=== PATIENT | male | born 1970 | race Caucasian/White ===

== ENCOUNTER 2023-07-19 14:50 | Outpatient (OUT) | payer BC, SELFPAY ==
--- NOTE | 2023-07-19 15:02 | XR_ITS ---
The [address] [address] Patient Name: CARLOS MOSELEY MRN: [id number] date: 1970 Sex: M Assigned Patient Location: RAD Current Patient Location: RAD Accession/Order Number: [id number] Exam Date: 07/19/2023 15:10 Report Date: 07/19/2023 15:41 At the request of: GREGOR DAVID Procedure: XR chest 2V PROCEDURE: XR chest 2V DATE: 07/19/2023 2:10 PM CDT COMPARISONS: Chest x-ray from 12/16/2022. CT of the chest 12/18/2022. CLINICAL INDICATION: 52 years Male ACUTE BRONCHITIS J20.8 FINDINGS: The heart is markedly enlarged. Poststernotomy changes are identified. There is diffuse increased interstitial markings throughout all lung crowder probably representing interstitial fluid possibly with some developing pulmonary edema. There is no definite pleural effusion. There is no evidence of pneumothorax. XR/XR chest 2V IMPRESSION: 1. Cardiomegaly 2. Probable pulmonary vascular congestion 3. History reports acute bronchitis. Some overlying interstitial inflammatory infiltrate is not excluded. Electronically authenticated by: KRAIG PATEL Date: 07/19/2023 15:41
== END 2023-07-19 14:51 | disposition home or self-care (01) ==
LOC: RAD 14:55
PROVIDERS: PCP Internal Medicine; Visit Provider Internal Medicine
DX: J20.8 Acute bronchitis due to other specified organisms (principal)
CPT/HCPCS: 71046

== ENCOUNTER 2023-11-15 08:06 | Outpatient (OUT) | payer BC, SELFPAY ==
--- NOTE | 2023-11-15 08:52 | CA_ITS ---
Patient Name: CARLOS MOSELEY MR#: [id number] : 1970 Exam Date: 11/15/2023 Ordering Doctor: KWABENA DE LA CRUZ ECHOCARDIOGRAM REPORT PROCEDURE: CA ECHO DOPPLER COMPLETE INDICATIONS: Paroxysmal atrial fibrillation, CABGx4, stents COMPARISON: None. DESCRIPTION: COMPLETE ECHOCARDIOGRAM Real-time transthoracic echocardiography with 2D, M-mode, spectral and color flow Doppler performed. QUALITY: Technically difficult due to patients condition. 55 , 300#, BSA 2.05 m2 LEFT VENTRICLE: Normal chamber size. Borderline left ventricular hypertrophy. LV EF: Global left ventricular systolic function is difficult to assess but appears preserved. Unable to assess regional wall motion abnormalities. Suggest contrast study for better delineation of endocardial borders. DIASTOLIC: Unable to be assessed due to underlying rhythm. ATRIAL SEPTUM: Inadequately seen. LEFT ATRIUM: Moderate dilatation. RIGHT ATRIUM: Inadequately visualized. RIGHT VENTRICLE: Inadequately visualized. TRICUSPID VALVE: Not well visualized. MITRAL VALVE: Normal mobility and thickness. There is no mitral annular calcification. AORTIC VALVE: Normal trileaflet appearance. No visible sclerosis. Normal leaflet mobility. AORTIC ROOT: Inadequately seen. PULMONIC VALVE: Normal thickness and mobility. No stenosis. No regurgitation. PERICARDIUM: No evidence of pericardial effusion. IVC: Not well visualized. CONCLUSION: Suboptimal study due to patient's body habitus. Global left ventricular systolic function is difficult to assess but appears preserved. Consider contrast study for better delineation of endocardial borders. Valvular structures are poorly seen. Adult Echocardiography Procedure Report Left Ventricle LVEDD (3.7 - 5.6 cm): 5.35 cm LVESD (2.2 - 4.0 cm): 3.39 cm LVIVS thickness (0.6 - 1.2 cm): 1.02 cm LVPW thickness (0.5 - 1.0 cm): 1.45 cm e': 0.06 m/s E - e': 9.89 LVOT Diameter 1.98 cm Left Atrium LA Volume Index (2D A2C): 45.77 ml/m2 Left Atrium Systolic Dimension: 5.22 cm Mitral Valve MV E to A Ratio: 2.26 Mitral Valve A-Wave Peak Velocity: 0.27 m/s Mitral Valve E-Wave Peak Velocity: 0.61 m/s Right Ventricle Aorta AO Root Diam: 2.85 cm Aortic Valve Peak Velocity(Antegrade Flow): 1.34 m/s Peak Gradient(Antegrade Flow): 7.14 mm[Hg] Mean Velocity(Antegrade Flow): 0.93 m/s Mean Gradient(Antegrade Flow): 3.88 mm[Hg] Velocity Time Integral: 27.48 cm Tricuspid Valve Pulmonic Valve Peak Velocity: 1.13 m/s Peak Gradient: 5.25 mm[Hg], 5.05 mm[Hg] Right Atrium Dictated by: Macario Crowder M.D. on 11/15/2023 at 09:48 Approved by: Macario Crowder M.D. on 11/15/2023 at 09:51
== END 2023-11-15 08:07 | disposition home or self-care (01) ==
LOC: CARD 08:07
PROVIDERS: PCP Internal Medicine; Visit Provider Nurse Practitioner
DX: I48.0 Paroxysmal atrial fibrillation (principal)
CPT/HCPCS: 93306

== ENCOUNTER 2023-12-08 15:06 | Outpatient (OUT) | payer BC, SELFPAY ==
--- OUTSIDE RECORDS SUMMARY | 2023-12-08 15:20 | XMS_ITS | CCD ---
Author Name Unknown Address [address] [place] [address] Organization [facility] Care Team Providers Care Registered Nurse [facility] Name Role Phone SIVAKUMAR PATEL Referring Unavailable JORGE, SIVAKUMAR Primary Care Unavailable UNKNOWN, PROVIDER Attending Unavailable UNKNOWN, PROVIDER Admitting Unavailable Jorge, Sivakumar Unavailable Asaad, Imad Unavailable JORGE, DR BUNDY Primary Care Unavailable JORGE, DR BUNDY Consulting Unavailable BALL, DR BUNDY Attending Unavailable JORGE, DR BUNDY Admitting Unavailable MATTEO, LILIAM Admitting Unavailable LILIAM FELPIE Attending Unavailable JORGE, DR BUNDY Primary Care Unavailable JORGE, DR BUNDY Primary Care Unavailable BALL, DR BUNDY Consulting Unavailable JORGE, DR BUNDY Attending Unavailable BALL, DR BUNDY Admitting Unavailable ROYCE, DR DEANN Rosario Consulting Unavailable JORGE, DR BUNDY Attending Unavailable JORGE, DR BUNDY Primary Care Unavailable JORGE, DR BUNDY Admitting Unavailable BALL, DR BUNDY Primary Care Unavailable BALL, DR BUNDY Attending Unavailable BALL, DR BUNDY Admitting Unavailable DELEON ., DR FAIZA Boyer Admitting Unavailable DELEON ., DR FAIZA Boyer Consulting Unavailable JORGE, DR BUNDY Primary Care Unavailable DELEON ., DR FAIZA Boyer Attending Unavailable PARISA ., DR BANGURA Procedure Practitioner Unavailab christina STORY, DR KARLOS Lawrence Consulting Unavailable HAY ., DR BANGURA Consulting Unavailable SAMSA ., ALEX Consulting Unavailable AHDOOT, KASHIF Consulting Unavailable FAWWAD, SHAIKH Marya Consulting Unavailable JENNIFER, CINDY Consulting Unavailable NEFCYKANDI Consulting Unavailable LOPES COLE Consulting Unavailable JORGE, DR BUNDY Primary Care Unavailable JORGE, DR BUNDY Attending Unavailable BALL, DR BUNDY Admitting Unavailable WEST, DR DEANN Rosario Consulting Unavailable LILIAM FELIPE Attending Unavailable LILIAM FELIPE Admitting Unavailable BALL, DR BUNDY Primary Care Unavailable MATTEO, LILIAM Consulting Unavailable LILIAM FELIPE Attending Unavailable MATTEO, LILIAM Admitting Unavailable LILIAM FELIPE Consulting Unavailable DR SIVAKUMAR PATEL Primary Care Unavailable DO Sivakumar Patel Primary Care Provider [phone] DO Sivakumar Patel Attending Provider Sivakumar Patel Attending Unavailable Sivakumar Patel Primary Care Unavailable Sivakumar Patel Admitting Unavailable Karen Giles Unavailable KWABENA DE LA CRUZ Attending Unavailable KWABENA DE LA CRUZ Attending Unavailable Allergies Allergy Classification Reported Allergen(s) Allergy Type Date of Onset Reaction(s) Facility Sulfonamides (antibiotic) (1 source) Sulfonamides (Antibiotic) Drug Allergy 04-04-20 13 [facility] (20 sources) Sulf-10 Drug allergy anaphylaxis, HIVES [facility] Other (2 sources) Sulfonamides (Antibiotic) Drug allergy (disorder) 03-26-20 13 [facility]ository (1 source) patient allergy list reviewed by nurse or physicia Propensity to adverse reactions 02-05-20 Comment:Done [facility] Other (1 source) Allergies Reconciled Propensity to adverse reactions Unknown [facility] Other (1 source) Substance with sulfonamide structure and antibacterial mechanism of action (substance) Drug allergy Unknown [facility] Other (1 source) Sulfonamides (Antibiotic); 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: [SULFA (SULFONAMIDE ANTIBIOTICS)] Propensity to adverse reactions to drug (disorder) 10-24-20 14 [facility] Medications Current Medications Medication Drug Class(es) Dates Sig (Normalized) Sig (Original) acetaminophen 325 mg / oxyCODONE hydrochloride 5 mg oral tablet (20 sources) Opioid Agonist Start: 11-03-2023 take 1 tablet by mouth every six hours as needed for pain Percocet 5-325 MG 1 tablet orally every 6 hours as needed for pain p/u 11/03, start 11/05Oct, Active Start: 10-05-2023 take 1 tablet by jorge th every six hours as needed for pain Percocet 5-325 MG 1 tablet orally every 6 hours as needed for pain for 30 days p/u 10/05, start 10/06Sep, Active Start: 09-06-2023 take 1 tablet by jorge th every six hours as needed for pain Percocet 5-325 MG 1 tablet orally every 6 hours as needed for pain for 30 days start 09/06Sep, Active Start: 08-07-2023 take 1 tablet by jorge th every six hours as needed for pain Percocet 5-325 MG 1 tablet orally every 6 hours as needed for pain for 30 days start 08/07Aug, Active Start: 07-04-2023 take 1 tablet by jorge th every six hours as needed for pain Percocet 5-325 MG 1 tablet orally every 6 hours as needed for pain for 30 days p/u 07/04, start 07/05Jun, Active Start: 06-03-2023 take 1 tablet by jorge th every six hours as needed for pain Percocet 5-325 MG 1 tablet orally every 6 hours as needed for pain for 30 days p/u 06/03, start 06/05May, Active Start: 05-05-2023 take 1 tablet by jorge th every six hours as needed for pain Percocet 5-325 MG 1 tablet orally every 6 hours as needed for pain for 30 days p/u 05/05, start 05/06Apr, Active Start: 04-05-2023 take 1 tablet by jorge th every six hours as needed for pain Percocet 5-325 MG 1 tablet orally every 6 hours as needed for pain for 30 days Start 04/06March, Active Start: 03-07-2023 take 1 tablet by jorge th every six hours as needed for pain Percocet 5-325 MG 1 tablet orally every 6 hours as needed for pain for 30 days p/u 5/, start 03/08March, Active Start: 02-06-2023 take 1 tablet by jorge th every six hours as needed for pain Percocet 5-325 MG 1 tablet orally every 6 hours as needed for pain for 30 days start 02/06Feb, Active Start: 01-06-2023 take 1 tablet by jorge th every six hours as needed for pain Percocet 5-325 MG 1 tablet orally every 6 hours as needed for pain for 30 days p/u 3/, start 01/07Jan, Active Start: 12-08-2022 take 1 tablet by jorge th every six hours as needed for pain Percocet 5-325 MG 1 tablet orally every 6 hours as needed for pain for 30 days Dec, Active [id number] actuat albuterol 0.09 mg/actuat metered dose inhaler (20 sources) beta2-Adrenergic Agonist Start: 02-16-2023 take 2 puff(s) by inhalation every four hours as needed for cough Albuterol Sulfate HFA 108 (90 Base) MCG/ACT 2 puffs Inhalation every 4 hrs as needed for cough, SOB Feb, Active Start: 02-16-2023 take 2 puff(s) by in halation every four hours as needed for cough Albuterol Sulfate HFA 108 (90 Base) MCG/ACT 2 puffs Inhalation every 4 hrs as needed for cough, SOB Feb, Active Start: 02-16-2023 take 2 puff(s) by in halation every four hours as needed for cough Albuterol Sulfate HFA 108 (90 Base) MCG/ACT 2 puffs Inhalation every 4 hrs as needed for cough, SOB Feb, Active take 1 puff(s) by in halation every four hours as needed Albuterol Sulfate HFA 108 (90 Base) MCG/ACT 1 puff as needed Inhalation every 4 hrs Active take 1 puff(s) by in halation every four hours as needed Albuterol Sulfate HFA 108 (90 Base) MCG/ACT 1 puff as needed Inhalation every 4 hrs Active ProAir HFA Activ e albuterol 0.833 mg/ml / ipratropium bromide 0.167 mg/ml inhalation solution (20 sources) Anticholinergic, beta2-Adrenergic Agonist Start: 02-16-2023 Ipratropium-Albuterol 0.5-2.5 (3) MG/3ML 3 mL as needed Inhalation twice daily and q 6 hours PRN cough, SOB Feb, Active amiodarone hydrochloride 200 mg oral tablet (20 sources) Antiarrhythmic take 1 tablet by mouth every twenty-fou r hours Amiodarone HCl 200 MG 1 tablet Orally Once a day Active amLODIPine 10 mg oral tablet (20 sources) Dihydropyridine Calcium Channel Karma take 1 tablet by mouth once daily amLODIPine Besylate 10 MG TAKE 1 TABLET BY MOUTH EVERY DAY Active amoxicillin 875 mg / clavulanate 125 mg oral tablet (7 sources) Penicillin-class Antibacterial Start: 07-12-2023 take 1 tablet by mouth every twelve hours Amoxicillin-Pot Clavulanate 875-125 MG 1 tablet Orally every 12 hrs for 5 days Jul, Active aspirin 81 mg oral tablet (20 sources) Platelet Aggregation Inhibitor, Nonsteroidal Anti-inflammatory Drug take 2 tablets by mouth once daily Aspir-Low 81 MG 2 tablets Orally Once a day Active Aspirin 162 MG O rally Not-Taking atorvastatin 80 mg oral tablet (20 sources) HMG-CoA Reductase Inhibitor take 1 tablet by mouth once daily in the evening Atorvastatin Calcium 80 MG TAKE 1 TABLET BY MOUTH EVERY DAY IN THE EVENING Active 60 actuat budesonide 0.08 mg/actuat / formoterol fumarate 0.0045 mg/actuat metered dose inhaler (16 sources) Corticosteroid, beta2-Adrenergic Agonist Start: 06-20-20 take 2 puff(s) by inhalation twice daily Symbicort 80-4.5 MCG/ACT 2 puffs Inhalation Twice a day Jun, Active Start: 06-20-2023 take 2 puff(s) by in halation twice daily Symbicort 80-4.5 MCG/ACT 2 puffs Inhalation Twice a day Jun, Active cefuroxime 500 mg oral tablet (18 sources) Cephalosporin Antibacterial Start: 08-22-2023 take 1 tablet by mouth every twelve hours Cefuroxime Axetil 500 MG 1 tablet Orally every 12 hrs for 5 days Aug, Active Start: 01-11-2023 take 1 tablet by jorge th every twelve hours Cefuroxime Axetil 500 MG 1 tablet Orally every 12 hrs for 5 days Jan, Active cetirizine hydrochloride 10 mg oral tablet (20 sources) Histamine-1 Receptor Antagonist Cetirizine HCl 10 MG Orally Active cyclobenzaprine hydrochloride 10 mg oral tablet (20 sources) Muscle Relaxant Start: take 1 tablet by mouth every eight hours Cyclobenzaprine HCl 10 MG 1 tablet as needed Orally Three times a day Jun, Active doxycycline hyclate 100 mg oral capsule (3 sources) Tetracycline-class Drug Start: take 1 capsule by mouth twice daily Doxycycline Hyclate 100 MG 1 capsule Orally twice daily for 5 days Aug, Active fluticasone propionate 0.05 mg/actuat metered dose nasal spray (20 sources) Corticosteroid take 1 spray(s) nasal route once daily Fluticasone Propionate 50 MCG/ACT 1 spray in each nostril Nasally Once a day Active take 1 spray(s) nasal route once daily Fluticasone Propionate 50 MCG/ACT 1 spray in each nostril Nasally Once a day Active take 1-2 spray(s) na naif route once daily at bedtime FLONASE 50 mcg 1-2 sprays each NOSTRIL Q HS Active furosemide 40 mg oral tablet (20 sources) Loop Diuretic take 1 tablet by mouth twice daily Furosemide 40 MG 1 tablet Orally twice daily Active take 4 tablets by mo uth every twenty-four hours Furosemide 40 MG 4 tablets Orally Once a day for 30 days Active Lasix Not-Taking Isosorbide (20 sources) Nitrate Vasodilator Imdur 60 MG Active levoFLOXacin 750 mg oral tablet (5 sources) Quinolone Antimicrobial Start: 07-12-20 take 1 tablet by mouth every twenty-four hours levoFLOXacin 750 MG 1 tablet Orally Once a day for 5 days Jul, Active lisinopril 20 mg oral tablet (20 sources) Angiotensin Converting Enzyme Inhibitor take 1 tablet by mouth twice daily Lisinopril 20 MG TAKE 1 TABLET BY MOUTH TWICE A DAY Active metoprolol tartrate 50 mg oral tablet (20 sources) beta-Adrenergic Karma take 1 tablet by mouth every twelve hours Metoprolol Tartrate 50 MG 1 tablet with food Orally Twice a day Active take 1 tablet by mouth twice karlos ly Metoprolol Tartrate 100 MG TAKE 1 TABLET BY MOUTH TWICE A DAY Active potassium chloride 10 meq extended release oral tablet (20 sources) take 1 tablet by jorge th once daily Potassium Chloride ER 10 MEQ TAKE 1 TABLET BY MOUTH EVERY DAY Active take 1 tablet by jorge th every twelve hours Potassium Chloride ER 10 MEQ 1 tablet wi th food Orally Twice a day Active predniSONE 20 mg oral tablet (9 sources) Start: 07-12-2023 take 1 tablet by mouth every twenty-four hours predniSONE 20 MG 1 tablet Orally Once a day for 5 days Aug, Active rivaroxaban (20 sources) Factor Xa Inhibitor Start: 11-28-2022 Xarelto 20 20 Once PO Daily Nov, Active take 1 tablet by jorge th every twenty-four hours Xarelto 20 MG 1 tablet with food Orally Once a day Active tiZANidine 4 mg oral tablet (20 sources) Central alpha-2 Adrenergic Agonist take 0.5 tablet by mouth every eight hours as needed for pain tiZANidine HCl 4 MG TAKE 1/2 TABLET BY MOUTH EVERY 8 HOURS NEEDED FOR PAIN *MAY CAUSE SEDATION* for 90 Active tiZANidine HCl N ot-Taking Vitamin B Complex (20 sources) Vitamin B Comple x Active Completed/Discontinued Medications Medication Drug Class(es) Dates Sig (Normalized) Sig (Original) cefTRIAXone (20 sources) Cephalosporin Antibacterial Start: 12-28-2018 Rocephin 500 mg Dec, 1000 mg clopidogrel (20 sources) P2Y12 Platelet Inhibitor Plavix Not-Taking Ketorolac (20 sources) Nonsteroidal Anti-inflammatory Drug, Cyclooxygenase Inhibitor Start: 06-13-2020 Toradol per 15 mg Jun, 30 mg Start: 09-20-2019 Toradol per 15 mg Sep, 30 mg Start: 08-02-2019 Toradol per 15 mg Jul, 30 mg methylPREDNISolone 4 mg oral tablet (20 sources) Corticosteroid Start: 06-13-2020 Medrol 4 MG as directed Orally for 6 days Jun, Not-Taking Triamcinolone (20 sources) Corticosteroid Start: 06-13-2020 KENALOG - 10 m g Jun, 40 mg Start: 09-20-2019 KENALOG - 10 m g Sep, 40 mg Start: 08-02-2019 Kenalog -40 mg Jul, 40 mg Problems Active Problems Problem Classification Problem Date Documented Date Episodic/Chronic Acute bronchitis (20 sources) Acute bronchitis; 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: [Acute bronchitis due to other specified organisms] Onset: 01-15-2015 Episodic Asthma (20 sources) Unspecified asthma with status asthmaticus; 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: [Uncomplicated asthma] Onset: 12-22-2014 Chronic Cardiac dysrhythmias (20 sources) Paroxysmal atrial fibrillation; 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: [Paroxysmal atrial fibrillation] Onset: 04-27-2015 Chronic Chronic obstructive pulmonary disease and bronchiectasis (18 sources) Chronic obstructive pulmonary disease with acute lower respiratory infection; 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: [Chronic obstructive pulmonary disease with (acute) lower respiratory infection] Resolved: 10-10-2022 Chronic Congestive heart failure; nonhypertensive (20 sources) Chronic systolic (congestive) heart failure; 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: [Chronic systolic heart failure] Onset: 01-17-2023 Chronic Coronary atherosclerosis and other heart disease (20 sources) Coronary arteriosclerosis; 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: [Atherosclerotic heart disease of [place] coronary artery without angina pectoris] Onset: 07-25-2022 Chronic Coronary atherosclerosis and other heart disease (1 source) Presence of aortocoronary bypass graft; 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: [PRESENCE AORTOCORONARY BYPASS GRAFT] Onset: 01-17-2023 Episodic Disorders of lipid metabolism (20 sources) Pure hypercholesterolemia; 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: [Familial hypercholesterolemia] Onset: 10-16-2015 Chronic Esophageal disorders (5 sources) Esophageal disorders; 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: [Gastro-esophageal reflux disease with esophagitis, without bleeding] Onset: 10-01-2018 Essential hypertension (20 sources) Essential hypertension; 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: [Essential (primary) hypertension] Chronic Fluid and electrolyte disorders (20 sources) Hypokalemia; 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: [Hypokalemia] Episodic Headache; including migraine (5 sources) Migraine with aura; 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: [Migraine with aura, not intractable, without status migrainosus] Onset: 03-30-2018 Chronic Heart valve disorders (1 source) Nonrheumatic mitral (valve) insufficiency; 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: [NONRHEUMATIC MITRAL INSUFFICIENCY] Onset: 07-08-2022 Chronic Hypertension with complications and secondary hypertension (1 source) Hypertensive heart disease with heart failure; 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: [HTN HEART DISEASE W/HEART FAIL] Onset: 01-17-2023 Chronic Immunizations and screening for infectious disease (5 sources) Vaccination given; 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: [Encounter for immunization] Episodic Nutritional deficiencies (1 source) Mild protein-calorie malnutrition; 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: [MILD PROTEIN-CALORIE MALNUTRITION] Onset: 01-17-2023 Chronic Osteoarthritis (20 sources) Bilateral arthritis of knees; 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: [Bilateral primary osteoarthritis of knee] Chronic Other aftercare (20 sources) Long-term current use of anticoagulant; 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: [correction (current) use of anticoagulants] Episodic Other aftercare (20 sources) Long-term current use of antibiotic; 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: [termite control servicer (current) use of antibiotics] Episodic Other aftercare (3 sources) termite control servicer (current) use of anticoagulants; 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: [SNF CURRNT USE ANTICOAGULANTS] Onset: 01-17-2023 Episodic Other aftercare (1 source) correction (current) use of aspirin; 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: [HOME APPLIANCES MECHANIC 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 ASPIRIN] Onset: 01-17-2023 Episodic Other aftercare (12 sources) Drug therapy finding; 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: [termite control servicer (current) use of anticoagulants] Episodic Other and unspecified benign neoplasm (5 sources) Benign neoplasm of colon; 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: [Benign neoplasm of colon, unspecified] Episodic Other congenital anomalies (5 sources) Achondroplasia; 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 Other connective tissue disease (20 sources) Artificial knee joint present; 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: [Presence of right artificial knee joint] Chronic Other diseases of veins and lymphatics (20 sources) Peripheral venous insufficiency; 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: [Venous insufficiency (chronic) (peripheral)] Onset: 06-12-2019 Episodic Other diseases of veins and lymphatics (5 sources) Venous insufficiency (chronic) (peripheral) Episodic Other ear and sense organ disorders (5 sources) Otitis externa of right ear; 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: [Unspecified otitis externa, right ear] Onset: 04-21-2016 Chronic Other eye disorders (1 source) Anisocoria; 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: [ANISOCORIA] Onset: 01-17-2023 Chronic Other fractures (5 sources) Closed fracture of multiple ribs; 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: [Closed fracture of multiple ribs, unspecified] Episodic Other hematologic conditions (20 sources) Secondary polycythemia; 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: [Secondary polycythemia] Onset: 02-16-2022 Episodic Other hematologic conditions (7 sources) Secondary polycythemia; 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: [SECONDARY POLYCYTHEMIA] Onset: 02-10-2022 Episodic Other lower respiratory disease (20 sources) Dyspnea on exertion; 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: [Other forms of dyspnea] Episodic Other lower respiratory disease (20 sources) Hypoxemia; 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: [Hypoxemia] Episodic Other lower respiratory disease (20 sources) Dyspnea; 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: [Shortness of breath] Episodic Other lower respiratory disease (20 sources) Restrictive lung disease; 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: [Other disorders of lung] Episodic Other lower respiratory disease (8 sources) Hypoxemia; 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: [HYPOXEMIA] Onset: 02-10-2022 Episodic Other lower respiratory disease (8 sources) Other disorders of lung; 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: [OTHER DISORDERS OF LUNG] Onset: 01-17-2023 Episodic Other lower respiratory disease (1 source) Shortness of breath Episodic Other lower respiratory disease (1 source) Shortness of breath; 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: [Shortness of breath] Onset: 03-01-2023 Episodic Other lower respiratory disease (1 source) Hemoptysis Episodic Other nervous system disorders (20 sources) Hypersensitivity finding; 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: [Desensitization to allergy shot] Episodic Other non-traumatic joint disorders (1 source) Lower limb joint arthritis; 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: [Osteoarthrosis, unspecified whether generalized or localized, lower leg] Onset: 03-07-2016 Chronic Other nutritional; endocrine; and metabolic disorders (20 sources) Morbid obesity; 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: [Morbid (severe) obesity due to excess calories] Chronic Other nutritional; endocrine; and metabolic disorders (20 sources) Extreme obesity with alveolar hypoventilation; 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: [Morbid (severe) obesity with alveolar hypoventilation] Chronic Other nutritional; endocrine; and metabolic disorders (20 sources) Obesity; 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: [Obesity, unspecified] Chronic Other nutritional; endocrine; and metabolic disorders (5 sources) Morbid (severe) obesity due to excess calories; 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: [MORBID SEVERE OBES D/T EXCESS AFUA] Onset: 01-17-2023 Chronic Other nutritional; endocrine; and metabolic disorders (1 source) Body mass index (BMI) 70 or greater, adult; 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: [BODY MASS INDEX 70/GT ADULT] Onset: 01-17-2023 Chronic Other nutritional; endocrine; and metabolic disorders (3 sources) Morbid (severe) obesity with alveolar hypoventilation Chronic Other nutritional; endocrine; and metabolic disorders (5 sources) Body mass index 40+ - severely obese; 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: [Body mass index (BMI) 60.0-69.9, adult] Onset: 05-17-2016 Chronic Other screening for suspected conditions (not mental disorders or infectious disease) (20 sources) Prostate specific antigen measurement; 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: [Encounter for screening for malignant neoplasm of prostate] Onset: 06-30-2017 Episodic Other upper respiratory disease (20 sources) Allergic rhinitis; 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: [Allergic rhinitis due to allergen] Chronic Otitis media and related conditions (5 sources) Chronic purulent otitis media; 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: [Unspecified chronic suppurative otitis media] Onset: 01-01-2018 Chronic Pulmonary heart disease (1 source) Chronic pulmonary heart disease; 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: [Other chronic pulmonary heart diseases] Chronic Residual codes; unclassified (20 sources) Obstructive sleep apnea syndrome; 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: [Obstructive sleep apnea (adult) (pediatric)] Chronic Residual codes; unclassified (5 sources) Obstructive sleep apnea (adult) (pediatric); 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: [OBSTRUCTIVE SLEEP APNEA] Onset: 01-17-2023 Chronic Respiratory failure; insufficiency; arrest (adult) (20 sources) Chronic respiratory failure; 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: [Chronic respiratory failure with hypoxia] Onset: 01-17-2023 Chronic Respiratory failure; insufficiency; arrest (adult) (1 source) Acute respiratory failure with hypoxia; 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: [ACUTE RESPIRATORY FAIL W/HYPOXIA] Onset: 01-17-2023 Episodic Screening and history of mental health and substance abuse codes (20 sources) History of tobacco use; 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: [Personal history of nicotine dependence] Onset: 01-17-2023 Episodic Spondylosis; intervertebral disc disorders; other back problems (20 sources) Lumbar spondylosis; 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: [Spondylosis without myelopathy or radiculopathy, lumbar region] Onset: 10-27-2015 Chronic Spondylosis; intervertebral disc disorders; other back problems (20 sources) Sciatica; 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: [Sciatica, right side] Onset: 10-27-2015 Episodic Unclassified (1 source) OTHER GENETIC CAUSES SHORT STATURE; 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: [OTHER GENETIC CAUSES SHORT STATURE] Onset: 01-17-2023 Unclassified (1 source) PERSONAL HISTORY OF COVID-19; 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: [PERSONAL HISTORY OF COVID-19] Onset: 01-17-2023 Unclassified (4 sources) Other persistent atrial fibrillation; 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: [OTHR PERSISTENT ATRIAL FIBRILLATION] Onset: 07-07-2022 Unclassified (5 sources) Drug monitoring done; 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: [Encounter for therapeutic drug monitoring] Onset: 01-28-2016 Unclassified (5 sources) Long-term current use of drug therapy; 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: [Long-term (current) use of other medications] Onset: 01-23-2015 Unclassified (5 sources) History of disease caused by Severe acute respiratory syndrome coronavirus 2 (situation); 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: [Personal history of COVID-19] Viral infection (4 sources) COVID-19; 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: [COVID-19] Onset: 12-10-2022 Past or Other Problems Problem Classification Problem Date Documented Date Episodic/Chronic Bacterial infection; unspecified site (1 source) Bacterial infectious disease; 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: [Bacterial infection, unspecified, in conditions classified elsewhere and of unspecified site] Onset: 12-13-2016 Episodic Cardiac dysrhythmias (10 sources) Palpitations; 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: [Palpitations] Onset: 04-24-2015 Episodic Joint disorders and dislocations; trauma-related (5 sources) Current tear of medial cartilage AND/OR meniscus of knee; 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: [Other tear of medial meniscus, current injury, right knee, initial encounter] Onset: 07-13-2016 Episodic Malaise and fatigue (5 sources) Malaise and fatigue; 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: [Other malaise and fatigue] Onset: 10-01-2018 Episodic Other aftercare (3 sources) Other salvage determiner (current) drug therapy; 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: [OTH SNF CURRENT DRUG THERAPY] Onset: 01-17-2023 Episodic Other aftercare (5 sources) High risk drug monitoring status; 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: [termite control servicer (current) use of opiate analgesic] Onset: 06-28-2018 Episodic Other circulatory disease (5 sources) Cardiovascular symptoms; 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: [Other symptoms involving cardiovascular system] Onset: 12-18-2013 Episodic Other connective tissue disease (1 source) Swelling of limb; 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: [Swelling of limb] Onset: 05-27-2019 Episodic Other ear and sense organ disorders (5 sources) Infective otitis externa; 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: [Diffuse otitis externa, right ear] Resolved: 10-10-2022 Episodic Other ear and sense organ disorders (5 sources) Otalgia; 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: [Otalgia, right ear] Onset: 02-14-2017 Episodic Other lower respiratory disease (4 sources) Dyspnea, unspecified; 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: [DYSPNEA UNSPECIFIED] Onset: 02-07-2022 Episodic Other lower respiratory disease (5 sources) Cough; 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: [Cough, unspecified] Onset: 12-22-2014 Episodic Other non-traumatic joint disorders (5 sources) Arthralgia of the lower leg; 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: [Pain in right knee] Onset: 07-13-2016 Episodic Other nutritional; endocrine; and metabolic disorders (5 sources) Abnormal weight gain; 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: [Abnormal weight gain] Onset: 10-16-2015 Episodic Other upper respiratory infections (10 sources) Acute maxillary sinusitis; 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: [Acute maxillary sinusitis, unspecified] Onset: 01-24-2014 Episodic Otitis media and related conditions (20 sources) Otitis media; 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: [Unspecified otitis media] Onset: 01-24-2014 Resolved: 07-26-2021 Episodic Pneumonia (except that caused by tuberculosis or sexually transmitted disease) (5 sources) Infective pneumonia; 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: [Pneumonia due to other specified infectious organisms] Onset: 02-04-2019 Episodic Pneumonia (except that caused by tuberculosis or sexually transmitted disease) (20 sources) Pneumonia (except that caused by tuberculosis or sexually transmitted disease); 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: [Pneumonia due to Coronavirus disease 2018] Onset: 01-17-2023 Residual codes; unclassified (5 sources) C/O - a back symptom; 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: [Other symptoms referable to back] Onset: 04-24-2017 Episodic Residual codes; unclassified (5 sources) Family history of malignant neoplasm of gastrointestinal tract; 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: [Family history of malignant neoplasm of digestive organs] Onset: 07-21-2014 Episodic Unclassified (20 sources) Immune system finding; 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: [Allergy desensitization therapy] Results Test Name Value Interpretation Reference Range Facility Office Visiton 10-06-2023 Follow-up visit [id number] Carlos Cheek Flex 1970 M Date Provider Department Center 10/06/2023 KWABENA FERNÁNDEZ Family History Problem Relation Age of Onset Coronary artery disease Maternal Grandfather Family Status - Relation Status Age at Maternal Grandfather Level of Service:62724 DE OFFICE/OUTPATIENT ESTABLISHED MOD MDM 30 MIN Normal [facility] Office Visiton 05-03-2023 Follow-up visit [id number] Carlos Cheek Flex 1970 M Date Provider Department Center 05/03/2023 KWABENA FERNÁNDEZ Family History Problem Relation Age of Onset Coronary artery disease Maternal Grandfather Family Status - Relation Status Age at Maternal Grandfather Level of Service:70811 DE OFFICE/OUTPATIENT ESTABLISHED MOD MDM 30-39 MIN Reason for Visit and Comments: Follow-up [540174] - 6 month Normal [facility] CBC AUTO DIFFon 12-21-2022 BASO # 0.0 103/ul Normal 0.0-0.1 [facility] Comment on above: Performed By: #### C BC #### [facility] [address] [address] [address] Cecille Bradley Basophils/100 WBC (Bld) 0.4 % Normal 0.2-2.0 [facility] Comment on above: Performed By: #### C BC #### [facility] [address] [address] [address] Cecille Bradley EO # 0.1 103/ul Normal 0.0-0.7 [facility] Comment on above: Performed By: #### C BC #### [facility] [address] [place] [address] Dr. Cecille Bradley Eosinophils/100 WBC (Bld) 1.3 % Normal 0.9-7.0 [facility] Comment on above: Performed By: #### C BC #### [facility] [address] [place] [address] Dr. Cecille Bradley Erythrocyte distribution width (RBC) [Ratio] 13.5 % Normal 11.0-15.0 [facility] Comment on above: Performed By: #### C BC #### [facility] [address] [place] [address] Dr. Cecille Bradley Hematocrit (Bld) [Volume fraction] 46.1 % Normal 42.0-54.0 [facility] Comment on above: Performed By: #### C BC #### [facility] [address] [place] [address] Dr. Cecille Bradley Hemoglobin (Bld) [Mass/Vol] 15.3 g/dL Normal 14.0-18.0 [facility] Comment on above: Performed By: #### C BC #### [facility] [address] [place] [address] Dr. Cecille Bradley IG # 0.06 10e3/ul Critically high 0.00-0.03 [facility] Comment on above: Performed By: #### C BC #### [facility] [address] [place] [address] Dr. Cecille Bradley IG % 0.7 % Critically high 0.0-0.5 [facility] Comment on above: Performed By: #### C BC #### [facility] [address] [place] [address] Dr. Cecille Bradley LYMPH # 1.2 103/ul Normal 1.2-3.8 [facility] Comment on above: Performed By: #### C BC #### [facility] [address] [address] [address] Cecille Bradley Lymphocytes/100 WBC (Bld) 14.4 % Critically low 20.5-60.0 [facility] Comment on above: Performed By: #### C BC #### [facility] [address] [address] [address] Cecille Bradley MANUAL DIFF REQ NO Normal [facility] Comment on above: Performed By: #### C BC #### [facility] [address] [place] [address] Dr. Cecille Bradley MCH (RBC) [Entitic mass] 32.1 pg Normal 25.9-34.0 [facility] Comment on above: Performed By: #### C BC #### [facility] [address] [place] [address] Dr. Cecille Bradley MCHC (RBC) [Mass/Vol] 33.2 g/dL Normal 29.9-35.2 [facility] Comment on above: Performed By: #### C BC #### [facility] [address] [place] [address] Dr. Cecille Bradley MCV (RBC) [Entitic vol] 96.6 fL Critically high 80.0-94.0 [facility] Comment on above: Performed By: #### C BC #### [facility] [address] [place] [address] Dr. Cecille Bradley MONO # 0.7 103/ul Normal 0.3-0.8 [facility] Comment on above: Performed By: #### C BC #### [facility] [address] [place] [address] Dr. Cecille Bradley Monocytes/100 WBC (Bld) 8.3 % Normal 1.7-12.0 [facility] Comment on above: Performed By: #### C BC #### [facility] [address] [place] [address] Dr. Cecille Bradley NEUT # 6.2 103/ul Normal 1.4-6.5 [facility] Comment on above: Performed By: #### C BC #### [facility] [address] [place] [address] Dr. Cecille Bradley Neutrophils/100 WBC (Bld) 74.9 % Normal 43.0-75.0 [facility] Comment on above: Performed By: #### C BC #### [facility] [address] [place] [address] Dr. Cecille Bradley Platelet mean volume (Bld) [Entitic vol] 10.7 fL Normal 9.5-13.5 [facility] Comment on above: Performed By: #### C BC #### [facility] [address] [place] [address] Dr. Cecille Bradley PLT 174 103/ul Normal 150-450 [facility] Comment on above: Performed By: #### C BC #### [facility] [address] [place] [address] Dr. Cecille Bradley RBC 4.77 106/ul Normal 4.70-6.10 [facility] Comment on above: Performed By: #### C BC #### [facility] [address] [place] [address] Dr. Cecille Bradley WBC 8.3 103/ul Normal 4.0-11.0 [facility] Comment on above: Performed By: #### C BC #### [facility] [address] [place] [address] Dr. Cecille Bradley PROF 14(COMP METB)on 023 Albumin [Mass/Vol] 2.8 g/dL Critically low 3.4-5.0 [facility] Comment on above: Performed By: #### C MP #### [facility] [address] [place] [address] Dr. Cecille Bradley Albumin/Globulin [Mass ratio] 0.8 {ratio} Normal [facility] Comment on above: Performed By: #### C MP #### [facility] [address] [place] [address] Dr. Cecille Bradley ALP [Catalytic activity/Vol] 61 U/L Normal 46-116 [facility] Comment on above: Performed By: #### C MP #### [facility] [address] [place] [address] Dr. Cecille Bradley ALT [Catalytic activity/Vol] 68 U/L Critically high 16-63 [facility] Comment on above: Performed By: #### C MP #### [facility] [address] [address] [address] Cecille Bradley Anion gap [Moles/Vol] 10.0 mmol/L Normal [facility] Comment on above: Performed By: #### C MP #### [facility] [address] [address] [address] Cecille Bradley AST [Catalytic activity/Vol] 29 U/L Normal 15-37 [facility] Comment on above: Performed By: #### C MP #### [facility] [address] [address] [address] Cecille Bradley Bilirubin [Mass/Vol] 1.3 mg/dL Critically high 0.2-1.0 [facility] Comment on above: Performed By: #### C MP #### [facility] [address] [address] [address] Cecille Bradley Calcium [Mass/Vol] 8.9 mg/dL Normal 8.5-10.1 [facility] Comment on above: Performed By: #### C MP #### [facility] [address] [address] [address] Cecille Bradley Chloride [Moles/Vol] 103 mmol/L Normal 98-107 [facility] Comment on above: Performed By: #### C MP #### [facility] [address] [address] [address] Cecille Bradley CO2 [Moles/Vol] 29.8 mmol/L Normal 21.0-32.0 [facility] Comment on above: Performed By: #### C MP #### [facility] [address] [address] [address] Cecille Bradley Creatinine [Mass/Vol] 0.58 mg/dL Critically low 0.70-1.30 [facility] Comment on above: Performed By: #### C MP #### [facility] [address] [address] [address] Cecille Bradley EGFR-AF WALLISIAN >60 Normal >=60 [facility] Comment on above: Performed By: #### C MP #### [facility] [address] [address] [address] Cecille Bradley EGFR-NON AF WALLISIAN >60 Normal >=60 [facility] Comment on above: Performed By: #### C MP #### [facility] [address] [address] [address] Cecille Bradley Globulin (S) [Mass/Vol] 3.3 g/dL Normal [facility] Comment on above: Performed By: #### C MP #### [facility] [address] [address] [address] Cecille Bradley Glucose [Mass/Vol] 95 mg/dL Normal 74-106 [facility] Comment on above: Performed By: #### C MP #### [facility] [address] [address] [address] Cecille Bradley Potassium [Moles/Vol] 3.8 mmol/L Normal 3.5-5.1 [facility] Comment on above: Performed By: #### C MP #### [facility] [address] [address] [address] Cecille Bradley Protein [Mass/Vol] 6.1 g/dL Critically low 6.4-8.2 [facility] Comment on above: Performed By: #### C MP #### [facility] [address] [address] [address] Cecille Bradley Sodium [Moles/Vol] 139 mmol/L Normal 136-145 [facility] Comment on above: Performed By: #### C MP #### [facility] [address] [address] [address] Cecille Bradley Urea nitrogen [Mass/Vol] 18.0 mg/dL Normal 7.0-18.0 [facility] Comment on above: Performed By: #### C MP #### [facility] [address] [address] [address] Cecille Bradley Urea nitrogen/Creatinine [Mass ratio] 31.0 mg/mg Normal [facility] Comment on above: Performed By: #### C MP #### [facility] [address] [address] [address] Cecille Bradley CBC AUTO DIFFon 12-20-2022 BASO # 0.0 103/ul Normal 0.0-0.1 [facility] Comment on above: Performed By: #### C BC #### [facility] [address] [place] [address] Dr. Cecille Bradley Basophils/100 WBC (Bld) 0.2 % Normal 0.2-2.0 [facility] Comment on above: Performed By: #### C BC #### [facility] [address] [place] [address] Dr. Cecille Bradley EO # 0.1 103/ul Normal 0.0-0.7 [facility] Comment on above: Performed By: #### C BC #### [facility] [address] [place] [address] Dr. Cecille Bradley Eosinophils/100 WBC (Bld) 1.2 % Normal 0.9-7.0 [facility] Comment on above: Performed By: #### C BC #### [facility] [address] [place] [address] Dr. Cecille Bradley Erythrocyte distribution width (RBC) [Ratio] 13.8 % Normal 11.0-15.0 [facility] Comment on above: Performed By: #### C BC #### [facility] [address] [place] [address] Dr. Cecille Bradley Hematocrit (Bld) [Volume fraction] 45.6 % Normal 42.0-54.0 [facility] Comment on above: Performed By: #### C BC #### [facility] [address] [place] [address] Dr. Cecille Bradley Hemoglobin (Bld) [Mass/Vol] 15.3 g/dL Normal 14.0-18.0 [facility] Comment on above: Performed By: #### C BC #### [facility] [address] [place] [address] Dr. Cecille Bradley IG # 0.04 10e3/ul Critically high 0.00-0.03 [facility] Comment on above: Performed By: #### C BC #### [facility] [address] [address] [address] Cecille Bradley IG % 0.4 % Normal 0.0-0.5 [facility] Comment on above: Performed By: #### C BC #### [facility] [address] [place] [address] Dr. Cecille Bradley LYMPH # 1.6 103/ul Normal 1.2-3.8 [facility] Comment on above: Performed By: #### C BC #### [facility] [address] [place] [address] Dr. Cecille Bradley Lymphocytes/100 WBC (Bld) 17.5 % Critically low 20.5-60.0 [facility] Comment on above: Performed By: #### C BC #### [facility] [address] [place] [address] Dr. Cecille Bradley MANUAL DIFF REQ NO Normal [facility] Comment on above: Performed By: #### C BC #### [facility] [address] [place] [address] Dr. Cecille Bradley MCH (RBC) [Entitic mass] 32.4 pg Normal 25.9-34.0 [facility] Comment on above: Performed By: #### C BC #### [facility] [address] [place] [address] Dr. Cecille Bradley MCHC (RBC) [Mass/Vol] 33.6 g/dL Normal 29.9-35.2 [facility] Comment on above: Performed By: #### C BC #### [facility] [address] [place] [address] Dr. Cecille Bradley MCV (RBC) [Entitic vol] 96.6 fL Critically high 80.0-94.0 [facility] Comment on above: Performed By: #### C BC #### [facility] [address] [place] [address] Dr. Cecille Bradley MONO # 0.8 103/ul Normal 0.3-0.8 [facility] Comment on above: Performed By: #### C BC #### [facility] [address] [place] [address] Dr. Cecille Bradley Monocytes/100 WBC (Bld) 9.3 % Normal 1.7-12.0 [facility] Comment on above: Performed By: #### C BC #### [facility] [address] [place] [address] Dr. Cecille Bradley NEUT # 6.4 103/ul Normal 1.4-6.5 [facility] Comment on above: Performed By: #### C BC #### [facility] [address] [place] [address] Dr. Cecille Bradley Neutrophils/100 WBC (Bld) 71.4 % Normal 43.0-75.0 [facility] Comment on above: Performed By: #### C BC #### [facility] [address] [place] [address] Dr. Cecille Bradley Platelet mean volume (Bld) [Entitic vol] 10.8 fL Normal 9.5-13.5 [facility] Comment on above: Performed By: #### C BC #### [facility] [address] [place] [address] Dr. Cecille Bradley PLT 181 103/ul Normal 150-450 [facility] Comment on above: Performed By: #### C BC #### [facility] [address] [place] [address] Dr. Cecille Bradley RBC 4.72 106/ul Normal 4.70-6.10 [facility] Comment on above: Performed By: #### C BC #### [facility] [address] [place] [address] Dr. Cecille Bradley WBC 9.0 103/ul Normal 4.0-11.0 [facility] Comment on above: Performed By: #### C BC #### [facility] [address] [place] [address] Dr. Cecille Bradley PROF 14(COMP METB)on 023 Albumin [Mass/Vol] 2.7 g/dL Critically low 3.4-5.0 [facility] Comment on above: Performed By: #### C BC #### [facility] [address] [place] [address] Dr. Cecille Bradley Albumin/Globulin [Mass ratio] 0.8 {ratio} Normal [facility] Comment on above: Performed By: #### C BC #### [facility] [address] [place] [address] Dr. Cecille Bradley ALP [Catalytic activity/Vol] 66 U/L Normal 46-116 [facility] Comment on above: Performed By: #### C BC #### [facility] [address] [place] [address] Dr. Cecille Bradley ALT [Catalytic activity/Vol] 46 U/L Normal 16-63 [facility] Comment on above: Performed By: #### C BC #### [facility] [address] [place] [address] Dr. Cecille Bradley Anion gap [Moles/Vol] 8.3 mmol/L Normal [facility] Comment on above: Performed By: #### C BC #### [facility] [address] [place] [address] Dr. Cecille Bradley AST [Catalytic activity/Vol] 27 U/L Normal 15-37 [facility] Comment on above: Performed By: #### C BC #### [facility] [address] [place] [address] Dr. Cecille Bradley Bilirubin [Mass/Vol] 1.2 mg/dL Critically high 0.2-1.0 [facility] Comment on above: Performed By: #### C BC #### [facility] [address] [place] [address] Dr. Cecille Bradley Calcium [Mass/Vol] 8.8 mg/dL Normal 8.5-10.1 [facility] Comment on above: Performed By: #### C BC #### [facility] [address] [place] [address] Dr. Cecille Bradley Chloride [Moles/Vol] 102 mmol/L Normal 98-107 [facility] Comment on above: Performed By: #### C BC #### [facility] [address] [place] [address] Dr. Cecille Bradley CO2 [Moles/Vol] 32.7 mmol/L Critically high 21.0-32.0 [facility] Comment on above: Performed By: #### C BC #### [facility] [address] [address] [address] Cecille Bradley Creatinine [Mass/Vol] 0.63 mg/dL Critically low 0.70-1.30 [facility] Comment on above: Performed By: #### C BC #### [facility] [address] [address] [address] Cecille Bradley EGFR-AF WALLISIAN >60 Normal >=60 [facility] Comment on above: Performed By: #### C BC #### [facility] [address] [address] [address] Cecille Bradley EGFR-NON AF WALLISIAN >60 Normal >=60 [facility] Comment on above: Performed By: #### C BC #### [facility] [address] [address] [address] Cecille Bradley Globulin (S) [Mass/Vol] 3.4 g/dL Normal [facility] Comment on above: Performed By: #### C BC #### [facility] [address] [address] [address] Cecille Bradley Glucose [Mass/Vol] 98 mg/dL Normal 74-106 [facility] Comment on above: Performed By: #### C BC #### [facility] [address] [address] [address] Cecille Bradley Potassium [Moles/Vol] 4.0 mmol/L Normal 3.5-5.1 [facility] Comment on above: Performed By: #### C BC #### [facility] [address] [address] [address] Cecille Bradley Protein [Mass/Vol] 6.1 g/dL Critically low 6.4-8.2 Th [facility] Comment on above: Performed By: #### C BC #### [facility] [address] [address] [address] Cecille Bradley Sodium [Moles/Vol] 139 mmol/L Normal 136-145 [facility] Comment on above: Performed By: #### C BC #### [facility] [address] [place] [address] Dr. Cecille Bradley Urea nitrogen [Mass/Vol] 19.0 mg/dL Critically high 7.0-18.0 [facility] Comment on above: Performed By: #### C BC #### [facility] [address] [place] [address] Dr. Cecille Bradley Urea nitrogen/Creatinine [Mass ratio] 30.2 mg/mg Normal [facility] Comment on above: Performed By: #### C BC #### [facility] [address] [place] [address] Dr. Cecille Bradley CBC AUTO DIFFon 12-19-2022 BASO # 0.0 103/ul Normal 0.0-0.1 [facility] Comment on above: Performed By: #### C BC #### [facility] [address] [place] [address] Dr. Cecille Bradley Basophils/100 WBC (Bld) 0.2 % Normal 0.2-2.0 [facility] Comment on above: Performed By: #### C BC #### [facility] [address] [place] [address] Dr. Cecille Bradley EO # 0.1 103/ul Normal 0.0-0.7 [facility] Comment on above: Performed By: #### C BC #### [facility] [address] [place] [address] Dr. Cecille Bradley Eosinophils/100 WBC (Bld) 1.1 % Normal 0.9-7.0 [facility] Comment on above: Performed By: #### C BC #### [facility] [address] [place] [address] Dr. Cecille Bradley Erythrocyte distribution width (RBC) [Ratio] 13.9 % Normal 11.0-15.0 [facility] Comment on above: Performed By: #### C BC #### [facility] Laboratory [address] [place] [address] Dr. Cecille Bradley Hematocrit (Bld) [Volume fraction] 48.5 % Normal 42.0-54.0 [facility] Comment on above: Performed By: #### C BC #### [facility] Laboratory [address] [address] [address] Cecille Bradley Hemoglobin (Bld) [Mass/Vol] 15.9 g/dL Normal 14.0-18.0 [facility] Comment on above: Performed By: #### C BC #### [facility] Laboratory [address] [address] [address] Cecille Bradley IG # 0.06 10e3/ul Critically high 0.00-0.03 [facility] Comment on above: Performed By: #### C BC #### [facility] Laboratory [address] [place] [address] Dr. Cecille Bradley IG % 0.6 % Critically high 0.0-0.5 [facility] Comment on above: Performed By: #### C BC #### [facility] Laboratory [address] [place] [address] Dr. Cecille Bradley LYMPH # 1.6 103/ul Normal 1.2-3.8 [facility] Comment on above: Performed By: #### C BC #### [facility] Laboratory [address] [place] [address] Dr. Cecille Bradley Lymphocytes/100 WBC (Bld) 16.9 % Critically low 20.5-60.0 [facility] Comment on above: Performed By: #### C BC #### [facility] Laboratory [address] [place] [address] Dr. Cecille Bradley MANUAL DIFF REQ NO Normal [facility] Comment on above: Performed By: #### C BC #### [facility] Laboratory [address] [place] [address] Dr. Cecille Bradley MCH (RBC) [Entitic mass] 31.6 pg Normal 25.9-34.0 [facility] Comment on above: Performed By: #### C BC #### [facility] Laboratory [address] [place] [address] Dr. Cecille Bradley MCHC (RBC) [Mass/Vol] 32.8 g/dL Normal 29.9-35.2 [facility] Comment on above: Performed By: #### C BC #### [facility] Laboratory [address] [address] [address] Cecille Bradley MCV (RBC) [Entitic vol] 96.4 fL Critically high 80.0-94.0 [facility] Comment on above: Performed By: #### C BC #### [facility] Laboratory [address] [address] [address] Cecille Bradley MONO # 0.9 103/ul Critically high 0.3-0.8 [facility] Comment on above: Performed By: #### C BC #### [facility] Laboratory [address] [address] [address] Cecille Bradley Monocytes/100 WBC (Bld) 9.5 % Normal 1.7-12.0 [facility] Comment on above: Performed By: #### C BC #### [facility] Laboratory [address] [address] [address] Cecille Bradley NEUT # 7.0 103/ul Critically high 1.4-6.5 [facility] Comment on above: Performed By: #### C BC #### [facility] Laboratory [address] [address] [address] Cecille Bradley Neutrophils/100 WBC (Bld) 71.7 % Normal 43.0-75.0 [facility] Comment on above: Performed By: #### C BC #### [facility] Laboratory [address] [address] [address] Cecille Bradley Platelet mean volume (Bld) [Entitic vol] 10.6 fL Normal 9.5-13.5 [facility] Comment on above: Performed By: #### C BC #### [facility] Laboratory [address] [address] [address] Cecille Bradley PLT 197 103/ul Normal 150-450 [facility] Comment on above: Performed By: #### C BC #### [facility] Laboratory [address] [address] [address] Cecille Bradley RBC 5.03 106/ul Normal 4.70-6.10 [facility] Comment on above: Performed By: #### C BC #### [facility] [address] [place], [place] [address] Dr. Cecille Bradley WBC 9.7 103/ul Normal 4.0-11.0 [facility] Comment on above: Performed By: #### C BC #### [facility] [address] [place], [place] [address] Dr. Cecille Bradley CTA CHEST WO W CONon 023 CTA CHEST WO W CON CTA CHEST WO W CON: 12/18/2022 10:17 AM EST CLINICAL HISTORY: 52 years old Male with SHORTNESS OF BREATH. Respiratory failure. Covid. TECHNIQUE: CTA CHEST WO W CON was performed with axial CT images through the thorax as well as sagittal and coronal reformations also obtained after intravenous administration of contrast. Dose reduction techniques were achieved by using automated exposure control and/or adjustment of mA and/or kV according to patient size and/or use of iterative reconstruction technique. COMPARISON: CT thorax 10/01/2018. FINDINGS: The pulmonary arteries are well opacified with no evidence of filling defect to suggest pulmonary embolism. The thoracic aorta is normal in course and caliber without aneurysm. The heart is enlarged without pericardial effusion. Coronary artery calcifications and/or stents are present with sternotomy wires and CABG postsurgical change. There are no enlarged mediastinal lymph nodes. The tracheobronchial tree is patent. Patchy perihilar groundglass attenuations are present as well as dependent atelectasis and infiltrate with air bronchogram at the lower lobes. No pleural effusion. There is no pneumothorax. The visualized portion of the upper abdomen is grossly unremarkable. Severe degenerative change of the shoulders greater on the right. No acute compression fracture deformity or suspicious osseous abnormality. IMPRESSION: 1. No pulmonary embolus identified. 2. Perihilar groundglass infiltrates and lower lobe consolidations possible pulmonary edema and atelectasis versus multifocal pneumonia. 3. Cardiomegaly and CABG postsurgical change. Electronically authenticated by: CINDY RODRIGUEZ Date: 2022-12-19 03:21 Normal [facility] PROF 14(COMP METB)on 023 Albumin [Mass/Vol] 3.0 g/dL Critically low 3.4-5.0 [facility] Comment on above: Performed By: #### C BC #### [facility] Laboratory [address] [place] [address] Dr. Cecille Bradley Albumin/Globulin [Mass ratio] 0.9 {ratio} Normal [facility] Comment on above: Performed By: #### C BC #### [facility] Laboratory [address] [place] [address] Dr. Cecille Bradley ALP [Catalytic activity/Vol] 61 U/L Normal 46-116 [facility] Comment on above: Performed By: #### C BC #### [facility] Laboratory [address] [place] [address] Dr. Cecille Bradley ALT [Catalytic activity/Vol] 38 U/L Normal 16-63 [facility] Comment on above: Performed By: #### C BC #### [facility] Laboratory [address] [place] [address] Dr. Cecille Bradley Anion gap [Moles/Vol] 7.8 mmol/L Normal [facility] Comment on above: Performed By: #### C BC #### [facility] Laboratory [address] [place] [address] Dr. Cecille Bradley AST [Catalytic activity/Vol] 21 U/L Normal 15-37 [facility] Comment on above: Performed By: #### C BC #### [facility] Laboratory [address] [place] [address] Dr. Cecille Bradley Bilirubin [Mass/Vol] 1.4 mg/dL Critically high 0.2-1.0 [facility] Comment on above: Performed By: #### C BC #### [facility] Laboratory [address] [place] [address] Dr. Cecille Bradley Calcium [Mass/Vol] 9.0 mg/dL Normal 8.5-10.1 [facility] Comment on above: Performed By: #### C BC #### [facility] Laboratory [address] [place] [address] Dr. Cecille Bradley Chloride [Moles/Vol] 105 mmol/L Normal 98-107 [facility] Comment on above: Performed By: #### C BC #### [facility] Laboratory [address] [place] [address] Dr. Cecille Bradley CO2 [Moles/Vol] 32.2 mmol/L Critically high 21.0-32.0 [facility] Comment on above: Performed By: #### C BC #### [facility] Laboratory [address] [address] [address] Cecille Bradley Creatinine [Mass/Vol] 0.59 mg/dL Critically low 0.70-1.30 [facility] Comment on above: Performed By: #### C BC #### [facility] Laboratory [address] [address] [address] Cecille Bradley EGFR-AF WALLISIAN >60 Normal >=60 [facility] Comment on above: Performed By: #### C BC #### [facility] Laboratory [address] [place] [address] Dr. Cecille Bradley EGFR-NON AF WALLISIAN >60 Normal >=60 [facility] Comment on above: Performed By: #### C BC #### [facility] [address] [place] [address] Dr. Cecille Bradley Globulin (S) [Mass/Vol] 3.3 g/dL Normal [facility] Comment on above: Performed By: #### C BC #### [facility] Laboratory [address] [address] [address] Cecille Bradley Glucose [Mass/Vol] 88 mg/dL Normal 74-106 [facility] Comment on above: Performed By: #### C BC #### [facility] [address] [place] [address] Dr. Cecille Bradley Potassium [Moles/Vol] 4.0 mmol/L Normal 3.5-5.1 [facility] Comment on above: Performed By: #### C BC #### [facility] Laboratory [address] [address] [address] Cecille Bradley Protein [Mass/Vol] 6.3 g/dL Critically low 6.4-8.2 [facility] Comment on above: Performed By: #### C BC #### [facility] Laboratory [address] [place] [address] Dr. Cecille Bradley Sodium [Moles/Vol] 141 mmol/L Normal 136-145 [facility] Comment on above: Performed By: #### C BC #### [facility] [address] [address] [address] Cecille Bradley Urea nitrogen [Mass/Vol] 17.0 mg/dL Normal 7.0-18.0 [facility] Comment on above: Performed By: #### C BC #### [facility] [address] [address] [address] Cecille Bradley Urea nitrogen/Creatinine [Mass ratio] 28.8 mg/mg Normal [facility] Comment on above: Performed By: #### C BC #### [facility] Laboratory [address] [place] [address] Dr. Cecille Bradley CBC AUTO DIFFon 12-18-2022 BASO # 0.0 103/ul Normal 0.0-0.1 [facility] Comment on above: Performed By: #### C MP #### [facility] Laboratory [address] [place] [address] Dr. Cecille Bradley Basophils/100 WBC (Bld) 0.3 % Normal 0.2-2.0 [facility] Comment on above: Performed By: #### C MP #### [facility] Laboratory [address] [place] [address] Dr. Cecille Bradley EO # 0.1 103/ul Normal 0.0-0.7 [facility] Comment on above: Performed By: #### C MP #### [facility] Laboratory [address] [place] [address] Dr. Cecille Bradley Eosinophils/100 WBC (Bld) 1.1 % Normal 0.9-7.0 [facility] Comment on above: Performed By: #### C MP #### [facility] Laboratory [address] [place] [address] Dr. Cecille Bradley Erythrocyte distribution width (RBC) [Ratio] 14.0 % Normal 11.0-15.0 [facility] Comment on above: Performed By: #### C MP #### [facility] Laboratory [address] [place] [address] Dr. Cecille Bradley Hematocrit (Bld) [Volume fraction] 46.1 % Normal 42.0-54.0 [facility] Comment on above: Performed By: #### C MP #### [facility] Laboratory [address] [address] [address] Cecille Bradley Hemoglobin (Bld) [Mass/Vol] 15.2 g/dL Normal 14.0-18.0 [facility] Comment on above: Performed By: #### C MP #### [facility] [address] [address] [address] Cecille Bradley IG # 0.04 10e3/ul Critically high 0.00-0.03 [facility] Comment on above: Performed By: #### C MP #### [facility] [address] [address] [address] Cecille Bradley IG % 0.4 % Normal 0.0-0.5 [facility] Comment on above: Performed By: #### C MP #### [facility] [address] [address] [address] Cecille Bradley LYMPH # 1.5 103/ul Normal 1.2-3.8 [facility] Comment on above: Performed By: #### C MP #### [facility] [address] [address] [address] Cecille Bradley Lymphocytes/100 WBC (Bld) 16.5 % Critically low 20.5-60.0 [facility] Comment on above: Performed By: #### C MP #### [facility] Laboratory [address] [address] [address] Cecille Bradley MANUAL DIFF REQ NO Normal [facility] Comment on above: Performed By: #### C MP #### [facility] [address] [address] [address] Cecille Bradley MCH (RBC) [Entitic mass] 32.1 pg Normal 25.9-34.0 [facility] Comment on above: Performed By: #### C MP #### [facility] [address] [address] [address] Cecille Bradley MCHC (RBC) [Mass/Vol] 33.0 g/dL Normal 29.9-35.2 [facility] Comment on above: Performed By: #### C MP #### [facility] [address] [address] [address] Cecille Bradley MCV (RBC) [Entitic vol] 97.5 fL Critically high 80.0-94.0 [facility] Comment on above: Performed By: #### C MP #### [facility] [address] [address] [address] Cecille Bradley MONO # 0.8 103/ul Normal 0.3-0.8 [facility] Comment on above: Performed By: #### C MP #### [facility] [address] [address] [address] Cecille Bradley Monocytes/100 WBC (Bld) 8.9 % Normal 1.7-12.0 [facility] Comment on above: Performed By: #### C MP #### [facility] [address] [address] [address] Cecille Bradley NEUT # 6.7 103/ul Critically high 1.4-6.5 [facility] Comment on above: Performed By: #### C MP #### [facility] [address] [address] [address] Cecille Bradley Neutrophils/100 WBC (Bld) 72.8 % Normal 43.0-75.0 [facility] Comment on above: Performed By: #### C MP #### [facility] Laboratory [address] [address] [address] Cecille Bradley Platelet mean volume (Bld) [Entitic vol] 10.6 fL Normal 9.5-13.5 [facility] Comment on above: Performed By: #### C MP #### [facility] [address] [address] [address] Cecille Bradley PLT 169 103/ul Normal 150-450 [facility] Comment on above: Performed By: #### C MP #### [facility] Laboratory [address] [address] [address] Cecille Bradley RBC 4.73 106/ul Normal 4.70-6.10 [facility] Comment on above: Performed By: #### C MP #### [facility] Laboratory [address] [place] [address] Dr. Cecille Bradley WBC 9.2 103/ul Normal 4.0-11.0 [facility] Comment on above: Performed By: #### C MP #### [facility] Laboratory [address] [place] [address] Dr. Cecille Bradley PROF 14(COMP METB)on 023 Albumin [Mass/Vol] 2.7 g/dL Critically low 3.4-5.0 Th e [facility] Comment on above: Performed By: #### C BC #### [facility] Laboratory [address] [place] [address] Dr. Cecille Bradley Albumin/Globulin [Mass ratio] 0.9 {ratio} Normal [facility] Comment on above: Performed By: #### C BC #### [facility] Laboratory [address] [place] [address] Dr. Cecille Bradley ALP [Catalytic activity/Vol] 57 U/L Normal 46-116 [facility] Comment on above: Performed By: #### C BC #### [facility] Laboratory [address] [place] [address] Dr. Cecille Bradley ALT [Catalytic activity/Vol] 35 U/L Normal 16-63 [facility] Comment on above: Performed By: #### C BC #### [facility] Laboratory [address] [place] [address] Dr. Cecille Bradley Anion gap [Moles/Vol] 10.5 mmol/L Normal [facility] Comment on above: Performed By: #### C BC #### [facility] Laboratory [address] [place] [address] Dr. Cecille Bradley AST [Catalytic activity/Vol] 21 U/L Normal 15-37 [facility] Comment on above: Performed By: #### C BC #### [facility] Laboratory [address] [place] [address] Dr. Cecille Bradley Bilirubin [Mass/Vol] 1.5 mg/dL Critically high 0.2-1.0 [facility] Comment on above: Performed By: #### C BC #### [facility] Laboratory [address] [place] [address] Dr. Cecille Bradley Calcium [Mass/Vol] 8.8 mg/dL Normal 8.5-10.1 [facility] Comment on above: Performed By: #### C BC #### [facility] Laboratory [address] [place] [address] Dr. Cecille Bradley Chloride [Moles/Vol] 105 mmol/L Normal 98-107 [facility] Comment on above: Performed By: #### C BC #### [facility] Laboratory [address] [address] [address] Cecille Bradley CO2 [Moles/Vol] 30.4 mmol/L Normal 21.0-32.0 [facility] Comment on above: Performed By: #### C BC #### [facility] Laboratory [address] [place] [address] Dr. Cecille Bradley Creatinine [Mass/Vol] 0.61 mg/dL Critically low 0.70-1.30 [facility] Comment on above: Performed By: #### C BC #### [facility] Laboratory [address] [place] [address] Dr. Cecille Bradley EGFR-AF WALLISIAN >60 Normal >=60 [facility] Comment on above: Performed By: #### C BC #### [facility] [address] [place] [address] Dr. Cecille Bradley EGFR-NON AF WALLISIAN >60 Normal >=60 [facility] Comment on above: Performed By: #### C BC #### [facility] Laboratory [address] [place] [address] Dr. Cecille Bradley Globulin (S) [Mass/Vol] 3.1 g/dL Normal [facility] Comment on above: Performed By: #### C BC #### [facility] [address] [address] [address] Cecille Bradley Glucose [Mass/Vol] 92 mg/dL Normal 74-106 [facility] Comment on above: Performed By: #### C BC #### [facility] [address] [address] [address] Cecille Bradley Potassium [Moles/Vol] 3.9 mmol/L Normal 3.5-5.1 [facility] Comment on above: Performed By: #### C BC #### [facility] Laboratory [address] [place] [address] Dr. Cecille Bradley Protein [Mass/Vol] 5.8 g/dL Critically low 6.4-8.2 Th e [facility] Comment on above: Performed By: #### C BC #### [facility] Laboratory [address] [place] [address] Dr. Cecille Bradley Sodium [Moles/Vol] 142 mmol/L Normal 136-145 [facility] Comment on above: Performed By: #### C BC #### [facility] Laboratory [address] [place] [address] Dr. Cecille Bradley Urea nitrogen [Mass/Vol] 19.0 mg/dL Critically high 7.0-18.0 [facility] Comment on above: Performed By: #### C BC #### [facility] [address] [place] [address] Dr. Cecille Bradley Urea nitrogen/Creatinine [Mass ratio] 31.1 mg/mg Normal [facility] Comment on above: Performed By: #### C BC #### [facility] [address] [place] [address] Dr. Cecille Bradley BNPon 12-17-2022 Natriuretic peptide B (Bld) [Mass/Vol] 640.0 pg/mL Normal <=900.0 [facility] Comment on above: Performed By: #### C BC #### [facility] Laboratory [address] [place] [address] Dr. Cecille Brdaley CBC AUTO DIFFon 12-17-2022 BASO # 0.0 103/ul Normal 0.0-0.1 [facility] Comment on above: Performed By: #### C BC #### [facility] [address] [place] [address] Dr. Cecille Bradley Basophils/100 WBC (Bld) 0.2 % Normal 0.2-2.0 [facility] Comment on above: Performed By: #### C BC #### [facility] [address] [place] [address] Dr. Cecille Bradley EO # 0.2 103/ul Normal 0.0-0.7 [facility] Comment on above: Performed By: #### C BC #### [facility] [address] [place] [address] Dr. Cecille Bradley Eosinophils/100 WBC (Bld) 1.8 % Normal 0.9-7.0 [facility] Comment on above: Performed By: #### C BC #### [facility] [address] [place] [address] Dr. Cecille Bradley Erythrocyte distribution width (RBC) [Ratio] 14.1 % Normal 11.0-15.0 [facility] Comment on above: Performed By: #### C BC #### [facility] Laboratory [address] [place] [address] Dr. Cecille Bradley Hematocrit (Bld) [Volume fraction] 48.8 % Normal 42.0-54.0 [facility] Comment on above: Performed By: #### C BC #### [facility] Laboratory [address] [place] [address] Dr. Cecille Bradley Hemoglobin (Bld) [Mass/Vol] 16.0 g/dL Normal 14.0-18.0 [facility] Comment on above: Performed By: #### C BC #### [facility] Laboratory [address] [place] [address] Dr. Cecille Brdaley IG # 0.05 10e3/ul Critically high 0.00-0.03 [facility] Comment on above: Performed By: #### C BC #### [facility] Laboratory [address] [place] [address] Dr. Cecille Bradley IG % 0.6 % Critically high 0.0-0.5 [facility] Comment on above: Performed By: #### C BC #### [facility] Laboratory [address] [place] [address] Dr. Cecille Bradley LYMPH # 1.3 103/ul Normal 1.2-3.8 [facility] Comment on above: Performed By: #### C BC #### [facility] Laboratory [address] [place] [address] Dr. Cecille Bradley Lymphocytes/100 WBC (Bld) 16.0 % Critically low 20.5-60.0 [facility] Comment on above: Performed By: #### C BC #### [facility] Laboratory [address] [place] [address] Dr. Cecille Bradley MANUAL DIFF REQ NO Normal [facility] Comment on above: Performed By: #### C BC #### [facility] Laboratory [address] [place] [address] Dr. Cecille Bradley MCH (RBC) [Entitic mass] 31.9 pg Normal 25.9-34.0 [facility] Comment on above: Performed By: #### C BC #### [facility] [address] [place] [address] Dr. Cecille Bradley MCHC (RBC) [Mass/Vol] 32.8 g/dL Normal 29.9-35.2 [facility] Comment on above: Performed By: #### C BC #### [facility] [address] [place] [address] Dr. Cecille Bradley MCV (RBC) [Entitic vol] 97.2 fL Critically high 80.0-94.0 [facility] Comment on above: Performed By: #### C BC #### [facility] [address] [place] [address] Dr. Cecille Bradley MONO # 0.8 103/ul Normal 0.3-0.8 [facility] Comment on above: Performed By: #### C BC #### [facility] [address] [place] [address] Dr. Cecille Bradley Monocytes/100 WBC (Bld) 9.4 % Normal 1.7-12.0 [facility] Comment on above: Performed By: #### C BC #### [facility] [address] [place] [address] Dr. Cecille Bradley NEUT # 6.0 103/ul Normal 1.4-6.5 [facility] Comment on above: Performed By: #### C BC #### [facility] [address] [place] [address] Dr. Cecille Bradley Neutrophils/100 WBC (Bld) 72.0 % Normal 43.0-75.0 [facility] Comment on above: Performed By: #### C BC #### [facility] [address] [place] [address] Dr. Cecille Bradley Platelet mean volume (Bld) [Entitic vol] 10.5 fL Normal 9.5-13.5 [facility] Comment on above: Performed By: #### C BC #### [facility] [address] [place] [address] Dr. Cecille Bradley PLT 170 103/ul Normal 150-450 [facility] Comment on above: Performed By: #### C BC #### [facility] [address] [place] [address] Dr. Cecille Bradley RBC 5.02 106/ul Normal 4.70-6.10 [facility] Comment on above: Performed By: #### C BC #### [facility] [address] [place] [address] Dr. Cecille Bradley WBC 8.3 103/ul Normal 4.0-11.0 [facility] Comment on above: Performed By: #### C BC #### [facility] [address] [place] [address] Dr. Cecille Bradley CULTURE SPUTUMon 12-17-2022 CULTURE SPUTUM Isolate 1 Shirley albicans Light growth of Normal [facility] Comment on above: Performed By: #### C BC #### [facility] [address] [place] [address] Dr. Cecille Bradley [facility] SARS-CoV-2 (COVID-19) RNA YUDELKA+probe Ql (Unsp spec) Not detected Normal NOT DETECTED [facility] Comment on above: Result Comment: When diagnostic testing is negative, the possibility of a false negative should be considered in the context of a patient's recent exposures and the presence of clinical signs and symptoms consistent with SARS-CoV-2. This test is not yet approved or cleared by the [place] FDA. When there are no FDA-approved or cleared tests available, and other criteria are met, FDA can make tests available under an emergency access mechanism called an Emergency Use Authorization (EUA). The EUA for this test is supported by the [place] of Health and Human Service's declaration that circumstances exist to justify the emergency use of in vitro diagnostics for the detection and/or diagnosis of the virus that causes COVID-19. This EUA will remain in effect for the duration of the COVID-19 declaration justifying emergency of IVDs, unless it is terminated or revoked by the FDA (after which the test may no longer be used). Performed By: #### C MP #### [facility] [address] [place] [address] Dr. Cecille Bradley D-DIMERon 12-17-2022 D-DIMER 0.27 mg/L FEU Normal <=0.59 [facility] Comment on above: Performed By: #### C BC #### [facility] [address] [place] [address] Dr. Cecille Bradley D-DIMER COMMENTS SEE BELOW Normal [facility] Comment on above: Result Comment: Incr eases in D-Dimer concentration observed with thromboembolic events can be variable due to localization, size, and age of the thrombus. Therefore, a thromboembolic event cannot be diagnosed with certainty on the basis of the reference range. D-Dimers may also be elevated for a variety of disorders including: advanced age, , coronary disease, cancer, liver disease, infection, inflammation, hematoma, DIC, trauma, post-surgery, diabetes, thrombolytic or anticoagulant therapy, stress, and generalized hospitalization. Performed By: #### C BC #### [facility] [address] [place] [address] Dr. Cecille Bradley DIGOXINon 12-17-2022 DIG 0.4 ng/mL Critically low 0.9-2.0 [facility] Comment on above: Performed By: #### C VDTBH #### [facility] [address] [place] [address] Dr. Cecille Bradley GLYCOHEMOGLOBIN A1Con 2022 ADA RECOMMENDATION SEE BELOW Normal [facility] Comment on above: Result Comment: ADA RECOMMENDED LIMIT 4.0 - 6.0 ADA THERAPEUTIC TARGET < 7.0 ACTION SUGGESTED > 7.0 Performed By: #### A 1C #### [facility] [address] [address] [address] Cecille Bradley Glucose [Mass/Vol] 114 mg/dL Normal [facility] Comment on above: Performed By: #### A 1C #### [facility] [address] [place] [address] Dr. Cecille Bradley HbA1c (Bld) [Mass fraction] 5.6 % Normal 4.5-6.2 [facility] Comment on above: Performed By: #### A 1C #### [facility] [address] [place] [address] Dr. Cecille Bradley MAGNESIUMon 12-17-2022 Magnesium [Mass/Vol] 2.2 mg/dL Normal 1.8-2.4 [facility] Comment on above: Performed By: #### C BC #### [facility] [address] [place] [address] Dr. Cecille Bradley PROF 14(COMP METB)on 023 Albumin [Mass/Vol] 2.8 g/dL Critically low 3.4-5.0 [facility] Comment on above: Performed By: #### C BC #### [facility] [address] [place] [address] Dr. Cecille Bradley Albumin/Globulin [Mass ratio] 0.9 {ratio} Normal [facility] Comment on above: Performed By: #### C BC #### [facility] [address] [place] [address] Dr. Cecille Bradley ALP [Catalytic activity/Vol] 60 U/L Normal 46-116 [facility] Comment on above: Performed By: #### C BC #### [facility] [address] [place] [address] Dr. Cecille Bradley ALT [Catalytic activity/Vol] 34 U/L Normal 16-63 [facility] Comment on above: Performed By: #### C BC #### [facility] [address] [place] [address] Dr. Cecille Bradley Anion gap [Moles/Vol] 11.5 mmol/L Normal [facility] Comment on above: Performed By: #### C BC #### [facility] [address] [address] [address] Cecille Bradley AST [Catalytic activity/Vol] 18 U/L Normal 15-37 [facility] Comment on above: Performed By: #### C BC #### [facility] [address] [place] [address] Dr. Cecille Bradley Bilirubin [Mass/Vol] 1.9 mg/dL Critically high 0.2-1.0 [facility] Comment on above: Performed By: #### C BC #### [facility] [address] [place] [address] Dr. Cecille Bradley Calcium [Mass/Vol] 8.6 mg/dL Normal 8.5-10.1 [facility] Comment on above: Performed By: #### C BC #### [facility] [address] [place] [address] Dr. Cecille Bradley Chloride [Moles/Vol] 104 mmol/L Normal 98-107 [facility] Comment on above: Performed By: #### C BC #### [facility] [address] [place] [address] Dr. Cecille Bradley CO2 [Moles/Vol] 31.5 mmol/L Normal 21.0-32.0 [facility] Comment on above: Performed By: #### C BC #### [facility] [address] [place] [address] Dr. Cecille Bradley Creatinine [Mass/Vol] 0.61 mg/dL Critically low 0.70-1.30 [facility] Comment on above: Performed By: #### C BC #### [facility] [address] [place] [address] Dr. Cecille Bradley EGFR-AF WALLISIAN >60 Normal >=60 [facility] Comment on above: Performed By: #### C BC #### [facility] [address] [place] [address] Dr. Cecille Bradley EGFR-NON AF WALLISIAN >60 Normal >=60 [facility] Comment on above: Performed By: #### C BC #### [facility] [address] [place] [address] Dr. Cecille Bradley Globulin (S) [Mass/Vol] 3.2 g/dL Normal [facility] Comment on above: Performed By: #### C BC #### [facility] [address] [address] [address] Cecille Bardley Glucose [Mass/Vol] 85 mg/dL Normal 74-106 [facility] Comment on above: Performed By: #### C BC #### [facility] [address] [address] [address] Cecille Bradley Potassium [Moles/Vol] 4.0 mmol/L Normal 3.5-5.1 [facility] Comment on above: Performed By: #### C BC #### [facility] [address] [place] [address] Dr. Cecille Bradley Protein [Mass/Vol] 6.0 g/dL Critically low 6.4-8.2 [facility] Comment on above: Performed By: #### C BC #### [facility] [address] [place] [address] Dr. Cecille Bradley Sodium [Moles/Vol] 143 mmol/L Normal 136-145 [facility] Comment on above: Performed By: #### C BC #### [facility] [address] [place] [address] Dr. Cecille Bradley Urea nitrogen [Mass/Vol] 17.0 mg/dL Normal 7.0-18.0 [facility] Comment on above: Performed By: #### C BC #### [facility] [address] [place] [address] Dr. Cecille Bradley Urea nitrogen/Creatinine [Mass ratio] 27.9 mg/mg Normal [facility] Comment on above: Performed By: #### C BC #### [facility] [address] [place] [address] Dr. Cecille Bradley TSHon 12-17-2022 TSH 0.734 uIU/mL Normal 0.358-3.740 [facility] Comment on above: Performed By: #### C BC #### [facility] [address] [place] [address] Dr. Cecille Bradley CBC AUTO DIFFon 12-16-2022 BASO # 0.0 103/ul Normal 0.0-0.1 [facility] Comment on above: Performed By: #### C BC #### [facility] [address] [place] [address] Dr. Cecilel Bradley Basophils/100 WBC (Bld) 0.2 % Normal 0.2-2.0 [facility] Comment on above: Performed By: #### C BC #### [facility] [address] [place] [address] Dr. Cecille Bradley EO # 0.2 103/ul Normal 0.0-0.7 [facility] Comment on above: Performed By: #### C BC #### [facility] [address] [place] [address] Dr. Cecille Bradley Eosinophils/100 WBC (Bld) 1.0 % Normal 0.9-7.0 [facility] Comment on above: Performed By: #### C BC #### [facility] [address] [place] [address] Dr. Cecille Bradley Erythrocyte distribution width (RBC) [Ratio] 14.2 % Normal 11.0-15.0 [facility] Comment on above: Performed By: #### C BC #### [facility] [address] [place] [address] Dr. Cecille Bradley Hematocrit (Bld) [Volume fraction] 52.2 % Normal 42.0-54.0 [facility] Comment on above: Performed By: #### C BC #### [facility] [address] [place] [address] Dr. Cecille Bradley Hemoglobin (Bld) [Mass/Vol] 16.8 g/dL Normal 14.0-18.0 [facility] Comment on above: Performed By: #### C BC #### [facility] [address] [place] [address] Dr. Cecille Bradley IG # 0.07 10e3/ul Critically high 0.00-0.03 [facility] Comment on above: Performed By: #### C BC #### [facility] [address] [place] [address] Dr. Cecille Bradley IG % 0.5 % Normal 0.0-0.5 [facility] Comment on above: Performed By: #### C BC #### [facility] [address] [place] [address] Dr. Cecille Bradley LYMPH # 1.3 103/ul Normal 1.2-3.8 [facility] Comment on above: Performed By: #### C BC #### [facility] [address] [place] [address] Dr. Cecille Bradley Lymphocytes/100 WBC (Bld) 8.5 % Critically low 20.5-60.0 [facility] Comment on above: Performed By: #### C BC #### [facility] [address] [place] [address] Dr. Cecille Bradley MANUAL DIFF REQ NO Normal [facility] Comment on above: Performed By: #### C BC #### [facility] [address] [place] [address] Dr. Cecille Bradley MCH (RBC) [Entitic mass] 31.0 pg Normal 25.9-34.0 [facility] Comment on above: Performed By: #### C BC #### [facility] [address] [place] [address] Dr. Cecille Bradley MCHC (RBC) [Mass/Vol] 32.2 g/dL Normal 29.9-35.2 [facility] Comment on above: Performed By: #### C BC #### [facility] [address] [place] [address] Dr. Cecille Bradley MCV (RBC) [Entitic vol] 96.3 fL Critically high 80.0-94.0 [facility] Comment on above: Performed By: #### C BC #### [facility] [address] [place] [address] Dr. Cecille Bradley MONO # 1.4 103/ul Critically high 0.3-0.8 [facility] Comment on above: Performed By: #### C BC #### [facility] [address] [place] [address] Dr. Cecille Bradley Monocytes/100 WBC (Bld) 9.0 % Normal 1.7-12.0 [facility] Comment on above: Performed By: #### C BC #### [facility] [address] [place] [address] Dr. Cecille Bradley NEUT # 12.4 103/ul Critically high 1.4-6.5 [facility] Comment on above: Performed By: #### C BC #### [facility] [address] [place] [address] Dr. Cecille Bradley Neutrophils/100 WBC (Bld) 80.8 % Critically high 43.0-75.0 [facility] Comment on above: Performed By: #### C BC #### [facility] [address] [place] [address] Dr. Cecille Bradley Platelet mean volume (Bld) [Entitic vol] 10.2 fL Normal 9.5-13.5 [facility] Comment on above: Performed By: #### C BC #### [facility] [address] [place] [address] Dr. Cecille Bradley PLT 218 103/ul Normal 150-450 [facility] Comment on above: Performed By: #### C BC #### [facility] [address] [place] [address] Dr. Cecille Bradley RBC 5.42 106/ul Normal 4.70-6.10 [facility] Comment on above: Performed By: #### C BC #### [facility] [address] [place] [address] Dr. Cecille Bradley WBC 15.3 103/ul Critically high 4.0-11.0 [facility] Comment on above: Performed By: #### C BC #### [facility] [address] [place] [address] Dr. Cecille Bradley MAGNESIUMon 12-16-2022 Magnesium [Mass/Vol] 2.1 mg/dL Normal 1.8-2.4 [facility] Comment on above: Performed By: #### C BC #### [facility] [address] [place] [address] Dr. Cecille Bradley PROF 14(COMP METB)on 023 Albumin [Mass/Vol] 3.2 g/dL Critically low 3.4-5.0 [facility] e [facility] Comment on above: Performed By: #### C BC #### [facility] [address] [place] [address] Dr. Cecille Bradley Albumin/Globulin [Mass ratio] 0.9 {ratio} Normal [facility] Comment on above: Performed By: #### C BC #### [facility] [address] [place] [address] Dr. Cecille Bradley ALP [Catalytic activity/Vol] 71 U/L Normal 46-116 [facility] Comment on above: Performed By: #### C BC #### [facility] [address] [place] [address] Dr. Cecille Bradley ALT [Catalytic activity/Vol] 40 U/L Normal 16-63 [facility] Comment on above: Performed By: #### C BC #### [facility] [address] [place] [address] Dr. Cecille Bradley Anion gap [Moles/Vol] 10.4 mmol/L Normal [facility] Comment on above: Performed By: #### C BC #### [facility] [address] [place] [address] Dr. Cecille Bradley AST [Catalytic activity/Vol] 25 U/L Normal 15-37 [facility] Comment on above: Performed By: #### C BC #### [facility] [address] [place] [address] Dr. Cecille Bradley Bilirubin [Mass/Vol] 1.9 mg/dL Critically high 0.2-1.0 [facility] Comment on above: Performed By: #### C BC #### [facility] [address] [place] [address] Dr. Cecille Bradley Calcium [Mass/Vol] 8.9 mg/dL Normal 8.5-10.1 [facility] Comment on above: Performed By: #### C BC #### [facility] [address] [place] [address] Dr. Cecille Bradley Chloride [Moles/Vol] 101 mmol/L Normal 98-107 [facility] Comment on above: Performed By: #### C BC #### [facility] [address] [address] [address] Cecille Bradley CO2 [Moles/Vol] 30.6 mmol/L Normal 21.0-32.0 [facility] Comment on above: Performed By: #### C BC #### [facility] [address] [address] [address] Cecille Bradley Creatinine [Mass/Vol] 0.63 mg/dL Critically low 0.70-1.30 [facility] Comment on above: Performed By: #### C BC #### [facility] [address] [address] [address] Cecille Bradley EGFR-AF WALLISIAN >60 Normal >=60 [facility] Comment on above: Performed By: #### C BC #### [facility] [address] [place] [address] Dr. Cecille Bradley EGFR-NON AF WALLISIAN >60 Normal >=60 [facility] Comment on above: Performed By: #### C BC #### [facility] [address] [place] [address] Dr. Cecille Brdaley Globulin (S) [Mass/Vol] 3.4 g/dL Normal [facility] Comment on above: Performed By: #### C BC #### [facility] [address] [address] [address] Cecille Bradley Glucose [Mass/Vol] 99 mg/dL Normal 74-106 [facility] Comment on above: Performed By: #### C BC #### [facility] [address] [place] [address] Dr. Cecille Bradley Potassium [Moles/Vol] 4.0 mmol/L Normal 3.5-5.1 [facility] Comment on above: Performed By: #### C BC #### [facility] [address] [place] [address] Dr. Cecille Bradley Protein [Mass/Vol] 6.6 g/dL Normal 6.4-8.2 [facility] Comment on above: Performed By: #### C BC #### [facility] [address] [address] [address] Cecille Bradley Sodium [Moles/Vol] 138 mmol/L Normal 136-145 [facility] Comment on above: Performed By: #### C BC #### [facility] [address] [address] [address] Cecille Bradley Urea nitrogen [Mass/Vol] 18.0 mg/dL Normal 7.0-18.0 [facility] Comment on above: Performed By: #### C BC #### [facility] [address] [address] [address] Cecille Bradley Urea nitrogen/Creatinine [Mass ratio] 28.6 mg/mg Normal [facility] Comment on above: Performed By: #### C BC #### [facility] [address] [place] [address] Dr. Cecille Bradley XR CHEST 1 Von 12-16-2022 XR CHEST 1 V EXAM: XR CHEST 1 V a t 1213 hours HISTORY: shortness of breath or wheezing COMPARISON: 12/11/2022 TECHNIQUE: AP upright portable chest x-ray FINDINGS: The study is significantly limited secondary to technique and the patient's body habitus. The heart is enlarged. The lung bases are obscured. A right pleural effusion is suggested and may be present. Sternal wire sutures are again noted. IMPRESSION: Limited study. Cardiac enlargement without vascular congestion is noted. Opacity at the lung bases may be technical in nature although a small effusion on the right is suspected. Given the differences in technique and projection, the overall appearance of the chest has probably not changed significantly. If further evaluation is clinically indicated, perhaps a CT study would be helpful. Electronically authenticated by: KANDI LUU Date: 2022-12-16 12:59 Normal [facility] CBC AUTO DIFFon 12-15-2022 BASO # 0.0 103/ul Normal 0.0-0.1 [facility] Comment on above: Performed By: #### C BC #### [facility] [address] [place] [address] Dr. Cecille Bradley Basophils/100 WBC (Bld) 0.2 % Normal 0.2-2.0 [facility] Comment on above: Performed By: #### C BC #### [facility] [address] [place] [address] Dr. Cecille Bradley EO # 0.1 103/ul Normal 0.0-0.7 [facility] Comment on above: Performed By: #### C BC #### [facility] [address] [place] [address] Dr. Cecille Bradley Eosinophils/100 WBC (Bld) 1.4 % Normal 0.9-7.0 [facility] Comment on above: Performed By: #### C BC #### [facility] [address] [place] [address] Dr. Cecille Bradley Erythrocyte distribution width (RBC) [Ratio] 14.2 % Normal 11.0-15.0 [facility] Comment on above: Performed By: #### C BC #### [facility] [address] [place] [address] Dr. Cecille Bradley Hematocrit (Bld) [Volume fraction] 50.4 % Normal 42.0-54.0 [facility] Comment on above: Performed By: #### C BC #### [facility] [address] [place] [address] Dr. Cecille Bradley Hemoglobin (Bld) [Mass/Vol] 16.6 g/dL Normal 14.0-18.0 [facility] Comment on above: Performed By: #### C BC #### [facility] [address] [place] [address] Dr. Cecille Bradley IG # 0.04 10e3/ul Critically high 0.00-0.03 [facility] Comment on above: Performed By: #### C BC #### [facility] [facility] [address] [place] [address] Dr. Cecille Bradley IG % 0.5 % Normal 0.0-0.5 [facility] Comment on above: Performed By: #### C BC #### [facility] [address] [place] [address] Dr. Cecille Bradley LYMPH # 1.1 103/ul Critically low 1.2-3.8 [facility] Comment on above: Performed By: #### C BC #### [facility] [address] [address] [address] Cecille Bradley Lymphocytes/100 WBC (Bld) 13.5 % Critically low 20.5-60.0 [facility] Comment on above: Performed By: #### C BC #### [facility] [address] [address] [address] Cecille Bradley MANUAL DIFF REQ NO Normal [facility] Comment on above: Performed By: #### C BC #### [facility] [address] [address] [address] Cecille Bradley MCH (RBC) [Entitic mass] 31.9 pg Normal 25.9-34.0 [facility] Comment on above: Performed By: #### C BC #### [facility] [address] [place] [address] Dr. Cecille Bradley MCHC (RBC) [Mass/Vol] 32.9 g/dL Normal 29.9-35.2 [facility] Comment on above: Performed By: #### C BC #### [facility] [address] [place] [address] Dr. Cecille Bradley MCV (RBC) [Entitic vol] 96.7 fL Critically high 80.0-94.0 [facility] Comment on above: Performed By: #### C BC #### [facility] [address] [place] [address] Dr. Cecille Bradley MONO # 0.7 103/ul Normal 0.3-0.8 [facility] Comment on above: Performed By: #### C BC #### [facility] [address] [place] [address] Dr. Cecille Bradley Monocytes/100 WBC (Bld) 8.7 % Normal 1.7-12.0 [facility] Comment on above: Performed By: #### C BC #### [facility] [address] [place] [address] Dr. Cecille Bradley NEUT # 6.2 103/ul Normal 1.4-6.5 [facility] Comment on above: Performed By: #### C BC #### [facility] [address] [place] [address] Dr. Cecille Bradley Neutrophils/100 WBC (Bld) 75.7 % Critically high 43.0-75.0 [facility] Comment on above: Performed By: #### C BC #### [facility] [address] [place] [address] Dr. Cecille Bradley Platelet mean volume (Bld) [Entitic vol] 10.4 fL Normal 9.5-13.5 [facility] Comment on above: Performed By: #### C BC #### [facility] [address] [address] [address] Cecille Bradley PLT 187 103/ul Normal 150-450 [facility] Comment on above: Performed By: #### C BC #### [facility] [address] [place] [address] Dr. Cecille Bradley RBC 5.21 106/ul Normal 4.70-6.10 [facility] Comment on above: Performed By: #### C BC #### [facility] [address] [place] [address] Dr. Cecille Bradley WBC 8.1 103/ul Normal 4.0-11.0 [facility] Comment on above: Performed By: #### C BC #### [facility] [address] [place] [address] Dr. Cecille Bradley MAGNESIUMon 12-15-2022 Magnesium [Mass/Vol] 2.2 mg/dL Normal 1.8-2.4 [facility] Comment on above: Performed By: #### C MP #### [facility] [address] [place] [address] Dr. Cecille Bradley PROF 14(COMP METB)on 023 Albumin [Mass/Vol] 2.9 g/dL Critically low 3.4-5.0 Th e [facility] Comment on above: Performed By: #### C MP #### [facility] [address] [place] [address] Dr. Cecille Bradley Albumin/Globulin [Mass ratio] 0.9 {ratio} Normal [facility] Comment on above: Performed By: #### C MP #### [facility] [address] [place] [address] Dr. Cecille Bradley ALP [Catalytic activity/Vol] 68 U/L Normal 46-116 [facility] Comment on above: Performed By: #### C MP #### [facility] [address] [place] [address] Dr. Cecille Bradley ALT [Catalytic activity/Vol] 35 U/L Normal 16-63 [facility] Comment on above: Performed By: #### C MP #### [facility] [address] [place] [address] Dr. Cecille Bradley Anion gap [Moles/Vol] 9.1 mmol/L Normal [facility] Comment on above: Performed By: #### C MP #### [facility] [address] [place] [address] Dr. Cecille Bradley AST [Catalytic activity/Vol] 26 U/L Normal 15-37 [facility] Comment on above: Performed By: #### C MP #### [facility] [address] [place] [address] Dr. Cecille Bradley Bilirubin [Mass/Vol] 1.7 mg/dL Critically high 0.2-1.0 [facility] Comment on above: Performed By: #### C MP #### [facility] [address] [place] [address] Dr. Cecille Bradley Calcium [Mass/Vol] 8.7 mg/dL Normal 8.5-10.1 [facility] Comment on above: Performed By: #### C MP #### [facility] [address] [place] [address] Dr. Cecille Bradley Chloride [Moles/Vol] 103 mmol/L Normal 98-107 [facility] Comment on above: Performed By: #### C MP #### [facility] [address] [place] [address] Dr. Cecille Bradley CO2 [Moles/Vol] 30.0 mmol/L Normal 21.0-32.0 [facility] Comment on above: Performed By: #### C MP #### [facility] [address] [place] [address] Dr. Cecille Bradley Creatinine [Mass/Vol] 0.61 mg/dL Critically low 0.70-1.30 [facility] Comment on above: Performed By: #### C MP #### [facility] [address] [address] [address] Cecille Bradley EGFR-AF WALLISIAN >60 Normal >=60 [facility] Comment on above: Performed By: #### C MP #### [facility] [address] [address] [address] Cecille Bradley EGFR-NON AF WALLISIAN >60 Normal >=60 [facility] Comment on above: Performed By: #### C MP #### [facility] [address] [address] [address] Cecille Bradley Globulin (S) [Mass/Vol] 3.2 g/dL Normal [facility] Comment on above: Performed By: #### C MP #### [facility] [address] [address] [address] Cecille Bradley Glucose [Mass/Vol] 94 mg/dL Normal 74-106 [facility] Comment on above: Performed By: #### C MP #### [facility] [address] [address] [address] Cecille Bradley Potassium [Moles/Vol] 4.1 mmol/L Normal 3.5-5.1 [facility] Comment on above: Performed By: #### C MP #### [facility] [address] [address] [address] Cecille Bradley Protein [Mass/Vol] 6.1 g/dL Critically low 6.4-8.2 [facility] Comment on above: Performed By: #### C MP #### [facility] [address] [address] [address] Cecille Bradley Sodium [Moles/Vol] 138 mmol/L Normal 136-145 [facility] Comment on above: Performed By: #### C MP #### [facility] [address] [address] [address] Cecille Bradley Urea nitrogen [Mass/Vol] 18.0 mg/dL Normal 7.0-18.0 [facility] Comment on above: Performed By: #### C MP #### [facility] [address] [address] [address] Cecille Bradley Urea nitrogen/Creatinine [Mass ratio] 29.5 mg/mg Normal [facility] Comment on above: Performed By: #### C MP #### [facility] [address] [place] [address] Dr. Cecille Bradley CBC AUTO DIFFon 12-14-2022 BASO # 0.0 103/ul Normal 0.0-0.1 [facility] Comment on above: Performed By: #### C BC #### [facility] [address] [place] [address] Dr. Cecille Bradley Basophils/100 WBC (Bld) 0.1 % Critically low 0.2-2.0 [facility] Comment on above: Performed By: #### C BC #### [facility] [address] [place] [address] Dr. Cecille Bradley EO # 0.1 103/ul Normal 0.0-0.7 [facility] Comment on above: Performed By: #### C BC #### [facility] [address] [place] [address] Dr. Cecille Bradley Eosinophils/100 WBC (Bld) 0.9 % Normal 0.9-7.0 [facility] Comment on above: Performed By: #### C BC #### [facility] [address] [place] [address] Dr. Cecille Bradley Erythrocyte distribution width (RBC) [Ratio] 14.3 % Normal 11.0-15.0 [facility] Comment on above: Performed By: #### C BC #### [facility] [address] [place] [address] Dr. Cecille Bradley Hematocrit (Bld) [Volume fraction] 52.6 % Normal 42.0-54.0 [facility] Comment on above: Performed By: #### C BC #### [facility] [address] [place] [address] Dr. Cecille Bradley Hemoglobin (Bld) [Mass/Vol] 16.8 g/dL Normal 14.0-18.0 [facility] Comment on above: Performed By: #### C BC #### [facility] [address] [address] [address] Cecille Bradley IG # 0.04 10e3/ul Critically high 0.00-0.03 [facility] Comment on above: Performed By: #### C BC #### [facility] [address] [address] [address] Cecille Bradley IG % 0.5 % Normal 0.0-0.5 [facility] Comment on above: Performed By: #### C BC #### [facility] [address] [address] [address] Cecille Bradley LYMPH # 1.1 103/ul Critically low 1.2-3.8 [facility] Comment on above: Performed By: #### C BC #### [facility] [address] [address] [address] Cecille Bradley Lymphocytes/100 WBC (Bld) 13.8 % Critically low 20.5-60.0 [facility] Comment on above: Performed By: #### C BC #### [facility] [address] [address] [address] Cecille Bradley MANUAL DIFF REQ NO Normal [facility] Comment on above: Performed By: #### C BC #### [facility] [address] [address] [address] Cecille Bradley MCH (RBC) [Entitic mass] 31.9 pg Normal 25.9-34.0 [facility] Comment on above: Performed By: #### C BC #### [facility] [address] [address] [address] Cecille Bradley MCHC (RBC) [Mass/Vol] 31.9 g/dL Normal 29.9-35.2 [facility] Comment on above: Performed By: #### C BC #### [facility] [address] [address] [address] Cecille Bradley MCV (RBC) [Entitic vol] 100.0 fL Critically high 80.0-94.0 [facility] Comment on above: Performed By: #### C BC #### [facility] [address] [place] [address] Dr. Cecille Bradley MONO # 0.7 103/ul Normal 0.3-0.8 [facility] Comment on above: Performed By: #### C BC #### [facility] [address] [place] [address] Dr. Cecille Bradley Monocytes/100 WBC (Bld) 8.5 % Normal 1.7-12.0 [facility] Comment on above: Performed By: #### C BC #### [facility] [address] [place] [address] Dr. Cecille Bradley NEUT # 5.9 103/ul Normal 1.4-6.5 [facility] Comment on above: Performed By: #### C BC #### [facility] [address] [place] [address] Dr. Cecille Bradley Neutrophils/100 WBC (Bld) 76.2 % Critically high 43.0-75.0 [facility] Comment on above: Performed By: #### C BC #### [facility] [address] [place] [address] Dr. Cecille Bradley Platelet mean volume (Bld) [Entitic vol] 10.3 fL Normal 9.5-13.5 [facility] Comment on above: Performed By: #### C BC #### [facility] [address] [place] [address] Dr. Cecille Bradley PLT 174 103/ul Normal 150-450 [facility] Comment on above: Performed By: #### C BC #### [facility] [address] [place] [address] Dr. Cecille Bradley RBC 5.26 106/ul Normal 4.70-6.10 [facility] Comment on above: Performed By: #### C BC #### [facility] [address] [place] [address] Dr. Cecille Bradley WBC 7.7 103/ul Normal 4.0-11.0 [facility] Comment on above: Performed By: #### C BC #### [facility] [address] [place] [address] Dr. Cecille Bradley MAGNESIUMon 12-14-2022 Magnesium [Mass/Vol] 2.4 mg/dL Normal 1.8-2.4 [facility] Comment on above: Performed By: #### C BC #### [facility] [address] [place] [address] Dr. Cecille Bradley PROF 14(COMP METB)on 023 Albumin [Mass/Vol] 2.9 g/dL Critically low 3.4-5.0 [facility] Comment on above: Performed By: #### C BC #### [facility] [address] [place] [address] Dr. Cecille Bradley Albumin/Globulin [Mass ratio] 0.9 {ratio} Normal [facility] Comment on above: Performed By: #### C BC #### [facility] [address] [place] [address] Dr. Cecille Bradley ALP [Catalytic activity/Vol] 71 U/L Normal 46-116 [facility] Comment on above: Performed By: #### C BC #### [facility] [address] [place] [address] Dr. Cecille Bradley ALT [Catalytic activity/Vol] 32 U/L Normal 16-63 [facility] Comment on above: Performed By: #### C BC #### [facility] [address] [place] [address] Dr. Cecille Bradley Anion gap [Moles/Vol] 9.0 mmol/L Normal [facility] Comment on above: Performed By: #### C BC #### [facility] [address] [place] [address] Dr. Cecille Bradley AST [Catalytic activity/Vol] 22 U/L Normal 15-37 [facility] Comment on above: Performed By: #### C BC #### [facility] [address] [place] [address] Dr. Cecille Bradley Bilirubin [Mass/Vol] 1.9 mg/dL Critically high 0.2-1.0 [facility] Comment on above: Performed By: #### C BC #### [facility] [address] [address] [address] Cecille Bradley Calcium [Mass/Vol] 8.7 mg/dL Normal 8.5-10.1 [facility] Comment on above: Performed By: #### C BC #### [facility] [address] [address] [address] Cecille Bradley Chloride [Moles/Vol] 101 mmol/L Normal 98-107 [facility] Comment on above: Performed By: #### C BC #### [facility] [address] [place] [address] Dr. Cecille Bradley CO2 [Moles/Vol] 30.9 mmol/L Normal 21.0-32.0 [facility] Comment on above: Performed By: #### C BC #### [facility] [address] [place] [address] Dr. Cecille Bradley Creatinine [Mass/Vol] 0.56 mg/dL Critically low 0.70-1.30 [facility] Comment on above: Performed By: #### C BC #### [facility] [address] [place] [address] Dr. Cecille Bradley EGFR-AF WALLISIAN >60 Normal >=60 [facility] Comment on above: Performed By: #### C BC #### [facility] [address] [place] [address] Dr. Cecille Bradley EGFR-NON AF WALLISIAN >60 Normal >=60 [facility] Comment on above: Performed By: #### C BC #### [facility] [address] [address] [address] Cecille Bradley Globulin (S) [Mass/Vol] 3.3 g/dL Normal [facility] Comment on above: Performed By: #### C BC #### [facility] [address] [place] [address] Dr. Cecille Bradley Glucose [Mass/Vol] 93 mg/dL Normal 74-106 [facility] Comment on above: Performed By: #### C BC #### [facility] [address] [place] [address] Dr. Cecille Bradley Potassium [Moles/Vol] 3.9 mmol/L Normal 3.5-5.1 [facility] Comment on above: Performed By: #### C BC #### [facility] [address] [place] [address] Dr. Cecille Bradley Protein [Mass/Vol] 6.2 g/dL Critically low 6.4-8.2 Th [facility] Comment on above: Performed By: #### C BC #### [facility] [address] [place] [address] Dr. Cecille Bradley Sodium [Moles/Vol] 137 mmol/L Normal 136-145 [facility] Comment on above: Performed By: #### C BC #### [facility] [address] [place] [address] Dr. Cecille Bradley Urea nitrogen [Mass/Vol] 18.0 mg/dL Normal 7.0-18.0 [facility] Comment on above: Performed By: #### C BC #### [facility] [address] [place] [address] Dr. Cecille Bradley Urea nitrogen/Creatinine [Mass ratio] 32.1 mg/mg Normal [facility] Comment on above: Performed By: #### C BC #### [facility] [address] [place] [address] Dr. Cecille Bradley CBC AUTO DIFFon 12-13-2022 BASO # 0.0 103/ul Normal 0.0-0.1 [facility] Comment on above: Performed By: #### C BC #### [facility] [address] [place] [address] Dr. Cecille Bradley Basophils/100 WBC (Bld) 0.1 % Critically low 0.2-2.0 [facility] Comment on above: Performed By: #### C BC #### [facility] [address] [place] [address] Dr. Cecille Bradley EO # 0.0 103/ul Normal 0.0-0.7 [facility] Comment on above: Performed By: #### C BC #### [facility] [address] [place] [address] Dr. Cecille Bradley Eosinophils/100 WBC (Bld) 0.2 % Critically low 0.9-7.0 [facility] Comment on above: Performed By: #### C BC #### [facility] [address] [place] [address] Dr. Cecille Bradley Erythrocyte distribution width (RBC) [Ratio] 14.4 % Normal 11.0-15.0 [facility] Comment on above: Performed By: #### C BC #### [facility] [address] [place] [address] Dr. Cecille Bradley Hematocrit (Bld) [Volume fraction] 50.2 % Normal 42.0-54.0 [facility] Comment on above: Performed By: #### C BC #### [facility] [address] [place] [address] Dr. Cecille Bradley Hemoglobin (Bld) [Mass/Vol] 15.7 g/dL Normal 14.0-18.0 [facility] Comment on above: Performed By: #### C BC #### [facility] [address] [place] [address] Dr. Cecille Bradley IG # 0.01 10e3/ul Normal 0.00-0.03 [facility] Comment on above: Performed By: #### C BC #### [facility] [address] [place] [address] Dr. Cecille Bradley IG % 0.1 % Normal 0.0-0.5 [facility] Comment on above: Performed By: #### C BC #### [facility] [address] [place] [address] Dr. Cecille Bradley LYMPH # 1.1 103/ul Critically low 1.2-3.8 [facility] Comment on above: Performed By: #### C BC #### [facility] [address] [place] [address] Dr. Cecille Bradley Lymphocytes/100 WBC (Bld) 13.1 % Critically low 20.5-60.0 [facility] Comment on above: Performed By: #### C BC #### [facility] [address] [place] [address] Dr. Cecille Bradley MANUAL DIFF REQ NO Normal [facility] Comment on above: Performed By: #### C BC #### [facility] [address] [place] [address] Dr. Cecille Bradley MCH (RBC) [Entitic mass] 31.7 pg Normal 25.9-34.0 [facility] Comment on above: Performed By: #### C BC #### [facility] [address] [place] [address] Dr. Cecille Bradley MCHC (RBC) [Mass/Vol] 31.3 g/dL Normal 29.9-35.2 [facility] Comment on above: Performed By: #### C BC #### [facility] [address] [place] [address] Dr. Cecille Bradley MCV (RBC) [Entitic vol] 101.4 fL Critically high 80.0-94.0 [facility] Comment on above: Performed By: #### C BC #### [facility] [address] [place] [address] Dr. Cecille Bradley MONO # 0.7 103/ul Normal 0.3-0.8 [facility] Comment on above: Performed By: #### C BC #### [facility] [address] [place] [address] Dr. Cecille Bradley Monocytes/100 WBC (Bld) 8.5 % Normal 1.7-12.0 [facility] Comment on above: Performed By: #### C BC #### [facility] [address] [place] [address] Dr. Cecille Bradley NEUT # 6.3 103/ul Normal 1.4-6.5 [facility] Comment on above: Performed By: #### C BC #### [facility] [address] [place] [address] Dr. Cecille Bradley Neutrophils/100 WBC (Bld) 78.0 % Critically high 43.0-75.0 [facility] Comment on above: Performed By: #### C BC #### [facility] [address] [place] [address] Dr. Cecille Bradley Platelet mean volume (Bld) [Entitic vol] 10.5 fL Normal 9.5-13.5 [facility] Comment on above: Performed By: #### C BC #### [facility] [address] [place] [address] Dr. Cecille Bradley PLT 178 103/ul Normal 150-450 [facility] Comment on above: Performed By: #### C BC #### [facility] [address] [place] [address] Dr. Cecille Bradley RBC 4.95 106/ul Normal 4.70-6.10 [facility] Comment on above: Performed By: #### C BC #### [facility] [address] [place], [place] [address] Dr. Cecille Bradley WBC 8.1 103/ul Normal 4.0-11.0 [facility] Comment on above: Performed By: #### C BC #### [facility] [address] [place] [address] Dr. Cecille Bradley CULTURE SPUTUMon 12-13-2022 CULTURE SPUTUM Culture Observations : NORMAL RESPIRATORY BARBARA. Normal [facility] Comment on above: Performed By: #### S PUTCX #### [facility] [address] [place] [address] Dr. Cecille Bradley MAGNESIUMon 12-13-2022 Magnesium [Mass/Vol] 2.2 mg/dL Normal 1.8-2.4 [facility] Comment on above: Performed By: #### C BC #### [facility] [address] [place] [address] Dr. Cecille Bradley PROF 14(COMP METB)on 023 Albumin [Mass/Vol] 2.9 g/dL Critically low 3.4-5.0 Th e [facility] Comment on above: Performed By: #### C BC #### [facility] [address] [place] [address] Dr. Cecille Bradley Albumin/Globulin [Mass ratio] 0.9 {ratio} Normal [facility] Comment on above: Performed By: #### C BC #### [facility] [address] [place] [address] Dr. Cecille Bradley ALP [Catalytic activity/Vol] 70 U/L Normal 46-116 [facility] Comment on above: Performed By: #### C BC #### [facility] [address] [place] [address] Dr. Cecille Bradley ALT [Catalytic activity/Vol] 31 U/L Normal 16-63 [facility] Comment on above: Performed By: #### C BC #### [facility] [address] [address] [address] Cecille Bradley Anion gap [Moles/Vol] 8.2 mmol/L Normal [facility] Comment on above: Performed By: #### C BC #### [facility] [address] [address] [address] Cecille Bradley AST [Catalytic activity/Vol] 20 U/L Normal 15-37 [facility] Comment on above: Performed By: #### C BC #### [facility] [address] [place] [address] Dr. Cecille Bradley Bilirubin [Mass/Vol] 2.0 mg/dL Critically high 0.2-1.0 [facility] Comment on above: Performed By: #### C BC #### [facility] [address] [place] [address] Dr. Cecille Bradley Calcium [Mass/Vol] 8.6 mg/dL Normal 8.5-10.1 [facility] Comment on above: Performed By: #### C BC #### [facility] [address] [place] [address] Dr. Cecille Bradley Chloride [Moles/Vol] 100 mmol/L Normal 98-107 [facility] Comment on above: Performed By: #### C BC #### [facility] [address] [address] [address] Cecille Bradley CO2 [Moles/Vol] 33.2 mmol/L Critically high 21.0-32.0 [facility] Comment on above: Performed By: #### C BC #### [facility] [address] [place] [address] Dr. Cecille Bradley Creatinine [Mass/Vol] 0.60 mg/dL Critically low 0.70-1.30 [facility] Comment on above: Performed By: #### C BC #### [facility] [address] [address] [address] Cecille Bradley EGFR-AF WALLISIAN >60 Normal >=60 [facility] Comment on above: Performed By: #### C BC #### [facility] [address] [address] [address] Cecille Bradley EGFR-NON AF WALLISIAN >60 Normal >=60 [facility] Comment on above: Performed By: #### C BC #### [facility] [address] [address] [address] Cecille Bradley Globulin (S) [Mass/Vol] 3.3 g/dL Normal [facility] Comment on above: Performed By: #### C BC #### [facility] [address] [address] [address] Cecille Bradley Glucose [Mass/Vol] 91 mg/dL Normal 74-106 [facility] Comment on above: Performed By: #### C BC #### [facility] [address] [place] [address] Dr. Cecille Bradley Potassium [Moles/Vol] 3.4 mmol/L Critically low 3.5-5.1 [facility] Comment on above: Performed By: #### C BC #### [facility] [address] [address] [address] Cecille Bradley Protein [Mass/Vol] 6.2 g/dL Critically low 6.4-8.2 [facility] Comment on above: Performed By: #### C BC #### [facility] [address] [place] [address] Dr. Cecille Bradley Sodium [Moles/Vol] 138 mmol/L Normal 136-145 [facility] Comment on above: Performed By: #### C BC #### [facility] [address] [place] [address] Dr. Cecille Bradley Urea nitrogen [Mass/Vol] 16.0 mg/dL Normal 7.0-18.0 [facility] Comment on above: Performed By: #### C BC #### [facility] [address] [address] [address] Cecille Bradley Urea nitrogen/Creatinine [Mass ratio] 26.7 mg/mg Normal [facility] Comment on above: Performed By: #### C BC #### [facility] [address] [address] [address] Cecille Bradley SPUTUM GRAM STAINon 12-13-19 23 COMMENTS Normal [facility] Comment on above: Performed By: #### L ACT #### [facility] [address] [address] [address] Cecille Bradley DIPHTHEROIDS Normal [facility] Comment on above: Performed By: #### L ACT #### [facility] [address] [address] [address] Cecille Bradley EPITHELIALS <25 [facility] Comment on above: Performed By: #### L ACT #### [facility] [address] [address] [address] Cecille Bradley FUNGAL ELEMENTS Normal [facility] Comment on above: Performed By: #### L ACT #### [facility] [address] [address] [address] Cecille Bradley GRAM NEG BACILLI Normal [facility] Comment on above: Performed By: #### L ACT #### [facility] [address] [address] [address] Cecille Bradley GRAM NEG DIPPLOCOCCI [facility] Comment on above: Performed By: #### L ACT #### [facility] [address] [address] [address] Cecille Bradley GRAM POS BACILLI Normal [facility] Comment on above: Performed By: #### L ACT #### [facility] [address] [address] [address] Cecille Bradley GRAM POSITIVE COCCI FEW Normal [facility] Comment on above: Performed By: #### L ACT #### [facility] [address] [address] [address] Cecille Bradley WBC (Bld) [#/Vol] 10*3/uL Normal [facility] Comment on above: Performed By: #### L ACT #### [facility] [address] [address] [address] Cecille Bradley CBC AUTO DIFFon 12-12-2022 BASO # 0.0 103/ul Normal 0.0-0.1 [facility] Comment on above: Performed By: #### C MP #### [facility] [address] [place] [address] Dr. Cecille Bradley Basophils/100 WBC (Bld) 0.1 % Critically low 0.2-2.0 [facility] Comment on above: Performed By: #### C MP #### [facility] [address] [place] [address] Dr. Cecille Bradley EO # 0.0 103/ul Normal 0.0-0.7 [facility] Comment on above: Performed By: #### C MP #### [facility] [address] [place] [address] Dr. Cecille Bradley Eosinophils/100 WBC (Bld) 0.1 % Critically low 0.9-7.0 [facility] Comment on above: Performed By: #### C MP #### [facility] [address] [place] [address] Dr. Cecille Bradley Erythrocyte distribution width (RBC) [Ratio] 14.8 % Normal 11.0-15.0 [facility] Comment on above: Performed By: #### C MP #### [facility] [address] [place] [address] Dr. Cecille Bradley Hematocrit (Bld) [Volume fraction] 50.9 % Normal 42.0-54.0 [facility] Comment on above: Performed By: #### C MP #### [facility] [address] [place] [address] Dr. Cecille Bradley Hemoglobin (Bld) [Mass/Vol] 16.0 g/dL Normal 14.0-18.0 [facility] Comment on above: Performed By: #### C MP #### [facility] [address] [place] [address] Dr. Cecille Bradley IG # 0.04 10e3/ul Critically high 0.00-0.03 [facility] Comment on above: Performed By: #### C MP #### [facility] [address] [address] [address] Cecille Bradley IG % 0.3 % Normal 0.0-0.5 [facility] Comment on above: Performed By: #### C MP #### [facility] [address] [place] [address] Dr. Cecille Bradley LYMPH # 1.1 103/ul Critically low 1.2-3.8 [facility] Comment on above: Performed By: #### C MP #### [facility] [address] [place] [address] Dr. Cecille Bradley Lymphocytes/100 WBC (Bld) 8.6 % Critically low 20.5-60.0 [facility] Comment on above: Performed By: #### C MP #### [facility] [address] [place] [address] Dr. Cecille Bradley MANUAL DIFF REQ NO Normal [facility] Comment on above: Performed By: #### C MP #### [facility] [address] [place] [address] Dr. Cecille Bradley MCH (RBC) [Entitic mass] 32.2 pg Normal 25.9-34.0 [facility] Comment on above: Performed By: #### C MP #### [facility] [address] [place] [address] Dr. Cecille Bradley MCHC (RBC) [Mass/Vol] 31.4 g/dL Normal 29.9-35.2 [facility] Comment on above: Performed By: #### C MP #### [facility] [address] [place] [address] Dr. Cecille Bradley MCV (RBC) [Entitic vol] 102.4 fL Critically high 80.0-94.0 [facility] Comment on above: Performed By: #### C MP #### [facility] [address] [place] [address] Dr. Cecille Bradley MONO # 0.9 103/ul Critically high 0.3-0.8 [facility] Comment on above: Performed By: #### C MP #### [facility] [address] [address] [address] Cecille Bradley Monocytes/100 WBC (Bld) 7.2 % Normal 1.7-12.0 [facility] Comment on above: Performed By: #### C MP #### [facility] [address] [address] [address] Cecille Bradley NEUT # 10.2 103/ul Critically high 1.4-6.5 [facility] Comment on above: Performed By: #### C MP #### [facility] [address] [place] [address] Dr. Cecille Bradley Neutrophils/100 WBC (Bld) 83.7 % Critically high 43.0-75.0 [facility] Comment on above: Performed By: #### C MP #### [facility] [address] [place] [address] Dr. Cecille Bradley Platelet mean volume (Bld) [Entitic vol] 10.4 fL Normal 9.5-13.5 [facility] Comment on above: Performed By: #### C MP #### [facility] [address] [place] [address] Dr. Cecille Bradley PLT 185 103/ul Normal 150-450 [facility] Comment on above: Performed By: #### C MP #### [facility] [address] [place] [address] Dr. Cecille Bradley RBC 4.97 106/ul Normal 4.70-6.10 [facility] Comment on above: Performed By: #### C MP #### [facility] [address] [place] [address] Dr. Cecille Bradley WBC 12.1 103/ul Critically high 4.0-11.0 [facility] Comment on above: Performed By: #### C MP #### [facility] [address] [place] [address] Dr. Cecille Bradley MAGNESIUMon 12-12-2022 Magnesium [Mass/Vol] 2.1 mg/dL Normal 1.8-2.4 [facility] Comment on above: Performed By: #### C BC #### [facility] [address] [place] [address] Dr. Cecille Bradley PROF 14(COMP METB)on 023 Albumin [Mass/Vol] 3.1 g/dL Critically low 3.4-5.0 [facility] Comment on above: Performed By: #### C BC #### [facility] [address] [place] [address] Dr. Cecille Bradley Albumin/Globulin [Mass ratio] 0.9 {ratio} Normal [facility] Comment on above: Performed By: #### C BC #### [facility] [address] [place] [address] Dr. Cecille Bradley ALP [Catalytic activity/Vol] 78 U/L Normal 46-116 [facility] Comment on above: Performed By: #### C BC #### [facility] [address] [place] [address] Dr. Cecille Bradley ALT [Catalytic activity/Vol] 34 U/L Normal 16-63 [facility] Comment on above: Performed By: #### C BC #### [facility] [address] [place] [address] Dr. Cecille Bradley Anion gap [Moles/Vol] 9.8 mmol/L Normal [facility] Comment on above: Performed By: #### C BC #### [facility] [address] [place] [address] Dr. Cecille Bradley AST [Catalytic activity/Vol] 26 U/L Normal 15-37 [facility] Comment on above: Performed By: #### C BC #### [facility] [address] [place] [address] Dr. Cecille Bradley Bilirubin [Mass/Vol] 1.3 mg/dL Critically high 0.2-1.0 [facility] Comment on above: Performed By: #### C BC #### [facility] [address] [place] [address] Dr. Cecille Bradley Calcium [Mass/Vol] 8.7 mg/dL Normal 8.5-10.1 [facility] Comment on above: Performed By: #### C BC #### [facility] [address] [address] [address] Cecille Bradley Chloride [Moles/Vol] 102 mmol/L Normal 98-107 [facility] Comment on above: Performed By: #### C BC #### [facility] [address] [place] [address] Dr. Cecille Bradley CO2 [Moles/Vol] 32.0 mmol/L Normal 21.0-32.0 [facility] Comment on above: Performed By: #### C BC #### [facility] [address] [place] [address] Dr. Cecille Bradley Creatinine [Mass/Vol] 0.61 mg/dL Critically low 0.70-1.30 [facility] Comment on above: Performed By: #### C BC #### [facility] [address] [place] [address] Dr. Cecille Bradley EGFR-AF WALLISIAN >60 Normal >=60 [facility] Comment on above: Performed By: #### C BC #### [facility] [address] [place] [address] Dr. Cecille Bradley EGFR-NON AF WALLISIAN >60 Normal >=60 [facility] Comment on above: Performed By: #### C BC #### [facility] [address] [place] [address] Dr. Cecille Bradley Globulin (S) [Mass/Vol] 3.4 g/dL Normal [facility] Comment on above: Performed By: #### C BC #### [facility] [address] [address] [address] Cecille Bradley Glucose [Mass/Vol] 103 mg/dL Normal 74-106 [facility] Comment on above: Performed By: #### C BC #### [facility] [address] [address] [address] Cecille Bradley Potassium [Moles/Vol] 3.8 mmol/L Normal 3.5-5.1 [facility] Comment on above: Performed By: #### C BC #### [facility] [address] [address] [address] Cecille Bradley Protein [Mass/Vol] 6.5 g/dL Normal 6.4-8.2 [facility] Comment on above: Performed By: #### C BC #### [facility] [address] [place] [address] Dr. Cecille Bradley Sodium [Moles/Vol] 140 mmol/L Normal 136-145 [facility] Comment on above: Performed By: #### C BC #### [facility] [address] [place] [address] Dr. Cecille Bradley Urea nitrogen [Mass/Vol] 11.0 mg/dL Normal 7.0-18.0 [facility] Comment on above: Performed By: #### C BC #### [facility] [address] [place] [address] Dr. Cecille Bradley Urea nitrogen/Creatinine [Mass ratio] 18.0 mg/mg Normal [facility] Comment on above: Performed By: #### C BC #### [facility] [address] [place] [address] Dr. Cecille Bradley CBC AUTO DIFFon 12-11-2022 BASO # 0.0 103/ul Normal 0.0-0.1 [facility] Comment on above: Performed By: #### C BC #### [facility] [address] [place] [address] Dr. Cecille Bradley Basophils/100 WBC (Bld) 0.1 % Critically low 0.2-2.0 [facility] Comment on above: Performed By: #### C BC #### [facility] [address] [place] [address] Dr. Cecille Bradley EO # 0.0 103/ul Normal 0.0-0.7 [facility] Comment on above: Performed By: #### C BC #### [facility] [address] [place] [address] Dr. Cecille Bradley Eosinophils/100 WBC (Bld) 0.0 % Critically low 0.9-7.0 [facility] Comment on above: Performed By: #### C BC #### [facility] [address] [place] [address] Dr. Cecille Bradley Erythrocyte distribution width (RBC) [Ratio] 14.9 % Normal 11.0-15.0 [facility] Comment on above: Performed By: #### C BC #### [facility] [address] [place] [address] Dr. Cecille Bradley Hematocrit (Bld) [Volume fraction] 48.8 % Normal 42.0-54.0 [facility] Comment on above: Performed By: #### C BC #### [facility] [address] [place] [address] Dr. Cecille Bradley Hemoglobin (Bld) [Mass/Vol] 15.2 g/dL Normal 14.0-18.0 [facility] Comment on above: Performed By: #### C BC #### [facility] [address] [place] [address] Dr. Cecille Bradley IG # 0.03 10e3/ul Normal 0.00-0.03 [facility] Comment on above: Performed By: #### C BC #### [facility] [address] [place] [address] Dr. Cecille Bradley IG % 0.4 % Normal 0.0-0.5 [facility] Comment on above: Performed By: #### C BC #### [facility] [address] [place] [address] Dr. Cecille Bradley LYMPH # 0.6 103/ul Critically low 1.2-3.8 [facility] Comment on above: Performed By: #### C BC #### [facility] [address] [place] [address] Dr. Cecille Bradley Lymphocytes/100 WBC (Bld) 7.1 % Critically low 20.5-60.0 [facility] Comment on above: Performed By: #### C BC #### [facility] [address] [place] [address] Dr. Cecille Bradley MANUAL DIFF REQ NO Normal [facility] Comment on above: Performed By: #### C BC #### [facility] [address] [place] [address] Dr. Cecille Bradley MCH (RBC) [Entitic mass] 32.1 pg Normal 25.9-34.0 [facility] Comment on above: Performed By: #### C BC #### [facility] [address] [address] [address] Cecille Bradley MCHC (RBC) [Mass/Vol] 31.1 g/dL Normal 29.9-35.2 [facility] Comment on above: Performed By: #### C BC #### [facility] [address] [address] [address] Cecille Bradley MCV (RBC) [Entitic vol] 103.2 fL Critically high 80.0-94.0 [facility] Comment on above: Performed By: #### C BC #### [facility] [address] [address] [address] Cecille Bradley MONO # 0.7 103/ul Normal 0.3-0.8 [facility] Comment on above: Performed By: #### C BC #### [facility] [address] [address] [address] Cecille Bradley Monocytes/100 WBC (Bld) 8.2 % Normal 1.7-12.0 [facility] Comment on above: Performed By: #### C BC #### [facility] [address] [address] [address] Cecille Bradley NEUT # 7.0 103/ul Critically high 1.4-6.5 [facility] Comment on above: Performed By: #### C BC #### [facility] [address] [address] [address] Cecille Bradley Neutrophils/100 WBC (Bld) 84.2 % Critically high 43.0-75.0 [facility] Comment on above: Performed By: #### C BC #### [facility] [address] [address] [address] Cecille Bradley Platelet mean volume (Bld) [Entitic vol] 10.1 fL Normal 9.5-13.5 [facility] Comment on above: Performed By: #### C BC #### [facility] [address] [address] [address] Cecille Bradley PLT 164 103/ul Normal 150-450 [facility] Comment on above: Performed By: #### C BC #### [facility] [address] [address] [address] Cecille Bradley RBC 4.73 106/ul Normal 4.70-6.10 [facility] Comment on above: Performed By: #### C BC #### [facility] [address] [place], [place] [address] Dr. Cecille Bradley WBC 8.3 103/ul Normal 4.0-11.0 [facility] Comment on above: Performed By: #### C BC #### [facility] [address] [place], [place] [address] HEAD WO CONon 12-11-2022 CT HEAD WO CON EXAMINATION: CT HEAD WO CON HISTORY: DISORIENTATION, UNSPECIFIED COMPARISON: No relevant comparison available. TECHNIQUE: Axial CT images were obtained without IV contrast. Dose reduction techniques were achieved by using automated exposure control and/or adjustment of mA and/or kV according to patient size and/or use of iterative reconstruction technique. FINDINGS: BRAIN: No edema, hemorrhage, mass, acute infarction, or inappropriate atrophy. CSF SPACES: No hydrocephalus, subarachnoid hemorrhage, or mass. Appropriate for age. SKULL: No fracture, mass, or other significant visible lesion. SINUSES: Small fluid levels within the right maxillary and bilateral sphenoid sinuses. Scattered areas of mild mucosal thickening and small mucoceles. Fluid within multiple right mastoid air cells and partially filling the right middle ear. ORBITS: No appreciable abnormality on the limited views. OTHER: Negative IMPRESSION: 1. No intercranial hemorrhage or appreciable abnormality the brain. 2. Acute on chronic paranasal sinusitis. 3. Right otitis media and possible mastoiditis. Electronically authenticated by: KARLOS STORY Date: 2022-12-11 12:32 Normal [facility] MAGNESIUMon 12-11-2022 Magnesium [Mass/Vol] 2.2 mg/dL Normal 1.8-2.4 [facility] Comment on above: Performed By: #### C BC #### [facility] [address] [address] [address] Cecille Bradley PROF 14(COMP METB)on 023 Albumin [Mass/Vol] 3.0 g/dL Critically low 3.4-5.0 Th e [facility] Comment on above: Performed By: #### C BC #### [facility] [address] [place] [address] Dr. Cecille Bradley Albumin/Globulin [Mass ratio] 0.8 {ratio} Normal [facility] Comment on above: Performed By: #### C BC #### [facility] [address] [place] [address] Dr. Cecille Bradley ALP [Catalytic activity/Vol] 74 U/L Normal 46-116 [facility] Comment on above: Performed By: #### C BC #### [facility] [address] [place] [address] Dr. Cecille Bradley ALT [Catalytic activity/Vol] 33 U/L Normal 16-63 [facility] Comment on above: Performed By: #### C BC #### [facility] [address] [place] [address] Dr. Cecille Bradley Anion gap [Moles/Vol] 9.4 mmol/L Normal [facility] Comment on above: Performed By: #### C BC #### [facility] [address] [place] [address] Dr. Cecille Bradley AST [Catalytic activity/Vol] 24 U/L Normal 15-37 [facility] Comment on above: Performed By: #### C BC #### [facility] [address] [place] [address] Dr. Cecille Bradley Bilirubin [Mass/Vol] 0.8 mg/dL Normal 0.2-1.0 [facility] Comment on above: Performed By: #### C BC #### [facility] [address] [place] [address] Dr. Cecille Bradley Calcium [Mass/Vol] 8.5 mg/dL Normal 8.5-10.1 [facility] Comment on above: Performed By: #### C BC #### [facility] [address] [place] [address] Dr. Cecille Bradley Chloride [Moles/Vol] 103 mmol/L Normal 98-107 [facility] Comment on above: Performed By: #### C BC #### [facility] [address] [address] [address] Cecille Bradley CO2 [Moles/Vol] 30.9 mmol/L Normal 21.0-32.0 [facility] Comment on above: Performed By: #### C BC #### [facility] [address] [address] [address] Cecille Bradley Creatinine [Mass/Vol] 0.66 mg/dL Critically low 0.70-1.30 [facility] Comment on above: Performed By: #### C BC #### [facility] [address] [place] [address] Dr. Cecille Bradley EGFR-AF WALLISIAN >60 Normal >=60 [facility] Comment on above: Performed By: #### C BC #### [facility] [address] [place] [address] Dr. Cecille Bradley EGFR-NON AF WALLISIAN >60 Normal >=60 [facility] Comment on above: Performed By: #### C BC #### [facility] [address] [place] [address] Dr. Cecille Bradley Globulin (S) [Mass/Vol] 3.8 g/dL Normal [facility] Comment on above: Performed By: #### C BC #### [facility] [address] [place] [address] Dr. Cecille Bradley Glucose [Mass/Vol] 150 mg/dL Critically high 74-106 [facility] Comment on above: Performed By: #### C BC #### [facility] [address] [place] [address] Dr. Cecille Bradley Potassium [Moles/Vol] 4.3 mmol/L Normal 3.5-5.1 [facility] Comment on above: Performed By: #### C BC #### [facility] [address] [place] [address] Dr. Cecille Bradley Protein [Mass/Vol] 6.8 g/dL Normal 6.4-8.2 [facility] Comment on above: Performed By: #### C BC #### [facility] [address] [place] [address] Dr. Cecille Bradley Sodium [Moles/Vol] 139 mmol/L Normal 136-145 [facility] Comment on above: Performed By: #### C BC #### [facility] [address] [address] [address] Cecille Bradley Urea nitrogen [Mass/Vol] 16.0 mg/dL Normal 7.0-18.0 [facility] Comment on above: Performed By: #### C BC #### [facility] [address] [address] [address] Cecille Bradley Urea nitrogen/Creatinine [Mass ratio] 24.2 mg/mg Normal [facility] Comment on above: Performed By: #### C BC #### [facility] [address] [address] [address] Cecille Bradley XR CHEST 1 Von 12-11-2022 XR CHEST 1 V EXAMINATION: XR CHES T 1 V HISTORY: SHORTNESS OF BREATH COMPARISON: XR chest 12/09/2022 FINDINGS: LUNGS: Moderate opacities throughout both lungs, right greater than left. VASCULATURE: No increased pulmonary vasculature. PLEURA: Thin band of pleural fluid along right lateral chest wall extending up over apex. CARDIAC: Likely enlarged. Prior sternotomy with larger sternal band projecting over mid sternum. MEDIASTINUM: No visible mass or adenopathy. BONES: No fracture or visible bone lesion. OTHER: Negative. IMPRESSION: 1. Limited examination due to patient body habitus and AP portable technique. 2. Moderate bilateral pulmonary infiltrates and small-moderate right pleural effusion, grossly stable. Electronically authenticated by: KARLOS STORY Date: 2022-12-11 10:05 Normal [facility] BLOOD GASES BTYon 12-10-2022 02 MODE BIPAP Normal [facility] Comment on above: Performed By: #### C BC #### [facility] [address] [address] [address] Cecille Bradley ALLENFlex TEST Positive Normal [facility] Comment on above: Performed By: #### C BC #### [facility] [address] [address] [address] Cecille Bradley Base excess Calc (Bld) [Moles/Vol] 1.6 mmol/L Normal -2.0-2.0 [facility] Comment on above: Performed By: #### C BC #### [facility] [address] [address] [address] Cecille Bradley BIPAP PRESSURE 18/8 Normal [facility] Comment on above: Performed By: #### C BC #### [facility] [address] [address] [address] Cecille Bradley CPAP Normal [facility] Comment on above: Performed By: #### C BC #### [facility] [address] [address] [address] Cecille Bradley FIO2 70.00 % Normal [facility] Comment on above: Performed By: #### C BC #### [facility] [address] [address] [address] Cecille Bradley HCO3 (Bld) [Moles/Vol] 28.2 mmol/L Critically high 22.0-26.0 [facility] Comment on above: Performed By: #### C BC #### [facility] [address] [address] [address] Cecille Bradley LPM [facility] Comment on above: Performed By: #### C BC #### [facility] [address] [address] [address] Cecille Bradley MINUTE VOLUME Normal [facility] Comment on above: Performed By: #### C BC #### [facility] [address] [address] [address] Cecille Bradley Oxygen (Bld) [Partial pressure] 60.7 mm[Hg] Critically low 80.0-100.0 [facility] Comment on above: Performed By: #### C BC #### [facility] [address] [address] [address] Cecille Bradley Oxygen saturation in Blood 88.9 % Critically low 95.0-100.0 [facility] Comment on above: Performed By: #### C BC #### [facility] [address] [address] [address] Cecille Bradley PCO2 59.0 mmHg Critically high 35.0-45.0 [facility] Comment on above: Performed By: #### C BC #### [facility] [address] [address] [address] Cecille Bradley PEEP [facility] Comment on above: Performed By: #### C BC #### [facility] [address] [address] [address] Cecille Bradley pH (Bld) 7.288 [pH] Critically low 7.350-7.450 [facility] Comment on above: Performed By: #### C BC #### [facility] [address] [address] [address] Cecille Bradley PIP [facility] Comment on above: Performed By: #### C BC #### [facility] [address] [place] [address] Dr. Cecille Bradley PS [facility] Comment on above: Performed By: #### C BC #### [facility] [address] [address] [address] Cecille Bradley PUNCTURE SITE RB [facility] Comment on above: Performed By: #### C BC #### [facility] [address] [address] [address] Cecille Bradley RATE [facility] Comment on above: Performed By: #### C BC #### [facility] [address] [address] [address] Cecille Bradley VENT MODE [facility] Comment on above: Performed By: #### C BC #### [facility] [address] [address] [address] Cecille Bradley [place] [facility] Comment on above: Performed By: #### C BC #### [facility] [address] [address] [address] Cecille Bradley 02 MODE NON REBREATHER MASK [facility] Comment on above: Performed By: #### C MP #### [facility] [address] [place] [address] Dr. Cecille Bradley ALLENS TEST Positive [facility] Comment on above: Performed By: #### C MP #### [facility] [address] [address] [address] Cecille Bradley Base excess Calc (Bld) [Moles/Vol] -1.1000 mmol/L Normal -2.0-2.0 [facility] Comment on above: Performed By: #### C MP #### [facility] [address] [place] [address] Dr. Cecille Bradley BIPAP PRESSURE Normal [facility] Comment on above: Performed By: #### C MP #### [facility] [address] [address] [address] Cecille Bradley CPAP [facility] Comment on above: Performed By: #### C MP #### [facility] [address] [place] [address] Dr. Cecille Bradley FIO2 [facility] Comment on above: Performed By: #### C MP #### [facility] [address] [place] [address] Dr. Cecille Bradley HCO3 (Bld) [Moles/Vol] 27.5 mmol/L Critically high 22.0-26.0 [facility] Comment on above: Performed By: #### C MP #### [facility] [address] [place] [address] Dr. Cecille Bradley LPM 15 [facility] Comment on above: Performed By: #### C MP #### [facility] [address] [place] [address] Dr. Cecille Bradley MINUTE VOLUME Normal [facility] Comment on above: Performed By: #### C MP #### [facility] [address] [place] [address] Dr. Cecille Bradley Oxygen (Bld) [Partial pressure] 56.4 mm[Hg] Critically low 80.0-100.0 [facility] Comment on above: Performed By: #### C MP #### [facility] [address] [place] [address] Dr. Cecille Bradley Oxygen saturation in Blood 80.1 % Critically low 95.0-100.0 [facility] Comment on above: Performed By: #### C MP #### [facility] [address] [address] [address] Cecille Bradley PCO2 75.9 mmHg Critically high 35.0-45.0 [facility] Comment on above: Performed By: #### C MP #### [facility] [address] [address] [address] Cecille Bradley PEEP [facility] Comment on above: Performed By: #### C MP #### [facility] [address] [address] [address] Cecille Bradley pH (Bld) 7.167 [pH] Critically low 7.350-7.450 [facility] Comment on above: Performed By: #### C MP #### [facility] [address] [address] [address] Cecille Bradley [facility] Comment on above: Performed By: #### C MP #### [facility] [address] [place] [address] Dr. Cecille Bradley [facility] Comment on above: Performed By: #### C MP #### [facility] [address] [address] [address] Cecille Bradley PUNCTURE SITE RB [facility] Comment on above: Performed By: #### C MP #### [facility] [address] [place] [address] Dr. Cecille Bradley RATE [facility] Comment on above: Performed By: #### C MP #### [facility] [address] [place] [address] Dr. Cecille Bradley VENT MODE [facility] Comment on above: Performed By: #### C MP #### [facility] [address] [address] [address] Cecille Bradley [facility] Comment on above: Performed By: #### C MP #### [facility] [address] [place] [address] Dr. Cecille Bradley BNPon 12-10-2022 Natriuretic peptide B (Bld) [Mass/Vol] 573.0 pg/mL Normal <=900.0 [facility] Comment on above: Performed By: #### C VDTBH #### [facility] [address] [place] [address] Dr. Cecille Bradley CBC AUTO DIFFon 12-10-2022 BASO # 0.1 103/ul Normal 0.0-0.1 [facility] Comment on above: Performed By: #### C BC #### [facility] [address] [place] [address] Dr. Cecille Bradley Basophils/100 WBC (Bld) 0.5 % Normal 0.2-2.0 [facility] Comment on above: Performed By: #### C BC #### [facility] [address] [place] [address] Dr. Cecille Bradley EO # 0.1 103/ul Normal 0.0-0.7 [facility] Comment on above: Performed By: #### C BC #### [facility] [address] [place] [address] Dr. Cecille Bradley Eosinophils/100 WBC (Bld) 0.8 % Critically low 0.9-7.0 [facility] Comment on above: Performed By: #### C BC #### [facility] [address] [place] [address] Dr. Cecille Bradley Erythrocyte distribution width (RBC) [Ratio] 15.0 % Normal 11.0-15.0 [facility] Comment on above: Performed By: #### C BC #### [facility] [address] [place] [address] Dr. Cecille Bradley Hematocrit (Bld) [Volume fraction] 59.1 % Critically high 42.0-54.0 [facility] Comment on above: Performed By: #### C BC #### [facility] [address] [place] [address] Dr. Cecille Bradley Hemoglobin (Bld) [Mass/Vol] 18.0 g/dL Normal 14.0-18.0 [facility] Comment on above: Performed By: #### C BC #### [facility] [address] [place] [address] Dr. Cecille Bradley IG # 0.04 10e3/ul Critically high 0.00-0.03 [facility] Comment on above: Performed By: #### C BC #### [facility] [address] [place] [address] Dr. Cecille Bradley IG % 0.4 % Normal 0.0-0.5 [facility] Comment on above: Performed By: #### C BC #### [facility] [address] [place] [address] Dr. Cecille Bradley LYMPH # 2.3 103/ul Normal 1.2-3.8 [facility] Comment on above: Performed By: #### C BC #### [facility] [address] [place] [address] Dr. Cecille Bradley Lymphocytes/100 WBC (Bld) 21.4 % Normal 20.5-60.0 [facility] Comment on above: Performed By: #### C BC #### [facility] [address] [place] [address] Dr. Cecille Bradley MANUAL DIFF REQ NO Normal [facility] Comment on above: Performed By: #### C BC #### [facility] [address] [place] [address] Dr. Cecille Bradley MCH (RBC) [Entitic mass] 32.0 pg Normal 25.9-34.0 [facility] Comment on above: Performed By: #### C BC #### [facility] [address] [place] [address] Dr. Cecille Bradley MCHC (RBC) [Mass/Vol] 30.5 g/dL Normal 29.9-35.2 [facility] Comment on above: Performed By: #### C BC #### [facility] [address] [place] [address] Dr. Cecille Bradley MCV (RBC) [Entitic vol] 105.2 fL Critically high 80.0-94.0 [facility] Comment on above: Performed By: #### C BC #### [facility] [address] [place] [address] Dr. Cecille Bradley MONO # 1.0 103/ul Critically high 0.3-0.8 [facility] Comment on above: Performed By: #### C BC #### [facility] [address] [address] [address] Cecille Bradley Monocytes/100 WBC (Bld) 8.9 % Normal 1.7-12.0 [facility] Comment on above: Performed By: #### C BC #### [facility] [address] [address] [address] Cecille Bradley NEUT # 7.3 103/ul Critically high 1.4-6.5 [facility] Comment on above: Performed By: #### C BC #### [facility] [address] [place] [address] Dr. Cecille Bradley Neutrophils/100 WBC (Bld) 68.0 % Normal 43.0-75.0 [facility] Comment on above: Performed By: #### C BC #### [facility] [address] [place] [address] Dr. Cecille Bradley Platelet mean volume (Bld) [Entitic vol] 10.9 fL Normal 9.5-13.5 [facility] Comment on above: Performed By: #### C BC #### [facility] [address] [place] [address] Dr. Cecille Bradley PLT 207 103/ul Normal 150-450 [facility] Comment on above: Performed By: #### C BC #### [facility] [address] [place] [address] Dr. Cecille Bradley RBC 5.62 106/ul Normal 4.70-6.10 [facility] Comment on above: Performed By: #### C BC #### [facility] [address] [place] [address] Dr. Cecille Bradley WBC 10.7 103/ul Normal 4.0-11.0 [facility] Comment on above: Performed By: #### C BC #### [facility] [address] [place] [address] Dr. Cecille Bradley CULTURE BLOODon 12-10-2022 Microscopic examination of blood, culture Culture Observations: NO GROWTH AT 5 DAYS. Normal [facility] Comment on above: Performed By: #### B LDCX2 #### [facility] [address] [address] [address] Cecille Bradley Microscopic examination of blood, culture Culture Observations: NO GROWTH AT 5 DAYS. Normal [facility] Comment on above: Performed By: #### B LDCX1 #### [facility] [address] [place] [address] Dr. Cecille Bradley Covid-19 PCR (CVDTB)on SARS-CoV-2 (COVID-19) RNA YUDELKA+probe Ql (Unsp spec) Detected Abnormal NOT DETECTED [facility] Comment on above: Result Comment: This test is not yet approved or cleared by the [place] FDA. When there are no FDA-approved or cleared tests available, and other criteria are met, FDA can make tests available under an emergency access mechanism called an Emergency Use Authorization (EUA). The EUA for this test is supported by the [place] of Health and Human Service's declaration that circumstances exist to justify the emergency use of in vitro diagnostics for the detection and/or diagnosis of the virus that causes COVID-19. This EUA will remain in effect for the duration of the COVID-19 declaration justifying emergency of IVDs, unless it is terminated or revoked by the FDA (after which the test may no longer be used). Performed By: #### C VDTBH #### [facility] [address] [place] [address] Dr. Cecille Bradley LACTATE/LACTIC ACIDon 2022 Lactate [Moles/Vol] 0.8 mmol/L Normal 0.4-1.9 [facility] Comment on above: Performed By: #### C MP #### [facility] [address] [place] [address] Dr. Cecille Bradley Lactate [Moles/Vol] 3.5 mmol/L Critically high 0.4-1.9 [facility] Comment on above: Performed By: #### L ACT #### [facility] [address] [place] [address] Dr. Cecille Bradley PROF 14(COMP METB)on 023 Albumin [Mass/Vol] 4.4 g/dL Normal 3.4-5.0 [facility] Comment on above: Performed By: #### C VDTBH #### [facility] [address] [place] [address] Dr. Cecille Bradley Albumin/Globulin [Mass ratio] 1.0 {ratio} Normal [facility] Comment on above: Performed By: #### C VDTBH #### [facility] [address] [place] [address] Dr. Cecille Bradley ALP [Catalytic activity/Vol] 119 U/L Critically high 46-116 [facility] Comment on above: Performed By: #### C VDTBH #### [facility] [address] [place] [address] Dr. Cecille Bradley ALT [Catalytic activity/Vol] 50 U/L Normal 16-63 [facility] Comment on above: Performed By: #### C VDTBH #### [facility] [address] [place] [address] Dr. Cecille Bradley Anion gap [Moles/Vol] 13.9 mmol/L Normal [facility] Comment on above: Performed By: #### C VDTBH #### [facility] [address] [place] [address] Dr. Cecille Bradley AST [Catalytic activity/Vol] 40 U/L Critically high 15-37 [facility] Comment on above: Performed By: #### C VDTBH #### [facility] [address] [place] [address] Dr. Cecille Bradley Bilirubin [Mass/Vol] 1.0 mg/dL Normal 0.2-1.0 [facility] Comment on above: Performed By: #### C VDTBH #### [facility] [address] [place] [address] Dr. Cecille Bradley Calcium [Mass/Vol] 9.1 mg/dL Normal 8.5-10.1 [facility] Comment on above: Performed By: #### C VDTBH #### [facility] [address] [place] [address] Dr. Cecille Bradley Chloride [Moles/Vol] 99 mmol/L Normal 98-107 [facility] Comment on above: Performed By: #### C VDTBH #### [facility] [address] [address] [address] Cecille Bradley CO2 [Moles/Vol] 28.2 mmol/L Normal 21.0-32.0 [facility] Comment on above: Performed By: #### C VDTBH #### [facility] [address] [address] [address] Cecille Bradley Creatinine [Mass/Vol] 1.00 mg/dL Normal 0.70-1.30 [facility] Comment on above: Performed By: #### C VDTBH #### [facility] [address] [place] [address] Dr. Cecille Bradley EGFR-AF WALLISIAN >60 Normal >=60 [facility] Comment on above: Performed By: #### C VDTBH #### [facility] [address] [place] [address] Dr. Cecille Bradley EGFR-NON AF WALLISIAN >60 Normal >=60 [facility] Comment on above: Performed By: #### C VDTBH #### [facility] [address] [place] [address] Dr. Cecille Bradley Globulin (S) [Mass/Vol] 4.4 g/dL Normal [facility] Comment on above: Performed By: #### C VDTBH #### [facility] [address] [place] [address] Dr. Cecille Bradley Glucose [Mass/Vol] 160 mg/dL Critically high 74-106 [facility] Comment on above: Performed By: #### C VDTBH #### [facility] [address] [address] [address] Cecille Bradley Potassium [Moles/Vol] 4.1 mmol/L Normal 3.5-5.1 [facility] Comment on above: Performed By: #### C VDTBH #### [facility] [address] [place] [address] Dr. Cecille Bradley Protein [Mass/Vol] 8.8 g/dL Critically high 6.4-8.2 [facility] Comment on above: Performed By: #### C VDTBH #### [facility] [address] [address] [address] Cecille Bradley Sodium [Moles/Vol] 137 mmol/L Normal 136-145 [facility] Comment on above: Performed By: #### C VDTBH #### [facility] [address] [place] [address] Dr. Cecille Bradley Urea nitrogen [Mass/Vol] 18.0 mg/dL Normal 7.0-18.0 [facility] Comment on above: Performed By: #### C VDTBH #### [facility] [address] [place] [address] Dr. Cecille Bradley Urea nitrogen/Creatinine [Mass ratio] 18.0 mg/mg Normal [facility] Comment on above: Performed By: #### C VDTBH #### [facility] [address] [place] [address] Dr. Cecille Bradley TROPONIN, HIGH SENSITIVITYon 12-10-2022 HSTROP 10.4 pg/mL Normal 4.0-76.1 [facility] Comment on above: Result Comment: CUT- OFF POINTS HAVE BEEN ESTABLISHED BASED ON THE FOURTH UNIVERSAL DEFINITIONS OF MYOCARDIAL INFARCTION. THE UPPER REFERENCE LIMIT (URL) OF TROPONIN, DEFINED THE 99TH PERCENTILE OF cTnI DISTRIBUTION IN A REFERENCE POPULATION, HAS BEEN CONFIRMED THE DECISION THRESHOLD FOR AK DIAGNOSIS. Performed By: #### C VDTBH #### [facility] [address] [place] [address] Dr. Cecille Bradley XR CHEST 1 Von 12-10-2022 XR CHEST 1 V EXAM: XR CHEST 1 V HISTORY: SHORTNESS OF BREATH COMPARISON: Chest x-ray dated 02/07/2022. TECHNIQUE: Single frontal view of the chest FINDINGS: Stable enlarged cardiac mediastinal silhouette is seen. Patient is postmedian sternotomy. This is a limited examination due to patient body habitus. Airspace opacities are seen in the lungs bilaterally, which may represent infectious process and/or pulmonary edema. Small bilateral pleural effusion may be seen. No obvious pneumothorax is seen. IMPRESSION: This is a limited examination due to patient body habitus. Airspace opacities are seen in the lungs bilaterally, which may represent infectious process and/or pulmonary edema. Small bilateral pleural effusion may be seen. Electronically authenticated by: KASHIF HOBSONJENN Date: 2022-12-09 22:55 Normal [facility] NM STRESS/REST MULTIon 07-25 NM STRESS/REST MULTI Patient: CARLOS CHEEK Exam Date: 07/25/2022 : 1970 Gender:M Ordering : LILIAM TrJovita [facility] Admission #: [id number] Family : Order #: [id number] CLICK HERE TO VIEW EXAM RADIOLOGY REPORT PROCEDURE: RADIONUCLIDE IMAGING STRESS/REST MULTI COMPARISON: None. INDICATIONS: Heart failure with reduced ejection fraction due to coronary artery disease TECHNIQUE: Exam Description: Stress/Rest two day protocol gated SPECT Rest Imagin.6 mCi Tc-99m Cardiolite IV on 07/26/2022 Stress Imaging 27.0 mCi Tc-99m Cardiolite IV on 07/25/2022 Exercise Protocol: 0.4 mg Lexiscan given IV Heart Rate (bpm): Rest: 48 Max: 69 PMHR: 40 Blood Pressure: Rest: 138/80 Max: 148/84 Symptoms: Rest and peak stress ECG findings were normal and the exercise portion of the study was normal per attending physician Dr. Crowder . For more details please see separate cardiac stress test report. FINDINGS: QUALITY OF STUDY: Good. PERFUSION DEFECT: LOCATION: Basal inferolateral. Basal anterolateral. Mid-inferior. Mid-inferolateral. [place]. SIZE: Large (5 or more segments). SEVERITY: Moderate. TYPE: Mixed. WALL MOTION: Normal. LV SIZE: Enlarged; EDV 168 mL. TID / TCD: None; 0.9 LVEF: Normal. Calculated EF 65%. SUMMARY: Myocardial perfusion imaging study has ABNORMAL findings. CONCLUSION: 1. Areas of suspected reversible ischemia in the inferior wall, lateral wall and apex. 2. Dilated left ventricle, end-diastolic volume 168 milliliters 3. Normal exercise test Dictated by: Deann Crane MD on 07/26/2022 at 14:43 Approved by: Deann Crane MD on 07/26/2022 at 14:58 Normal [facility] ECHOCARDIO M/2D COMPLETEon 0 07-07-2022 ECHOCARDIO M/2D COMPLETE Patient: CARLOS CHEEKJovita Exam Date: 07/07/2022 : 1970 Gender:M Ordering : LILIAM [facility] Admission #: [id number] Family : Order #: [id number] CLICK HERE TO VIEW EXAM ECHOCARDIOGRAM REPORT PROCEDURE: CARDIO PULMONARY ECHOCARDIO M/2D COMP INDICATIONS: Persistent Atrial Fib COMPARISON: None. DESCRIPTION: COMPLETE ECHOCARDIOGRAM Real-time transthoracic echocardiography with 2D, M-mode, spectral and color flow Doppler performed. QUALITY: Technical quality was limited. LEFT VENTRICLE: Normal chamber size. Mild concentric left ventricular hypertrophy. Global left ventricular systolic function is mildly decreased. Visual estimation of left ventricular ejection fraction is 45% LV EF: DIASTOLIC: Grade I diastolic dysfunction. ATRIAL SEPTUM: LEFT ATRIUM: RIGHT ATRIUM: RIGHT VENTRICLE: Mild dilatation. Systolic function appears normal. TRICUSPID VALVE: Grossly normal. No stenosis with trivial regurgitation. No evidence of pulmonary hypertension. MITRAL VALVE: Normal mobility and thickness. No mitral valve prolapse. No evidence of mitral valve stenosis. There is no mitral annular calcification. Mild mitral regurgitation. AORTIC VALVE: Grossly normal. No evidence of aortic valve stenosis. No aortic regurgitation. AORTIC ROOT: Normal diameter and appearance. PULMONIC VALVE: Grossly normal. No stenosis. No regurgitation. PERICARDIUM: No evidence of pericardial effusion. IVC: Not well visualized. PLEURA: CONCLUSION: 1. The left ventricle is normal in size with mild global hypokinesis. LVEF is estimated at 45%. 2. Right ventricular appears to be mildly dilated with preserved systolic function. 3. Mild mitral regurgitation. 4. Technically limited study with limited views and acoustic windows. Adult Echocardiography Procedure Report Left Ventricle Left Atrium Mitral Valve Right Ventricle RV Internal Diastolic Dimension: 4.09 cm Aorta Aortic Valve Peak Velocity (Antegrade Flow): 1.51 m/s AoV Area (Peak Stefan): 1.44 cm2, 1.44 cm2 Tricuspid Valve Peak Velocity (Regurgitant Flow): 1.59 m/s, 1.16 m/s Pulmonic Valve Peak Velocity: 1.22 m/s Peak Gradient: 5.92 mm[Hg] Right Atrium Dictated by: Khoa López M.D. on 07/07/2022 at 21:17 Approved by: Khoa López M.D. on 07/07/2022 at 21:20 Normal [facility] ERYTHROPOIETIN (EPO)on 02-19 Erythropoietin 23.8 mIU/mL Critically high 2.6-18.5 [facility] Comment on above: Result Comment: [employer] DxI 800 Immunoassay System . Values obtained with different assay methods or kits cannot be used interchangeably. Results cannot be interpreted as absolute evidence of the presence or absence of malignant disease. Performed By: #### C MP #### [facility] [address] [place] [address] Dr. Cecille Bradley ERYTHROPOIETIN (EPO)on 02-15 Erythropoietin QNSTST Normal [facility] Comment on above: Result Comment: Test not performed. Insufficient specimen to perform or complete analysis. [employer] UniCel DxI 800 Immunoassay System . Values obtained with different assay methods or kits cannot be used interchangeably. Results cannot be interpreted as absolute evidence of the presence or absence of malignant disease. contacted Lokesh at your facility on 02-15-2022 Performed By: #### C VDTB #### [facility] [address] [place] [address] Dr. Cecille Bradley BNPon 02-07-2022 Natriuretic peptide B (Bld) [Mass/Vol] 64.0 pg/mL Normal <=900.0 [facility] Comment on above: Performed By: #### C BC #### [facility] [address] [place] [address] Dr. Cecille Bradley XR CHEST 2 Von 02-07-2022 XR CHEST 2 V EXAMINATION: XR CHES T 2 V HISTORY: Dyspnea COMPARISON: 01/14/2022 TECHNIQUE: PA and lateral FINDINGS: LUNGS: No significant pulmonary parenchymal abnormalities. VASCULATURE: Moderately increased pulmonary vasculature. PLEURA: No pneumothorax, effusion, or pleural thickening. CARDIAC: Severe stable cardiomegaly. MEDIASTINUM: No visible mass or adenopathy. Median sternotomy wires BONES: No fracture or visible bone lesion. OTHER: Negative. IMPRESSION: Severe cardiomegaly with pulmonary vascular congestion Electronically authenticated by: DEANN CRANE Date: 2022-02-07 16:07 Normal [facility] BASIC METABOLIC PANELon 07-0 Calcium [Mass/Vol] 9.6 mg/dL Normal 8.6-10.3 [facility] Comment on above: Performed By: #### 0 0071 #### [facility] [address] [place] [address], [place] Chloride [Moles/Vol] 105 mmol/L Normal 98-107 [facility] Comment on above: Performed By: #### 0 0071 #### [facility] [place] [address] [place] [address], [place] CO2 [Moles/Vol] 26 mmol/L Normal 21-31 [facility] Comment on above: Performed By: #### 0 0071 #### [facility] [place] [address] [place] [address], [place] Creatinine [Mass/Vol] 0.55 mg/dL Low 0.70-1.30 [facility] Comment on above: Performed By: #### 0 0071 #### [facility] [place] [address] [place] [address], [place] GFR/1.73 sq M.predicted among blacks MDRD (S/P/Bld) [Vol rate/Area] mL/min/{1.73_m2} Normal >60 [facility] Comment on above: Performed By: #### 0 0071 #### [facility] [place] [address] [place] [address], [place] GFR/1.73 sq M.predicted among non-blacks MDRD (S/P/Bld) [Vol rate/Area] mL/min/{1.73_m2} Normal >60 [facility] Comment on above: Performed By: #### 0 0071 #### [facility] [place] [address] [place] [address], [place] Glucose [Mass/Vol] 105 mg/dL High 70-100 [facility] Comment on above: Performed By: #### 0 0071 #### [facility] [address] [place] [address], [place] Potassium [Moles/Vol] 4.2 mmol/L Normal 3.5-5.1 [facility] Comment on above: Performed By: #### 0 0071 #### [facility] [place] [address] [place] [address], [facility] Sodium [Moles/Vol] 137 mmol/L Normal 136-145 [facility] Comment on above: Performed By: #### 0 0071 #### [facility] [place] [address] Urea nitrogen [Mass/Vol] 19 mg/dL Normal 7-25 [facility] Comment on above: Performed By: #### 0 0071 #### [facility] [address] Cardiovascular Lab Reporton 05-14-2021 Cardiovascular Lab Report [facility] Patient Name: Carlos Cheek [facility] MR #: [id number] Physician: Khoa Monet Department of [facility]in L[facility]pez Medicine Service Date: 05/14/2021 Division of Birthdate: 1970 Cardiology Room #: Adult Cardiovascular Services [address] [address] Cardiovascular Laboratory Report INDICATION: The patient is a 50-year-old man with history of coronary artery disease status post bypass surgery in the past and stenting of the saphenous venous graft sequential to OM and PDA in 2018. He was evaluated recently in Cardiology Clinic because of worsening symptoms of shortness of breath on exertion as well as jaw pain. He was referred for cardiac catheterization. PROCEDURE: 1. Right heart catheterization. 2. Bilateral selective coronary angiography. 3. Graft angiography. 4. Limited right common femoral angiography. 5. Access into the right common femoral artery and vein under ultrasound guidance. METHODS: Procedure was explained patient with risks and benefits. He signed informed consent. He was brought to laboratory technologist in a fasting state. The right groin area was prepped and draped in usual fashion. Using ultrasound guidance and micropuncture technique, the right common femoral artery was accessed. The inner cannula was advanced and the right common femoral angiography was performed. This was then upsized using a V18 wire to a stiff micropuncture catheter which was used to place a Magic Torque wire over which the access was serially dilated and a 6-Nepalese x 11 cm sheath was placed. Access was also obtained using same technique in the right common femoral vein under ultrasound guidance and a 6-Nepalese x 11 cm sheath was placed. A 6-Nepalese Zarate catheter was used for right catheterization with measurement of pressures and calculation of cardiac output using the estimated Timoteo method. Zarate catheter was removed. Bilateral selective coronary angiography was then performed using 6-Nepalese JL4 and JR4 diagnostic catheters. The 6-Nepalese JR4 diagnostic catheter was used to selectively engage the saphenous venous graft to the OM and PDA and the radial graft to the ramus. Angiography was performed. A 6-Nepalese TIFFANY catheter was used to selectively engage the left subclavian artery and then selectively engage the left internal mammary artery. Angiography was performed. Catheters were removed. Procedure was concluded. Manual compression was used for hemostasis. He tolerated the procedure well. He was transferred to the cardiovascular recovery area. He will be observed for 6 hours and then discharged to home. TOTAL FLUORO TIME: 12.33 minutes. TOTAL AIR KERMA: 1464 mGy. TOTAL CONTRAST VOLUME: 85 mL. TOTAL SEDATION TIME: 57 minutes. HEMODYNAMICS: RA 11, RV 60/7, 17. PA 54/19, mean 34. Pulmonary capillary wedge pressure 17. AO 142/70, mean 103. Cardiac output 6.44, cardiac index 3.18. PA sat 64%, AO sat 82%. CORONARY ANGIOGRAPHY: This is a right dominant circulation. Left main: This arises from left coronary cusp. It bifurcates into left anterior descending and circumflex vessels. Left main is free of disease. Left anterior descending: This has diffuse proximal 80% stenosis. The first diagonal branch has a 70% stenosis. The distal LAD is seen filling via patent AVILA graft. Circumflex vessel: This is large and nondominant. It gives rise to a large first obtuse marginal branch which has a diffuse 60% stenosis. The circumflex vessel that is 100% occluded. There is faint filling of the distal second obtuse marginal branch via left to left collateral circulation. Right coronary artery: This arises from the right coronary cusp. It is a large and dominant vessel. It has mild diffuse disease in the proximal segment. Distally, it bifurcates into PDA and PLV branches. The PDA has an 80% ostial stenosis. The PLV branch has an 80% proximal stenosis. GRAFT ANGIOGRAPHY: AVILA to LAD: This graft is widely patent. Saphenous venous graft to OM2/PDA. This graft is stump occluded. Radial graft to OM1: This graft is stump occluded. Limited right common femoral angiography: This showed access to be in the right common femoral artery. There is no obstructive lesions noted and the femoral artery was proximal branches. SUMMARY OF THE FINDINGS: 1. Severe 3-vessel coronary artery disease (80% LAD, 70% diagonal, 60% OM, 100% circumflex, 80% PDA, and 80% PLV). 2. Patent 1/4 bypass grafts (patent AVILA to LAD, occluded radial to OM1 and occluded saphenous venous graft sequential to OM2 and PDA). 3. Mild to moderate elevation of filling pressures. 4. Moderate pulmonary hypertension. 5. Preserved cardiac output and cardiac index. RECOMMENDATIONS: 1. Given that the appearance of the apache angiography is similar to prior angiography 2 years ago and the only new finding is the o (more content not included)... Normal [facility] Vital Signs Date Time Vital Sign Value Performing Clinician Facility 11-29-2023 10:30-0500 Body height 137.16 cm Jarvam Other [facility] Other 11-29-2023 10:30-0500 Body mass index (BMI) [Ratio] 74.3 kg/m2 Jarvam Other [facility] Other 11-29-2023 10:30-0500 Body weight 139.8 kg Jarvam Other [facility] Other 11-29-2023 10:30-0500 Diastolic blood pressure 55 mm[Hg] Jarvam Other [facility] Other 11-29-2023 10:30-0500 Respiratory rate 20 /min Jarvam Other [facility] Other 11-29-2023 10:30-0500 SaO2% (BldA) [Mass fraction] Sivakumar Ball Other [facility] Other 11-29-2023 10:30-0500 Systolic blood pressure 90 mm[Hg] Sivakumar Ball Other [facility] Other 10-17-2023 15:00-0500 Body height 137.16 cm Sivakumar Ball Other [facility] Other 10-17-2023 15:00-0500 Body mass index (BMI) [Ratio] 73.53 kg/m2 Sivakumar Ball Other [facility] Other 10-17-2023 15:00-0500 Body weight 138.35 kg Sivakumar Ball Other [facility] Other 10-17-2023 15:00-0500 Diastolic blood pressure 72 mm[Hg] Sivakumar Ball Other [facility] Other 10-17-2023 15:00-0500 Respiratory rate 20 /min Sivakumar Ball Other [facility] Other 10-17-2023 15:00-0500 SaO2% (BldA) [Mass fraction] Sivakumar Ball Other [facility] Other 10-17-2023 15:00-0500 Systolic blood pressure 118 mm[Hg] Sivakumar Ball Other [facility] Other 09-26-2023 08:30-0500 Body height 137.16 cm Karen Nidialucian Other [facility] Other 09-26-2023 08:30-0500 Body mass index (BMI) [Ratio] 73.53 kg/m2 Karen Giles Other [facility] Other 09-26-2023 08:30-0500 Body temperature 97.6 [degF] Karen Giles Other [facility] Other 09-26-2023 08:30-0500 Body weight 138.35 kg Karen Giles Other [facility] Other 09-26-2023 08:30-0500 Diastolic blood pressure 54 mm[Hg] Karen Giles Other [facility] Other 09-26-2023 08:30-0500 Respiratory rate 20 /min Karen Giles Other [facility] Other 09-26-2023 08:30-0500 SaO2% (BldA) [Mass fraction] Karen Giles Other [facility] Other 09-26-2023 08:30-0500 Systolic blood pressure 106 mm[Hg] Karen Giles Other [facility] Other 07-12-2023 14:45-0400 Body height 137.16 cm Sivakumar Ball Other [facility] Other 07-12-2023 14:45-0400 Body mass index (BMI) [Ratio] 72.76 kg/m2 Sivakumar Ball Other [facility] Other 07-12-2023 14:45-0400 Body weight 136.9 kg Sivakumar Ball Other [facility] Other 07-12-2023 14:45-0400 Diastolic blood pressure 72 mm[Hg] Sivakumar Ball Other [facility] Other 07-12-2023 14:45-0400 Respiratory rate 20 /min Sivakumar Ball Other [facility] Other 07-12-2023 14:45-0400 SaO2% (BldA) [Mass fraction] 86 % Sivakumar Ball Other [facility] Other 07-12-2023 14:45-0400 Systolic blood pressure 122 mm[Hg] Sivakumar Ball Other [facility] Other 06-20-2023 08:45-0400 Body height 137.16 cm Karen Jacobban Other [facility] Other 06-20-2023 08:45-0400 Body mass index (BMI) [Ratio] 72.76 kg/m2 Keshawnal Nidiaban Other [facility] Other 06-20-2023 08:45-0400 Body temperature 97 [degF] Kamal Chaban Other [facility] Other 06-20-2023 08:45-0400 Body weight 136.9 kg Keshawnal Chaban Other [facility] Other 06-20-2023 08:45-0400 Diastolic blood pressure 62 mm[Hg] Kamal Chaban Other [facility] Other 06-20-2023 08:45-0400 Respiratory rate 20 /min Kamal Chaban Other [facility] Other 06-20-2023 08:45-0400 SaO2% (BldA) [Mass fraction] Kamal Chaban Other [facility] Other 06-20-2023 08:45-0400 Systolic blood pressure 126 mm[Hg] Kamal Chaban Other [facility] Other 04-27-2023 10:30-0400 Body height 137.16 cm Sivakumra Ball Other [facility] Other 04-27-2023 10:30-0400 Body mass index (BMI) [Ratio] 72.47 kg/m2 Sivakumar Ball Other [facility] Other 04-27-2023 10:30-0400 Body weight 136.35 kg Sivakumar Ball Other [facility] Other 04-27-2023 10:30-0400 Diastolic blood pressure 58 mm[Hg] Sivakumar Ball Other [facility] Other 04-27-2023 10:30-0400 Respiratory rate 20 /min Sivakumar Ball Other [facility] Other 04-27-2023 10:30-0400 SaO2% (BldA) [Mass fraction] 85 % Sivakumar Ball Other [facility] Other 04-27-2023 10:30-0400 Systolic blood pressure 96 mm[Hg] Sivakumar Ball Other [facility] Other 01-23-2023 11:15-0400 Body height 137.16 cm Sivakumar Ball Other [facility] Other 01-23-2023 11:15-0400 Body mass index (BMI) [Ratio] 72.13 kg/m2 Sivakumar Ball Other [facility] Other 01-23-2023 11:15-0400 Body weight 135.72 kg Sivakumar Ball Other [facility] Other 01-23-2023 11:15-0400 Diastolic blood pressure 84 mm[Hg] Sivakumar Ball Other [facility] Other 01-23-2023 11:15-0400 Respiratory rate 20 /min Sivakumar Ball Other [facility] Other 01-23-2023 11:15-0400 SaO2% (BldA) [Mass fraction] 88 % Sivakumar Ball Other [facility] Other 01-23-2023 11:15-0400 Systolic blood pressure 124 mm[Hg] Sivakumar Ball Other [facility] Other 12-26-2022 15:00-0500 Body height 137.16 cm Sivakumar Ball Other [facility] Other 12-26-2022 15:00-0500 Body mass index (BMI) [Ratio] 69.53 kg/m2 Sivakumar Ball Other [facility] Other 12-26-2022 15:00-0500 Body weight 130.82 kg Sivakumar Ball Other [facility] Other 12-26-2022 15:00-0500 Diastolic blood pressure 78 mm[Hg] Sivakumar Ball Other [facility] Other 12-26-2022 15:00-0500 Respiratory rate 20 /min Sivakumar Ball Other [facility] Other 12-26-2022 15:00-0500 SaO2% (BldA) [Mass fraction] 90 % Sivakumar Ball Other [facility] Other 12-26-2022 15:00-0500 Systolic blood pressure 122 mm[Hg] Sivakumar Ball Other [facility] Other Encounters Encounter Date Encounter Type Care Provider Facility Start: 11-29-2023 End: 11-29-2023 ambulatory Sivakumar Patel Other [facility] Other Start: 11-29-2023 Encounter for genera l adult medical examination without abnormal findings Sivakumar Patel [facility] Start: 11-29-2023 Periodic preventive med est patient 40-64yrs Sivakumar Patel [facility] Start: 11-02-2023 End: 11-02-2023 ambulatory Sivakumar Patel Other [facility] Other Start: 11-02-2023 Telephone encounter Sivakumar Patel [facility] Start: 10-17-2023 End: 10-17-2023 ambulatory Sivakumar Patel Other [facility] Other Start: 10-17-2023 Office outpatient vi sit 15 minutes Sivakumar Patel [facility] Start: 10-06-2023 End: 10-06-2023 ambulatory [facility] Start: 10-05-2023 End: 10-05-2023 ambulatory Sivakumar Patel Other [facility] Other Start: 10-05-2023 Telephone encounter [facility] Patel [facility] [facility] Start: 09-26-2023 End: 09-26-2023 ambulatory Kamal Chaban Other [facility] Other Start: 09-26-2023 Office outpatient vi sit 25 minutes Kamal Chaban [facility] Start: 09-06-2023 End: 09-06-2023 ambulatory Sivakumar Patel Other [facility] Other Start: 09-06-2023 Telephone encounter Sivakumar Patel [facility] Start: 08-22-2023 End: 08-22-2023 ambulatory Sivakumar Patel Other [facility] Other Start: 08-22-2023 Office outpatient vi sit 15 minutes Sivakumar Ball [facility] Start: 08-16-2023 End: 08-16-2023 ambulatory Sivakumar Ball Other [facility] Other Start: 08-16-2023 Office outpatient vi sit 15 minutes Sivakumar Ball [facility] Start: 08-07-2023 End: 08-07-2023 ambulatory Sivakumar Ball Other [facility] Other Start: 08-07-2023 Telephone encounter Sivakumar Ball [facility] Start: 07-20-2023 End: 07-20-2023 ambulatory Sivakumar Ball Other [facility] Other Start: 07-20-2023 Telephone encounter Sivakumar Ball [facility] Start: 07-12-2023 End: 07-12-2023 ambulatory Sivakumar Ball Other [facility] Other Start: 07-12-2023 Office outpatient vi sit 15 minutes Sivakumar Ball [facility] Start: 07-12-2023 Telephone encounter Sivakumar Ball [facility] Start: 07-06-2023 End: 07-06-2023 ambulatory Sivakumar Ball Other [facility] Other Start: 07-06-2023 Telephone encounter Sivakumar Ball [facility] Start: 07-04-2023 End: 07-04-2023 ambulatory Sivakumar Ball Other [facility] Other Start: 07-04-2023 Telephone encounter Sivakumar Ball [facility] Start: 06-21-2023 End: 06-21-2023 ambulatory Kamal Chaban Other [facility] Other Start: 06-21-2023 Telephone encounter Kamal Chaban [facility] Start: 06-20-2023 End: 06-20-2023 ambulatory Kamal Chaban Other [facility] Other Start: 06-20-2023 Office outpatient ne w 45 minutes Kamal Chaban [facility] Start: 06-01-2023 End: 06-01-2023 ambulatory Sivakumar Ball Other [facility] Other Start: 06-01-2023 Telephone encounter Sivakumar Ball [facility] Start: 05-22-2023 End: 05-22-2023 ambulatory Sivakumar Ball Other [facility] Other Start: 05-22-2023 Telephone encounter Sivakumar Ball [facility] Start: 05-05-2023 End: 05-05-2023 ambulatory Sivakumar Ball Other [facility] Other Start: 05-05-2023 Telephone encounter Sivakumar Ball [facility] Start: 05-03-2023 End: 05-03-2023 ambulatory [facility] Start: 04-27-2023 End: 04-27-2023 ambulatory Sivakumar Ball Other [facility] Other Start: 04-27-2023 Office outpatient vi sit 25 minutes Sivakumar Ball [facility] Start: 04-05-2023 End: 04-05-2023 ambulatory Sivakumar Ball Other [facility] Other Start: 04-05-2023 Telephone encounter Sivakumar Ball [facility] Start: 03-07-2023 End: 03-07-2023 ambulatory Sivakumar Ball Other [facility] Other Start: 03-07-2023 Telephone encounter Sivakumar Ball [facility] Start: 03-01-2023 End: 03-01-2023 ambulatory Sivakumar Ball Facility:[facility] Start: 03-01-2023 End: 03-01-2023 ambulatory DO Sivakumar Ball Work Phone: [facility] Work Phone: Start: 03-01-2023 End: 03-01-2023 Patient encounter procedure DO Sivakumar Patel Work Phone: [facility] Work Phone: Start: 02-17-2023 End: 02-17-2023 ambulatory Sivakumar Patel Other [facility] Other Start: 02-17-2023 Telephone encounter Sivakumar GODOY [facility] Start: 02-16-2023 End: 02-16-2023 ambulatory Sivakumar Jorge Other [facility] Other Start: 02-16-2023 Telephone encounter Sivakumar GODOY [facility] Start: 02-06-2023 End: 02-06-2023 ambulatory Sivakumar Patel Other [facility] Other Start: 02-06-2023 Telephone encounter Sivakumar GODOY [facility] Start: 01-23-2023 End: 01-23-2023 ambulatory Sivakumar Patel Other [facility] Other Start: 01-23-2023 Office outpatient vi sit 25 minutes Sivakumar Patel [facility] Start: 01-11-2023 End: 01-11-2023 ambulatory Sivakumar Patel Other [facility] Other Start: 01-11-2023 Office outpatient vi sit 15 minutes Sivakumar Patel [facility] Start: 01-05-2023 End: 01-05-2023 ambulatory Sivakumar Patel Other [facility] Other Start: 01-05-2023 Telephone encounter Sivakumar GODOY [facility] Start: 12-26-2022 End: 12-26-2022 ambulatory Sivakumar Patel Other [facility] Other Start: 12-26-2022 Office outpatient vi sit 25 minutes Sivakumar Patel [facility] Start: 12-21-2022 End: 12-21-[address] SIVAKUMAR PATEL [employer] Other Start: 12-21-2022 Telephone encounter Sivakumar Patel [facility] Start: 12-12-[address] SIVAKUMAR PATEL [facility] ty:[facility] Start: 12-10-2022 End: 12-21-2022 Evaluation and management of inpatient DR FAIZA DELEON . Facility:[facility] Start: 12-07-2022 End: 12-07-2022 ambulatory Imnabeel Asanabeel Other [facility] Other Start: 12-07-2022 Telephone encounter Imad Asaad [facility] [employer] [facility] Start: 11-08-2022 End: 11-08-2022 ambulatory Sivakumar Patel Other [facility] Other Start: 11-08-2022 Telephone encounter Sivakumar Patel [facility] Start: 07-26-2022 ambulatory LILIAM FELIPE Facility :[facility] Start: 07-25-2022 End: 07-26-[address] DEANN CRANE Facility:[facility] Start: 07-07-2022 End: 07-08-2022 ambulatory LILIAM FELIPE Facility:[facility] Start: 02-16-2022 End: 02-17-[address] SIVAKUMAR PATEL Facility:[facility] Start: 02-07-2022 End: 02-08-[address] SIVAKUMAR PAETL Facility:[facility] Start: 02-04-2022 End: 02-05-[address] SIVAKUMAR PATEL Facility:[facility] Start: 11-24-2021 Adult health examination Sivakumar Patel Other [facility] Other Start: 07-26-2021 End: 07-26-2021 Pre-procedure evaluation check Sivakumar Patel Other [facility] Other Start: 05-14-2021 End: 05-15-2021 ambulatory SIVAKUMAR PATEL Facility:[facility] Procedures Date Procedure Procedure Detail Performing Clinician Start: 12-09-2022 Assistance with Respiratory Ventilation, Less than 24 Consecutive Hours, Continuous Positive Airway Pressure DR SIVAKUMAR PATEL Start: 03-30-2018 General examination of patient Sivakumar Patel Other Start: 03-07-2016 Total replacement of hip Sivakumar Patel Other Depression screening Agueda Patel Other Depression screening Agueda Patel Other Screening for malign ant neoplasm of prostate Sivakumar Patel Other Immunizations Immunization Date Immunization Notes Care Provider Fa kiki 09-26-2022 influenza virus vaccine, split virus (incl. purified surface antigen) Sivakumar Patel Other [facility] Other 09-26-2022 Prevnar 20 Sivakumar Patel Other [facility] Other 07-26-2021 influenza virus vaccine, split virus (incl. purified surface antigen) Sivakumar Patel Other [facility] Other 02-23-2021 COVID-19 Vaccine Pfi zer - Documentation Purposes Only Sivakumar Patel Other [facility] Other 02-02-2021 COVID-19 Vaccine Pfi zer - Documentation Purposes Only Sivakumar Patel Other [facility] Other 07-23-2020 influenza virus vaccine, split virus (incl. purified surface antigen) Sivakumar Patel Other [facility] Other 06-19-2018 diphtheria, tetanus toxoids and acellular pertussis vaccine, unspecified formulation Sivakumar Patel Other [facility] Other 05-11-2015 ALLERGY Injection (1 inj)-pt brought own med Sivakumar Patel Other [facility] Other 04-26-2015 ALLERGY Injection (1 inj)-pt brought own med Sivakumar Patel Other [facility] Other 04-10-2015 ALLERGY Injection (1 inj)-pt brought own med Sivakumar Patel Other [facility] Other 03-26-2015 ALLERGY Injection (1 inj)-pt brought own med Sivakumar Ball Other [facility] Other 03-03-2015 ALLERGY Injection (1 inj)-pt brought own med Sivakumar Ball Other [facility] Other 02-12-2015 ALLERGY Injection (1 inj)-pt brought own med Sivakumar Ball Other [facility] Other 01-28-2015 ALLERGY Injection (1 inj)-pt brought own med Sivakumar Ball Other [facility] Other 01-15-2015 ALLERGY Injection (1 inj)-pt brought own med Sivakumar Ball Other [facility] Other 12-30-2014 ALLERGY Injection (1 inj)-pt brought own med Sivakumar Ball Other [facility] Other 12-10-2014 ALLERGY Injection (1 inj)-pt brought own med Sivakumar Ball Other [facility] Other 11-25-2014 ALLERGY Injection (1 inj)-pt brought own med Sivakumar Ball Other [facility] Other 11-13-2014 ALLERGY Injection (1 inj)-pt brought own med Sivakumar Ball Other [facility] Other 11-03-2014 ALLERGY Injection (1 inj)-pt brought own med Sivakumar Ball Other [facility] Other 10-17-2014 ALLERGY Injection (1 inj)-pt brought own med Sivakumar Ball Other [facility] Other 10-07-2014 ALLERGY Injection (1 inj)-pt brought own med Sivakumar Ball Other [facility] Other 08-29-2014 ALLERGY Injection (1 inj)-pt brought own med Sivakumar Ball Other [facility] Other 08-20-2014 ALLERGY Injection (1 inj)-pt brought own med Sivakumar Ball Other [facility] Other 08-06-2014 ALLERGY Injection (1 inj)-pt brought own med Sivakumar Ball Other [facility] Other 07-24-2014 ALLERGY Injection (1 inj)-pt brought own med Sivakumar Ball Other [facility] Other 07-11-2014 ALLERGY Injection (1 inj)-pt brought own med Sivakumar Ball Other [facility] Other 06-25-2014 ALLERGY Injection (1 inj)-pt brought own med Sivakumar Ball Other [facility] Other 06-11-2014 ALLERGY Injection (1 inj)-pt brought own med Sivakumar Ball Other [facility] Other 05-29-2014 ALLERGY Injection (1 inj)-pt brought own med Sivakumar Ball Other [facility] Other 05-14-2014 ALLERGY Injection (1 inj)-pt brought own med Sivakumar Ball Other [facility] Other 04-30-2014 ALLERGY Injection (1 inj)-pt brought own med Sivakumar Ball Other [facility] Other 04-16-2014 ALLERGY Injection (1 inj)-pt brought own med Sivakumar Ball Other [facility] Other 04-04-2014 ALLERGY Injection (1 inj)-pt brought own med Sivakumar Ball Other [facility] Other 03-20-2014 ALLERGY Injection (1 inj)-pt brought own med Sivakumar Ball Other [facility] Other 03-07-2014 ALLERGY Injection (1 inj)-pt brought own med Sivakumar Ball Other [facility] Other 02-24-2014 ALLERGY Injection (1 inj)-pt brought own med Sivakumar Ball Other [facility] Other 02-05-2014 ALLERGY Injection (1 inj)-pt brought own med Sivakumar Ball Other [facility] Other 01-24-2014 ALLERGY Injection (1 inj)-pt brought own med Sivakumar Ball Other [facility] Other 01-10-2014 ALLERGY Injection (1 inj)-pt brought own med Sivakumar Ball Other [facility] Other 12-12-2013 ALLERGY Injection (1 inj)-pt brought own med Sivakumar Ball Other [facility] Other 11-28-2013 ALLERGY Injection (1 inj)-pt brought own med Sivakumar Ball Other [facility] Other 11-14-2013 ALLERGY Injection (1 inj)-pt brought own med Sivakumar Ball Other [facility] Other 11-01-2013 ALLERGY Injection (1 inj)-pt brought own med Sivakumar Ball Other [facility] Other 10-16-2013 ALLERGY Injection (1 inj)-pt brought own med Sivakumar Ball Other [facility] Other 10-02-2013 ALLERGY Injection (1 inj)-pt brought own med Sivakumar Ball Other [facility] Other 2013 ALLERGY Injection (1 inj)-pt brought own med Sivakumar Ball Other [facility] Other 09-04-2013 ALLERGY Injection (1 inj)-pt brought own med Sivakumar Ball Other [facility] Other 08-20-2013 ALLERGY Injection (1 inj)-pt brought own med Sivakumar Ball Other [facility] Other 08-08-2013 ALLERGY Injection (1 inj)-pt brought own med Sivakumar Ball Other [facility] Other 07-24-2013 ALLERGY Injection (1 inj)-pt brought own med Sivakumar Ball Other [facility] Other 07-18-2013 ALLERGY Injection (1 inj)-pt brought own med Sivakumar Ball Other [facility] Other 04-03-2013 ALLERGY Injection (1 inj)-pt brought own med Sivakumar Ball Other [facility] Other 03-20-2013 ALLERGY Injection (1 inj)-pt brought own med Sivakumar Ball Other [facility] Other 03-06-2013 ALLERGY Injection (1 inj)-pt brought own med Sivakumar Ball Other [facility] Other 02-20-2013 ALLERGY Injection (1 inj)-pt brought own med Sivakumar Ball Other [facility] Other 02-06-2013 ALLERGY Injection (1 inj)-pt brought own med Sivakumar Ball Other [facility] Other 01-24-2013 ALLERGY Injection (1 inj)-pt brought own med Sivakumar Ball Other [facility] Other 01-10-2013 ALLERGY Injection (1 inj)-pt brought own med Sivakumar Ball Other [facility] Other 12-27-2012 ALLERGY Injection (1 inj)-pt brought own med Sivakumar Ball Other [facility] Other 12-14-2012 ALLERGY Injection (1 inj)-pt brought own med Sivakumar Ball Other [facility] Other 11-30-2012 ALLERGY Injection (2 or more)-pt brought own med Sivakumar Ball Other [facility] Other 11-16-2012 ALLERGY Injection (1 inj)-pt brought own med Sivakumar Ball Other [facility] Other 11-02-2012 ALLERGY Injection (1 inj)-pt brought own med Sivakumar Ball Other [facility] Other 10-18-2012 ALLERGY Injection (1 inj)-pt brought own med Sivakumar Ball Other [facility] Other 10-03-2012 ALLERGY Injection (1 inj)-pt brought own med Sivakumar Ball Other [facility] Other 09-20-2012 ALLERGY Injection (1 inj)-pt brought own med Sivakumar Ball Other [facility] Other 09-06-2012 ALLERGY Injection (1 inj)-pt brought own med Sivakumar Ball Other [facility] Other 08-23-2012 ALLERGY Injection (1 inj)-pt brought own med Sivakumar Ball Other [facility] Other 08-09-2012 ALLERGY Injection (1 inj)-pt brought own med Sivakumar Ball Other [facility] Other 07-25-2012 ALLERGY Injection (1 inj)-pt brought own med Sivakumar Ball Other [facility] Other 07-12-2012 ALLERGY Injection (1 inj)-pt brought own med Sivakumar Ball Other [facility] Other 06-28-2012 ALLERGY Injection (1 inj)-pt brought own med Sivakumar Ball Other [facility] Other 06-14-2012 ALLERGY Injection (1 inj)-pt brought own med Sivakumar Ball Other [facility] Other 05-31-2012 ALLERGY Injection (1 inj)-pt brought own med Sivakumar Ball Other [facility] Other 05-17-2012 ALLERGY Injection (1 inj)-pt brought own med Sivakumar Ball Other [facility] Other pneumococcal Conjuga te, unspecified formulation; 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: [Need for prophylactic vaccination against Streptococcus pneumoniae (pneumococcus)] Sivakumar Ball Other [facility] Other Payers Date Payer Category Payer Unknown [id number] 1970 Unknown [id number] 2.16.8 [id number] 1970 Unknown [id number] 2.16.84 [id number] 1971 Unknown [id number] 2.16.84 [id number] 1971 Unknown [id number] 2.16.84 [id number] 1971 Unknown [id number] 2.16.84 [id number] 1971 Unknown [id number] 2.16.84 [id number] 1971 Unknown [id number] 2.16.84 [id number] 1971 Unknown [id number] 2.16.84 [id number] 1971 Unknown [id number] 2.16.84 [id number] 1971 Unknown [id number] 2.16.84 [id number] 1958 [facility] [id number] 1958 Self-pay Unknown [id number] 2.16.8 [id number] Social History Date Type Detail Facility Unknown if ever smoked [facility] Other Sex Assigned At Sex Assigned At Bir th [facility] Other Start: 1970 Sex Assigned At Male F [facility] Clinical Notes 07-25-2022 to 11-29-2023 Note Date & Type Note Facility 11-29-2023 Evaluation note Encounter Date Diagnosis Assessment Notes Nov, Ischemic cardiomyopathy (ICD-10 - I25.5) This patient is stable without activity related CP, dyspnea or lightheadedness. They are instructed to continue exercise and AHA diet plan. Continue secondary prevention measures. Nov, Wellness examination (ICD-10 - Z00.00) Healthy diet and exercise. Reviewed age-appropriate preventive testing recommended. Due for screening colonoscopy. Nov, Chronic HFrEF (heart failure with reduced ejection fraction) (ICD-10 - I50.22) Instructed on low salt diet, exercise and daily weights. Instructed to notify office for any unexpected weight gain > 3lbs and/or increased dyspnea, difficulty breathing during sleep, worsening lower extremity swelling, chest pain or lightheadedness. Reviewed GDMT w/ beta blockers, JAYJAY/ARB/ARNI, MRA and SGLT-2 Nov, Primary hypertension (ICD-10 - I10) This patient is instructed to consume a healthy, low-fat, low-salt diet. They are also encouraged to continue exercise to achieve/maintain a normal BMI. Nov, Paroxysmal atrial fibrillation (ICD-10 - I48.0) This patient is in NSR. This patient is anticoagulated to prevent thromboembolic events. They are maintaining regular scheduled appts with their database tester. No bleeding complications Nov, Chronic restrictive lung disease (ICD-10 - J98.4) Due to body habitus. Instructed on weight loss. LABA/ICS and LANDRY w/ minimal benefit Nov, Hyperlipidemia type II (ICD-10 - E78.01) Instructed on diet and exercise with continued statin therapy.Discussed the beneficial effects of lowering cholesterol in reducing the risk for cerebrovascular and cardiovascular disease. Nov, Chronic venous insufficiency (ICD-10 - I87.2) Avoid salt and elevate lower extremities, support stockings, inspect legs and feet daily for blisters and ulcerations. Nov, Lumbar spondylosis (ICD-10 - M47.816) The patient is instructed to avoid bending, twisting or lifting. They are to use intermittent heat and ice as needed. They may schedule a massage or gentle manipulation. They may safely use Tylenol as needed. Nov, Hypoxemia (ICD-10 - R09.02) Developed after testing positive for COVID in October,. Supplemental oxygen necessary to maintain sats > 90% He often goes w/o oxygen supplement w/ Psat < 90% but is asymptomatic. Nov, Screening PSA (prostate specific antigen) (ICD-10 - Z12.5) Yearly PSA Nov, Screening for colon cancer (ICD-10 - Z12.11) He is due for a screening colonoscopyHis last colonoscopy was in 2013He denies change in appetite, weight or bowel habits.He denies heartburn or dysphagia.He denies abdominal pain, melena or hematochezia [facility] Other 12-28-2023 Evaluation note* Encounter Date Diagnosis Assessment Notes Treatment Notes Treatment Clinical Notes Oct, Lumbar spondylosis (ICD-10 - M47.816) [facility] Other 12-12-2023 Evaluation note* Encounter Date Diagnosis Assessment Notes Treatment Notes Treatment Clinical Notes Oct, Ischemic cardiomyopathy (ICD-10 - I25.5) This patient is stable without activity related CP, dyspnea or lightheadedness. They are instructed to continue exercise and AHA diet plan. Continue secondary prevention measures. Oct, Chronic HFrEF (heart failure with reduced ejection fraction) (ICD-10 - I50.22) Instructed on low salt diet, exercise and daily weights. Instructed to notify office for any unexpected weight gain > 3lbs and/or increased dyspnea, difficulty breathing during sleep, worsening lower extremity swelling, chest pain or lightheadedness. Reviewed GDMT w/ beta blockers, JAYJAY/ARB/ARNI, MRA and SGLT-2 Oct, Chronic restrictive lung disease (ICD-10 - J98.4) Continue bronchodilator therapy. COugh and deep breathing exercises. Keep active w/ frequent rest as needed. Weight loss beneficial Oct, Hypoxemia (ICD-10 - R09.02) Continue PAP therapy w/ oxygen bled. COntinue oxygen continuously. Avoid strenuous activity [facility] Other 12-01-2023 NoteUT Cardiology Consult Note Reason for Consultation: Afib, 6-month follow-up 10/06/23 Here for 6 month follow up Had PFT 02/2023, concerns for DLCO reduction continues to be on amiodarone daily 04/2023 HPI: patient for 6-month follow-up regarding his A-fib continues to take amiodarone and is tolerating well patient has not felt any palpitations or symptoms of A-fib denies chest pain, shortness of breath, lightheadedness, dizziness, fatigue per pulse check sinus rhythm he had recent PFT done he had recent admission at [facility] for COVID-pneumonia is now doing well with no concern does not appear he was in A-fib while 09/20/[address] Banerjee HPI: Carlos Cheek is a 53 y.o. year old with past medical history of dwarfism (undefined), NORBERT on CPAP, CAD status post CABG, hypertension, diastolic dysfunction, pulmonary hypertension and sleep apnea has been Dx with Afib and placed on DOAC and Amiodarone. He was seen by [facility] in the past and c/o worsening JUNIOR along with palpitations/fluttering for this past week. He notes that he has been in a.fib before after his bypass surgery along with another time. He was on Xarelto in the past but not currently. He has LE edema which is chronic, unchanged from his normal. He denies CP, orthopnea and uses CPAP every night. dizziness/LH, syncope. He is in SR today by exam. Stress test performed on 07/25/2022 at [facility] showed areas of suspected reversible ischemia in the inferior lateral wall and apex. EKG on 07/20/2022 sinus rhythm 06/29/2022 shows atrial fibrillation with controlled ventricular rate 05/14/2021 sinus rhythm 09/27/2019 sinus rhythm Echocardiogram performed on 03/24/2020 showed preserved EF but the imaging was poor quality with a moderately enlarged left atrium and a moderately severely enlarged right atrium. Holter monitor performed on 04/23/2015 showed no evidence of A. fib but PVCs CT chest with and without contrast on 10/01/2018 for evaluation of dyspnea and lower lobe PE Tests: Cardiac cath (05/14/2021) SUMMARY OF THE FINDINGS: 1. Severe 3-vessel coronary artery disease (80% LAD, 70% diagonal, 60% OM, 100% circumflex, 80% PDA, and 80% PLV). 2. Patent 1/4 bypass grafts (patent AVILA to LAD, occluded radial to OM1 and occluded saphenous venous graft sequential to OM2 and PDA). 3. Mild to moderate elevation of filling pressures. 4. Moderate pulmonary hypertension. 5. Preserved cardiac output and cardiac index. RECOMMENDATIONS: 1. Given that the appearance of the apache angiography is similar to prior angiography 2 years ago and the only new finding is the occlusion of the saphenous venous graft to the obtuse marginal branch, we will manage this patient medically for now. Imdur 60 mg daily will be added. In addition, his Lasix will be increased from 40 mg daily to 60 mg daily. 2. BMP in 2 weeks. 3. Follow up in Cardiology Clinic. 4. Consider referral to Pulmonary due to his desaturation and the possibility of a pulmonary etiology contributing to his shortness of breath. PMH: Past Medical History: Diagnosis Date Atrial fibrillation (CMS/HCC) Coronary artery disease Hyperlipidemia Hypertension PSH: Past Surgical History: Procedure Laterality Date CARDIAC CATHETERIZATION CORONARY ARTERY BYPASS GRAFT CORONARY STENT PLACEMENT SH: Social Determinants of Health Tobacco Use: Medium Risk (05/03/2023) Patient History Smoking Tobacco Use: Former Smokeless Tobacco Use: Never Passive Exposure: Not on file Alcohol Use: Not on file Financial Resource Strain: Not on file Food Insecurity: Not on file Transportation Needs: Not on file Physical Activity: Not on file Stress: Not on file Social Connections: Not on file Intimate Partner Violence: Not on file Depression: Not on file Housing Stability: Not on file Meds: Current Outpatient Medications on File Prior to Visit Medication Sig Dispense Refill albuterol 90 mcg/actuation inhaler albuterol sulfate HFA 90 mcg/actuation aerosol inhaler amiodarone (Pacerone) 200 mg tablet Take 2 tablets twice daily for 12 days, then take 1 tablet daily thereafter (Patient taking differently: Take 200 mg by mouth in the morning.) 114 tablet 3 amLODIPine (Norvasc) 10 mg tablet Take 1 tablet (10 mg) by mouth in the morning. 90 tablet 3 aspirin 81 mg EC tablet Take 162 mg by mouth in the morning. atorvastatin (Lipitor) 80 mg tablet Take 80 mg by mouth in the evening. cetirizine 10 mg capsule Zyrtec 10 mg capsule Take by oral route. clopidogrel (Plavix) 75 mg tablet Take 75 mg by mouth in the morning. cyclobenzaprine (Flexeril) 10 mg tablet TAKE 1 TABLET BY MOUTH 3 TIMES A DAY FOR 7 DAYS diclofenac (Voltaren) 75 mg EC tablet diclofenac sodium 75 mg tablet,delayed release Take by oral route for 15 days. docusate sodium (Colace) 100 mg capsule Take by mouth. fluticason (more content not included)...[facility] 10-06-2023 NotePatient here for 6 mo follow up PAF, CAD, and hypertension. Had CXR in Jul 2023 but hasn't had labs for amiodarone testing done yet. He has been out of amiodarone for the past few weeks. Denies chest pain, palpitations, and bleeding on Xarelto. Review of Systems Cardiovascular: Positive for leg swelling. Respiratory: Positive for shortness of breath. Neurological: Positive for light-headedness. 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 Aug, Chronic obstructive pulmonary disease with (acute) exacerbation (ICD-10 - J44.1) Continue w/ triple therapy. Increase LANDRY to every 4 hours as needed for cough Aug, Hypoxemia (ICD-10 - R09.02) Continue oxygen supplementation to maintain sats > 90% [facility] Other 10-11-2023 Evaluation note* Encounter Date Diagnosis Assessment Notes Treatment Notes Treatment Clinical Notes Aug, Acute bronchitis due to other specified organisms (ICD-10 - J20.8) Instructed to use Robitussin or Mucinex for cough, saline or Flonase NS for congestion, Tylenol for pain and fever. Aug, Mild persistent asthma with acute exacerbation (ICD-10 - J45.31) Continue LANDRY as needed for cough and wheezing. Aug, Hypoxemia (ICD-10 - R09.02) Continue to use continuous oxygen at 2L/min Rest [facility] Other 10-02-2023 Evaluation note* Encounter Date Diagnosis Assessment Notes Treatment Notes Treatment Clinical Notes Aug, Lumbar spondylosis (ICD-10 - M47.816) [facility] Other 09-14-2023 Evaluation note* Encounter Date Diagnosis Assessment Notes Treatment Notes Treatment Clinical Notes Jul, Chronic venous insufficiency (ICD-10 - I87.2) [facility] Other 09-06-2023 Evaluation note* Encounter Date Diagnosis Assessment Notes Treatment Notes Treatment Clinical Notes Jul, Hemoptysis (ICD-10 - R04.2) One episode of hemoptysis. No further bleeding w/ coughing No epistaxis, gingival bleeding, hematuria or hematochezia He is AC due to AFib, instructed to continue for now Jul, Acute bronchitis due to other specified organisms (ICD-10 - J20.8) Instructed to use Robitussin or Mucinex for cough, saline or Flonase NS for congestion, Tylenol for pain and fever. Received call from pharmacy due to interaction between Amiodarone and Levoquin. Augmentin prescribed in place of the Levoquin. Jul, Mild persistent asthma with acute exacerbation (ICD-10 - J45.31) Jul, Restrictive airway disease (ICD-10 - J98.4) Continue LABA/ICS and LANDRY as instructed Rest and continue Oxygen therapy Jul, Hypoxemia (ICD-10 - R09.02) Continuous oxygen at 2L/min. Will have to have excuse for work as it is better for him to rest at home while recovering from this respiratory illness Jul, Anticoagulated (ICD-10 - Z79.01) Increased risk of bleeding. No additional evidence of bleeding problems Continue for now [facility] Other 08-29-2023 Evaluation note* Encounter Date Diagnosis Assessment Notes Treatment Notes Treatment Clinical Notes Jun, Lumbar spondylosis (ICD-10 - M47.816) [facility] Other 08-15-2023 Evaluation note* Encounter Date Diagnosis Assessment Notes Treatment Notes Treatment Clinical Notes Jun, Mild persistent asthma without complication (ICD-10 - J45.30) Samples please Jun, Chronic respiratory failure with hypoxia (ICD-10 - J96.11) Arrange for portable concentrator Jun, Severe obstructive sleep apnea (ICD-10 - G47.33) Jun, Morbid obesity (ICD-10 - E66.01) Jun, Restrictive lung disease (ICD-10 - J98.4) [facility] Other 07-27-2023 Evaluation note* Encounter Date Diagnosis Assessment Notes Treatment Notes Treatment Clinical Notes May, Lumbar spondylosis (ICD-10 - M47.816) [facility] Other 07-17-2023 Evaluation note* Encounter Date Diagnosis Assessment Notes Treatment Notes Treatment Clinical Notes May, Chronic venous insufficiency (ICD-10 - I87.2) [facility] Other 06-30-2023 Evaluation note* Encounter Date Diagnosis Assessment Notes Treatment Notes Treatment Clinical Notes Apr, Lumbar spondylosis (ICD-10 - M47.816) [facility] Other 06-28-2023 NoteUT Cardiology Consult Note Reason for Consultation: Afib, 6-month follow-up HPI: patient for 6-month follow-up regarding his A-fib continues to take amiodarone and is tolerating well patient has not felt any palpitations or symptoms of A-fib denies chest pain, shortness of breath, lightheadedness, dizziness, fatigue per pulse check sinus rhythm he had recent PFT done he had recent admission at [facility] for COVID-pneumonia is now doing well with no concern does not appear he was in A-fib while 09/20/[address] Banerjee HPI: Carlos Cheek is a 52 y.o. year old with past medical history of dwarfism (undefined), NORBERT on CPAP, CAD status post CABG, hypertension, diastolic dysfunction, pulmonary hypertension and sleep apnea has been Dx with Afib and placed on DOAC and Amiodarone. He was seen by [facility] in the past and c/o worsening JUNIOR along with palpitations/fluttering for this past week. He notes that he has been in a.fib before after his bypass surgery along with another time. He was on Xarelto in the past but not currently. He has LE edema which is chronic, unchanged from his normal. He denies CP, orthopnea and uses CPAP every night. dizziness/LH, syncope. He is in SR today by exam. Stress test performed on 07/25/2022 at [facility] showed areas of suspected reversible ischemia in the inferior lateral wall and apex. EKG on 07/20/2022 sinus rhythm 06/29/2022 shows atrial fibrillation with controlled ventricular rate 05/14/2021 sinus rhythm 09/27/2019 sinus rhythm Echocardiogram performed on 03/24/2020 showed preserved EF but the imaging was poor quality with a moderately enlarged left atrium and a moderately severely enlarged right atrium. Holter monitor performed on 04/23/2015 showed no evidence of A. fib but PVCs CT chest with and without contrast on 10/01/2018 for evaluation of dyspnea and lower lobe PE Tests: Cardiac cath (05/14/2021) SUMMARY OF THE FINDINGS: 1. Severe 3-vessel coronary artery disease (80% LAD, 70% diagonal, 60% OM, 100% circumflex, 80% PDA, and 80% PLV). 2. Patent 1/4 bypass grafts (patent AVILA to LAD, occluded radial to OM1 and occluded saphenous venous graft sequential to OM2 and PDA). 3. Mild to moderate elevation of filling pressures. 4. Moderate pulmonary hypertension. 5. Preserved cardiac output and cardiac index. RECOMMENDATIONS: 1. Given that the appearance of the apache angiography is similar to prior angiography 2 years ago and the only new finding is the occlusion of the saphenous venous graft to the obtuse marginal branch, we will manage this patient medically for now. Imdur 60 mg daily will be added. In addition, his Lasix will be increased from 40 mg daily to 60 mg daily. 2. BMP in 2 weeks. 3. Follow up in Cardiology Clinic. 4. Consider referral to Pulmonary due to his desaturation and the possibility of a pulmonary etiology contributing to his shortness of breath. PMH: Past Medical History: Diagnosis Date Atrial fibrillation (CMS/HCC) Coronary artery disease Hyperlipidemia Hypertension PSH: Past Surgical History: Procedure Laterality Date CARDIAC CATHETERIZATION CORONARY ARTERY BYPASS GRAFT CORONARY STENT PLACEMENT SH: Social Determinants of Health Tobacco Use: Medium Risk (05/03/2023) Patient History Smoking Tobacco Use: Former Smokeless Tobacco Use: Never Passive Exposure: Not on file Alcohol Use: Not on file Financial Resource Strain: Not on file Food Insecurity: Not on file Transportation Needs: Not on file Physical Activity: Not on file Stress: Not on file Social Connections: Not on file Intimate Partner Violence: Not on file Depression: Not on file Housing Stability: Not on file Meds: Current Outpatient Medications on File Prior to Visit Medication Sig Dispense Refill cyclobenzaprine (Flexeril) 10 mg tablet TAKE 1 TABLET BY MOUTH 3 TIMES A DAY FOR 7 DAYS docusate sodium (Colace) 100 mg capsule Take by mouth. albuterol 90 mcg/actuation inhaler albuterol sulfate HFA 90 mcg/actuation aerosol inhaler amiodarone (Pacerone) 200 mg tablet Take 2 tablets twice daily for 12 days, then take 1 tablet daily thereafter (Patient taking differently: Take 200 mg by mouth in the morning.) 114 tablet 3 amLODIPine (Norvasc) 10 mg tablet Take 1 tablet by mouth in the morning. aspirin 81 mg EC tablet Take 162 mg by mouth in the morning. atorvastatin (Lipitor) 80 mg tablet Take 80 mg by mouth in the evening. cetirizine 10 mg capsule Zyrtec 10 mg capsule Take by oral route. clopidogrel (Plavix) 75 mg tablet Take 75 mg by mouth in the morning. diclofenac (Voltaren) 75 mg EC tablet diclofenac sodium 75 mg tablet,delayed release Take by oral route for 15 days. fluticasone (Flonase) 50 mcg/actuation nasal spray Administer 1 spray into affected nostril(s) if needed each day. furosemide (Lasix) 40 mg tablet TAKE 1 TABLET (more content not included)... [place] [id number] NoteReview of Systems Cardiovascular: Positive for leg swelling. Respiratory: Positive for shortness of breath. All other systems reviewed and are negative.[facility] 04-27-2023 Evaluation note* Encounter Date Diagnosis Assessment Notes Treatment Notes Treatment Clinical Notes Apr, Ischemic cardiomyopathy (ICD-10 - I25.5) This patient is stable without activity related CP, dyspnea or lightheadedness. They are instructed to continue exercise and AHA diet plan. Apr, Chronic HFrEF (heart failure with reduced ejection fraction) (ICD-10 - I50.22) Instructed on low salt diet, exercise and daily weights. Instructed to notify office for any unexpected weight gain > 3lbs and/or increased dyspnea, difficulty breathing during sleep, worsening lower extremity swelling, chest pain or lightheadedness. Reviewed GDMT w/ beta blockers, JAYJAY/ARB/ARNI, MRA and SGLT-2 Apr, Paroxysmal atrial fibrillation (ICD-10 - I48.0) This patient is in NSR. This patient is anticoagulated to prevent thromboembolic events. They are maintaining regular scheduled appts with their database tester. Apr, Morbid (severe) obesity with alveolar hypoventilation (ICD-10 - E66.2) This patient has been instructed on a low-fat, high-fiber diet. They are instructed to reduce calories, portion sizes and snacks. It is recommended that they exercise for 30 minutes, 3-5 times weekly. Apr, Chronic respiratory failure with hypoxia (ICD-10 - J96.11) Monitor Psats frequently. Supplemental oxygen for Psats < 88%. Continue supplemental oxygen w/ PAP at night. Apr, Primary hypertension (ICD-10 - I10) This patient is instructed to consume a healthy, low-fat, low-salt diet. They are also encouraged to continue exercise to achieve/maintain a normal BMI. Apr, Chronic venous insufficiency (ICD-10 - I87.2) Avoid salt and elevate lower extremities, support stockings, inspect legs and feet daily for blisters and ulcerations. Apr, Hyperlipidemia type II (ICD-10 - E78.01) Instructed on diet and exercise with continued statin therapy.Discussed the beneficial effects of lowering cholesterol in reducing the risk for cerebrovascular and cardiovascular disease. 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 Apr, Lumbar spondylosis (ICD-10 - M47.816) The patient is instructed to avoid bending, twisting or lifting. They are to use intermittent heat and ice as needed. They may schedule a massage or gentle manipulation. They may safely use Tylenol as needed. Weight loss [facility] Other 05-31-2023 Evaluation note* Encounter Date Diagnosis Assessment Notes Treatment Notes Treatment Clinical Notes March, Lumbar spondylosis (ICD-10 - M47.816) [facility] Other 05-02-2023 Evaluation note* Encounter Date Diagnosis Assessment Notes Treatment Notes Treatment Clinical Notes March, Lumbar spondylosis (ICD-10 - M47.816) [facility] Other 04-14-2023 Evaluation note* Encounter Date Diagnosis Assessment Notes Treatment Notes Treatment Clinical Notes Feb, Shortness of breath (ICD-10 - R06.02) Feb, Morbid (severe) obesity with alveolar hypoventilation (ICD-10 - E66.2) [facility] Other 04-03-2023 Evaluation note* Encounter Date Diagnosis Assessment Notes Treatment Notes Treatment Clinical Notes Feb, Lumbar spondylosis (ICD-10 - M47.816) [facility] Other 03-20-2023 Evaluation note* Encounter Date Diagnosis Assessment Notes Treatment Notes Treatment Clinical Notes Jan, Chronic respiratory failure with hypoxia (ICD-10 - J96.11) This patient requires opiate use on a daily basis to control pain.This patient does not exhibit drug-seeking or aberrant behavior.This patient is able to continue with ADL, with an adequate quality of life, that they would not be able to achieve without the prescription pain medication.There has been no surgical treatment recommended for this condition.Use of nonopiate treatment should be continued, such as nonstrenuous and aquatic exercises.This patient has a pain management contract and they have been counseled on safe storage of the medication.They have been counseled on the risks of concomitant use with alcohol or sedating meds. PDMP is being followed and this patient's OARRS report is being monitored every 90 days. Jan, Morbid (severe) obesity with alveolar hypoventilation (ICD-10 - E66.2) This patient has been instructed on a low-fat, high-fiber diet. They are instructed to reduce calories, portion sizes and snacks. It is recommended that they exercise for 30 minutes, 3-5 times weekly. Continue supplemental oxygen Jan, Obstructive sleep apnea (ICD-10 - G47.33) This patient is aware of the benefits associated with NORBERT: With continued use, the patient reduces the risk for AK, CVA, HTN, cardiac dysrhythmias and sudden cardiac deaths.The patient is also aware of the association between NORBERT and morning headaches, daytime somnolence, fatigue and obesity, which also has been improved with continued use.The patient is compliant with treatment, wearing the equipment every night for greater than 4 hours.The patient is instructed to continue use of the CPAP for NORBERT treatment. Jan, ASHD (arteriosclerotic heart disease) (ICD-10 - I25.10) This patient is stable without activity related CP, dyspnea or lightheadedness. They are instructed to continue exercise and AHA diet plan. Jan, Paroxysmal atrial fibrillation (ICD-10 - I48.0) This patient is in NSR. This patient is anticoagulated to prevent thromboembolic events. They are maintaining regular scheduled appts with their database tester. Jan, Chronic venous insufficiency (ICD-10 - I87.2) Avoid salt and elevate lower extremities, support stockings, inspect legs and feet daily for blisters and ulcerations. Jan, Primary osteoarthritis of knees, bilateral (ICD-10 - M17.0) [facility] Other 03-08-2023 Evaluation note* Encounter Date Diagnosis Assessment Notes Treatment Notes Treatment Clinical Notes Jan, Acute bronchitis due to other specified organisms (ICD-10 - J20.8) Instructed to use Robitussin or Mucinex for cough, saline or Flonase NS for congestion, Tylenol for pain and fever. Continue use of LANDRY every 4 hours as needed Jan, Morbid obesity (ICD-10 - E66.01) This patient has been instructed on a low-fat, high-fiber diet. They are instructed to reduce calories, portion sizes and snacks. It is recommended that they exercise for 30 minutes, 3-5 times weekly. Jan, Other disorders of lung (ICD-10 - J98.4) Jan, Hypoxemia (ICD-10 - R09.02) Continue use of supplemental oxygen [facility] Other 03-02-2023 Evaluation note* Encounter Date Diagnosis Assessment Notes Treatment Notes Treatment Clinical Notes Jan, Lumbar spondylosis (ICD-10 - M47.816) [facility] Other 02-20-2023 Evaluation note* Encounter Date Diagnosis Assessment Notes Treatment Notes Treatment Clinical Notes Dec, COVID-19 (ICD-10 - U07.1) Healthy diet, protein supplements, push fluids and rest. Increase activity as tolerated. Dec, Pneumonia due to Coronavirus disease 2018 (ICD-10 - J12.82) Complete antibiotics and steroids as prescribed. Continue HHN and IS daily. Continue supplemental oxygen at 2L/min per NC. Rest, may return to work w/o restrictions. Dec, ASHD (arteriosclerotic heart disease) (ICD-10 - I25.10) This patient is stable without activity related CP, dyspnea or lightheadedness. They are instructed to continue exercise and AHA diet plan. Dec, Paroxysmal atrial fibrillation (ICD-10 - I48.0) This patient is in NSR. This patient is anticoagulated to prevent thromboembolic events. They are maintaining regular scheduled appts with their database tester. Dec, Obstructive sleep apnea (ICD-10 - G47.33) This patient is aware of the benefits associated with NORBERT: With continued use, the patient reduces the risk for AK, CVA, HTN, cardiac dysrhythmias and sudden cardiac deaths.The patient is also aware of the association between NORBERT and morning headaches, daytime somnolence, fatigue and obesity, which also has been improved with continued use.The patient is compliant with treatment, wearing the equipment every night for greater than 4 hours.The patient is instructed to continue use of the CPAP for NORBERT treatment. Dec, Hypoxemia (ICD-10 - R09.02) Continuous oxygen supplementation. 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 They are also encouraged to continue exercise to achieve/maintain a normal BMI. Dec, Obesities, morbid (ICD-10 - E66.01) Encouraged to reduce calories. Difficult to increase activity due to JUNIRO and arthritic pain. Cardiology suggested bariatric surgery. 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 METHODS: After risks, benefits and alternatives were explained, the patient was brought to the Stress Lab in a resting and fasting state. He was connected to the appropriate hemodynamic and electrocardiographic monitoring. Lexiscan 0.4 mg was infused intravenously. He was monitored for the standard duration and discharged in a stable state. There were no complications. FINDINGS: HEMODYNAMICS: Resting heart rate was 48 beats per minute, increasing to a maximum of 69 beats per minute. Resting blood pressure was 138/80, with a maximum blood pressure of 148/84. ELECTROCARDIOGRAPHY: Rest EKG: Marked sinus bradycardia, 48 beats per minute, non-specific ST-T wave changes. Abnormal resting EKG. During infusion and recovery: No significant ST-T wave changes noted. Infrequent premature ventricular contractions seen. FINAL IMPRESSIONS: 1. No ischemic EKG changes seen on Lexiscan Cardiolite Stress Test. 2. Nuclear images are to be read, interpreted and reported in a separate dictation.[facility] CenterEvaluation noteNo InformationNortPaoli Hospital [employer] 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 Medical History Status post total knee replaceme nt, right Medical History Primary osteoarthritis of knees, bilateral Medical History CAD (coronary artery disease) Medical History Obesities, morbid Medical History Lumbar spondylosis Medical History Dyspnea on exertion Medical History Shortness of breath Medical History Chronic venous insufficiency Medical History Paroxysmal atrial fibrillation Medical History Morbid (severe) obesity with jonel eolar hypoventilation Medical History 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 a Medical History Essential hypertension Medical History ASHD (arteriosclerotic heart dis ease) Medical History Screening PSA (prostate specific antigen) Medical History Chronic respiratory failure with hypoxia Medical History History of tobacco abuse Medical History Hypokalemia Medical History Depression screening Surgical History heart bypass surgery Surgical History CTS b/l Surgical History left hip replacement Surgical History fracture repair pelvis Surgical History C PCI/STENT SVG-OM 10/2018 Surgical History RIGHT/LEFT HEART CARD CATH 05/07 021 Surgical History RIGHT TOTAL KNEE ARTHROPLASTY 0 12/2019 Surgical History LEFT BRANDY CABG 04/2013 Surgical History COLONOSCOPY Surgical History MYRINGOTOMY LEFT TM 07/2017 Hospitalization History see above [facility] Other Reason for referral (narrative)* Reason 02/23/23 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, Referral for pulmonary hypertension Referral for hypoxemia Diagnosis 1 Hypoxemia (R09.02) Referral Organization [facility] Jorge younger Referring Provider First Name Sivakumar Referring Provider Last Name Jorge Referring Provider Specialty Internal Me dicine Referred Organization [facility] Referred Provider Karen Giles Referred Address [address] [place] [address],[address],[id number] Referred Provider Specialty Pulmonary Gissel rajan Referral Priority Routine Referral Appointment Date 2023-02-23 General Notes Millie Hunter 01:03:36 PM >received today, sent P2P Clinical Notes Please see CT Chest, PFT Test, Echo, NM Stress Test, and Cardiac Stress Test Reports In Chart. [facility] Other Reason for referral (narrative)* Reason Referral for screeni ng colonoscopy Diagnosis 1 Screening for colon cancer (Z12.11) Referral Organization [facility] Jorge younger Referring Provider First Name Sivakumar Referring Provider Last Name Jorge Referring Provider Specialty Internal Me dicine Referred Organization [facility] [place],[address] Referred Provider Specialty Gastroentero logy Referral Priority Routine General Notes He is due for a scre ening colonoscopy, his last colonoscopy was in 2013. He denies change in appetite, weight or bowel habits. He denies heartburn or dysphagia. He denies abdominal pain, melena or hematochezia [facility] Other Summary Purpose Family History No Family History Records FoundNo Family History Records FoundNo Family History Records FoundNo Family History Records Found Advance Directives Advance Directive Response Recorded Date/ Time Advance Directives No February 17, 2 023 2:36pm Chief Complaint and Reason for Visit Chief Complaint r06.02 Additional Source Comments (unrecognized sect ion and content) No Status Records FoundNo Status Records FoundNo Status Records FoundNo Status Records Found INFORMATION SOURCE (unrecogn ized section and content) DATE CREATED AUTHOR 05/18/2021 [facility] DATE CREATED AUTHOR AUTHOR'S ORGANIZ ATION 01/18/2023 [facility] DATE CREATED AUTHOR AUTHOR'S ORGANIZ ATION 03/10/[address] [facility] DATE CREATED AUTHOR AUTHOR'S ORGANIZ ATION 10/26/2023 [facility] REASON FOR VISIT (unrecogniz ed section and content) Medication RefillMAIL PPWpre scription refillAntibiotic?No InformationTBH FOLLOW UPprescription refillprescription refillSinuses/ Sick [phone] REFERRAL NOTEDISABILITY DISCUSSIONprescription refillrefillPFT testmed refillrefill3 month Follow upRefillrefillrefillRef by Dr. Patel for RLD secondary to obesity , pulmonary hypertension , hypoxemiaPulmonary Office NotesrefillRefillcoughMedication QuestionChest XrayRefillCongestion, Cough-Testing for NZDUS-[phone] coughing, finished antibiotic- [phone] mo f/u Asthma, Chronic Resp Failure w Hypoxia, Sleep Apnea, RLDrefillPaperwork for Workrefillwellness Care Teams (unrecognized sec tion and content) Team Status: Active Member Role Status Dates Sivakumar Patel DO Primary Care Provider Active Team Status: Inactive Member Role Status Dates Sivakumar Patel , Primary Care Provider, Attending Pr ovider Active Goals (unrecognized section and content) Goals may be documented in a n alternate section FOR RECORDS PERTAINING TO PATIENTS WHO ARE OR HAVE BEEN ENROLLED IN A CHEMICAL DEPENDENCY/SUBSTANCEABUSE PROGRAM, SOME INFORMATION MAY BE OMITTED. This clinical summary was aggregated from multiple sources. Caution should be exercised in using it in the provision of clinical care. This summary normalizes information from multiple sources, and as a consequence, information in this document may materially change the coding, format and clinical context of patient data. In addition, data may be omitted in some cases. CLINICAL DECISIONS SHOULD BE BASED ON THE PRIMARY CLINICAL RECORDS. [facility] [employer] [facility]. provides no warranty or guarantee of the accuracy or completeness of information in this document.
[2023-12-08 16:08] LABS: Basophils Absolute Auto 0.1 10^3/uL (0.0-0.1); Basophils Percent Auto 0.8 % (0.2-2.0); Eosinophils Absolute Auto 0.2 10^3/uL (0.0-0.7); Eosinophils Percent Auto 3.6 % (0.9-7.0); Hematocrit 52.9 % (42.0-54.0); Hemoglobin 17.5 g/dL (14.0-18.0); Immature Granulocytes Abs Auto 0.01 10^3/uL (0.00-0.03); Immature Granulocytes Pct Auto 0.2 % (0.0-0.5); Lymphocytes Percent Auto 15.1 % (20.5-60.0); Mean Corpuscular HGB Conc 33.1 g/dL (29.9-35.2); Mean Corpuscular Hemoglobin 33.7 pg (25.9-34.0); Mean Corpuscular Volume 101.9 fL (80.0-94.0); Mean Platelet Volume 10.9 fL (9.5-13.5); Monocytes Absolute Auto 0.7 10^3/uL (0.3-0.8); Monocytes Percent Auto 10.2 % (1.7-12.0); Neutrophils Absolute Auto 4.5 10^3/uL (1.4-6.5); Neutrophils Percent Auto 70.1 % (43.0-75.0); Platelet Count 180 10^3/uL (150-450); Red Blood Count 5.19 10^6/uL (4.70-6.10); Red Cell Distribution Width 13.3 % (11.0-15.0); White Blood Count 6.4 10^3/uL (4.0-11.0)
[2023-12-08 16:39] LABS: Chol HDL Ratio 3.2; Cholesterol 177 mg/dL (<=200); HDL Cholesterol 55 mg/dL (40-60); LDL Cholesterol Calculated 102.8 mg/dL; Triglycerides 96 mg/dL (<=150); VLDL CHOLESTEROL 19.2 mg/dL
[2023-12-08 17:15] LABS: Prostate Specific Antigen Scrn 0.56 ng/mL (<=4.00)
== END 2023-12-08 15:07 | disposition home or self-care (01) ==
LOC: LAB 15:07
PROVIDERS: PCP Internal Medicine; Visit Provider Internal Medicine
DX: Z00.00 Encounter for general adult medical examination without abnormal findings (principal); Z12.5 Encounter for screening for malignant neoplasm of prostate
CPT/HCPCS: 36415; 80061; 85025; G0103

== ENCOUNTER 2023-12-08 15:13 | Outpatient (OUT) | payer BC, SELFPAY ==
--- OUTSIDE RECORDS SUMMARY | 2023-12-08 15:32 | XMS_ITS | CCD ---
Author Name Unknown Address [address] [place] [address] Organization [facility] Care Team Providers Care Rn Transplant Name Role Phone SIVAKUMAR PATEL Referring Unavailable JORGE, SIVAKUMAR Primary Care Unavailable UNKNOWN, PROVIDER Attending Unavailable UNKNOWN, PROVIDER Admitting Unavailable Jorge, Sivakumar Unavailable Asaad, Imad Unavailable JORGE, DR BUNDY Primary Care Unavailable JORGE, DR BUNDY Consulting Unavailable BALL, DR BUNDY Attending Unavailable JORGE, DR BUNDY Admitting Unavailable MATTEO, LILIAM Admitting Unavailable LILIAM FELIPE Attending Unavailable JORGE, DR BUNDY Primary Care [...] Unavailable DO Sivakumar Patel Primary Care Provider DO Sivakumar Patel Attending Provider Sivakumar Patel Attending Unavailable Sivakumar Patel Primary Care Unavailable Sivakumar Patel Admitting Unavailable Karen Giles Unavailable KWABENA DE LA CRUZ Attending Unavailable KWABENA DE LA CRUZ Attending Unavailable Allergies Allergy Classification Reported Allergen(s) Allergy Type Date of Onset Reaction(s) Facility Sulfonamides (antibiotic) (1 source) Sulfonamides (Antibiotic) Drug Allergy 04-04-20 13 [facility] Repository (20 sources) Sulf-10 Drug allergy anaphylaxis, HIVES [facility] Other (2 sources) Sulfonamides (Antibiotic) Drug allergy (disorder) 03-26-20 13 [facility] Repository (1 source) patient allergy list reviewed by nurse or physicia Propensity to adverse reactions 02-05-20 Comment:Done [facility] Other (1 source) Allergies Reconciled Propensity to adverse reactions Unknown [facility] Other (1 source) Substance with sulfonamide structure and antibacterial mechanism of action (substance) Drug allergy Unknown [facility] Other (1 source) Sulfonamides (Antibiotic); 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: [SULFA (SULFONAMIDE ANTIBIOTICS)] Propensity to adverse reactions to drug (disorder) 10-24-20 14 [facility] Repository Medications Current Medications Medication Drug Class(es) [...] for pain for 30 days Dec, Active [id number] actuat albuterol 0.09 mg/actuat metered dose [...] Coronary arteriosclerosis; 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: [Atherosclerotic heart disease of [place] coronary artery without angina pectoris] Onset: 07-25-2022 [...] sources) Long-term current use of anticoagulant; 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: [jail (current) use of anticoagulants] Episodic Other aftercare (20 sources) Long-term current use of antibiotic; 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: [long term care administrator (current) use of antibiotics] Episodic Other aftercare (3 sources) long term care administrator (current) use of anticoagulants; 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: [RESIDENTIAL CURRNT USE ANTICOAGULANTS] Onset: 01-17-2023 Episodic Other aftercare (1 source) jail (current) use of aspirin; 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: [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 CALLER 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] Onset: 01-17-2023 Episodic Other aftercare (12 sources) Drug therapy finding; 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: [long term care administrator (current) use of anticoagulants] Episodic Other and [...] 10-01-2018 Episodic Other aftercare (3 sources) 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 container terminal (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) drug therapy; 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: [OTH RESIDENTIAL CURRENT DRUG THERAPY] Onset: 01-17-2023 Episodic Other aftercare (5 sources) High risk drug monitoring status; 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: [long term care administrator (current) use of opiate analgesic] Onset: 06-28-2018 [...] Range Facility Office Visiton 10-06-2023 Follow-up visit [id number] Carlos Cheek Flex 1970 M Date Provider Department Center 10/06/2023 KWABENA FERNÁNDEZ Family History Problem Relation Age of Onset Coronary artery disease Maternal Grandfather Family Status - Relation Status Age at Maternal Grandfather Level of Service:29134 [place] OFFICE/OUTPATIENT ESTABLISHED MOD MDM 30 MIN Normal [facility] Office Visiton 05-03-2023 Follow-up visit [id number] Carlos Cheek Flex 1970 M Date Provider Department Center 05/03/2023 KWABENA FERNÁNDEZ Family History Problem Relation Age of Onset Coronary artery disease Maternal Grandfather Family Status - Relation Status Age at Maternal Grandfather Level of Service:97883 [place] OFFICE/OUTPATIENT ESTABLISHED MOD MDM 30-39 MIN Reason for Visit and Comments: Follow-up [107664] - 6 month Normal [facility] CBC AUTO DIFFon 12-21-2022 BASO # 0.0 103/ul Normal 0.0-0.1 [facility] Comment on above: Performed By: #### C BC #### [facility] [address] [address] [address] Cecille Bradley Basophils/100 WBC (Bld) 0.4 % Normal 0.2-2.0 [facility] Comment on above: Performed By: #### C BC #### [facility] [address] [address] [address] Cecille Bradley EO # 0.1 103/ul Normal 0.0-0.7 [facility] Comment on above: Performed By: #### C BC #### [facility] [address] [place] [address] Dr. Cecille Bradley Eosinophils/100 WBC (Bld) 1.3 % Normal 0.9-7.0 [facility] Comment on above: Performed By: #### C BC #### [facility] [address] [place] [address] Dr. Cecille Bradley Erythrocyte distribution width (RBC) [Ratio] 13.5 % Normal 11.0-15.0 [facility] Comment on above: Performed By: #### C BC #### [facility] [address] [place] [address] Dr. Cecille Bradley Hematocrit (Bld) [Volume fraction] 46.1 % Normal 42.0-54.0 [facility] Comment on above: Performed By: #### C BC #### [facility] [address] [place] [address] Dr. Cecille Bradley Hemoglobin (Bld) [Mass/Vol] 15.3 g/dL Normal 14.0-18.0 [facility] Comment on above: Performed By: #### C BC #### [facility] [address] [place] [address] Dr. Cecille Bradley IG # 0.06 10e3/ul Critically high 0.00-0.[address] [facility] Comment on above: Performed By: #### C BC #### [facility] [address] [place] [address] Dr. Cecille Bradley IG % 0.7 % Critically high 0.0-0.5 [facility] Comment on above: Performed By: #### C BC #### [facility] [address] [place] [address] Dr. Cecille Bradley LYMPH # 1.2 103/ul Normal 1.2-3.8 [facility] Comment on above: Performed By: #### C BC #### [facility] [address] [address] [address] Cecille Bradley Lymphocytes/100 WBC (Bld) 14.4 % Critically low 20.5-60.0 [facility] Comment on above: Performed By: #### C BC #### [facility] [address] [address] [address] Cecille Bradley MANUAL DIFF REQ NO Normal [facility] Comment on above: Performed By: #### C BC #### [facility] [address] [place] [address] Dr. Cecille Bradley MCH (RBC) [Entitic mass] 32.1 pg Normal 25.9-34.0 [facility] Comment on above: Performed By: #### C BC #### [facility] [address] [place] [address] Dr. Cecille Bradley MCHC (RBC) [Mass/Vol] 33.2 g/dL Normal 29.9-35.2 [facility] Comment on above: Performed By: #### C BC #### [facility] [address] [place] [address] Dr. Cecille Bradley MCV (RBC) [Entitic vol] 96.6 fL Critically high 80.0-94.0 [facility] Comment on above: Performed By: #### C BC #### [facility] [address] [place] [address] Dr. Cecille Bradley MONO # 0.7 103/ul Normal 0.3-0.8 [facility] Comment on above: Performed By: #### C BC #### [facility] [address] [place] [address] Dr. Cecille Bradley Monocytes/100 WBC (Bld) 8.3 % Normal 1.7-12.0 [facility] Comment on above: Performed By: #### C BC #### [facility] [address] [place] [address] Dr. Cecille Bradley NEUT # 6.2 103/ul Normal 1.4-6.5 [facility] Comment on above: Performed By: #### C BC #### [facility] [address] [place] [address] Dr. Cecille Bradley Neutrophils/100 WBC (Bld) 74.9 % Normal 43.0-75.0 [facility] Comment on above: Performed By: #### C BC #### [facility] [address] [place] [address] Dr. Cecille Bradley Platelet mean volume (Bld) [Entitic vol] 10.7 fL Normal 9.5-13.5 [facility] Comment on above: Performed By: #### C BC #### [facility] [address] [place] [address] Dr. Cecille Bradley PLT 174 103/ul Normal 150-450 [facility] Comment on above: Performed By: #### C BC #### [facility] [address] [place] [address] Dr. Cecille Bradley RBC 4.77 106/ul Normal 4.70-6.10 [facility] Comment on above: Performed By: #### C BC #### [facility] [address] [place] [address] Dr. Cecille Bradley WBC 8.3 103/ul Normal 4.0-11.0 [facility] Comment on above: Performed By: #### C BC #### [facility] [address] [place] [address] Dr. Cecille Bradley PROF 14(COMP METB)on 023 Albumin [Mass/Vol] 2.8 g/dL Critically low 3.4-5.0 [facility] Comment on above: Performed By: #### C MP #### [facility] [address] [place] [address] Dr. Cecille Bradley Albumin/Globulin [Mass ratio] 0.8 {ratio} Normal [facility] Comment on above: Performed By: #### C MP #### [facility] [address] [place] [address] Dr. Cecille Bradley ALP [Catalytic activity/Vol] 61 U/L Normal 46-116 [facility] Comment on above: Performed By: #### C MP #### [facility] [address] [place] [address] Dr. Cecille Bradley ALT [Catalytic activity/Vol] 68 U/L Critically high 16-63 [facility] Comment on above: Performed By: #### C MP #### [facility] [address] [address] [address] Cecille Bradley Anion gap [Moles/Vol] 10.0 mmol/L Normal [facility] Comment on above: Performed By: #### C MP #### [facility] [address] [address] [address] Cecille Bradley AST [Catalytic activity/Vol] 29 U/L Normal 15-37 [facility] Comment on above: Performed By: #### C MP #### [facility] [address] [address] [address] Cecille Bradley Bilirubin [Mass/Vol] 1.3 mg/dL Critically high 0.2-1.0 [facility] Comment on above: Performed By: #### C MP #### [facility] [address] [address] [address] Cecille Bradley Calcium [Mass/Vol] 8.9 mg/dL Normal 8.5-10.1 [facility] Comment on above: Performed By: #### C MP #### [facility] [address] [address] [address] Cecille Bradley Chloride [Moles/Vol] 103 mmol/L Normal 98-107 [facility] Comment on above: Performed By: #### C MP #### [facility] [address] [address] [address] Cecille Bradley CO2 [Moles/Vol] 29.8 mmol/L Normal 21.0-32.0 [facility] Comment on above: Performed By: #### C MP #### [facility] [address] [address] [address] Cecille Bradley Creatinine [Mass/Vol] 0.58 mg/dL Critically low 0.70-1.30 [facility] Comment on above: Performed By: #### C MP #### [facility] [address] [address] [address] Cecille Bradley EGFR-AF DUTCH >60 Normal >=60 [facility] Comment on above: Performed By: #### C MP #### [facility] [address] [address] [address] Cecille Bradley EGFR-NON AF DUTCH >60 Normal >=60 [facility] Comment on above: Performed By: #### C MP #### [facility] [address] [address] [address] Cecille Bradley Globulin (S) [Mass/Vol] 3.3 g/dL Normal [facility] Comment on above: Performed By: #### C MP #### [facility] [address] [address] [address] Cecille Bradley Glucose [Mass/Vol] 95 mg/dL Normal 74-106 [facility] Comment on above: Performed By: #### C MP #### [facility] [address] [address] [address] Cecille Bradley Potassium [Moles/Vol] 3.8 mmol/L Normal 3.5-5.1 [facility] Comment on above: Performed By: #### C MP #### [facility] [address] [address] [address] Cecille Bradley Protein [Mass/Vol] 6.1 g/dL Critically low 6.4-8.2 [facility] Comment on above: Performed By: #### C MP #### [facility] [address] [address] [address] Cecille Bradley Sodium [Moles/Vol] 139 mmol/L Normal 136-145 [facility] Comment on above: Performed By: #### C MP #### [facility] [address] [address] [address] Cecille Bradley Urea nitrogen [Mass/Vol] 18.0 mg/dL Normal 7.0-18.0 [facility] Comment on above: Performed By: #### C MP #### [facility] [address] [address] [address] Cecille Bradley Urea nitrogen/Creatinine [Mass ratio] 31.0 mg/mg Normal [facility] Comment on above: Performed By: #### C MP #### [facility] [address] [address] [address] Cecille Bradley CBC AUTO DIFFon 12-20-2022 BASO # 0.0 103/ul Normal 0.0-0.1 [facility] Comment on above: Performed By: #### C BC #### [facility] [address] [place] [address] Dr. Cecille Bradley Basophils/100 WBC (Bld) 0.2 % Normal 0.2-2.0 [facility] Comment on above: Performed By: #### C BC #### [facility] [address] [place] [address] Dr. Cecille Bradley EO # 0.1 103/ul Normal 0.0-0.7 [facility] Comment on above: Performed By: #### C BC #### [facility] [address] [place] [address] Dr. Cecille Bradley Eosinophils/100 WBC (Bld) 1.2 % Normal 0.9-7.0 [facility] Comment on above: Performed By: #### C BC #### [facility] [address] [place] [address] Dr. Cecille Bradley Erythrocyte distribution width (RBC) [Ratio] 13.8 % Normal 11.0-15.0 [facility] Comment on above: Performed By: #### C BC #### [facility] [address] [place] [address] Dr. Cecille Bradley Hematocrit (Bld) [Volume fraction] 45.6 % Normal 42.0-54.0 [facility] Comment on above: Performed By: #### C BC #### [facility] [address] [place] [address] Dr. Cecille Bradley Hemoglobin (Bld) [Mass/Vol] 15.3 g/dL Normal 14.0-18.0 [facility] Comment on above: Performed By: #### C BC #### [facility] [address] [place] [address] Dr. Cecille Bradley IG # 0.04 10e3/ul Critically high 0.00-0.03 [facility] Comment on above: Performed By: #### C BC #### [facility] [address] [address] [address] Cecille Bradley IG % 0.4 % Normal 0.0-0.5 [facility] Comment on above: Performed By: #### C BC #### [facility] [address] [place] [address] Dr. Cecille Bradley LYMPH # 1.6 103/ul Normal 1.2-3.8 [facility] Comment on above: Performed By: #### C BC #### [facility] [address] [place] [address] Dr. Cecille Bradley Lymphocytes/100 WBC (Bld) 17.5 % Critically low 20.5-60.0 [facility] Comment on above: Performed By: #### C BC #### [facility] [address] [place] [address] Dr. Cecille Bradley MANUAL DIFF REQ NO Normal [facility] Comment on above: Performed By: #### C BC #### [facility] [address] [place] [address] Dr. Cecille Bradley MCH (RBC) [Entitic mass] 32.4 pg Normal 25.9-34.0 [facility] Comment on above: Performed By: #### C BC #### [facility] [address] [place] [address] Dr. Cecille Bradley MCHC (RBC) [Mass/Vol] 33.6 g/dL Normal 29.9-35.2 [facility] Comment on above: Performed By: #### C BC #### [facility] [address] [place] [address] Dr. Cecille Bradley MCV (RBC) [Entitic vol] 96.6 fL Critically high 80.0-94.0 [facility] Comment on above: Performed By: #### C BC #### [facility] [address] [place] [address] Dr. Cecille Bradley MONO # 0.8 103/ul Normal 0.3-0.8 [facility] Comment on above: Performed By: #### C BC #### [facility] [address] [place] [address] Dr. Cecille Bradley Monocytes/100 WBC (Bld) 9.3 % Normal 1.7-12.0 [facility] Comment on above: Performed By: #### C BC #### [facility] [address] [place] [address] Dr. Cecille Bradley NEUT # 6.4 103/ul Normal 1.4-6.5 [facility] Comment on above: Performed By: #### C BC #### [facility] [address] [place] [address] Dr. Cecille Bradley Neutrophils/100 WBC (Bld) 71.4 % Normal 43.0-75.0 [facility] Comment on above: Performed By: #### C BC #### [facility] [address] [place] [address] Dr. Cecille Bradley Platelet mean volume (Bld) [Entitic vol] 10.8 fL Normal 9.5-13.5 [facility] Comment on above: Performed By: #### C BC #### [facility] [address] [place] [address] Dr. Cecille Bradley PLT 181 103/ul Normal 150-450 [facility] Comment on above: Performed By: #### C BC #### [facility] [address] [place] [address] Dr. Cecille Bradley RBC 4.72 106/ul Normal 4.70-6.10 [facility] Comment on above: Performed By: #### C BC #### [facility] [address] [place] [address] Dr. Cecille Bradley WBC 9.0 103/ul Normal 4.0-11.0 [facility] Comment on above: Performed By: #### C BC #### [facility] [address] [place] [address] Dr. Cecille Bradley PROF 14(COMP METB)on 023 Albumin [Mass/Vol] 2.7 g/dL Critically low 3.4-5.0 [facility] Comment on above: Performed By: #### C BC #### [facility] [address] [place] [address] Dr. Cecille Bradley Albumin/Globulin [Mass ratio] 0.8 {ratio} Normal [facility] Comment on above: Performed By: #### C BC #### [facility] [address] [place] [address] Dr. Cecille Bradley ALP [Catalytic activity/Vol] 66 U/L Normal 46-116 [facility] Comment on above: Performed By: #### C BC #### [facility] [address] [place] [address] Dr. Cecille Bradley ALT [Catalytic activity/Vol] 46 U/L Normal 16-63 [facility] Comment on above: Performed By: #### C BC #### [facility] [address] [place] [address] Dr. Cecille Bradley Anion gap [Moles/Vol] 8.3 mmol/L Normal [facility] Comment on above: Performed By: #### C BC #### [facility] [address] [place] [address] Dr. Cecille Bradley AST [Catalytic activity/Vol] 27 U/L Normal 15-37 [facility] Comment on above: Performed By: #### C BC #### [facility] [address] [place] [address] Dr. Cecille Bradley Bilirubin [Mass/Vol] 1.2 mg/dL Critically high 0.2-1.0 [facility] Comment on above: Performed By: #### C BC #### [facility] [address] [place] [address] Dr. Cecille Bradley Calcium [Mass/Vol] 8.8 mg/dL Normal 8.5-10.1 [facility] Comment on above: Performed By: #### C BC #### [facility] [address] [place] [address] Dr. Cecille Bradley Chloride [Moles/Vol] 102 mmol/L Normal 98-107 [facility] Comment on above: Performed By: #### C BC #### [facility] [address] [place] [address] Dr. Cecille Bradley CO2 [Moles/Vol] 32.7 mmol/L Critically high 21.0-32.0 [facility] Comment on above: Performed By: #### C BC #### [facility] [address] [address] [address] Cecille Bradley Creatinine [Mass/Vol] 0.63 mg/dL Critically low 0.70-1.30 [facility] Comment on above: Performed By: #### C BC #### [facility] [address] [address] [address] Cecille Bradley EGFR-AF DUTCH >60 Normal >=60 [facility] Comment on above: Performed By: #### C BC #### [facility] [address] [address] [address] Cecille Bradley EGFR-NON AF DUTCH >60 Normal >=60 [facility] Comment on above: Performed By: #### C BC #### [facility] [address] [address] [address] Cecille Bradley Globulin (S) [Mass/Vol] 3.4 g/dL Normal [facility] Comment on above: Performed By: #### C BC #### [facility] [address] [address] [address] Cecille Bradley Glucose [Mass/Vol] 98 mg/dL Normal 74-106 [facility] Comment on above: Performed By: #### C BC #### [facility] [address] [address] [address] Cecille Bradley Potassium [Moles/Vol] 4.0 mmol/L Normal 3.5-5.1 [facility] Comment on above: Performed By: #### C BC #### [facility] [address] [address] [address] Cecille Bradley Protein [Mass/Vol] 6.1 g/dL Critically low 6.4-8.2 [facility] Comment on above: Performed By: #### C BC #### [facility] [address] [address] [address] Cecille Bradley Sodium [Moles/Vol] 139 mmol/L Normal 136-145 [facility] Comment on above: Performed By: #### C BC #### [facility] [address] [place] [address] Dr. Cecille Bradley Urea nitrogen [Mass/Vol] 19.0 mg/dL Critically high 7.0-18.0 [facility] Comment on above: Performed By: #### C BC #### [facility] [address] [place] [address] Dr. Cecille Bradley Urea nitrogen/Creatinine [Mass ratio] 30.2 mg/mg Normal [facility] Comment on above: Performed By: #### C BC #### [facility] [address] [place] [address] Dr. Cecille Bradley CBC AUTO DIFFon 12-19-2022 BASO # 0.0 103/ul Normal 0.0-0.1 [facility] Comment on above: Performed By: #### C BC #### [facility] [address] [place] [address] Dr. Cecille Bradley Basophils/100 WBC (Bld) 0.2 % Normal 0.2-2.0 [facility] Comment on above: Performed By: #### C BC #### [facility] [address] [place] [address] Dr. Cecille Bradley EO # 0.1 103/ul Normal 0.0-0.7 [facility] Comment on above: Performed By: #### C BC #### [facility] [facility] [address] [place] [address] Dr. eCcille Bradley Eosinophils/100 WBC (Bld) 1.1 % Normal 0.9-7.0 [facility] Comment on above: Performed By: #### C BC #### [facility] [address] [place] [address] Dr. Cecille Bradley Erythrocyte distribution width (RBC) [Ratio] 13.9 % Normal 11.0-15.0 [facility] Comment on above: Performed By: #### C BC #### [facility] [address] [place] [address] Dr. Cecille Bradley Hematocrit (Bld) [Volume fraction] 48.5 % Normal 42.0-54.0 [facility] Comment on above: Performed By: #### C BC #### [facility] [address] [address] [address] Cecille Bradley Hemoglobin (Bld) [Mass/Vol] 15.9 g/dL Normal 14.0-18.0 [facility] Comment on above: Performed By: #### C BC #### [facility] [address] [address] [address] Cecille Bradley IG # 0.06 10e3/ul Critically high 0.00-0.03 [facility] Comment on above: Performed By: #### C BC #### [facility] [address] [place] [address] Dr. Cecille Bradley IG % 0.6 % Critically high 0.0-0.5 [facility] Comment on above: Performed By: #### C BC #### [facility] [address] [place] [address] Dr. Cecille Bradley LYMPH # 1.6 103/ul Normal 1.2-3.8 [facility] Comment on above: Performed By: #### C BC #### [facility] [address] [place] [address] Dr. Cecille Bradley Lymphocytes/100 WBC (Bld) 16.9 % Critically low 20.5-60.0 [facility] Comment on above: Performed By: #### C BC #### [facility] [address] [place] [address] Dr. Cecille Bradley MANUAL DIFF REQ NO Normal [facility] Comment on above: Performed By: #### C BC #### [facility] [address] [place] [address] Dr. Cecille Bradley MCH (RBC) [Entitic mass] 31.6 pg Normal 25.9-34.0 [facility] Comment on above: Performed By: #### C BC #### [facility] [address] [place] [address] Dr. Cecille Bradley MCHC (RBC) [Mass/Vol] 32.8 g/dL Normal 29.9-35.2 [facility] Comment on above: Performed By: #### C BC #### [facility] [address] [address] [address] Cecille Bradley MCV (RBC) [Entitic vol] 96.4 fL Critically high 80.0-94.0 [facility] Comment on above: Performed By: #### C BC #### [facility] [address] [address] [address] Cecille Bradley MONO # 0.9 103/ul Critically high 0.3-0.8 [facility] Comment on above: Performed By: #### C BC #### [facility] [address] [address] [address] Cecille Bradley Monocytes/100 WBC (Bld) 9.5 % Normal 1.7-12.0 [facility] Comment on above: Performed By: #### C BC #### [facility] [address] [address] [address] Cecille Bradley NEUT # 7.0 103/ul Critically high 1.4-6.5 [facility] Comment on above: Performed By: #### C BC #### [facility] [address] [address] [address] Cecille Bradley Neutrophils/100 WBC (Bld) 71.7 % Normal 43.0-75.0 [facility] Comment on above: Performed By: #### C BC #### [facility] [address] [address] [address] Cecille Bradley Platelet mean volume (Bld) [Entitic vol] 10.6 fL Normal 9.5-13.5 [facility] Comment on above: Performed By: #### C BC #### [facility] [address] [address] [address] Cecille Bradley PLT 197 103/ul Normal 150-450 [facility] Comment on above: Performed By: #### C BC #### [facility] [address] [address] [address] Cecille Bradley RBC 5.03 106/ul Normal 4.70-6.10 [facility] Comment on above: Performed By: #### C BC #### [facility] [address] [place], [place] [address] Dr. Cecille Bradley WBC 9.7 103/ul Normal 4.0-11.0 [facility] Comment on above: Performed By: #### C BC #### [facility] [address] [place], [place] [address] Dr. Cecille Bradley CTA CHEST WO W [...] by: CINDY RODRIGUEZ Date: 2022-12-19 03:21 Normal [facility] PROF 14(COMP METB)on 023 Albumin [Mass/Vol] 3.0 g/dL Critically low 3.4-5.0 [facility] Comment on above: Performed By: #### C BC #### [facility] [address] [place] [address] Dr. Cecille Bradley Albumin/Globulin [Mass ratio] 0.9 {ratio} Normal [facility] Comment on above: Performed By: #### C BC #### [facility] [address] [place] [address] Dr. Cecille Bradley ALP [Catalytic activity/Vol] 61 U/L Normal 46-116 [facility] Comment on above: Performed By: #### C BC #### [facility] [address] [place] [address] Dr. Cecille Bradley ALT [Catalytic activity/Vol] 38 U/L Normal 16-63 [facility] Comment on above: Performed By: #### C BC #### [facility] [address] [place] [address] Dr. Cecille Bradley Anion gap [Moles/Vol] 7.8 mmol/L Normal [facility] Comment on above: Performed By: #### C BC #### [facility] [address] [place] [address] Dr. Cecille Bradley AST [Catalytic activity/Vol] 21 U/L Normal 15-37 [facility] Comment on above: Performed By: #### C BC #### [facility] [address] [place] [address] Dr. Cecille Bradley Bilirubin [Mass/Vol] 1.4 mg/dL Critically high 0.2-1.0 [facility] Comment on above: Performed By: #### C BC #### [facility] [address] [place] [address] Dr. Cecille Bradley Calcium [Mass/Vol] 9.0 mg/dL Normal 8.5-10.1 [facility] Comment on above: Performed By: #### C BC #### [facility] [address] [place] [address] Dr. Cecille Bradley Chloride [Moles/Vol] 105 mmol/L Normal 98-107 [facility] Comment on above: Performed By: #### C BC #### [facility] [address] [place] [address] Dr. Cecille Bradley CO2 [Moles/Vol] 32.2 mmol/L Critically high 21.0-32.0 [facility] Comment on above: Performed By: #### C BC #### [facility] [address] [address] [address] Cecille Bradley Creatinine [Mass/Vol] 0.59 mg/dL Critically low 0.70-1.30 [facility] Comment on above: Performed By: #### C BC #### [facility] [address] [address] [address] Cecille Bradley EGFR-AF DUTCH >60 Normal >=60 [facility] Comment on above: Performed By: #### C BC #### [facility] [address] [place] [address] Dr. Cecille Bradley EGFR-NON AF DUTCH >60 Normal >=60 [facility] Comment on above: Performed By: #### C BC #### [facility] [address] [place] [address] Dr. Cecille Bradley Globulin (S) [Mass/Vol] 3.3 g/dL Normal [facility] Comment on above: Performed By: #### C BC #### [facility] [address] [address] [address] Cecille Bradley Glucose [Mass/Vol] 88 mg/dL Normal 74-106 [facility] Comment on above: Performed By: #### C BC #### [facility] [address] [place] [address] Dr. Cecille Bradley Potassium [Moles/Vol] 4.0 mmol/L Normal 3.5-5.1 [facility] Comment on above: Performed By: #### C BC #### [facility] [address] [address] [address] Cecille Bradley Protein [Mass/Vol] 6.3 g/dL Critically low 6.4-8.2 [facility] Comment on above: Performed By: #### C BC #### [facility] [address] [place] [address] Dr. Cecille Bradley Sodium [Moles/Vol] 141 mmol/L Normal 136-145 [facility] Comment on above: Performed By: #### C BC #### [facility] [address] [address] [address] Cecille Bradley Urea nitrogen [Mass/Vol] 17.0 mg/dL Normal 7.0-18.0 [facility] Comment on above: Performed By: #### C BC #### [facility] [address] [address] [address] Cecille Bradley Urea nitrogen/Creatinine [Mass ratio] 28.8 mg/mg Normal [facility] Comment on above: Performed By: #### C BC #### [facility] [address] [place] [address] Dr. Cecille Bradley CBC AUTO DIFFon 12-18-2022 BASO # 0.0 103/ul Normal 0.0-0.1 [facility] Comment on above: Performed By: #### C MP #### [facility] [address] [place] [address] Dr. Cecille Bradley Basophils/100 WBC (Bld) 0.3 % Normal 0.2-2.0 [facility] Comment on above: Performed By: #### C MP #### [facility] [address] [place] [address] Dr. Cecille Bradley EO # 0.1 103/ul Normal 0.0-0.7 [facility] Comment on above: Performed By: #### C MP #### [facility] [address] [place] [address] Dr. Cecille Bradley Eosinophils/100 WBC (Bld) 1.1 % Normal 0.9-7.0 [facility] Comment on above: Performed By: #### C MP #### [facility] [address] [place] [address] Dr. Cecille Bradley Erythrocyte distribution width (RBC) [Ratio] 14.0 % Normal 11.0-15.0 [facility] Comment on above: Performed By: #### C MP #### [facility] [address] [place] [address] Dr. Cecille Bradley Hematocrit (Bld) [Volume fraction] 46.1 % Normal 42.0-54.0 [facility] Comment on above: Performed By: #### C MP #### [facility] [address] [address] [address] Cecille Bradley Hemoglobin (Bld) [Mass/Vol] 15.2 g/dL Normal 14.0-18.0 [facility] Comment on above: Performed By: #### C MP #### [facility] [address] [address] [address] Cecille Bradley IG # 0.04 10e3/ul Critically high 0.00-0.03 [facility] Comment on above: Performed By: #### C MP #### [facility] [address] [address] [address] Cecille Bradley IG % 0.4 % Normal 0.0-0.5 [facility] Comment on above: Performed By: #### C MP #### [facility] [address] [address] [address] Cecille Bradley LYMPH # 1.5 103/ul Normal 1.2-3.8 [facility] Comment on above: Performed By: #### C MP #### [facility] [address] [address] [address] Cecille Bradley Lymphocytes/100 WBC (Bld) 16.5 % Critically low 20.5-60.0 [facility] Comment on above: Performed By: #### C MP #### [facility] [address] [address] [address] Cecille Bradley MANUAL DIFF REQ NO Normal [facility] Comment on above: Performed By: #### C MP #### [facility] [address] [address] [address] Cecille rBadley MCH (RBC) [Entitic mass] 32.1 pg Normal 25.9-34.0 [facility] Comment on above: Performed By: #### C MP #### [facility] [address] [address] [address] Cecille Bradley MCHC (RBC) [Mass/Vol] 33.0 g/dL Normal 29.9-35.2 [facility] Comment on above: Performed By: #### C MP #### [facility] [address] [address] [address] Cecille Bradley MCV (RBC) [Entitic vol] 97.5 fL Critically high 80.0-94.0 [facility] Comment on above: Performed By: #### C MP #### [facility] [address] [address] [address] Cecille Bradley MONO # 0.8 103/ul Normal 0.3-0.8 [facility] Comment on above: Performed By: #### C MP #### [facility] [address] [address] [address] Cecille Bradley Monocytes/100 WBC (Bld) 8.9 % Normal 1.7-12.0 [facility] Comment on above: Performed By: #### C MP #### [facility] [address] [address] [address] Cecille Bradley NEUT # 6.7 103/ul Critically high 1.4-6.5 [facility] Comment on above: Performed By: #### C MP #### [facility] [address] [address] [address] Cecille Bradley Neutrophils/100 WBC (Bld) 72.8 % Normal 43.0-75.0 [facility] Comment on above: Performed By: #### C MP #### [facility] [address] [address] [address] Cecille Bradley Platelet mean volume (Bld) [Entitic vol] 10.6 fL Normal 9.5-13.5 [facility] Comment on above: Performed By: #### C MP #### [facility] [address] [address] [address] Cecille Bradley PLT 169 103/ul Normal 150-450 [facility] Comment on above: Performed By: #### C MP #### [facility] [address] [address] [address] Cecille Bradley RBC 4.73 106/ul Normal 4.70-6.10 [facility] Comment on above: Performed By: #### C MP #### [facility] [address] [place] [address] Dr. Cecille Bradley WBC 9.2 103/ul Normal 4.0-11.0 [facility] Comment on above: Performed By: #### C MP #### [facility] [address] [place] [address] Dr. Cecille Bradley PROF 14(COMP METB)on 023 Albumin [Mass/Vol] 2.7 g/dL Critically low 3.4-5.0 [facility] Comment on above: Performed By: #### C BC #### [facility] [address] [place] [address] Dr. Cecille Bradley Albumin/Globulin [Mass ratio] 0.9 {ratio} Normal [facility] Comment on above: Performed By: #### C BC #### [facility] [address] [place] [address] Dr. Cecille Bradley ALP [Catalytic activity/Vol] 57 U/L Normal 46-116 [facility] Comment on above: Performed By: #### C BC #### [facility] [address] [place] [address] Dr. Cecille Bradley ALT [Catalytic activity/Vol] 35 U/L Normal 16-63 [facility] Comment on above: Performed By: #### C BC #### [facility] [address] [place] [address] Dr. Cecille Bradley Anion gap [Moles/Vol] 10.5 mmol/L Normal [facility] Comment on above: Performed By: #### C BC #### [facility] [address] [place] [address] Dr. Cecille Bradley AST [Catalytic activity/Vol] 21 U/L Normal 15-37 [facility] Comment on above: Performed By: #### C BC #### [facility] [address] [place] [address] Dr. Cecille Bradley Bilirubin [Mass/Vol] 1.5 mg/dL Critically high 0.2-1.0 [facility] Comment on above: Performed By: #### C BC #### [facility] [address] [place] [address] Dr. Cecille Bradley Calcium [Mass/Vol] 8.8 mg/dL Normal 8.5-10.1 [facility] Comment on above: Performed By: #### C BC #### [facility] [address] [place] [address] Dr. Cecille Bradley Chloride [Moles/Vol] 105 mmol/L Normal 98-107 [facility] Comment on above: Performed By: #### C BC #### [facility] [address] [address] [address] Cecille Bradley CO2 [Moles/Vol] 30.4 mmol/L Normal 21.0-32.0 [facility] Comment on above: Performed By: #### C BC #### [facility] [address] [place] [address] Dr. Cecille Bradley Creatinine [Mass/Vol] 0.61 mg/dL Critically low 0.70-1.30 [facility] Comment on above: Performed By: #### C BC #### [facility] [address] [place] [address] Dr. Cecille Bradley EGFR-AF DUTCH >60 Normal >=60 [facility] Comment on above: Performed By: #### C BC #### [facility] [address] [place] [address] Dr. Cecille Bradley EGFR-NON AF DUTCH >60 Normal >=60 [facility] Comment on above: Performed By: #### C BC #### [facility] [address] [place] [address] Dr. Cecille Bradley Globulin (S) [Mass/Vol] 3.1 g/dL Normal [facility] Comment on above: Performed By: #### C BC #### [facility] [address] [address] [address] Cecille Bradley Glucose [Mass/Vol] 92 mg/dL Normal 74-106 [facility] Comment on above: Performed By: #### C BC #### [facility] [address] [address] [address] Cecille Bradley Potassium [Moles/Vol] 3.9 mmol/L Normal 3.5-5.1 [facility] Comment on above: Performed By: #### C BC #### [facility] [address] [place] [address] Dr. Cecille Bradley Protein [Mass/Vol] 5.8 g/dL Critically low 6.4-8.2 [facility] Comment on above: Performed By: #### C BC #### [facility] [address] [place] [address] Dr. Cecille Bradley Sodium [Moles/Vol] 142 mmol/L Normal 136-145 [facility] Comment on above: Performed By: #### C BC #### [facility] [address] [place] [address] Dr. Cecille Bradley Urea nitrogen [Mass/Vol] 19.0 mg/dL Critically high 7.0-18.0 [facility] Comment on above: Performed By: #### C BC #### [facility] [address] [place] [address] Dr. Cecille Bradley Urea nitrogen/Creatinine [Mass ratio] 31.1 mg/mg Normal [facility] Comment on above: Performed By: #### C BC #### [facility] [address] [place] [address] Dr. Cecille Bradley BNPon 12-17-2022 Natriuretic peptide B (Bld) [Mass/Vol] 640.0 pg/mL Normal <=900.0 [facility] Comment on above: Performed By: #### C BC #### [facility] [address] [place] [address] Dr. Cecille Bradley CBC AUTO DIFFon 12-17-2022 BASO # 0.0 103/ul Normal 0.0-0.1 [facility] Comment on above: Performed By: #### C BC #### [facility] [address] [place] [address] Dr. Cecille Bradley Basophils/100 WBC (Bld) 0.2 % Normal 0.2-2.0 [facility] Comment on above: Performed By: #### C BC #### [facility] [address] [place] [address] Dr. Cecille Bradley EO # 0.2 103/ul Normal 0.0-0.7 [facility] Comment on above: Performed By: #### C BC #### [facility] [address] [place] [address] Dr. Cecille Bradley Eosinophils/100 WBC (Bld) 1.8 % Normal 0.9-7.0 [facility] Comment on above: Performed By: #### C BC #### [facility] [address] [place] [address] Dr. Cecille Bradley Erythrocyte distribution width (RBC) [Ratio] 14.1 % Normal 11.0-15.0 [facility] Comment on above: Performed By: #### C BC #### [facility] [address] [place] [address] Dr. Cecille Bradley Hematocrit (Bld) [Volume fraction] 48.8 % Normal 42.0-54.0 [facility] Comment on above: Performed By: #### C BC #### [facility] [address] [place] [address] Dr. Cecille Bradley Hemoglobin (Bld) [Mass/Vol] 16.0 g/dL Normal 14.0-18.0 [facility] Comment on above: Performed By: #### C BC #### [facility] [address] [place] [address] Dr. Cecille Bradley IG # 0.05 10e3/ul Critically high 0.00-0.[address] [facility] Comment on above: Performed By: #### C BC #### [facility] [address] [place] [address] Dr. Cecille Bradley IG % 0.6 % Critically high 0.0-0.5 [facility] Comment on above: Performed By: #### C BC #### [facility] [address] [place] [address] Dr. Cecille Bradley LYMPH # 1.3 103/ul Normal 1.2-3.8 [facility] Comment on above: Performed By: #### C BC #### [facility] [address] [place] [address] Dr. Cecille Bradley Lymphocytes/100 WBC (Bld) 16.0 % Critically low 20.5-60.0 [facility] Comment on above: Performed By: #### C BC #### [facility] [address] [place] [address] Dr. Cecille Bradley MANUAL DIFF REQ NO Normal [facility] Comment on above: Performed By: #### C BC #### [facility] [address] [place] [address] Dr. Cecille Bradley MCH (RBC) [Entitic mass] 31.9 pg Normal 25.9-34.0 [facility] Comment on above: Performed By: #### C BC #### [facility] [address] [place] [address] Dr. Cecille Bradley MCHC (RBC) [Mass/Vol] 32.8 g/dL Normal 29.9-35.2 [facility] Comment on above: Performed By: #### C BC #### [facility] [address] [place] [address] Dr. Cecille Bradley MCV (RBC) [Entitic vol] 97.2 fL Critically high 80.0-94.0 [facility] Comment on above: Performed By: #### C BC #### [facility] [address] [place] [address] Dr. Cecille Bradley MONO # 0.8 103/ul Normal 0.3-0.8 [facility] Comment on above: Performed By: #### C BC #### [facility] [address] [place] [address] Dr. Cecille Bradley Monocytes/100 WBC (Bld) 9.4 % Normal 1.7-12.0 [facility] Comment on above: Performed By: #### C BC #### [facility] [address] [place] [address] Dr. Ceclile Bradley NEUT # 6.0 103/ul Normal 1.4-6.5 [facility] Comment on above: Performed By: #### C BC #### [facility] [address] [place] [address] Dr. Cecille Bradley Neutrophils/100 WBC (Bld) 72.0 % Normal 43.0-75.0 [facility] Comment on above: Performed By: #### C BC #### [facility] [address] [place] [address] Dr. Cecille Bradley Platelet mean volume (Bld) [Entitic vol] 10.5 fL Normal 9.5-13.5 [facility] Comment on above: Performed By: #### C BC #### [facility] [address] [place] [address] Dr. Cecille Bradley PLT 170 103/ul Normal 150-450 [facility] Comment on above: Performed By: #### C BC #### [facility] [address] [place] [address] Dr. Cecille Bradley RBC 5.02 106/ul Normal 4.70-6.10 [facility] Comment on above: Performed By: #### C BC #### [facility] [address] [place] [address] Dr. Cecille Bradley WBC 8.3 103/ul Normal 4.0-11.0 [facility] Comment on above: Performed By: #### C BC #### [facility] [address] [place] [address] Dr. Cecille Bradley CULTURE SPUTUMon 12-17-2022 CULTURE SPUTUM Isolate 1 Shirley albicans Light growth of Normal [facility] Comment on above: Performed By: #### C BC #### [facility] [address] [place] [address] Dr. Cecille Bradley Covid-19 PCR ([facility]on 12-07 SARS-CoV-2 (COVID-19) RNA YUDELKA+probe Ql (Unsp spec) Not detected Normal NOT DETECTED [facility] Comment on above: Result Comment: When diagnostic [...] for this test is supported by the [place] of Health and Human Service's declaration that [...] used). Performed By: #### C MP #### [facility] [address] [place] [address] Dr. Cecille Bradley D-DIMERon 12-17-2022 D-DIMER 0.27 mg/L FEU Normal <=0.59 [facility] Comment on above: Performed By: #### C BC #### [facility] [address] [place] [address] Dr. Cecille Bradley D-DIMER COMMENTS SEE BELOW Normal [facility] Comment on above: Result Comment: Incr eases [...] hospitalization. Performed By: #### C BC #### [facility] [address] [place] [address] Dr. Cecille Bradley DIGOXINon 12-17-2022 DIG 0.4 ng/mL Critically low 0.9-2.0 [facility] Comment on above: Performed By: #### C VDTBH #### [facility] [address] [place] [address] Dr. Cecille Bradley GLYCOHEMOGLOBIN A1Con 2022 ADA RECOMMENDATION SEE BELOW Normal [facility] Comment on above: Result Comment: ADA RECOMMENDED LIMIT 4.0 - 6.0 ADA THERAPEUTIC TARGET < 7.0 ACTION SUGGESTED > 7.0 Performed By: #### A 1C #### [facility] [address] [address] [address] Cecille Bradley Glucose [Mass/Vol] 114 mg/dL Normal [facility] Comment on above: Performed By: #### A 1C #### [facility] [address] [place] [address] Dr. Cecille Bradley HbA1c (Bld) [Mass fraction] 5.6 % Normal 4.5-6.2 [facility] Comment on above: Performed By: #### A 1C #### [facility] [address] [place] [address] Dr. Cecille Bradley MAGNESIUMon 12-17-2022 Magnesium [Mass/Vol] 2.2 mg/dL Normal 1.8-2.4 [facility] Comment on above: Performed By: #### C BC #### [facility] [address] [place] [address] Dr. Cecille Bradley PROF 14(COMP METB)on 023 Albumin [Mass/Vol] 2.8 g/dL Critically low 3.4-5.0 [facility] Comment on above: Performed By: #### C BC #### [facility] [address] [place] [address] Dr. Cecille Bradley Albumin/Globulin [Mass ratio] 0.9 {ratio} Normal [facility] Comment on above: Performed By: #### C BC #### [facility] [address] [place] [address] Dr. Cecille Bradley ALP [Catalytic activity/Vol] 60 U/L Normal 46-116 [facility] Comment on above: Performed By: #### C BC #### [facility] [address] [place] [address] Dr. Cecille Bradley ALT [Catalytic activity/Vol] 34 U/L Normal 16-63 [facility] Comment on above: Performed By: #### C BC #### [facility] [address] [place] [address] Dr. Cecille Bradley Anion gap [Moles/Vol] 11.5 mmol/L Normal [facility] Comment on above: Performed By: #### C BC #### [facility] [address] [address] [address] Cecille Bradley AST [Catalytic activity/Vol] 18 U/L Normal 15-37 [facility] Comment on above: Performed By: #### C BC #### [facility] [address] [place] [address] Dr. Cecille Bradley Bilirubin [Mass/Vol] 1.9 mg/dL Critically high 0.2-1.0 [facility] Comment on above: Performed By: #### C BC #### [facility] [address] [place] [address] Dr. Ceiclle Bradley Calcium [Mass/Vol] 8.6 mg/dL Normal 8.5-10.1 [facility] Comment on above: Performed By: #### C BC #### [facility] [address] [place] [address] Dr. Cecille Bradley Chloride [Moles/Vol] 104 mmol/L Normal 98-107 [facility] Comment on above: Performed By: #### C BC #### [facility] [address] [place] [address] Dr. Cecille Bradley CO2 [Moles/Vol] 31.5 mmol/L Normal 21.0-32.0 [facility] Comment on above: Performed By: #### C BC #### [facility] [address] [place] [address] Dr. Cecille Bradley Creatinine [Mass/Vol] 0.61 mg/dL Critically low 0.70-1.30 [facility] Comment on above: Performed By: #### C BC #### [facility] [address] [place] [address] Dr. Cecille Bradley EGFR-AF DUTCH >60 Normal >=60 [facility] Comment on above: Performed By: #### C BC #### [facility] [address] [place] [address] Dr. Cecille Bradley EGFR-NON AF DUTCH >60 Normal >=60 [facility] Comment on above: Performed By: #### C BC #### [facility] [address] [place] [address] Dr. Cecille Bradley Globulin (S) [Mass/Vol] 3.2 g/dL Normal [facility] Comment on above: Performed By: #### C BC #### [facility] [address] [address] [address] Cecille Bradley Glucose [Mass/Vol] 85 mg/dL Normal 74-106 [facility] Comment on above: Performed By: #### C BC #### [facility] [address] [address] [address] Cecille Bradley Potassium [Moles/Vol] 4.0 mmol/L Normal 3.5-5.1 [facility] Comment on above: Performed By: #### C BC #### [facility] [address] [place] [address] Dr. Cecille Bradley Protein [Mass/Vol] 6.0 g/dL Critically low 6.4-8.2 [facility] Comment on above: Performed By: #### C BC #### [facility] [address] [place] [address] Dr. Cecille Bradley Sodium [Moles/Vol] 143 mmol/L Normal 136-145 [facility] Comment on above: Performed By: #### C BC #### [facility] [address] [place] [address] Dr. Cecille Bradley Urea nitrogen [Mass/Vol] 17.0 mg/dL Normal 7.0-18.0 [facility] Comment on above: Performed By: #### C BC #### [facility] [address] [place] [address] Dr. Cecille Bradley Urea nitrogen/Creatinine [Mass ratio] 27.9 mg/mg Normal [facility] Comment on above: Performed By: #### C BC #### [facility] [address] [place] [address] Dr. Cecille Bradley TSHon 12-17-2022 TSH 0.734 uIU/mL Normal 0.358-3.740 [facility] Comment on above: Performed By: #### C BC #### [facility] [address] [place] [address] Dr. Cecille Bradley CBC AUTO DIFFon 12-16-2022 BASO # 0.0 103/ul Normal 0.0-0.1 [facility] Comment on above: Performed By: #### C BC #### [facility] [address] [place] [address] Dr. Cecille Bradley Basophils/100 WBC (Bld) 0.2 % Normal 0.2-2.0 [facility] Comment on above: Performed By: #### C BC #### [facility] [address] [place] [address] Dr. Cecille Bradley EO # 0.2 103/ul Normal 0.0-0.7 [facility] Comment on above: Performed By: #### C BC #### [facility] [address] [place] [address] Dr. Cecille Bradley Eosinophils/100 WBC (Bld) 1.0 % Normal 0.9-7.0 [facility] Comment on above: Performed By: #### C BC #### [facility] [address] [place] [address] Dr. Cecille Bradley Erythrocyte distribution width (RBC) [Ratio] 14.2 % Normal 11.0-15.0 [facility] Comment on above: Performed By: #### C BC #### [facility] [address] [place] [address] Dr. Cecille Bradley Hematocrit (Bld) [Volume fraction] 52.2 % Normal 42.0-54.0 [facility] Comment on above: Performed By: #### C BC #### [facility] [address] [place] [address] Dr. Cecille Bradley Hemoglobin (Bld) [Mass/Vol] 16.8 g/dL Normal 14.0-18.0 [facility] Comment on above: Performed By: #### C BC #### [facility] [address] [place] [address] Dr. Cecille Bradley IG # 0.07 10e3/ul Critically high 0.00-0.03 [facility] Comment on above: Performed By: #### C BC #### [facility] [address] [place] [address] Dr. Cecille Bradley IG % 0.5 % Normal 0.0-0.5 [facility] Comment on above: Performed By: #### C BC #### [facility] [address] [place] [address] Dr. Cecille Bradley LYMPH # 1.3 103/ul Normal 1.2-3.8 [facility] Comment on above: Performed By: #### C BC #### [facility] [address] [place] [address] Dr. Cecille Bradley Lymphocytes/100 WBC (Bld) 8.5 % Critically low 20.5-60.0 [facility] Comment on above: Performed By: #### C BC #### [facility] [address] [place] [address] Dr. Cecille Bradley MANUAL DIFF REQ NO Normal [facility] Comment on above: Performed By: #### C BC #### [facility] [address] [place] [address] Dr. Cecille Bradley MCH (RBC) [Entitic mass] 31.0 pg Normal 25.9-34.0 [facility] Comment on above: Performed By: #### C BC #### [facility] [address] [place] [address] Dr. Cecille Bradley MCHC (RBC) [Mass/Vol] 32.2 g/dL Normal 29.9-35.2 [facility] Comment on above: Performed By: #### C BC #### [facility] [address] [place] [address] Dr. Cecille Bradley MCV (RBC) [Entitic vol] 96.3 fL Critically high 80.0-94.0 [facility] Comment on above: Performed By: #### C BC #### [facility] [address] [place] [address] Dr. Cecille Bradley MONO # 1.4 103/ul Critically high 0.3-0.8 [facility] Comment on above: Performed By: #### C BC #### [facility] [address] [place] [address] Dr. Cecille Bradley Monocytes/100 WBC (Bld) 9.0 % Normal 1.7-12.0 [facility] Comment on above: Performed By: #### C BC #### [facility] [address] [place] [address] Dr. Cecille Bradley NEUT # 12.4 103/ul Critically high 1.4-6.5 [facility] Comment on above: Performed By: #### C BC #### [facility] [address] [place] [address] Dr. Cecille Bradley Neutrophils/100 WBC (Bld) 80.8 % Critically high 43.0-75.0 [facility] Comment on above: Performed By: #### C BC #### [facility] [address] [place] [address] Dr. Cecille Bradley Platelet mean volume (Bld) [Entitic vol] 10.2 fL Normal 9.5-13.5 [facility] Comment on above: Performed By: #### C BC #### [facility] [address] [place] [address] Dr. Cecille Bradley PLT 218 103/ul Normal 150-450 [facility] Comment on above: Performed By: #### C BC #### [facility] [address] [place] [address] Dr. Cecille Bradley RBC 5.42 106/ul Normal 4.70-6.10 [facility] Comment on above: Performed By: #### C BC #### [facility] [address] [place] [address] Dr. Cecille Bradley WBC 15.3 103/ul Critically high 4.0-11.0 [facility] Comment on above: Performed By: #### C BC #### [facility] [address] [place] [address] Dr. Cecille Bradley MAGNESIUMon 12-16-2022 Magnesium [Mass/Vol] 2.1 mg/dL Normal 1.8-2.4 [facility] Comment on above: Performed By: #### C BC #### [facility] [address] [place] [address] Dr. Cecille Bradley PROF 14(COMP METB)on 023 Albumin [Mass/Vol] 3.2 g/dL Critically low 3.4-5.0 [facility] Comment on above: Performed By: #### C BC #### [facility] [address] [place] [address] Dr. Cecille Bradley Albumin/Globulin [Mass ratio] 0.9 {ratio} Normal [facility] Comment on above: Performed By: #### C BC #### [facility] [address] [place] [address] Dr. Cecille Bradley ALP [Catalytic activity/Vol] 71 U/L Normal 46-116 [facility] Comment on above: Performed By: #### C BC #### [facility] [address] [place] [address] Dr. Cecille Bradley ALT [Catalytic activity/Vol] 40 U/L Normal 16-63 [facility] Comment on above: Performed By: #### C BC #### [facility] [address] [place] [address] Dr. Cecille Bradley Anion gap [Moles/Vol] 10.4 mmol/L Normal [facility] Comment on above: Performed By: #### C BC #### [facility] [address] [place] [address] Dr. Cecille Bradley AST [Catalytic activity/Vol] 25 U/L Normal 15-37 [facility] Comment on above: Performed By: #### C BC #### [facility] [address] [place] [address] Dr. Cecille Bradley Bilirubin [Mass/Vol] 1.9 mg/dL Critically high 0.2-1.0 [facility] Comment on above: Performed By: #### C BC #### [facility] [address] [place] [address] Dr. Cecille Bradley Calcium [Mass/Vol] 8.9 mg/dL Normal 8.5-10.1 [facility] Comment on above: Performed By: #### C BC #### [facility] [address] [place] [address] Dr. Cecille Bradley Chloride [Moles/Vol] 101 mmol/L Normal 98-107 [facility] Comment on above: Performed By: #### C BC #### [facility] [address] [address] [address] Cecille Bradley CO2 [Moles/Vol] 30.6 mmol/L Normal 21.0-32.0 [facility] Comment on above: Performed By: #### C BC #### [facility] [address] [address] [address] Cecille Bradley Creatinine [Mass/Vol] 0.63 mg/dL Critically low 0.70-1.30 [facility] Comment on above: Performed By: #### C BC #### [facility] [address] [address] [address] Cecille Bradley EGFR-AF DUTCH >60 Normal >=60 [facility] Comment on above: Performed By: #### C BC #### [facility] [address] [place] [address] Dr. Cecille Bradley EGFR-NON AF DUTCH >60 Normal >=60 [facility] Comment on above: Performed By: #### C BC #### [facility] [address] [place] [address] Dr. Cecille Bradley Globulin (S) [Mass/Vol] 3.4 g/dL Normal [facility] Comment on above: Performed By: #### C BC #### [facility] [address] [address] [address] Cecille Bradley Glucose [Mass/Vol] 99 mg/dL Normal 74-106 [facility] Comment on above: Performed By: #### C BC #### [facility] [address] [place] [address] Dr. Cecille Bradley Potassium [Moles/Vol] 4.0 mmol/L Normal 3.5-5.1 [facility] Comment on above: Performed By: #### C BC #### [facility] [address] [place] [address] Dr. Cecille Bradley Protein [Mass/Vol] 6.6 g/dL Normal 6.4-8.2 [facility] Comment on above: Performed By: #### C BC #### [facility] [address] [address] [address] Cecille Bradley Sodium [Moles/Vol] 138 mmol/L Normal 136-145 [facility] Comment on above: Performed By: #### C BC #### [facility] [address] [address] [address] Cecille Bradley Urea nitrogen [Mass/Vol] 18.0 mg/dL Normal 7.0-18.0 [facility] Comment on above: Performed By: #### C BC #### [facility] [address] [address] [address] Cecille Bradley Urea nitrogen/Creatinine [Mass ratio] 28.6 mg/mg Normal [facility] Comment on above: Performed By: #### C BC #### [facility] [address] [place] [address] Dr. Cecille Bradley XR CHEST 1 Von [...] KANDI LUU Date: 2022-12-16 12:59 Normal [facility] CBC AUTO DIFFon 12-15-2022 BASO # 0.0 103/ul Normal 0.0-0.1 [facility] Comment on above: Performed By: #### C BC #### [facility] [address] [place] [address] Dr. Cecille Bradley Basophils/100 WBC (Bld) 0.2 % Normal 0.2-2.0 [facility] Comment on above: Performed By: #### C BC #### [facility] [address] [place] [address] Dr. Cecille Bradley EO # 0.1 103/ul Normal 0.0-0.7 [facility] Comment on above: Performed By: #### C BC #### [facility] [address] [place] [address] Dr. Cecille Bradley Eosinophils/100 WBC (Bld) 1.4 % Normal 0.9-7.0 [facility] Comment on above: Performed By: #### C BC #### [facility] [address] [place] [address] Dr. Cecille Bradley Erythrocyte distribution width (RBC) [Ratio] 14.2 % Normal 11.0-15.0 [facility] Comment on above: Performed By: #### C BC #### [facility] [address] [place] [address] Dr. Cecille Bradley Hematocrit (Bld) [Volume fraction] 50.4 % Normal 42.0-54.0 [facility] Comment on above: Performed By: #### C BC #### [facility] [address] [place] [address] Dr. Cecille Bradley Hemoglobin (Bld) [Mass/Vol] 16.6 g/dL Normal 14.0-18.0 [facility] Comment on above: Performed By: #### C BC #### [facility] [address] [place] [address] Dr. Cecille Bradley IG # 0.04 10e3/ul Critically high 0.00-0.03 [facility] Comment on above: Performed By: #### C BC #### [facility] [address] [place] [address] Dr. Cecille Bradley IG % 0.5 % Normal 0.0-0.5 [facility] Comment on above: Performed By: #### C BC #### [facility] [address] [place] [address] Dr. Cecille Bradley LYMPH # 1.1 103/ul Critically low 1.2-3.8 [facility] Comment on above: Performed By: #### C BC #### [facility] [address] [address] [address] Cecille Bradley Lymphocytes/100 WBC (Bld) 13.5 % Critically low 20.5-60.0 [facility] Comment on above: Performed By: #### C BC #### [facility] [address] [address] [address] Cecille Bradley MANUAL DIFF REQ NO Normal [facility] Comment on above: Performed By: #### C BC #### [facility] [address] [address] [address] Cecille Bradley MCH (RBC) [Entitic mass] 31.9 pg Normal 25.9-34.0 [facility] Comment on above: Performed By: #### C BC #### [facility] [address] [place] [address] Dr. Cecille Bradley MCHC (RBC) [Mass/Vol] 32.9 g/dL Normal 29.9-35.2 [facility] Comment on above: Performed By: #### C BC #### [facility] [address] [place] [address] Dr. Cecille Bradley MCV (RBC) [Entitic vol] 96.7 fL Critically high 80.0-94.0 [facility] Comment on above: Performed By: #### C BC #### [facility] [address] [place] [address] Dr. Cecille Bradley MONO # 0.7 103/ul Normal 0.3-0.8 [facility] Comment on above: Performed By: #### C BC #### [facility] [address] [place] [address] Dr. Cecille Bradley Monocytes/100 WBC (Bld) 8.7 % Normal 1.7-12.0 [facility] Comment on above: Performed By: #### C BC #### [facility] [address] [place] [address] Dr. Cecille Bradley NEUT # 6.2 103/ul Normal 1.4-6.5 [facility] Comment on above: Performed By: #### C BC #### [facility] [address] [place] [address] Dr. Cecille Bradley Neutrophils/100 WBC (Bld) 75.7 % Critically high 43.0-75.0 [facility] Comment on above: Performed By: #### C BC #### [facility] [address] [place] [address] Dr. Cecille Bradley Platelet mean volume (Bld) [Entitic vol] 10.4 fL Normal 9.5-13.5 [facility] Comment on above: Performed By: #### C BC #### [facility] [address] [address] [address] Cecille Bradley PLT 187 103/ul Normal 150-450 [facility] Comment on above: Performed By: #### C BC #### [facility] [address] [place] [address] Dr. Cecille Bradley RBC 5.21 106/ul Normal 4.70-6.10 [facility] Comment on above: Performed By: #### C BC #### [facility] [address] [place] [address] Dr. Cecille Bradley WBC 8.1 103/ul Normal 4.0-11.0 [facility] Comment on above: Performed By: #### C BC #### [facility] [address] [place] [address] Dr. Cecille Bradley MAGNESIUMon 12-15-2022 Magnesium [Mass/Vol] 2.2 mg/dL Normal 1.8-2.4 [facility] Comment on above: Performed By: #### C MP #### [facility] [address] [place] [address] Dr. Cecille Bradley PROF 14(COMP METB)on 023 Albumin [Mass/Vol] 2.9 g/dL Critically low 3.4-5.0 [facility] e [facility] Comment on above: Performed By: #### C MP #### [facility] [address] [place] [address] Dr. Cecille Bradley Albumin/Globulin [Mass ratio] 0.9 {ratio} Normal [facility] Comment on above: Performed By: #### C MP #### [facility] [address] [place] [address] Dr. Cecille Bradley ALP [Catalytic activity/Vol] 68 U/L Normal 46-116 [facility] Comment on above: Performed By: #### C MP #### [facility] [address] [place] [address] Dr. Cecille Bradley ALT [Catalytic activity/Vol] 35 U/L Normal 16-63 [facility] Comment on above: Performed By: #### C MP #### [facility] [address] [place] [address] Dr. Cecille Bradley Anion gap [Moles/Vol] 9.1 mmol/L Normal [facility] Comment on above: Performed By: #### C MP #### [facility] [address] [place] [address] Dr. Cecille Bradley AST [Catalytic activity/Vol] 26 U/L Normal 15-37 [facility] Comment on above: Performed By: #### C MP #### [facility] [facility] [address] [place] [address] Dr. Cecille Bradley Bilirubin [Mass/Vol] 1.7 mg/dL Critically high 0.2-1.0 [facility] Comment on above: Performed By: #### C MP #### [facility] [address] [place] [address] Dr. Cecille Bradley Calcium [Mass/Vol] 8.7 mg/dL Normal 8.5-10.1 [facility] Comment on above: Performed By: #### C MP #### [facility] [address] [place] [address] Dr. Cecille Bradley Chloride [Moles/Vol] 103 mmol/L Normal 98-107 [facility] Comment on above: Performed By: #### C MP #### [facility] [address] [place] [address] Dr. Cecille Bradley CO2 [Moles/Vol] 30.0 mmol/L Normal 21.0-32.0 [facility] Comment on above: Performed By: #### C MP #### [facility] [address] [place] [address] Dr. Cecille Bradley Creatinine [Mass/Vol] 0.61 mg/dL Critically low 0.70-1.30 [facility] Comment on above: Performed By: #### C MP #### [facility] [address] [address] [address] Cecille Bradley EGFR-AF DUTCH >60 Normal >=60 [facility] Comment on above: Performed By: #### C MP #### [facility] [address] [address] [address] Cecille Bradley EGFR-NON AF DUTCH >60 Normal >=60 [facility] Comment on above: Performed By: #### C MP #### [facility] [address] [address] [address] Cecille Bradley Globulin (S) [Mass/Vol] 3.2 g/dL Normal [facility] Comment on above: Performed By: #### C MP #### [facility] [address] [address] [address] Cecille Bradley Glucose [Mass/Vol] 94 mg/dL Normal 74-106 [facility] Comment on above: Performed By: #### C MP #### [facility] [address] [address] [address] Cecille Bradley Potassium [Moles/Vol] 4.1 mmol/L Normal 3.5-5.1 [facility] Comment on above: Performed By: #### C MP #### [facility] [address] [address] [address] Cecille Bradley Protein [Mass/Vol] 6.1 g/dL Critically low 6.4-8.2 [facility] Comment on above: Performed By: #### C MP #### [facility] [address] [address] [address] Cecille Bradley Sodium [Moles/Vol] 138 mmol/L Normal 136-145 [facility] Comment on above: Performed By: #### C MP #### [facility] [address] [address] [address] Cecille Bradley Urea nitrogen [Mass/Vol] 18.0 mg/dL Normal 7.0-18.0 [facility] Comment on above: Performed By: #### C MP #### [facility] [address] [address] [address] Cecille Bradley Urea nitrogen/Creatinine [Mass ratio] 29.5 mg/mg Normal [facility] Comment on above: Performed By: #### C MP #### [facility] [address] [place] [address] Dr. Cecille Bradley CBC AUTO DIFFon 12-14-2022 BASO # 0.0 103/ul Normal 0.0-0.1 [facility] Comment on above: Performed By: #### C BC #### [facility] [address] [place] [address] Dr. Cecille Bradley Basophils/100 WBC (Bld) 0.1 % Critically low 0.2-2.0 [facility] Comment on above: Performed By: #### C BC #### [facility] [address] [place] [address] Dr. Cecille Bradley EO # 0.1 103/ul Normal 0.0-0.7 [facility] Comment on above: Performed By: #### C BC #### [facility] [address] [place] [address] Dr. Cecille Bradley Eosinophils/100 WBC (Bld) 0.9 % Normal 0.9-7.0 [facility] Comment on above: Performed By: #### C BC #### [facility] [address] [place] [address] Dr. Cecille Bradley Erythrocyte distribution width (RBC) [Ratio] 14.3 % Normal 11.0-15.0 [facility] Comment on above: Performed By: #### C BC #### [facility] [address] [place] [address] Dr. Cecille Bradley Hematocrit (Bld) [Volume fraction] 52.6 % Normal 42.0-54.0 [facility] Comment on above: Performed By: #### C BC #### [facility] [address] [place] [address] Dr. Cecille Bradley Hemoglobin (Bld) [Mass/Vol] 16.8 g/dL Normal 14.0-18.0 [facility] Comment on above: Performed By: #### C BC #### [facility] [address] [address] [address] Cecille Bradley IG # 0.04 10e3/ul Critically high 0.00-0.03 [facility] Comment on above: Performed By: #### C BC #### [facility] [address] [address] [address] Cecille Bradley IG % 0.5 % Normal 0.0-0.5 [facility] Comment on above: Performed By: #### C BC #### [facility] [address] [address] [address] Cecille Bradley LYMPH # 1.1 103/ul Critically low 1.2-3.8 [facility] Comment on above: Performed By: #### C BC #### [facility] [address] [address] [address] Cecille Bradley Lymphocytes/100 WBC (Bld) 13.8 % Critically low 20.5-60.0 [facility] Comment on above: Performed By: #### C BC #### [facility] [address] [address] [address] Cecille Bradley MANUAL DIFF REQ NO Normal [facility] Comment on above: Performed By: #### C BC #### [facility] [address] [address] [address] Cecille Bradley MCH (RBC) [Entitic mass] 31.9 pg Normal 25.9-34.0 [facility] Comment on above: Performed By: #### C BC #### [facility] [address] [address] [address] Cecille rBadley MCHC (RBC) [Mass/Vol] 31.9 g/dL Normal 29.9-35.2 [facility] Comment on above: Performed By: #### C BC #### [facility] [address] [address] [address] Cecille Bradley MCV (RBC) [Entitic vol] 100.0 fL Critically high 80.0-94.0 [facility] Comment on above: Performed By: #### C BC #### [facility] [address] [place] [address] Dr. Cecille Bradley MONO # 0.7 103/ul Normal 0.3-0.8 [facility] Comment on above: Performed By: #### C BC #### [facility] [address] [place] [address] Dr. Cecille Bradley Monocytes/100 WBC (Bld) 8.5 % Normal 1.7-12.0 [facility] Comment on above: Performed By: #### C BC #### [facility] [address] [place] [address] Dr. Cecille Bradley NEUT # 5.9 103/ul Normal 1.4-6.5 [facility] Comment on above: Performed By: #### C BC #### [facility] [address] [place] [address] Dr. Cecille Bradley Neutrophils/100 WBC (Bld) 76.2 % Critically high 43.0-75.0 [facility] Comment on above: Performed By: #### C BC #### [facility] [address] [place] [address] Dr. Cecille Bradley Platelet mean volume (Bld) [Entitic vol] 10.3 fL Normal 9.5-13.5 [facility] Comment on above: Performed By: #### C BC #### [facility] [address] [place] [address] Dr. Cecille Bradley PLT 174 103/ul Normal 150-450 [facility] Comment on above: Performed By: #### C BC #### [facility] [address] [place] [address] Dr. Cecille Bradley RBC 5.26 106/ul Normal 4.70-6.10 [facility] Comment on above: Performed By: #### C BC #### [facility] [address] [place] [address] Dr. Cecille Bradley WBC 7.7 103/ul Normal 4.0-11.0 [facility] Comment on above: Performed By: #### C BC #### [facility] [address] [place] [address] Dr. Cecille Bradley MAGNESIUMon 12-14-2022 Magnesium [Mass/Vol] 2.4 mg/dL Normal 1.8-2.4 [facility] Comment on above: Performed By: #### C BC #### [facility] [address] [place] [address] Dr. Cecille Bradley PROF 14(COMP METB)on 023 Albumin [Mass/Vol] 2.9 g/dL Critically low 3.4-5.0 [facility] Comment on above: Performed By: #### C BC #### [facility] [address] [place] [address] Dr. Cecille Bradley Albumin/Globulin [Mass ratio] 0.9 {ratio} Normal [facility] Comment on above: Performed By: #### C BC #### [facility] [address] [place] [address] Dr. Cecille Bradley ALP [Catalytic activity/Vol] 71 U/L Normal 46-116 [facility] Comment on above: Performed By: #### C BC #### [facility] [address] [place] [address] Dr. Cecille Bradley ALT [Catalytic activity/Vol] 32 U/L Normal 16-63 [facility] Comment on above: Performed By: #### C BC #### [facility] [address] [place] [address] Dr. Cecille Bradley Anion gap [Moles/Vol] 9.0 mmol/L Normal [facility] Comment on above: Performed By: #### C BC #### [facility] [address] [place] [address] Dr. Cecille Bradley AST [Catalytic activity/Vol] 22 U/L Normal 15-37 [facility] Comment on above: Performed By: #### C BC #### [facility] [address] [place] [address] Dr. Cecille Bradley Bilirubin [Mass/Vol] 1.9 mg/dL Critically high 0.2-1.0 [facility] Comment on above: Performed By: #### C BC #### [facility] [address] [address] [address] Cecille Bradley Calcium [Mass/Vol] 8.7 mg/dL Normal 8.5-10.1 [facility] Comment on above: Performed By: #### C BC #### [facility] [address] [address] [address] Cecille Bradley Chloride [Moles/Vol] 101 mmol/L Normal 98-107 [facility] Comment on above: Performed By: #### C BC #### [facility] [address] [place] [address] Dr. Cecille Bradley CO2 [Moles/Vol] 30.9 mmol/L Normal 21.0-32.0 [facility] Comment on above: Performed By: #### C BC #### [facility] [address] [place] [address] Dr. Cecille Bradley Creatinine [Mass/Vol] 0.56 mg/dL Critically low 0.70-1.30 [facility] Comment on above: Performed By: #### C BC #### [facility] [address] [place] [address] Dr. Cecille Bradley EGFR-AF DUTCH >60 Normal >=60 [facility] Comment on above: Performed By: #### C BC #### [facility] [address] [place] [address] Dr. Cecille Bradley EGFR-NON AF DUTCH >60 Normal >=60 [facility] Comment on above: Performed By: #### C BC #### [facility] [address] [address] [address] Cecille Bradley Globulin (S) [Mass/Vol] 3.3 g/dL Normal [facility] Comment on above: Performed By: #### C BC #### [facility] [address] [place] [address] Dr. Cecille Bradley Glucose [Mass/Vol] 93 mg/dL Normal 74-106 [facility] Comment on above: Performed By: #### C BC #### [facility] [address] [place] [address] Dr. Cecille Bradley Potassium [Moles/Vol] 3.9 mmol/L Normal 3.5-5.1 [facility] Comment on above: Performed By: #### C BC #### [facility] [address] [place] [address] Dr. Cecille Bradley Protein [Mass/Vol] 6.2 g/dL Critically low 6.4-8.2 [facility] Comment on above: Performed By: #### C BC #### [facility] [address] [place] [address] Dr. Cecille Bradley Sodium [Moles/Vol] 137 mmol/L Normal 136-145 [facility] Comment on above: Performed By: #### C BC #### [facility] [address] [place] [address] Dr. Cecille Bradley Urea nitrogen [Mass/Vol] 18.0 mg/dL Normal 7.0-18.0 [facility] Comment on above: Performed By: #### C BC #### [facility] [address] [place] [address] Dr. Ceiclle Bradley Urea nitrogen/Creatinine [Mass ratio] 32.1 mg/mg Normal [facility] Comment on above: Performed By: #### C BC #### [facility] [address] [place] [address] Dr. Cecille Bradley CBC AUTO DIFFon 12-13-2022 BASO # 0.0 103/ul Normal 0.0-0.1 [facility] Comment on above: Performed By: #### C BC #### [facility] [address] [place] [address] Dr. Cecille Bradley Basophils/100 WBC (Bld) 0.1 % Critically low 0.2-2.0 [facility] Comment on above: Performed By: #### C BC #### [facility] [address] [place] [address] Dr. Cecille Bradley EO # 0.0 103/ul Normal 0.0-0.7 [facility] Comment on above: Performed By: #### C BC #### [facility] [address] [place] [address] Dr. Cecille Bradley Eosinophils/100 WBC (Bld) 0.2 % Critically low 0.9-7.0 [facility] Comment on above: Performed By: #### C BC #### [facility] [address] [place] [address] Dr. Cecille Bradley Erythrocyte distribution width (RBC) [Ratio] 14.4 % Normal 11.0-15.0 [facility] Comment on above: Performed By: #### C BC #### [facility] [address] [place] [address] Dr. Cecille Bradley Hematocrit (Bld) [Volume fraction] 50.2 % Normal 42.0-54.0 [facility] Comment on above: Performed By: #### C BC #### [facility] [address] [place] [address] Dr. Cecille Bradley Hemoglobin (Bld) [Mass/Vol] 15.7 g/dL Normal 14.0-18.0 [facility] Comment on above: Performed By: #### C BC #### [facility] [address] [place] [address] Dr. Cecille Bradley IG # 0.01 10e3/ul Normal 0.00-0.03 [facility] Comment on above: Performed By: #### C BC #### [facility] [address] [place] [address] Dr. Cecille Bradley IG % 0.1 % Normal 0.0-0.5 [facility] Comment on above: Performed By: #### C BC #### [facility] [address] [place] [address] Dr. Cecille Bradley LYMPH # 1.1 103/ul Critically low 1.2-3.8 [facility] Comment on above: Performed By: #### C BC #### [facility] [address] [place] [address] Dr. Cecille Bradley Lymphocytes/100 WBC (Bld) 13.1 % Critically low 20.5-60.0 [facility] Comment on above: Performed By: #### C BC #### [facility] [address] [place] [address] Dr. Cecille Bradley MANUAL DIFF REQ NO Normal [facility] Comment on above: Performed By: #### C BC #### [facility] [address] [place] [address] Dr. Cecille Bradley MCH (RBC) [Entitic mass] 31.7 pg Normal 25.9-34.0 [facility] Comment on above: Performed By: #### C BC #### [facility] [address] [place] [address] Dr. Cecille Bradley MCHC (RBC) [Mass/Vol] 31.3 g/dL Normal 29.9-35.2 [facility] Comment on above: Performed By: #### C BC #### [facility] [address] [place] [address] Dr. Cecille Bradley MCV (RBC) [Entitic vol] 101.4 fL Critically high 80.0-94.0 [facility] Comment on above: Performed By: #### C BC #### [facility] [address] [place] [address] Dr. Cecille Bradley MONO # 0.7 103/ul Normal 0.3-0.8 [facility] Comment on above: Performed By: #### C BC #### [facility] [address] [place] [address] Dr. Cecille Bradley Monocytes/100 WBC (Bld) 8.5 % Normal 1.7-12.0 [facility] Comment on above: Performed By: #### C BC #### [facility] [address] [place] [address] Dr. Cecille Bradley NEUT # 6.3 103/ul Normal 1.4-6.5 [facility] Comment on above: Performed By: #### C BC #### [facility] [address] [place] [address] Dr. Cecille Bradley Neutrophils/100 WBC (Bld) 78.0 % Critically high 43.0-75.0 [facility] Comment on above: Performed By: #### C BC #### [facility] [address] [place] [address] Dr. Cecille Bradley Platelet mean volume (Bld) [Entitic vol] 10.5 fL Normal 9.5-13.5 [facility] Comment on above: Performed By: #### C BC #### [facility] [address] [place] [address] Dr. Cecille Bradley PLT 178 103/ul Normal 150-450 [facility] Comment on above: Performed By: #### C BC #### [facility] [address] [place] [address] Dr. Cecille Bradley RBC 4.95 106/ul Normal 4.70-6.10 [facility] Comment on above: Performed By: #### C BC #### [facility] [address] [place] [address] Dr. Cecille Bradley WBC 8.1 103/ul Normal 4.0-11.0 [facility] Comment on above: Performed By: #### C BC #### [facility] [address] [place] [address] Dr. Cecille Bradley CULTURE SPUTUMon 12-13-2022 CULTURE SPUTUM Culture Observations : NORMAL RESPIRATORY BARBARA. Normal [facility] Comment on above: Performed By: #### S PUTCX #### [facility] [address] [place] [address] Dr. Cecille Bradley MAGNESIUMon 12-13-2022 Magnesium [Mass/Vol] 2.2 mg/dL Normal 1.8-2.4 [facility] Comment on above: Performed By: #### C BC #### [facility] [address] [place] [address] Dr. Cecille Bradley PROF 14(COMP METB)on 023 Albumin [Mass/Vol] 2.9 g/dL Critically low 3.4-5.0 [facility] Comment on above: Performed By: #### C BC #### [facility] [address] [place] [address] Dr. Cecille Bradley Albumin/Globulin [Mass ratio] 0.9 {ratio} Normal [facility] Comment on above: Performed By: #### C BC #### [facility] [address] [place] [address] Dr. Cecille Bradley ALP [Catalytic activity/Vol] 70 U/L Normal 46-116 [facility] Comment on above: Performed By: #### C BC #### [facility] [address] [place] [address] Dr. Cecille Bradley ALT [Catalytic activity/Vol] 31 U/L Normal 16-63 [facility] Comment on above: Performed By: #### C BC #### [facility] [address] [address] [address] Cecille Bradley Anion gap [Moles/Vol] 8.2 mmol/L Normal [facility] Comment on above: Performed By: #### C BC #### [facility] [address] [address] [address] Cecille Bradley AST [Catalytic activity/Vol] 20 U/L Normal 15-37 [facility] Comment on above: Performed By: #### C BC #### [facility] [address] [place] [address] Dr. Cecille Bradley Bilirubin [Mass/Vol] 2.0 mg/dL Critically high 0.2-1.0 [facility] Comment on above: Performed By: #### C BC #### [facility] [address] [place] [address] Dr. Cecille Bradley Calcium [Mass/Vol] 8.6 mg/dL Normal 8.5-10.1 [facility] Comment on above: Performed By: #### C BC #### [facility] [address] [place] [address] Dr. Cecille Bradley Chloride [Moles/Vol] 100 mmol/L Normal 98-107 [facility] Comment on above: Performed By: #### C BC #### [facility] [address] [address] [address] Cecille Bradley CO2 [Moles/Vol] 33.2 mmol/L Critically high 21.0-32.0 [facility] Comment on above: Performed By: #### C BC #### [facility] [address] [place] [address] Dr. Cecille Bradley Creatinine [Mass/Vol] 0.60 mg/dL Critically low 0.70-1.30 [facility] Comment on above: Performed By: #### C BC #### [facility] [address] [address] [address] Cecille Bradley EGFR-AF DUTCH >60 Normal >=60 [facility] Comment on above: Performed By: #### C BC #### [facility] [address] [address] [address] Cecille Bradley EGFR-NON AF DUTCH >60 Normal >=60 [facility] Comment on above: Performed By: #### C BC #### [facility] [address] [address] [address] Cecille Bradley Globulin (S) [Mass/Vol] 3.3 g/dL Normal [facility] Comment on above: Performed By: #### C BC #### [facility] [address] [address] [address] Cecille Bradley Glucose [Mass/Vol] 91 mg/dL Normal 74-106 [facility] Comment on above: Performed By: #### C BC #### [facility] [address] [place] [address] Dr. Cecille Bradley Potassium [Moles/Vol] 3.4 mmol/L Critically low 3.5-5.1 [facility] Comment on above: Performed By: #### C BC #### [facility] [address] [address] [address] Cecille Bradley Protein [Mass/Vol] 6.2 g/dL Critically low 6.4-8.2 [facility] Comment on above: Performed By: #### C BC #### [facility] [address] [place] [address] Dr. Cecilel Bradley Sodium [Moles/Vol] 138 mmol/L Normal 136-145 [facility] Comment on above: Performed By: #### C BC #### [facility] [address] [place] [address] Dr. Cecille Bradley Urea nitrogen [Mass/Vol] 16.0 mg/dL Normal 7.0-18.0 [facility] Comment on above: Performed By: #### C BC #### [facility] [address] [address] [address] Cecille Bradley Urea nitrogen/Creatinine [Mass ratio] 26.7 mg/mg Normal [facility] Comment on above: Performed By: #### C BC #### [facility] [address] [address] [address] Cecille Bradley SPUTUM GRAM STAINon 12-13-19 23 COMMENTS Normal [facility] Comment on above: Performed By: #### L ACT #### [facility] [address] [address] [address] Cecille Bradley DIPHTHEROIDS Normal [facility] Comment on above: Performed By: #### L ACT #### [facility] [address] [address] [address] Cecille Bradley EPITHELIALS <25 [facility] Comment on above: Performed By: #### L ACT #### [facility] [address] [address] [address] Cecille Bradley FUNGAL ELEMENTS Normal [facility] Comment on above: Performed By: #### L ACT #### [facility] [address] [address] [address] Cecille Bradley GRAM NEG BACILLI Normal [facility] Comment on above: Performed By: #### L ACT #### [facility] [address] [address] [address] Cecille Bradley [facility] Comment on above: Performed By: #### L ACT #### [facility] [address] [address] [address] Cecille Bradley GRAM POS BACILLI Normal [facility] Comment on above: Performed By: #### L ACT #### [facility] [address] [address] [address] Cecille Bradley GRAM POSITIVE COCCI FEW Normal [facility] Comment on above: Performed By: #### L ACT #### [facility] [address] [address] [address] Cecille Bradley WBC (Bld) [#/Vol] 10*3/uL Normal [facility] Comment on above: Performed By: #### L ACT #### [facility] [address] [address] [address] Cecille Bradley CBC AUTO DIFFon 12-12-2022 BASO # 0.0 103/ul Normal 0.0-0.1 [facility] Comment on above: Performed By: #### C MP #### [facility] [address] [place] [address] Dr. Cecille Bradley Basophils/100 WBC (Bld) 0.1 % Critically low 0.2-2.0 [facility] Comment on above: Performed By: #### C MP #### [facility] [address] [place] [address] Dr. Cecille Bradley EO # 0.0 103/ul Normal 0.0-0.7 [facility] Comment on above: Performed By: #### C MP #### [facility] [address] [place] [address] Dr. Cecille Bradley Eosinophils/100 WBC (Bld) 0.1 % Critically low 0.9-7.0 [facility] Comment on above: Performed By: #### C MP #### [facility] [address] [place] [address] Dr. Cecille Bradley Erythrocyte distribution width (RBC) [Ratio] 14.8 % Normal 11.0-15.0 [facility] Comment on above: Performed By: #### C MP #### [facility] [address] [place] [address] Dr. Cecille Bradley Hematocrit (Bld) [Volume fraction] 50.9 % Normal 42.0-54.0 [facility] Comment on above: Performed By: #### C MP #### [facility] [address] [place] [address] Dr. Cecille Bradley Hemoglobin (Bld) [Mass/Vol] 16.0 g/dL Normal 14.0-18.0 [facility] Comment on above: Performed By: #### C MP #### [facility] [address] [place] [address] Dr. Cecille Bradley IG # 0.04 10e3/ul Critically high 0.00-0.03 [facility] Comment on above: Performed By: #### C MP #### [facility] [address] [address] [address] Cecille Bradley IG % 0.3 % Normal 0.0-0.5 [facility] Comment on above: Performed By: #### C MP #### [facility] [address] [place] [address] Dr. Cecille Bradley LYMPH # 1.1 103/ul Critically low 1.2-3.8 [facility] Comment on above: Performed By: #### C MP #### [facility] [address] [place] [address] Dr. Cecille Bradley Lymphocytes/100 WBC (Bld) 8.6 % Critically low 20.5-60.0 [facility] Comment on above: Performed By: #### C MP #### [facility] [address] [place] [address] Dr. Cecille Bradley MANUAL DIFF REQ NO Normal [facility] Comment on above: Performed By: #### C MP #### [facility] [address] [place] [address] Dr. Cecille Bradley MCH (RBC) [Entitic mass] 32.2 pg Normal 25.9-34.0 [facility] Comment on above: Performed By: #### C MP #### [facility] [address] [place] [address] Dr. Cecille Bradley MCHC (RBC) [Mass/Vol] 31.4 g/dL Normal 29.9-35.2 [facility] Comment on above: Performed By: #### C MP #### [facility] [address] [place] [address] Dr. Cecille Bradley MCV (RBC) [Entitic vol] 102.4 fL Critically high 80.0-94.0 [facility] Comment on above: Performed By: #### C MP #### [facility] [address] [place] [address] Dr. Cecille Bradley MONO # 0.9 103/ul Critically high 0.3-0.8 [facility] Comment on above: Performed By: #### C MP #### [facility] [address] [address] [address] Cecille Bradley Monocytes/100 WBC (Bld) 7.2 % Normal 1.7-12.0 [facility] Comment on above: Performed By: #### C MP #### [facility] [address] [address] [address] Cecille Bradley NEUT # 10.2 103/ul Critically high 1.4-6.5 [facility] Comment on above: Performed By: #### C MP #### [facility] [address] [place] [address] Dr. Cecille Bradley Neutrophils/100 WBC (Bld) 83.7 % Critically high 43.0-75.0 [facility] Comment on above: Performed By: #### C MP #### [facility] [address] [place] [address] Dr. Cecille Bradley Platelet mean volume (Bld) [Entitic vol] 10.4 fL Normal 9.5-13.5 [facility] Comment on above: Performed By: #### C MP #### [facility] [address] [place] [address] Dr. Cecille Bradley PLT 185 103/ul Normal 150-450 [facility] Comment on above: Performed By: #### C MP #### [facility] [address] [place] [address] Dr. Cecille Bradley RBC 4.97 106/ul Normal 4.70-6.10 [facility] Comment on above: Performed By: #### C MP #### [facility] [address] [place] [address] Dr. Cecille Bradley WBC 12.1 103/ul Critically high 4.0-11.0 [facility] Comment on above: Performed By: #### C MP #### [facility] [address] [place] [address] Dr. Cecille Bradley MAGNESIUMon 12-12-2022 Magnesium [Mass/Vol] 2.1 mg/dL Normal 1.8-2.4 [facility] Comment on above: Performed By: #### C BC #### [facility] [address] [place] [address] Dr. Cecille Bradley PROF 14(COMP METB)on 023 Albumin [Mass/Vol] 3.1 g/dL Critically low 3.4-5.0 [facility] Comment on above: Performed By: #### C BC #### [facility] [address] [place] [address] Dr. Cecille Bradley Albumin/Globulin [Mass ratio] 0.9 {ratio} Normal [facility] Comment on above: Performed By: #### C BC #### [facility] [address] [place] [address] Dr. Cecille Bradley ALP [Catalytic activity/Vol] 78 U/L Normal 46-116 [facility] Comment on above: Performed By: #### C BC #### [facility] [address] [place] [address] Dr. Cecille Bradley ALT [Catalytic activity/Vol] 34 U/L Normal 16-63 [facility] Comment on above: Performed By: #### C BC #### [facility] [address] [place] [address] Dr. Cecille Braldey Anion gap [Moles/Vol] 9.8 mmol/L Normal [facility] Comment on above: Performed By: #### C BC #### [facility] [address] [place] [address] Dr. Cecille Bradley AST [Catalytic activity/Vol] 26 U/L Normal 15-37 [facility] Comment on above: Performed By: #### C BC #### [facility] [address] [place] [address] Dr. Cecille Bradley Bilirubin [Mass/Vol] 1.3 mg/dL Critically high 0.2-1.0 [facility] Comment on above: Performed By: #### C BC #### [facility] [address] [place] [address] Dr. Cecille Bradley Calcium [Mass/Vol] 8.7 mg/dL Normal 8.5-10.1 [facility] Comment on above: Performed By: #### C BC #### [facility] [address] [address] [address] Cecille Bradley Chloride [Moles/Vol] 102 mmol/L Normal 98-107 [facility] Comment on above: Performed By: #### C BC #### [facility] [address] [place] [address] Dr. Cecille Bradley CO2 [Moles/Vol] 32.0 mmol/L Normal 21.0-32.0 [facility] Comment on above: Performed By: #### C BC #### [facility] [address] [place] [address] Dr. Cecille Bradley Creatinine [Mass/Vol] 0.61 mg/dL Critically low 0.70-1.30 [facility] Comment on above: Performed By: #### C BC #### [facility] [address] [place] [address] Dr. Cecille Bradley EGFR-AF DUTCH >60 Normal >=60 [facility] Comment on above: Performed By: #### C BC #### [facility] [address] [place] [address] Dr. Cecille Bradley EGFR-NON AF DUTCH >60 Normal >=60 [facility] Comment on above: Performed By: #### C BC #### [facility] [address] [place] [address] Dr. Cecille Bradley Globulin (S) [Mass/Vol] 3.4 g/dL Normal [facility] Comment on above: Performed By: #### C BC #### [facility] [address] [address] [address] Cecille Bradley Glucose [Mass/Vol] 103 mg/dL Normal 74-106 [facility] Comment on above: Performed By: #### C BC #### [facility] [address] [address] [address] Cecille Bradley Potassium [Moles/Vol] 3.8 mmol/L Normal 3.5-5.1 [facility] Comment on above: Performed By: #### C BC #### [facility] [address] [address] [address] Cecille Bradley Protein [Mass/Vol] 6.5 g/dL Normal 6.4-8.2 [facility] Comment on above: Performed By: #### C BC #### [facility] [address] [place] [address] Dr. Cecille Bradley Sodium [Moles/Vol] 140 mmol/L Normal 136-145 [facility] Comment on above: Performed By: #### C BC #### [facility] [address] [place] [address] Dr. Cecille Bradley Urea nitrogen [Mass/Vol] 11.0 mg/dL Normal 7.0-18.0 [facility] Comment on above: Performed By: #### C BC #### [facility] [address] [place] [address] Dr. Cecille Bradley Urea nitrogen/Creatinine [Mass ratio] 18.0 mg/mg Normal [facility] Comment on above: Performed By: #### C BC #### [facility] [address] [place] [address] Dr. Cecille Bradley CBC AUTO DIFFon 12-11-2022 BASO # 0.0 103/ul Normal 0.0-0.1 [facility] Comment on above: Performed By: #### C BC #### [facility] [address] [place] [address] Dr. Cecille Bradley Basophils/100 WBC (Bld) 0.1 % Critically low 0.2-2.0 [facility] Comment on above: Performed By: #### C BC #### [facility] [address] [place] [address] Dr. Cecille Bradley EO # 0.0 103/ul Normal 0.0-0.7 [facility] Comment on above: Performed By: #### C BC #### [facility] [address] [place] [address] Dr. Cecille Bradley Eosinophils/100 WBC (Bld) 0.0 % Critically low 0.9-7.0 [facility] Comment on above: Performed By: #### C BC #### [facility] [address] [place] [address] Dr. Cecille Bradley Erythrocyte distribution width (RBC) [Ratio] 14.9 % Normal 11.0-15.0 [facility] Comment on above: Performed By: #### C BC #### [facility] [address] [place] [address] Dr. Cecille Bradley Hematocrit (Bld) [Volume fraction] 48.8 % Normal 42.0-54.0 [facility] Comment on above: Performed By: #### C BC #### [facility] [address] [place] [address] Dr. Cecille Bradley Hemoglobin (Bld) [Mass/Vol] 15.2 g/dL Normal 14.0-18.0 [facility] Comment on above: Performed By: #### C BC #### [facility] [address] [place] [address] Dr. Cecille Bradley IG # 0.03 10e3/ul Normal 0.00-0.03 [facility] Comment on above: Performed By: #### C BC #### [facility] [address] [place] [address] Dr. Cecille Bradley IG % 0.4 % Normal 0.0-0.5 [facility] Comment on above: Performed By: #### C BC #### [facility] [address] [place] [address] Dr. Cecille Bradley LYMPH # 0.6 103/ul Critically low 1.2-3.8 [facility] Comment on above: Performed By: #### C BC #### [facility] [address] [place] [address] Dr. Cecille Bradley Lymphocytes/100 WBC (Bld) 7.1 % Critically low 20.5-60.0 [facility] Comment on above: Performed By: #### C BC #### [facility] [address] [place] [address] Dr. Cecille Bradley MANUAL DIFF REQ NO Normal [facility] Comment on above: Performed By: #### C BC #### [facility] [address] [place] [address] Dr. Cecille Bradley MCH (RBC) [Entitic mass] 32.1 pg Normal 25.9-34.0 [facility] Comment on above: Performed By: #### C BC #### [facility] [address] [address] [address] Cecille Bradley MCHC (RBC) [Mass/Vol] 31.1 g/dL Normal 29.9-35.2 [facility] Comment on above: Performed By: #### C BC #### [facility] [address] [address] [address] Cecille Bradley MCV (RBC) [Entitic vol] 103.2 fL Critically high 80.0-94.0 [facility] Comment on above: Performed By: #### C BC #### [facility] [address] [address] [address] Cecille Bradley MONO # 0.7 103/ul Normal 0.3-0.8 [facility] Comment on above: Performed By: #### C BC #### [facility] [address] [address] [address] Cecille Bradley Monocytes/100 WBC (Bld) 8.2 % Normal 1.7-12.0 [facility] Comment on above: Performed By: #### C BC #### [facility] [address] [address] [address] Cecille Bradley NEUT # 7.0 103/ul Critically high 1.4-6.5 [facility] Comment on above: Performed By: #### C BC #### [facility] [address] [address] [address] Cecille Bradley Neutrophils/100 WBC (Bld) 84.2 % Critically high 43.0-75.0 [facility] Comment on above: Performed By: #### C BC #### [facility] [address] [address] [address] Cecille Bradley Platelet mean volume (Bld) [Entitic vol] 10.1 fL Normal 9.5-13.5 [facility] Comment on above: Performed By: #### C BC #### [facility] [address] [address] [address] Cecille Bradley PLT 164 103/ul Normal 150-450 [facility] Comment on above: Performed By: #### C BC #### [facility] [address] [address] [address] Cecille Bradley RBC 4.73 106/ul Normal 4.70-6.10 [facility] Comment on above: Performed By: #### C BC #### [facility] [address] [place], [place] [address] Dr. Cecille Bradley WBC 8.3 103/ul Normal 4.0-11.0 [facility] Comment on above: Performed By: #### C BC #### [facility] [address] [place], [place] [address] HEAD WO CONon [...] KARLOS STORY Date: 2022-12-11 12:32 Normal [facility] MAGNESIUMon 12-11-2022 Magnesium [Mass/Vol] 2.2 mg/dL Normal 1.8-2.4 [facility] Comment on above: Performed By: #### C BC #### [facility] [address] [address] [address] Cecille Bradley PROF 14(COMP METB)on 023 Albumin [Mass/Vol] 3.0 g/dL Critically low 3.4-5.0 Th e [facility] Comment on above: Performed By: #### C BC #### [facility] [address] [place] [address] Dr. Cecille Bradley Albumin/Globulin [Mass ratio] 0.8 {ratio} Normal [facility] Comment on above: Performed By: #### C BC #### [facility] [address] [place] [address] Dr. Cecille Bradley ALP [Catalytic activity/Vol] 74 U/L Normal 46-116 [facility] Comment on above: Performed By: #### C BC #### [facility] [address] [place] [address] Dr. Cecille Bradley ALT [Catalytic activity/Vol] 33 U/L Normal 16-63 [facility] Comment on above: Performed By: #### C BC #### [facility] [address] [place] [address] Dr. Cecille Bradley Anion gap [Moles/Vol] 9.4 mmol/L Normal [facility] Comment on above: Performed By: #### C BC #### [facility] [address] [place] [address] Dr. Cecille Bradley AST [Catalytic activity/Vol] 24 U/L Normal 15-37 [facility] Comment on above: Performed By: #### C BC #### [facility] [address] [place] [address] Dr. Cecille Bradley Bilirubin [Mass/Vol] 0.8 mg/dL Normal 0.2-1.0 [facility] Comment on above: Performed By: #### C BC #### [facility] [address] [place] [address] Dr. Cecille Bradley Calcium [Mass/Vol] 8.5 mg/dL Normal 8.5-10.1 [facility] Comment on above: Performed By: #### C BC #### [facility] [address] [place] [address] Dr. Cecille Bradley Chloride [Moles/Vol] 103 mmol/L Normal 98-107 [facility] Comment on above: Performed By: #### C BC #### [facility] [address] [address] [address] Cecille Bradley CO2 [Moles/Vol] 30.9 mmol/L Normal 21.0-32.0 [facility] Comment on above: Performed By: #### C BC #### [facility] [address] [address] [address] Cecille Bradley Creatinine [Mass/Vol] 0.66 mg/dL Critically low 0.70-1.30 [facility] Comment on above: Performed By: #### C BC #### [facility] [address] [place] [address] Dr. Cecille Bradley EGFR-AF DUTCH >60 Normal >=60 [facility] Comment on above: Performed By: #### C BC #### [facility] [address] [place] [address] Dr. Cecille Bradley EGFR-NON AF DUTCH >60 Normal >=60 [facility] Comment on above: Performed By: #### C BC #### [facility] [address] [place] [address] Dr. Cecille Bradley Globulin (S) [Mass/Vol] 3.8 g/dL Normal [facility] Comment on above: Performed By: #### C BC #### [facility] [address] [place] [address] Dr. Cecille Bradley Glucose [Mass/Vol] 150 mg/dL Critically high 74-106 [facility] Comment on above: Performed By: #### C BC #### [facility] [address] [place] [address] Dr. Cecille Bradley Potassium [Moles/Vol] 4.3 mmol/L Normal 3.5-5.1 [facility] Comment on above: Performed By: #### C BC #### [facility] [address] [place] [address] Dr. Cecille Bradley Protein [Mass/Vol] 6.8 g/dL Normal 6.4-8.2 [facility] Comment on above: Performed By: #### C BC #### [facility] [address] [place] [address] Dr. Cecille Bradley Sodium [Moles/Vol] 139 mmol/L Normal 136-145 [facility] Comment on above: Performed By: #### C BC #### [facility] [address] [address] [address] Cecille Bradley Urea nitrogen [Mass/Vol] 16.0 mg/dL Normal 7.0-18.0 [facility] Comment on above: Performed By: #### C BC #### [facility] [address] [address] [address] Cecille Bradley Urea nitrogen/Creatinine [Mass ratio] 24.2 mg/mg Normal [facility] Comment on above: Performed By: #### C BC #### [facility] [address] [address] [address] Cecille Bradley XR CHEST 1 Von [...] by: KARLOS STORY Date: 2022-12-11 10:05 Normal [facility] BLOOD GASES BTYon 12-10-2022 02 MODE BIPAP Normal [facility] Comment on above: Performed By: #### C BC #### [facility] [address] [address] [address] Cecille Bradley ALLENFlex TEST Positive Normal [facility] Comment on above: Performed By: #### C BC #### [facility] [address] [address] [address] Cecille Bradley Base excess Calc (Bld) [Moles/Vol] 1.6 mmol/L Normal -2.0-2.0 [facility] Comment on above: Performed By: #### C BC #### [facility] [address] [address] [address] Cecille Bradley BIPAP PRESSURE 18/8 Normal [facility] Comment on above: Performed By: #### C BC #### [facility] [address] [address] [address] Cecille Bradley CPAP Normal [facility] Comment on above: Performed By: #### C BC #### [facility] [address] [address] [address] Cecille Bradley FIO2 70.00 % Normal [facility] Comment on above: Performed By: #### C BC #### [facility] [address] [address] [address] Cecille Bradley HCO3 (Bld) [Moles/Vol] 28.2 mmol/L Critically high 22.0-26.0 [facility] Comment on above: Performed By: #### C BC #### [facility] [address] [address] [address] [facility] Comment on above: Performed By: #### C BC #### [facility] [address] [address] [address] Cecille Bradley MINUTE VOLUME Normal [facility] Comment on above: Performed By: #### C BC #### [facility] [address] [address] [address] Cecille Bradley Oxygen (Bld) [Partial pressure] 60.7 mm[Hg] Critically low 80.0-100.0 [facility] Comment on above: Performed By: #### C BC #### [facility] [address] [address] [address] Cecille Bradley Oxygen saturation in Blood 88.9 % Critically low 95.0-100.0 [facility] Comment on above: Performed By: #### C BC #### [facility] [address] [address] [address] Cecille Bradley PCO2 59.0 mmHg Critically high 35.0-45.0 [facility] Comment on above: Performed By: #### C BC #### [facility] [address] [address] [address] Cecille [facility] Comment on above: Performed By: #### C BC #### [facility] [address] [address] [address] Cecille Bradley pH (Bld) 7.288 [pH] Critically low 7.350-7.450 [facility] Comment on above: Performed By: #### C BC #### [facility] [address] [address] [address] Cecille Bradley PIP [facility] Comment on above: Performed By: #### C BC #### [facility] [address] [place] [address] Dr. Cecille Bradley [facility] Comment on above: Performed By: #### C BC #### [facility] [address] [address] [address] Cecille [facility] Comment on above: Performed By: #### C BC #### [facility] [address] [address] [address] Cecille Bradley [facility] Comment on above: Performed By: #### C BC #### [facility] [address] [address] [address] Cecille Bradley VENT [facility]DE [facility] Comment on above: Performed By: #### C BC #### [facility] [address] [address] [address] Cecille [facility] Comment on above: Performed By: #### C BC #### [facility] [address] [address] [address] Cecille Bradley 02 MODE NON REBREATHER MASK [facility] Comment on above: Performed By: #### C MP #### [facility] [address] [place] [address] Dr. Cecille Bradley ALLENS TEST Positive [facility] Comment on above: Performed By: #### C MP #### [facility] [address] [address] [address] Cecille Bradley Base excess Calc (Bld) [Moles/Vol] -1.1000 mmol/L Normal -2.0-2.0 [facility] Comment on above: Performed By: #### C MP #### [facility] [address] [place] [address] Dr. Cecille Bradley BIPAP PRESSURE Normal [facility] Comment on above: Performed By: #### C MP #### [facility] [address] [address] [address] Cecille [facility] CPAP [facility] Comment on above: Performed By: #### C MP #### [facility] [address] [place] [address] Dr. Cecille Bradley FIO2 [facility] Comment on above: Performed By: #### C MP #### [facility] [address] [place] [address] Dr. Cecille Bradley HCO3 (Bld) [Moles/Vol] 27.5 mmol/L Critically high 22.0-26.0 [facility] Comment on above: Performed By: #### C MP #### [facility] [address] [place] [address] Dr. Cecille Bradley LPM 15 [facility] Comment on above: Performed By: #### C MP #### [facility] [address] [place] [address] Dr. Cecille Bradley MINUTE VOLUME Normal [facility] Comment on above: Performed By: #### C MP #### [facility] [address] [place] [address] Dr. Cecille Bradley Oxygen (Bld) [Partial pressure] 56.4 mm[Hg] Critically low 80.0-100.0 [facility] Comment on above: Performed By: #### C MP #### [facility] [address] [place] [address] Dr. Cecille Bradley Oxygen saturation in Blood 80.1 % Critically low 95.0-100.0 [facility] Comment on above: Performed By: #### C MP #### [facility] [address] [address] [address] Cecille Bradley PCO2 75.9 mmHg Critically high 35.0-45.0 [facility] Comment on above: Performed By: #### C MP #### [facility] [address] [address] [address] Cecille Bradley PEEP [facility] Comment on above: Performed By: #### C MP #### [facility] [address] [address] [address] Cecille Bradley pH (Bld) 7.167 [pH] Critically low 7.350-7.450 [facility] Comment on above: Performed By: #### C MP #### [facility] [address] [address] [address] Cecille Bradley [facility] Comment on above: Performed By: #### C MP #### [facility] [address] [place] [address] Dr. Cecille Bradley [facility] Comment on above: Performed By: #### C MP #### [facility] [address] [address] [address] Cecille Bradley PUNCTURE SITE [facility] Comment on above: Performed By: #### C MP #### [facility] [address] [place] [address] Dr. Cecille Bradley [facility] Comment on above: Performed By: #### C MP #### [facility] [address] [place] [address] Dr. Cecille Bradley [facility]ENT [facility] Comment on above: Performed By: #### C MP #### [facility] [address] [address] [address] [facility] Comment on above: Performed By: #### C MP #### [facility] [address] [place] [address] Dr. Cecille Bradley BNPon 12-10-2022 Natriuretic peptide B (Bld) [Mass/Vol] 573.0 pg/mL Normal <=900.0 [facility] Comment on above: Performed By: #### C VDTBH #### [facility] [address] [place] [address] Dr. Cecille Bradley CBC AUTO DIFFon 12-10-2022 BASO # 0.1 103/ul Normal 0.0-0.1 [facility] Comment on above: Performed By: #### C BC #### [facility] [address] [place] [address] Dr. Cecille Bradley Basophils/100 WBC (Bld) 0.5 % Normal 0.2-2.0 [facility] Comment on above: Performed By: #### C BC #### [facility] [address] [place] [address] Dr. Cecille Bradley EO # 0.1 103/ul Normal 0.0-0.7 [facility] Comment on above: Performed By: #### C BC #### [facility] [address] [place] [address] Dr. Cecille Bradley Eosinophils/100 WBC (Bld) 0.8 % Critically low 0.9-7.0 [facility] Comment on above: Performed By: #### C BC #### [facility] [address] [place] [address] Dr. Cecille Bradley Erythrocyte distribution width (RBC) [Ratio] 15.0 % Normal 11.0-15.0 [facility] Comment on above: Performed By: #### C BC #### [facility] [address] [place] [address] Dr. Cecille Bradley Hematocrit (Bld) [Volume fraction] 59.1 % Critically high 42.0-54.0 [facility] Comment on above: Performed By: #### C BC #### [facility] [address] [place] [address] Dr. Cecille Bradley Hemoglobin (Bld) [Mass/Vol] 18.0 g/dL Normal 14.0-18.0 [facility] Comment on above: Performed By: #### C BC #### [facility] [address] [place] [address] Dr. Cecille Bardley IG # 0.04 10e3/ul Critically high 0.00-0.03 [facility] Comment on above: Performed By: #### C BC #### [facility] [address] [place] [address] Dr. Cecille Bradley IG % 0.4 % Normal 0.0-0.5 [facility] Comment on above: Performed By: #### C BC #### [facility] [address] [place] [address] Dr. Cecille Bradley LYMPH # 2.3 103/ul Normal 1.2-3.8 [facility] Comment on above: Performed By: #### C BC #### [facility] [address] [place] [address] Dr. Cecille Bradley Lymphocytes/100 WBC (Bld) 21.4 % Normal 20.5-60.0 [facility] Comment on above: Performed By: #### C BC #### [facility] [address] [place] [address] Dr. Cecille Bradley MANUAL DIFF REQ NO Normal [facility] Comment on above: Performed By: #### C BC #### [facility] [address] [place] [address] Dr. Cecille Bradley MCH (RBC) [Entitic mass] 32.0 pg Normal 25.9-34.0 [facility] Comment on above: Performed By: #### C BC #### [facility] [address] [place] [address] Dr. Cecille Bradley MCHC (RBC) [Mass/Vol] 30.5 g/dL Normal 29.9-35.2 [facility] Comment on above: Performed By: #### C BC #### [facility] [address] [place] [address] Dr. Cecille Bradley MCV (RBC) [Entitic vol] 105.2 fL Critically high 80.0-94.0 [facility] Comment on above: Performed By: #### C BC #### [facility] [address] [place] [address] Dr. Cecille Bradley MONO # 1.0 103/ul Critically high 0.3-0.8 [facility] Comment on above: Performed By: #### C BC #### [facility] [address] [address] [address] Cecille Bradley Monocytes/100 WBC (Bld) 8.9 % Normal 1.7-12.0 [facility] Comment on above: Performed By: #### C BC #### [facility] [address] [address] [address] Cecille Bradley NEUT # 7.3 103/ul Critically high 1.4-6.5 [facility] Comment on above: Performed By: #### C BC #### [facility] [address] [place] [address] Dr. Cecille Bradley Neutrophils/100 WBC (Bld) 68.0 % Normal 43.0-75.0 [facility] Comment on above: Performed By: #### C BC #### [facility] [address] [place] [address] Dr. Cecille Bradley Platelet mean volume (Bld) [Entitic vol] 10.9 fL Normal 9.5-13.5 [facility] Comment on above: Performed By: #### C BC #### [facility] [address] [place] [address] Dr. Cecille Bradley PLT 207 103/ul Normal 150-450 [facility] Comment on above: Performed By: #### C BC #### [facility] [address] [place] [address] Dr. Cecille Bradley RBC 5.62 106/ul Normal 4.70-6.10 [facility] Comment on above: Performed By: #### C BC #### [facility] [address] [place] [address] Dr. Cecille Bradley WBC 10.7 103/ul Normal 4.0-11.0 [facility] Comment on above: Performed By: #### C BC #### [facility] [address] [place] [address] Dr. Cecille Bradley CULTURE BLOODon 12-10-2022 Microscopic examination of blood, culture Culture Observations: NO GROWTH AT 5 DAYS. Normal [facility] Comment on above: Performed By: #### B LDCX2 #### [facility] [address] [address] [address] Cecille Bradley Microscopic examination of blood, culture Culture Observations: NO GROWTH AT 5 DAYS. Normal [facility] Comment on above: Performed By: #### B LDCX1 #### [facility] [address] [place] [address] Dr. Cecille Bradley Covid-19 PCR (CVDTB)on SARS-CoV-2 (COVID-19) RNA YUDELKA+probe Ql (Unsp spec) Detected Abnormal NOT DETECTED [facility] Comment on above: Result Comment: This test is not yet approved or cleared by the [place] FDA. When there are no FDA-approved or cleared tests available, and other criteria are met, FDA can make tests available under an emergency access mechanism called an Emergency Use Authorization (EUA). The EUA for this test is supported by the [place] of Health and Human Service's declaration that [...] used). Performed By: #### C VDTBH #### [facility] [address] [place] [address] Dr. Cecille Bradley LACTATE/LACTIC ACIDon 2022 Lactate [Moles/Vol] 0.8 mmol/L Normal 0.4-1.9 [facility] Comment on above: Performed By: #### C MP #### [facility] [address] [place] [address] Dr. Cecille Bradley Lactate [Moles/Vol] 3.5 mmol/L Critically high 0.4-1.9 [facility] Comment on above: Performed By: #### L ACT #### [facility] [address] [place] [address] Dr. eCcille Bradley PROF 14(COMP METB)on 023 Albumin [Mass/Vol] 4.4 g/dL Normal 3.4-5.0 [facility] Comment on above: Performed By: #### C VDTBH #### [facility] [address] [place] [address] Dr. Cecille Bradley Albumin/Globulin [Mass ratio] 1.0 {ratio} Normal [facility] Comment on above: Performed By: #### C VDTBH #### [facility] [address] [place] [address] Dr. Cecille Bradley ALP [Catalytic activity/Vol] 119 U/L Critically high 46-116 [facility] Comment on above: Performed By: #### C VDTBH #### [facility] [address] [place] [address] Dr. Cecille Bradley ALT [Catalytic activity/Vol] 50 U/L Normal 16-63 [facility] Comment on above: Performed By: #### C VDTBH #### [facility] [address] [place] [address] Dr. Cecille Bradley Anion gap [Moles/Vol] 13.9 mmol/L Normal [facility] Comment on above: Performed By: #### C VDTBH #### [facility] [address] [place] [address] Dr. Cecille Bradley AST [Catalytic activity/Vol] 40 U/L Critically high 15-37 [facility] Comment on above: Performed By: #### C VDTBH #### [facility] [address] [place] [address] Dr. Cecille Bradley Bilirubin [Mass/Vol] 1.0 mg/dL Normal 0.2-1.0 [facility] Comment on above: Performed By: #### C VDTBH #### [facility] [address] [place] [address] Dr. Cecille Bradley Calcium [Mass/Vol] 9.1 mg/dL Normal 8.5-10.1 [facility] Comment on above: Performed By: #### C VDTBH #### [facility] [address] [place] [address] Dr. Cecille Bradley Chloride [Moles/Vol] 99 mmol/L Normal 98-107 [facility] Comment on above: Performed By: #### C VDTBH #### [facility] [address] [address] [address] Cecille Bradley CO2 [Moles/Vol] 28.2 mmol/L Normal 21.0-32.0 [facility] Comment on above: Performed By: #### C VDTBH #### [facility] [address] [address] [address] Cecille Bradley Creatinine [Mass/Vol] 1.00 mg/dL Normal 0.70-1.30 [facility] Comment on above: Performed By: #### C VDTBH #### [facility] [address] [place] [address] Dr. Cecille Bradley EGFR-AF DUTCH >60 Normal >=60 [facility] Comment on above: Performed By: #### C VDTBH #### [facility] [address] [place] [address] Dr. Cecille Bradley EGFR-NON AF DUTCH >60 Normal >=60 [facility] Comment on above: Performed By: #### C VDTBH #### [facility] [address] [place] [address] Dr. Cecille Bradley Globulin (S) [Mass/Vol] 4.4 g/dL Normal [facility] Comment on above: Performed By: #### C VDTBH #### [facility] [address] [place] [address] Dr. Cecille Bradley Glucose [Mass/Vol] 160 mg/dL Critically high 74-106 [facility] Comment on above: Performed By: #### C VDTBH #### [facility] [address] [address] [address] Cecille Bradley Potassium [Moles/Vol] 4.1 mmol/L Normal 3.5-5.1 [facility] Comment on above: Performed By: #### C VDTBH #### [facility] [address] [place] [address] Dr. Cecille Bradley Protein [Mass/Vol] 8.8 g/dL Critically high 6.4-8.2 [facility] Comment on above: Performed By: #### C VDTBH #### [facility] [address] [address] [address] Cecille Bradley Sodium [Moles/Vol] 137 mmol/L Normal 136-145 [facility] Comment on above: Performed By: #### C VDTBH #### [facility] [address] [place] [address] Dr. Cecille Bradley Urea nitrogen [Mass/Vol] 18.0 mg/dL Normal 7.0-18.0 [facility] Comment on above: Performed By: #### C VDTBH #### [facility] [address] [place] [address] Dr. Cecille Bradley Urea nitrogen/Creatinine [Mass ratio] 18.0 mg/mg Normal [facility] Comment on above: Performed By: #### C VDTBH #### [facility] [address] [place] [address] Dr. Cecille Bradley TROPONIN, HIGH SENSITIVITYon 12-10-2022 HSTROP 10.4 pg/mL Normal 4.0-76.1 [facility] Comment on above: Result Comment: CUT- OFF POINTS HAVE BEEN ESTABLISHED BASED ON THE FOURTH UNIVERSAL DEFINITIONS OF MYOCARDIAL INFARCTION. THE UPPER REFERENCE LIMIT (URL) OF TROPONIN, DEFINED THE 99TH PERCENTILE OF cTnI DISTRIBUTION IN A REFERENCE POPULATION, HAS BEEN CONFIRMED THE DECISION THRESHOLD FOR [place] DIAGNOSIS. Performed By: #### C VDTBH #### [facility] [address] [place] [address] Dr. Cecille Bradley XR CHEST 1 Von [...] by: KASHIF HOBSONJENN Date: 2022-12-09 22:55 Normal [facility] NM STRESS/REST MULTIon 07-25 NM STRESS/REST MULTI Patient: CARLOS CHEEK Exam Date: 07/25/2022 : 1970 Gender:M Ordering : LILIAM TrJovita [facility] Admission #: [id number] Family : Order #: [id number] CLICK HERE TO VIEW EXAM RADIOLOGY REPORT [...] LOCATION: Basal inferolateral. Basal anterolateral. Mid-inferior. Mid-inferolateral. [employer]. SIZE: Large (5 or more segments). SEVERITY: [...] Crane MD on 07/26/2022 at 14:58 Normal [facility] ECHOCARDIO M/2D COMPLETEon 0 07-07-2022 ECHOCARDIO M/2D COMPLETE Patient: CARLOS CHEEKJovita Exam Date: 07/07/2022 : 1970 Gender:M Ordering : LILIAM [facility] Admission #: [id number] Family : Order #: [id number] CLICK HERE TO VIEW EXAM ECHOCARDIOGRAM REPORT [...] López M.D. on 07/07/2022 at 21:20 Normal [facility] ERYTHROPOIETIN (EPO)on 02-19 Erythropoietin 23.8 mIU/mL Critically high 2.6-18.5 [facility] Comment on above: Result Comment: [employer]el DxI 800 Immunoassay System . Values obtained with different assay methods or kits cannot be used interchangeably. Results cannot be interpreted as absolute evidence of the presence or absence of malignant disease. Performed By: #### C MP #### [facility] [address] [place] [address] Dr. Cecille Bradley ERYTHROPOIETIN (EPO)on 02-15 Erythropoietin QNSTST Normal [facility] Comment on above: Result Comment: Test not performed. Insufficient specimen to perform or complete analysis. Real Time Content [employer]el DxI 800 Immunoassay System . Values obtained with different assay methods or kits cannot be used interchangeably. Results cannot be interpreted as absolute evidence of the presence or absence of malignant disease. contacted L[facility] at your facility on 02-15-2022 Performed By: #### C VDTB #### [facility] [address] [place] [address] Dr. Cecille Bradley BNPon 02-07-2022 Natriuretic peptide B (Bld) [Mass/Vol] 64.0 pg/mL Normal <=900.0 [facility] Comment on above: Performed By: #### C BC #### [facility] [address] [place] [address] Dr. Cecille Bradley XR CHEST 2 Von [...] by: DEANN CRANE Date: 2022-02-07 16:07 Normal [facility] BASIC METABOLIC PANELon 07-0 Calcium [Mass/Vol] 9.6 mg/dL Normal 8.6-10.3 [facility] Comment on above: Performed By: #### 0 [id number] #### [facility] [address] [place] [address], [place] Chloride [Moles/Vol] 105 mmol/L Normal 98-107 [facility] Comment on above: Performed By: #### 0 [id number] #### [facility] [address] [place] [address], [place] CO2 [Moles/Vol] 26 mmol/L Normal 21-31 [facility] Comment on above: Performed By: #### 0 [id number] #### [facility] [address] [place] [address], [place] Creatinine [Mass/Vol] 0.55 mg/dL Low 0.70-1.30 [facility] Comment on above: Performed By: #### 0 [id number] #### [facility] [address] [place] [address], [place] GFR/1.73 sq M.predicted among blacks MDRD (S/P/Bld) [Vol rate/Area] mL/min/{1.73_m2} Normal >60 [facility] Comment on above: Performed By: #### 0 [id number] #### [facility] [address] [place] [address], [place] GFR/1.73 sq M.predicted among non-blacks MDRD (S/P/Bld) [Vol rate/Area] mL/min/{1.73_m2} Normal >60 [facility] Comment on above: Performed By: #### 0 [id number] #### [facility] [address] [place] [address], [place] Glucose [Mass/Vol] 105 mg/dL High 70-100 [facility] Comment on above: Performed By: #### 0 [id number] #### [facility] [address] [place] [address], [place] Potassium [Moles/Vol] 4.2 mmol/L Normal 3.5-5.1 [facility] Comment on above: Performed By: #### 0 [id number] #### [facility] [address] [place] [address], [facility] Sodium [Moles/Vol] 137 mmol/L Normal 136-145 [facility] Comment on above: Performed By: #### 0 [id number] #### [facility] [address] Urea nitrogen [Mass/Vol] 19 mg/dL Normal 7-25 [facility] Comment on above: Performed By: #### 0 [id number] #### [facility] [address] Cardiovascular Lab Reporton 05-14-2021 Cardiovascular Lab Report [facility] Patient Name: Carlos Cheek [facility] MR #: [id number] Physician: Khoa Monet Department of [facility] Medicine Service Date: 05/14/2021 Division of Birthdate: 1970 Cardiology Room #: Adult Cardiovascular Services [place] [id number] Cardiovascular Laboratory Report INDICATION: The patient is [...] informed consent. He was brought to laboratory sampler in a fasting state. The right groin [...] the access was serially dilated and a 6-Burmese x 11 cm sheath was placed. Access was also obtained using same technique in the right common femoral vein under ultrasound guidance and a 6-Burmese x 11 cm sheath was placed. A 6-Burmese Zarate catheter was used for right catheterization with measurement of pressures and calculation of cardiac output using the estimated Timoteo method. Zarate catheter was removed. Bilateral selective coronary angiography was then performed using 6-Burmese JL4 and JR4 diagnostic catheters. The 6-Burmese JR4 diagnostic catheter was used to selectively engage the saphenous venous graft to the OM and PDA and the radial graft to the ramus. Angiography was performed. A 6-Burmese TIFFANY catheter was used to selectively engage [...] 1. Given that the appearance of the [place] angiography is similar to prior angiography 2 years ago and the only new finding is the o (more content not included)... Normal [facility] Vital Signs Date Time Vital Sign Value Performing Clinician Facility 11-29-2023 10:30-0500 Body height 137.16 cm [facility] Other [facility] Other 11-29-2023 10:30-0500 Body mass index (BMI) [Ratio] 74.3 kg/m2 [facility] Other [facility] Other 11-29-2023 10:30-0500 Body weight 139.8 kg [facility] Other [facility] Other 11-29-2023 10:30-0500 Diastolic blood pressure 55 mm[Hg] [facility] Other [facility] Other 11-29-2023 10:30-0500 Respiratory rate 20 /min [facility] Other [facility] Other 11-29-2023 10:30-0500 SaO2% (BldA) [Mass fraction] Sivakumar Ball Other [facility] Other 11-29-2023 10:30-0500 Systolic blood pressure 90 mm[Hg] Sivakumar Ball Other [facility] Other 10-17-2023 15:00-0500 Body height 137.16 cm Sivakumar Ball Other [facility] Other 10-17-2023 15:00-0500 Body mass index (BMI) [Ratio] 73.53 kg/m2 Sivakumar Ball Other [facility] Other 10-17-2023 15:00-0500 Body weight 138.35 kg Sivakumar Ball Other [facility] Other 10-17-2023 15:00-0500 Diastolic blood pressure 72 mm[Hg] Sivakumar Ball Other [facility] Other 10-17-2023 15:00-0500 Respiratory rate 20 /min Sivakumar Ball Other [facility] Other 10-17-2023 15:00-0500 SaO2% (BldA) [Mass fraction] Sivakumar Ball Other [facility] Other 10-17-2023 15:00-0500 Systolic blood pressure 118 mm[Hg] Sivakumar Ball Other [facility] Other 09-26-2023 08:30-0500 Body height 137.16 cm Karen Nidialucian Other [facility] Other 09-26-2023 08:30-0500 Body mass index (BMI) [Ratio] 73.53 kg/m2 Karen Giles Other [facility] Other 09-26-2023 08:30-0500 Body temperature 97.6 [degF] Karen Giles Other [facility] Other 09-26-2023 08:30-0500 Body weight 138.35 kg Karen Giles Other [facility] Other 09-26-2023 08:30-0500 Diastolic blood pressure 54 mm[Hg] Karen Giles Other [facility] Other 09-26-2023 08:30-0500 Respiratory rate 20 /min Karen Giles Other [facility] Other 09-26-2023 08:30-0500 SaO2% (BldA) [Mass fraction] Karen Giles Other [facility] Other 09-26-2023 08:30-0500 Systolic blood pressure 106 mm[Hg] Karen Giles Other [facility] Other 07-12-2023 14:45-0400 Body height 137.16 cm Sivakumar Ball Other [facility] Other 07-12-2023 14:45-0400 Body mass index (BMI) [Ratio] 72.76 kg/m2 Sivakumar Ball Other [facility] Other 07-12-2023 14:45-0400 Body weight 136.9 kg Sivakumar Ball Other [facility] Other 07-12-2023 14:45-0400 Diastolic blood pressure 72 mm[Hg] Sivakumar Ball Other [facility] Other 07-12-2023 14:45-0400 Respiratory rate 20 /min Sivakumar Ball Other [facility] Other 07-12-2023 14:45-0400 SaO2% (BldA) [Mass fraction] 86 % Sivakumar Ball Other [facility] Other 07-12-2023 14:45-0400 Systolic blood pressure 122 mm[Hg] Sivakumar Ball Other [facility] Other 06-20-2023 08:45-0400 Body height 137.16 cm Kraen Jacobban Other [facility] Other 06-20-2023 08:45-0400 Body mass index (BMI) [Ratio] 72.76 kg/m2 Keshawnal Nidiaban Other [facility] Other 06-20-2023 08:45-0400 Body temperature 97 [degF] Kamal Chaban Other [facility] Other 06-20-2023 08:45-0400 Body weight 136.9 kg Keshawnal Chaban Other [facility] Other 06-20-2023 08:45-0400 Diastolic blood pressure 62 mm[Hg] Kamal Chaban Other [facility] Other 06-20-2023 08:45-0400 Respiratory rate 20 /min Kamal Chaban Other [facility] Other 06-20-2023 08:45-0400 SaO2% (BldA) [Mass fraction] Kamal Chaban Other [facility] Other 06-20-2023 08:45-0400 Systolic blood pressure 126 mm[Hg] Kamal Chaban Other [facility] Other 04-27-2023 10:30-0400 Body height 137.16 cm Sivakumar Ball Other [facility] Other 04-27-2023 10:30-0400 Body mass index (BMI) [Ratio] 72.47 kg/m2 Sivakumar Ball Other [facility] Other 04-27-2023 10:30-0400 Body weight 136.35 kg Sivakumar Ball Other [facility] Other 04-27-2023 10:30-0400 Diastolic blood pressure 58 mm[Hg] Sivakumar Ball Other [facility] Other 04-27-2023 10:30-0400 Respiratory rate 20 /min Sivakumar Ball Other [facility] Other 04-27-2023 10:30-0400 SaO2% (BldA) [Mass fraction] 85 % Sivakumar Ball Other [facility] Other 04-27-2023 10:30-0400 Systolic blood pressure 96 mm[Hg] Sivakumar Ball Other [facility] Other 01-23-2023 11:15-0400 Body height 137.16 cm Sivakumar Ball Other [facility] Other 01-23-2023 11:15-0400 Body mass index (BMI) [Ratio] 72.13 kg/m2 Sivakumar Ball Other [facility] Other 01-23-2023 11:15-0400 Body weight 135.72 kg Sivakumar Ball Other [facility] Other 01-23-2023 11:15-0400 Diastolic blood pressure 84 mm[Hg] Sivakumar Ball Other [facility] Other 01-23-2023 11:15-0400 Respiratory rate 20 /min Sivakumar Ball Other [facility] Other 01-23-2023 11:15-0400 SaO2% (BldA) [Mass fraction] 88 % Sivakumar Ball Other [facility] Other 01-23-2023 11:15-0400 Systolic blood pressure 124 mm[Hg] Sivakumar Ball Other [facility] Other 12-26-2022 15:00-0500 Body height 137.16 cm Sivakumar Ball Other [facility] Other 12-26-2022 15:00-0500 Body mass index (BMI) [Ratio] 69.53 kg/m2 Sivakumar Ball Other [facility] Other 12-26-2022 15:00-0500 Body weight 130.82 kg Sivakumar Ball Other [facility] Other 12-26-2022 15:00-0500 Diastolic blood pressure 78 mm[Hg] Sivakumar Ball Other [facility] Other 12-26-2022 15:00-0500 Respiratory rate 20 /min Sivakumar Ball Other [facility] Other 12-26-2022 15:00-0500 SaO2% (BldA) [Mass fraction] 90 % Sivakumar Ball Other [facility] Other 12-26-2022 15:00-0500 Systolic blood pressure 122 mm[Hg] Sivakumar Ball Other [facility] Other Encounters Encounter Date Encounter Type Care Provider Facility Start: 11-29-2023 End: 11-29-2023 ambulatory Sivakumar Patel Other [facility] Other Start: 11-29-2023 Encounter for genera l adult medical examination without abnormal findings Sivakumar Patel [facility] Start: 11-29-2023 Periodic preventive med est patient 40-64yrs Sivakumar Patel [facility] Start: 11-02-2023 End: 11-02-2023 ambulatory Sivakumar Patel Other [facility] Other Start: 11-02-2023 Telephone encounter Sivakumar Patel [facility] Start: 10-17-2023 End: 10-17-2023 ambulatory Sivakumar Patel Other [facility] Other Start: 10-17-2023 Office outpatient vi sit 15 minutes Sivakumar Patel [facility] Start: 10-06-2023 End: 10-06-2023 ambulatory [facility] Start: 10-05-2023 End: 10-05-2023 ambulatory Sivakumar Patel Other [facility] Other Start: 10-05-2023 Telephone encounter Sivakumar Patel [facility] Start: 09-26-2023 End: 09-26-2023 ambulatory Kamal Chaban Other [facility] Other Start: 09-26-2023 Office outpatient vi sit 25 minutes Kamal Chaban [facility] Start: 09-06-2023 End: 09-06-2023 ambulatory Sivakumar Patel Other [facility] Other Start: 09-06-2023 Telephone encounter Sivakumar Patel [facility] Start: 08-22-2023 End: 08-22-2023 ambulatory Sivakumar Patel Other [facility] Other Start: 08-22-2023 Office outpatient vi sit 15 minutes Sivakumar Ball [facility] Start: 08-16-2023 End: 08-16-2023 ambulatory Sivakumar Ball Other [facility] Other Start: 08-16-2023 Office outpatient vi sit 15 minutes Sivakumar Ball [facility] Start: 08-07-2023 End: 08-07-2023 ambulatory Sivakumar Ball Other [facility] Other Start: 08-07-2023 Telephone encounter Sivakumar Ball [facility] Start: 07-20-2023 End: 07-20-2023 ambulatory Sivakumar Ball Other [facility] Other Start: 07-20-2023 Telephone encounter Sivakumar Ball [facility] Start: 07-12-2023 End: 07-12-2023 ambulatory Sivakumar Ball Other [facility] Other Start: 07-12-2023 Office outpatient vi sit 15 minutes Sivakumar Ball [facility] Start: 07-12-2023 Telephone encounter Sivakumar Ball [facility] Start: 07-06-2023 End: 07-06-2023 ambulatory Sivakumar Ball Other [facility] Other Start: 07-06-2023 Telephone encounter Sivakumar Ball [facility] Start: 07-04-2023 End: 07-04-2023 ambulatory Sivakumar Ball Other [facility] Other Start: 07-04-2023 Telephone encounter Sivakumar Ball [facility] Start: 06-21-2023 End: 06-21-2023 ambulatory Kamal Chaban Other [facility] Other Start: 06-21-2023 Telephone encounter Kamal Chaban [facility] Start: 06-20-2023 End: 06-20-2023 ambulatory Kamal Chaban Other [facility] Other Start: 06-20-2023 Office outpatient ne w 45 minutes Kamal Chaban [facility] Start: 06-01-2023 End: 06-01-2023 ambulatory Sivakumar Ball Other [facility] Other Start: 06-01-2023 Telephone encounter Sivakumar Ball [facility] Start: 05-22-2023 End: 05-22-2023 ambulatory Sivakumar Ball Other [facility] Other Start: 05-22-2023 Telephone encounter Sivakumar Ball [facility] Start: 05-05-2023 End: 05-05-2023 ambulatory Sivakumar Ball Other [facility] Other Start: 05-05-2023 Telephone encounter Sivakumar Ball [facility] Start: 05-03-2023 End: 05-03-2023 ambulatory [facility] Start: 04-27-2023 End: 04-27-2023 ambulatory Sivakumar Ball Other [facility] Other Start: 04-27-2023 Office outpatient vi sit 25 minutes Sivakumar Ball [facility] Start: 04-05-2023 End: 04-05-2023 ambulatory Sivakumar Ball Other [facility] Other Start: 04-05-2023 Telephone encounter Sivakumar Ball [facility] Start: 03-07-2023 End: 03-07-2023 ambulatory Sivakumar Ball Other [facility] Other Start: 03-07-2023 Telephone encounter Sivakumar Ball [facility] Start: 03-01-2023 End: 03-01-2023 ambulatory Sivakumar Ball Facility:[facility] Start: 03-01-2023 End: 03-01-2023 ambulatory DO Sivakumar Ball Work Phone: [facility] Work Phone: Start: 03-01-2023 End: 03-01-2023 Patient encounter procedure DO Sivakumar Patel Work Phone: [facility] Work Phone: Start: 02-17-2023 End: 02-17-2023 ambulatory Sivakumar Patel Other [facility] Other Start: 02-17-2023 Telephone encounter Sivakumar GODOY [facility] Start: 02-16-2023 End: 02-16-2023 ambulatory Sivakumar Jorge Other [facility] Other Start: 02-16-2023 Telephone encounter Sivakumar GODOY [facility] Start: 02-06-2023 End: 02-06-2023 ambulatory Sivakumar Patel Other [facility] Other Start: 02-06-2023 Telephone encounter Sivakumar GODOY [facility] Start: 01-23-2023 End: 01-23-2023 ambulatory Sivakumar Patel Other [facility] Other Start: 01-23-2023 Office outpatient vi sit 25 minutes Sivakumar Patel [facility] Start: 01-11-2023 End: 01-11-2023 ambulatory Sivakumar Patel Other [facility] Other Start: 01-11-2023 Office outpatient vi sit 15 minutes Sivakumar Patel [facility] Start: 01-05-2023 End: 01-05-2023 ambulatory Sivakumar Patel Other [facility] Other Start: 01-05-2023 Telephone encounter Sivakumar GODOY [facility] Start: 12-26-2022 End: 12-26-2022 ambulatory Sivakumar Patel Other [facility] Other Start: 12-26-2022 Office outpatient vi sit 25 minutes Sivakumar Patel [facility] Start: 12-21-2022 End: 12-21-[address] SIVAKUMAR PATEL [employer] Other Start: 12-21-2022 Telephone encounter Sivakumar Patel [facility] Start: 12-12-[address] SIVAKUMAR PATEL [facility] ty:[facility] Start: 12-10-2022 End: 12-21-2022 Evaluation and management of inpatient DR FAIZA DELEON . Facility:[facility] Start: 12-07-2022 End: 12-07-2022 ambulatory Imnabeel Asanabeel Other [facility] Other Start: 12-07-2022 Telephone encounter Imad Asaad [facility] Start: 11-08-2022 End: 11-08-2022 ambulatory Sivakumar Patel Other [facility] Other Start: 11-08-2022 Telephone encounter Sivakumar Patel [facility] Start: 07-26-2022 ambulatory LILIAM FELIPE Facility :[facility] Start: 07-25-2022 End: 07-26-[address] DEANN CRANE Facility:[facility] Start: 07-07-2022 End: 07-08-2022 ambulatory LILIAM FELIPE Facility:[facility] Start: 02-16-2022 End: 02-17-[address] SIVAKUMAR PATEL Facility:[facility] Start: 02-07-2022 End: 02-08-[address] SIVAKUMAR PATEL Facility:[facility] Start: 02-04-2022 End: 02-05-[address] SIVAKUMAR PATEL Facility:[facility] Start: 11-24-2021 Adult health examination Sivakumar Patel Other [facility] Other Start: 07-26-2021 End: 07-26-2021 Pre-procedure evaluation check Sivakumar Patel Other [facility] Other Start: 05-14-2021 End: 05-15-2021 ambulatory SIVAKUMAR [...] (incl. purified surface antigen) Sivakumar Patel Other [facility] Other 09-26-2022 Prevnar 20 Sivakumar Patel Other [facility] Other 07-26-2021 influenza virus vaccine, split virus (incl. purified surface antigen) Sivakumar Patel Other [facility] Other 02-23-2021 COVID-19 Vaccine Pfi zer - Documentation Purposes Only Sivakumar Patel Other [facility] Other 02-02-2021 COVID-19 Vaccine Pfi zer - Documentation Purposes Only Sivakumar Patel Other [facility] Other 07-23-2020 influenza virus vaccine, split virus (incl. purified surface antigen) Sivakumar Patel Other [facility] Other 06-19-2018 diphtheria, tetanus toxoids and acellular pertussis vaccine, unspecified formulation Sivakumar Patel Other [facility] Other 05-11-2015 ALLERGY Injection (1 inj)-pt brought own med Sivakumar Patel Other [facility] Other 04-26-2015 ALLERGY Injection (1 inj)-pt brought own med Sivakumar Patel Other [facility] Other 04-10-2015 ALLERGY Injection (1 inj)-pt brought own med Sivakumar Patel Other [facility] Other 03-26-2015 ALLERGY Injection (1 inj)-pt brought own med Sivakumar Ball Other [facility] Other 03-03-2015 ALLERGY Injection (1 inj)-pt brought own med Sivakumar Ball Other [facility] Other 02-12-2015 ALLERGY Injection (1 inj)-pt brought own med Sivakumar Ball Other [facility] Other 01-28-2015 ALLERGY Injection (1 inj)-pt brought own med Sivakumar Ball Other [facility] Other 01-15-2015 ALLERGY Injection (1 inj)-pt brought own med Sivakumar Ball Other [facility] Other 12-30-2014 ALLERGY Injection (1 inj)-pt brought own med Sivakumar Ball Other [facility] Other 12-10-2014 ALLERGY Injection (1 inj)-pt brought own med Sivakumar Ball Other [facility] Other 11-25-2014 ALLERGY Injection (1 inj)-pt brought own med Sivakumar Ball Other [facility] Other 11-13-2014 ALLERGY Injection (1 inj)-pt brought own med Sivakumar Ball Other [facility] Other 11-03-2014 ALLERGY Injection (1 inj)-pt brought own med Sivakumar Ball Other [facility] Other 10-17-2014 ALLERGY Injection (1 inj)-pt brought own med Sivakumar Ball Other [facility] Other 10-07-2014 ALLERGY Injection (1 inj)-pt brought own med Sivakumar Ball Other [facility] Other 08-29-2014 ALLERGY Injection (1 inj)-pt brought own med Sivakumar Ball Other [facility] Other 08-20-2014 ALLERGY Injection (1 inj)-pt brought own med Sivakumar Ball Other [facility] Other 08-06-2014 ALLERGY Injection (1 inj)-pt brought own med Sivakumar Ball Other [facility] Other 07-24-2014 ALLERGY Injection (1 inj)-pt brought own med Sivakumar Ball Other [facility] Other 07-11-2014 ALLERGY Injection (1 inj)-pt brought own med Sivakumar Ball Other [facility] Other 06-25-2014 ALLERGY Injection (1 inj)-pt brought own med Sivakumar Ball Other [facility] Other 06-11-2014 ALLERGY Injection (1 inj)-pt brought own med Sivakumar Ball Other [facility] Other 05-29-2014 ALLERGY Injection (1 inj)-pt brought own med Sivakumar Ball Other [facility] Other 05-14-2014 ALLERGY Injection (1 inj)-pt brought own med Sivakumar Ball Other [facility] Other 04-30-2014 ALLERGY Injection (1 inj)-pt brought own med Sivakumar Ball Other [facility] Other 04-16-2014 ALLERGY Injection (1 inj)-pt brought own med Sivakumar Ball Other [facility] Other 04-04-2014 ALLERGY Injection (1 inj)-pt brought own med Sivakumar Ball Other [facility] Other 03-20-2014 ALLERGY Injection (1 inj)-pt brought own med Sivakumar Ball Other [facility] Other 03-07-2014 ALLERGY Injection (1 inj)-pt brought own med Sivakumar Ball Other [facility] Other 02-24-2014 ALLERGY Injection (1 inj)-pt brought own med Sivakumar Ball Other [facility] Other 02-05-2014 ALLERGY Injection (1 inj)-pt brought own med Sivakumar Ball Other [facility] Other 01-24-2014 ALLERGY Injection (1 inj)-pt brought own med Sivakumar Ball Other [facility] Other 01-10-2014 ALLERGY Injection (1 inj)-pt brought own med Sivakumar Ball Other [facility] Other 12-12-2013 ALLERGY Injection (1 inj)-pt brought own med Sivakumar Ball Other [facility] Other 11-28-2013 ALLERGY Injection (1 inj)-pt brought own med Sivakumar Ball Other [facility] Other 11-14-2013 ALLERGY Injection (1 inj)-pt brought own med Sivakumar Ball Other [facility] Other 11-01-2013 ALLERGY Injection (1 inj)-pt brought own med Sivakumar Ball Other [facility] Other 10-16-2013 ALLERGY Injection (1 inj)-pt brought own med Sivakumar Ball Other [facility] Other 10-02-2013 ALLERGY Injection (1 inj)-pt brought own med Sivakumar Ball Other [facility] Other 2013 ALLERGY Injection (1 inj)-pt brought own med Sivakumar Ball Other [facility] Other 09-04-2013 ALLERGY Injection (1 inj)-pt brought own med Sivakumar Ball Other [facility] Other 08-20-2013 ALLERGY Injection (1 inj)-pt brought own med Sivakumar Ball Other [facility] Other 08-08-2013 ALLERGY Injection (1 inj)-pt brought own med Sivakumar Ball Other [facility] Other 07-24-2013 ALLERGY Injection (1 inj)-pt brought own med Sivakumar Ball Other [facility] Other 07-18-2013 ALLERGY Injection (1 inj)-pt brought own med Sivakumar Ball Other [facility] Other 04-03-2013 ALLERGY Injection (1 inj)-pt brought own med Sivakumar Ball Other [facility] Other 03-20-2013 ALLERGY Injection (1 inj)-pt brought own med Sivakumar Ball Other [facility] Other 03-06-2013 ALLERGY Injection (1 inj)-pt brought own med Sivakumar Ball Other [facility] Other 02-20-2013 ALLERGY Injection (1 inj)-pt brought own med Sivakumar Ball Other [facility] Other 02-06-2013 ALLERGY Injection (1 inj)-pt brought own med Sivakumar Ball Other [facility] Other 01-24-2013 ALLERGY Injection (1 inj)-pt brought own med Sivakumar Ball Other [facility] Other 01-10-2013 ALLERGY Injection (1 inj)-pt brought own med Sivakumar Ball Other [facility] Other 12-27-2012 ALLERGY Injection (1 inj)-pt brought own med Sivakumar Ball Other [facility] Other 12-14-2012 ALLERGY Injection (1 inj)-pt brought own med Sivakumar Ball Other [facility] Other 11-30-2012 ALLERGY Injection (2 or more)-pt brought own med Sivakumar Ball Other [facility] Other 11-16-2012 ALLERGY Injection (1 inj)-pt brought own med Sivakumar Ball Other [facility] Other 11-02-2012 ALLERGY Injection (1 inj)-pt brought own med Sivakumar Ball Other [facility] Other 10-18-2012 ALLERGY Injection (1 inj)-pt brought own med Sivakumar Ball Other [facility] Other 10-03-2012 ALLERGY Injection (1 inj)-pt brought own med Sivakumar Ball Other [facility] Other 09-20-2012 ALLERGY Injection (1 inj)-pt brought own med Sivakumar Ball Other [facility] Other 09-06-2012 ALLERGY Injection (1 inj)-pt brought own med Sivakumar Ball Other [facility] Other 08-23-2012 ALLERGY Injection (1 inj)-pt brought own med Sivakumar Ball Other [facility] Other 08-09-2012 ALLERGY Injection (1 inj)-pt brought own med Sivakumar Ball Other [facility] Other 07-25-2012 ALLERGY Injection (1 inj)-pt brought own med Sivakumar Ball Other [facility] Other 07-12-2012 ALLERGY Injection (1 inj)-pt brought own med Sivakumar Ball Other [facility] Other 06-28-2012 ALLERGY Injection (1 inj)-pt brought own med Sivakumar Ball Other [facility] Other 06-14-2012 ALLERGY Injection (1 inj)-pt brought own med Sivakumar Ball Other [facility] Other 05-31-2012 ALLERGY Injection (1 inj)-pt brought own med Sivakumar Ball Other [facility] Other 05-17-2012 ALLERGY Injection (1 inj)-pt brought own med Sivakumar Ball Other [facility] Other pneumococcal Conjuga te, unspecified formulation; 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: [Need for prophylactic vaccination against Streptococcus pneumoniae (pneumococcus)] Sivakumar Ball Other [facility] Other Payers Date Payer Category Payer Unknown [id number] 1970 Unknown [id number] 2.16.8 [id number] 1970 Unknown [id number] 2.16.84 [id number] 1971 Unknown [id number] 2.16.84 [id number] 1971 Unknown [id number] 2.16.84 [id number] 1971 Unknown [id number] 2.16.84 [id number] 1971 Unknown [id number] 2.16.84 [id number] 1971 Unknown [id number] 2.16.84 [id number] 1971 Unknown [id number] 2.16.84 [id number] 1971 Unknown [id number] 2.16.84 [id number] 1971 Unknown [id number] 2.16.84 [id number] 1958 [facility] [id number] 1958 Self-pay Unknown [id number] 2.16.8 [id number] Social History Date Type Detail Facility Unknown if ever smoked [facility] Other Sex Assigned At Sex Assigned At Bir th [facility] Other Start: 1970 Sex Assigned At Male F [facility] Clinical Notes 07-25-2022 to 11-29-2023 Note [...] are maintaining 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 No bleeding complications Nov, Chronic restrictive lung [...] dysphagia.He denies abdominal pain, melena or hematochezia [facility] Other 12-28-2023 Evaluation note* Encounter Date Diagnosis Assessment Notes Treatment Notes Treatment Clinical Notes Oct, Lumbar spondylosis (ICD-10 - M47.816) [facility] Other 12-12-2023 Evaluation note* Encounter Date Diagnosis [...] bled. COntinue oxygen continuously. Avoid strenuous activity [facility] Other 12-01-2023 NoteUT Cardiology Consult Note Reason [...] PFT done he had recent admission at [facility] for COVID-pneumonia is now doing well with [...] DOAC and Amiodarone. He was seen by TANK WELDER in the past and c/o worsening JUNIOR [...] exam. Stress test performed on 07/25/2022 at [facility] showed areas of suspected reversible ischemia in [...] 1. Given that the appearance of the [place] angiography is similar to prior angiography 2 [...] Take by mouth. fluticason (more content not included)...[facility] 10-06-2023 NotePatient here for 6 mo follow [...] light-headedness. 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) [facility] Other 11-01-2023 Evaluation note* Encounter Date Diagnosis Assessment Notes Treatment Notes Treatment Clinical Notes Sep, Lumbar spondylosis (ICD-10 - M47.816) [facility] Other 10-17-2023 Evaluation note* Encounter Date Diagnosis [...] oxygen supplementation to maintain sats > 90% [facility] Other 10-11-2023 Evaluation note* Encounter Date Diagnosis [...] to use continuous oxygen at 2L/min Rest [facility] Other 10-02-2023 Evaluation note* Encounter Date Diagnosis Assessment Notes Treatment Notes Treatment Clinical Notes Aug, Lumbar spondylosis (ICD-10 - M47.816) [facility] Other 09-14-2023 Evaluation note* Encounter Date Diagnosis Assessment Notes Treatment Notes Treatment Clinical Notes Jul, Chronic venous insufficiency (ICD-10 - I87.2) [facility] Other 09-06-2023 Evaluation note* Encounter Date Diagnosis [...] evidence of bleeding problems Continue for now [facility] Other 08-29-2023 Evaluation note* Encounter Date Diagnosis Assessment Notes Treatment Notes Treatment Clinical Notes Jun, Lumbar spondylosis (ICD-10 - M47.816) [facility] Other 08-15-2023 Evaluation note* Encounter Date Diagnosis Assessment Notes Treatment Notes Treatment Clinical Notes Jun, Mild persistent asthma without complication (ICD-10 - J45.30) Samples please Jun, Chronic respiratory failure with hypoxia (ICD-10 - J96.11) Arrange for portable concentrator Jun, Severe obstructive sleep apnea (ICD-10 - G47.33) Jun, Morbid obesity (ICD-10 - E66.01) Jun, Restrictive lung disease (ICD-10 - J98.4) [facility] Other 07-27-2023 Evaluation note* Encounter Date Diagnosis Assessment Notes Treatment Notes Treatment Clinical Notes May, Lumbar spondylosis (ICD-10 - M47.816) [facility] Other 07-17-2023 Evaluation note* Encounter Date Diagnosis Assessment Notes Treatment Notes Treatment Clinical Notes May, Chronic venous insufficiency (ICD-10 - I87.2) [facility] Other 06-30-2023 Evaluation note* Encounter Date Diagnosis Assessment Notes Treatment Notes Treatment Clinical Notes Apr, Lumbar spondylosis (ICD-10 - M47.816) [facility] Other 06-28-2023 NoteUT Cardiology Consult Note Reason for Consultation: Afib, 6-month follow-up HPI: patient for 6-month follow-up regarding his A-fib continues to take amiodarone and is tolerating well patient has not felt any palpitations or symptoms of A-fib denies chest pain, shortness of breath, lightheadedness, dizziness, fatigue per pulse check sinus rhythm he had recent PFT done he had recent admission at [facility] for COVID-pneumonia is now doing well with [...] DOAC and Amiodarone. He was seen by [facility] WELDER in the past and c/o worsening JUNIOR [...] exam. Stress test performed on 07/25/2022 at [facility] showed areas of suspected reversible ischemia in [...] 1. Given that the appearance of the [place] angiography is similar to prior angiography 2 [...] TAKE 1 TABLET (more content not included)... [place] [id number] NoteReview of Systems Cardiovascular: Positive for leg swelling. Respiratory: Positive for shortness of breath. 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 Apr, Morbid (severe) obesity with alveolar hypoventilation [...] safely use Tylenol as needed. Weight loss [facility] Other 05-31-2023 Evaluation note* Encounter Date Diagnosis Assessment Notes Treatment Notes Treatment Clinical Notes March, Lumbar spondylosis (ICD-10 - M47.816) [facility] Other 05-02-2023 Evaluation note* Encounter Date Diagnosis Assessment Notes Treatment Notes Treatment Clinical Notes March, Lumbar spondylosis (ICD-10 - M47.816) [facility] Other 04-14-2023 Evaluation note* Encounter Date Diagnosis Assessment Notes Treatment Notes Treatment Clinical Notes Feb, Shortness of breath (ICD-10 - R06.02) Feb, Morbid (severe) obesity with alveolar hypoventilation (ICD-10 - E66.2) [facility] Other 04-03-2023 Evaluation note* Encounter Date Diagnosis Assessment Notes Treatment Notes Treatment Clinical Notes Feb, Lumbar spondylosis (ICD-10 - M47.816) [facility] Other 03-20-2023 Evaluation note* Encounter Date Diagnosis [...] use, the patient reduces the risk for FL, CVA, HTN, cardiac dysrhythmias and sudden cardiac [...] are maintaining 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 Jan, Chronic venous insufficiency (ICD-10 - I87.2) Avoid salt and elevate lower extremities, support stockings, inspect legs and feet daily for blisters and ulcerations. 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 Dec, Obstructive sleep apnea (ICD-10 - G47.33) This patient is aware of the benefits associated with NORBERT: With continued use, the patient reduces the risk for FL, CVA, HTN, cardiac dysrhythmias and sudden cardiac [...] calories. Difficult to increase activity due to JUNIOR and arthritic pain. Cardiology suggested bariatric surgery. 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.01) No bleeding complications [facility] Other 02-01-2023 Evaluation note* Encounter Date Diagnosis Assessment Notes Treatment Notes Treatment Clinical Notes Dec, Lumbar spondylosis (ICD-10 - M47.816) [facility] Other 09-19-2022 NoteCARDIAC STRESS TEST Requesting Physician: [...] interpreted and reported in a separate dictation.[facility] HospitalEvaluation noteNo InformationNortConemaugh Memorial [facility] Other Evaluation noteNo assessment information available [facility] Work Phone: History general Narrative - [...] LEFT TM 07/2017 Hospitalization History see above [facility] Other Reason for referral (narrative)* Reason 02/23/23 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, Referral for pulmonary hypertension Referral for hypoxemia Diagnosis 1 Hypoxemia (R09.02) Referral Organization [facility] Jorge younger Referring Provider First Name Sivakumar Referring Provider Last Name Jorge Referring Provider Specialty Internal Me dicine Referred Organization [facility] Referred Provider Karen Giles Referred Address [address] [place] [address],[address],[address] Referred Provider Specialty Pulmonary Gissel rajan Referral Priority Routine Referral Appointment Date 2023-02-23 General Notes Millie Hunter 01:03:36 PM >received today, sent P2P Clinical Notes Please see CT Chest, PFT Test, Echo, NM Stress Test, and Cardiac Stress Test Reports In Chart. [facility] Other Reason for referral (narrative)* Reason Referral for screeni ng colonoscopy Diagnosis 1 Screening for colon cancer (Z12.11) Referral Organization [facility] Jorge younger Referring Provider First Name Sivakumar Referring Provider Last Name Jorge Referring Provider Specialty Internal Me dicine Referred Organization [facility] [place],[address] Referred Provider Specialty Gastroentero logy Referral Priority Routine General Notes He is due for a scre ening colonoscopy, his last colonoscopy was in 2013. He denies change in appetite, weight or bowel habits. He denies heartburn or dysphagia. He denies abdominal pain, melena or hematochezia [facility] Other Summary Purpose Family History No Family [...] and content) DATE CREATED AUTHOR 05/18/2021 [facility] DATE CREATED AUTHOR AUTHOR'S ORGANIZ ATION 01/18/2023 [facility] DATE CREATED AUTHOR AUTHOR'S ORGANIZ ATION 03/10/2023 [facility] DATE CREATED AUTHOR AUTHOR'S ORGANIZ ATION 10/26/2023 [facility] REASON FOR VISIT (unrecogniz ed section and content) Medication RefillMAIL PPWpre scription refillAntibiotic?No InformationTBH FOLLOW UPprescription refillprescription refillSinuses/ Sick [phone] REFERRAL NOTEDISABILITY DISCUSSIONprescription refillrefillPFT testmed refillrefill3 month Follow upRefillrefillrefillRef by Dr. Patel for RLD secondary to obesity , pulmonary hypertension , hypoxemiaPulmonary Office NotesrefillRefillcoughMedication QuestionChest XrayRefillCongestion, Cough-Testing for [phone] coughing, finished antibiotic- [phone] mo f/u Asthma, Chronic Resp Failure w [...] BE BASED ON THE PRIMARY CLINICAL RECORDS. [facility] [employer] [facility]. provides no warranty or guarantee of the accuracy or completeness of information in this document.
[2023-12-08 16:45] LABS: Free T4 1.35 ng/dL (0.76-1.46)
[2023-12-08 16:49] LABS: Alanine Aminotransferase 51 U/L (16-63); Albumin Level 3.9 g/dL (3.4-5.0); Alkaline Phosphatase 85 U/L (46-116); Anion Gap 11.6; Aspartate Amino Transferase 26 U/L (15-37); BUN Creatinine Ratio 21.3; Bilirubin Direct 0.2 mg/dL (0.0-0.2); Bilirubin Total 0.8 mg/dL (0.2-1.0); Calcium 9.3 mg/dL (8.5-10.1); Carbon Dioxide 30.5 mmol/L (21.0-32.0); Chloride 102 mmol/L (98-107); Estimated GFR (African America >60 (>=60); Estimated GFR (Non-African Ame >60 (>=60); Glucose 93 mg/dL (74-106); Potassium 4.1 mmol/L (3.5-5.1); Sodium 140 mmol/L (136-145); Thyroid Stimulating Hormone 1.492 uIU/mL (0.358-3.740); Total Protein 7.9 g/dL (6.4-8.2)
== END 2023-12-08 15:14 | disposition home or self-care (01) ==
LOC: LAB 15:14
PROVIDERS: PCP Internal Medicine; Visit Provider Nurse Practitioner
DX: Z00.00 Encounter for general adult medical examination without abnormal findings (principal); Z12.5 Encounter for screening for malignant neoplasm of prostate; Z79.899 Other long term (current) drug therapy
CPT/HCPCS: 36415; 80053; 80061; 82248; 84439; 84443; 85025; G0103

== ENCOUNTER 2023-12-26 11:51 | Outpatient (OUT) | payer BC, SELFPAY ==
--- OUTSIDE RECORDS SUMMARY | 2023-12-26 12:11 | XMS_ITS | CCD ---
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 Name Role Phone SIVAKUMAR PATEL Referring Unavailable [...] BALL, DR BUNDY Consulting Unavailable JORGE, DR BNUDY Attending Unavailable BALL, DR BUNDY Admitting Unavailable [...] JENNIFER, CINDY Consulting Unavailable NEFCYKANDI Consulting Unavailable LOPES, COLE Consulting Unavailable JORGE, DR BUNDY Primary [...] Unavailable DO Sivakumar Patel Primary Care Provider [phone] DO Sivakumar Patel Attending Provider [phone] Sivakumar Patel Attending Unavailable Sivakumar Patel Primary Care Unavailable Sivakumar Patel Admitting Unavailable Karen Giles Unavailable KWABENA DE LA CRUZ Attending Unavailable KWABENA DE LA CRUZ Attending Unavailable Allergies Allergy Classification Reported Allergen(s) Allergy Type Date of Onset Reaction(s) Facility Sulfonamides (antibiotic) (1 source) Sulfonamides (Antibiotic) Drug Allergy 04-04-20 13 [facility] Repository (20 sources) Sulf-10 Drug allergy anaphylaxis, HIVES [facility] Other (2 sources) Sulfonamides (Antibiotic) Drug allergy (disorder) 03-26-20 13 [facility] Repository (1 source) patient allergy list reviewed by nurse or physicia Propensity to adverse reactions 02-05-20 Comment:Done [facility] Other (1 source) Allergies Reconciled Propensity to adverse reactions Unknown [facility] Other (1 source) Substance with sulfonamide structure and antibacterial mechanism of action (substance) Drug allergy Unknown [facility] Other (1 source) Sulfonamides (Antibiotic); 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: [SULFA (SULFONAMIDE ANTIBIOTICS)] Propensity to adverse reactions to drug (disorder) 10-24-20 14 [facility] Repository Medications Current Medications Medication Drug Class(es) Dates Sig (Normalized) Sig (Original) acetaminophen 325 mg / oxyCODONE hydrochloride 5 mg oral tablet (20 sources) Opioid Agonist Start: 12-04-2023 take 1 tablet by mouth every six hours as needed for pain Percocet 5-325 MG 1 tablet orally every 6 hours as needed for pain for 30 days p/u 12/04, start 12/05Nov, Active Start: 11-03-2023 take 1 tablet by jorge th every six hours as needed for pain Percocet 5-325 MG 1 tablet orally every 6 hours as needed for pain p/u 11/03, start 11/05Oct, Active Start: 10-05-2023 take 1 tablet by ojrge th every six hours as needed for [...] needed for pain for 30 days p/u 03/07, start 03/08March, Active Start: 02-06-2023 take 1 [...] for pain for 30 days Dec, Active [id number] actuat albuterol 0.09 mg/actuat metered dose [...] formoterol fumarate 0.0045 mg/actuat metered dose inhaler (17 sources) Corticosteroid, beta2-Adrenergic Agonist Start: 06-20-20 take [...] oral capsule (3 sources) Tetracycline-class Drug Start: 023 take 1 capsule by mouth twice daily Doxycycline Hyclate 100 MG 1 capsule Orally twice daily for 5 days Aug, Active ezetimibe 10 mg oral tablet (1 source) Dietary Cholesterol Absorption Inhibitor Start: 024 take 1 tablet by mouth every twenty-four hours Ezetimibe 10 MG 1 tablet Orally Once a day for 30 days Dec, Active fluticasone propionate 0.05 mg/actuat metered dose [...] daily Active take 4 tablets by mo [facility] every twenty-four hours Furosemide 40 MG 4 tablets Orally Once a day for 30 days Active Lasix Not-Taking Isosorbide (20 sources) Nitrate Vasodilator Imdur 60 MG Active levoFLOXacin 750 mg oral tablet (5 sources) Quinolone Antimicrobial Start: 07-12-20 23 take 1 tablet by mouth every twenty-four [...] (20 sources) take 1 tablet by jorge once daily Potassium Chloride ER 10 MEQ [...] Chronic Chronic obstructive pulmonary disease and bronchiectasis (19 sources) Chronic obstructive pulmonary disease with acute lower respiratory infection; 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: [Chronic obstructive pulmonary disease with (acute) lower respiratory infection] Resolved: 10-10-2022 Chronic Congestive heart failure; nonhypertensive (20 sources) Chronic systolic (congestive) heart failure; 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: [Chronic systolic heart failure] Onset: 01-17-2023 Chronic Coronary atherosclerosis and other heart disease (20 sources) Coronary arteriosclerosis; 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: [Atherosclerotic heart disease of [place] coronary artery without angina pectoris] Onset: 07-25-2022 [...] sources) Long-term current use of anticoagulant; 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: [intermediate (current) use of anticoagulants] Episodic Other aftercare (20 sources) Long-term current use of antibiotic; 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: [intermediate (current) use of antibiotics] Episodic Other aftercare (3 sources) intermediate (current) use of anticoagulants; 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: [DETENTION CURRNT USE ANTICOAGULANTS] Onset: 01-17-2023 Episodic Other aftercare (1 source) 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; 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: [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] Onset: 01-17-2023 Episodic Other aftercare (13 sources) Drug therapy finding; 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: [intermediate (current) use of anticoagulants] Episodic Other and [...] 10-01-2018 Episodic Other aftercare (3 sources) Other group home (current) drug therapy; 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: [OTH AUTOMOTIVE DESIGN LAYOUT DRAFTER CURRENT DRUG THERAPY] Onset: 01-17-2023 Episodic Other aftercare (5 sources) High risk drug monitoring status; 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: [intermediate (current) use of opiate analgesic] Onset: 06-28-2018 [...] Range Facility Office Visiton 10-06-2023 Follow-up visit [id number] Carlos Cheek 1970 M Date Provider Department Center 10/06/2023 KWABENA FERNÁNDEZ Family History Problem Relation Age of Onset Coronary artery disease Maternal Grandfather Family Status - Relation Status Age at Maternal Grandfather Level of Service:94423 [place] OFFICE/OUTPATIENT ESTABLISHED MOD MDM 30 MIN Normal [facility] Office Visiton 05-03-2023 Follow-up visit [id number] Carlos Cheek 1970 M Date Provider Department Center 05/03/2023 KWABENA FERNÁNDEZ Family History Problem Relation Age of Onset Coronary artery disease Maternal Grandfather Family Status - Relation Status Age at Maternal Grandfather Level of Service:72269 [place] OFFICE/OUTPATIENT ESTABLISHED MOD MDM 30-39 MIN Reason for Visit and Comments: Follow-up [090612] - 6 month Normal [facility] CBC AUTO DIFFon 12-21-2022 BASO # 0.0 103/ul Normal 0.0-0.1 [facility] Comment on above: Performed By: #### C BC #### [facility] [address] [address] [address] Cecille Bradley Basophils/100 WBC (Bld) 0.4 % Normal 0.2-2.0 [facility] Comment on above: Performed By: #### C BC #### [facility] [address] [address] [address] Cecille Bradley EO # 0.1 103/ul Normal 0.0-0.7 [facility] Comment on above: Performed By: #### C BC #### [facility] [address] [address] [address] Cecille Bradley Eosinophils/100 WBC (Bld) 1.3 % Normal 0.9-7.0 [facility] Comment on above: Performed By: #### C BC #### [facility] [address] [address] [address] Cecille Bradley Erythrocyte distribution width (RBC) [Ratio] 13.5 % Normal 11.0-15.0 [facility] Comment on above: Performed By: #### C BC #### [facility] [address] [address] [address] Cecille Bradley Hematocrit (Bld) [Volume fraction] 46.1 % Normal 42.0-54.0 [facility] Comment on above: Performed By: #### C BC #### [facility] [address] [address] [address] Cecille Bradley Hemoglobin (Bld) [Mass/Vol] 15.3 g/dL Normal 14.0-18.0 [facility] Comment on above: Performed By: #### C BC #### [facility] [address] [address] [address] Cecille Bradley IG # 0.06 10e3/ul Critically high 0.00-0.03 [facility] Comment on above: Performed By: #### C BC #### [facility] [address] [place] [address] Dr. Cecille Bradley IG % 0.7 % Critically high 0.0-0.5 [facility] Comment on above: Performed By: #### C BC #### [facility] [address] [place] [address] Dr. Cecille Bradley LYMPH # 1.2 103/ul Normal 1.2-3.8 [facility] Comment on above: Performed By: #### C BC #### [facility] [address] [place] [address] Dr. Cecille Bradley Lymphocytes/100 WBC (Bld) 14.4 % Critically low 20.5-60.0 [facility] Comment on above: Performed By: #### C BC #### [facility] [address] [place] [address] Dr. Cecille Bradley MANUAL DIFF REQ NO Normal [facility] Comment on above: Performed By: #### C BC #### [facility] [address] [place] [address] Dr. Cecille Bradley MCH (RBC) [Entitic mass] 32.1 pg Normal 25.9-34.0 [facility] Comment on above: Performed By: #### C BC #### [facility] [address] [place] [address] Dr. Cecille Bradley MCHC (RBC) [Mass/Vol] 33.2 g/dL Normal 29.9-35.2 [facility] Comment on above: Performed By: #### C BC #### [facility] [address] [place] [address] Dr. Cecille Bradley MCV (RBC) [Entitic vol] 96.6 fL Critically high 80.0-94.0 [facility] Comment on above: Performed By: #### C BC #### [facility] [address] [place] [address] Dr. Cecille Bradley MONO # 0.7 103/ul Normal 0.3-0.8 [facility] Comment on above: Performed By: #### C BC #### [facility] [address] [place] [address] Dr. Cecille Bradley Monocytes/100 WBC (Bld) 8.3 % Normal 1.7-12.0 [facility] Comment on above: Performed By: #### C BC #### [facility] [address] [place] [address] Dr. Cecille Bradley NEUT # 6.2 103/ul Normal 1.4-6.5 [facility] Comment on above: Performed By: #### C BC #### [facility] [address] [place] [address] Dr. Cecille Bradley Neutrophils/100 WBC (Bld) 74.9 % Normal 43.0-75.0 [facility] Comment on above: Performed By: #### C BC #### [facility] [address] [place] [address] Dr. Cecille Bradley Platelet mean volume (Bld) [Entitic vol] 10.7 fL Normal 9.5-13.5 [facility] Comment on above: Performed By: #### C BC #### [facility] [address] [place] [address] Dr. Cecille Bradley PLT 174 103/ul Normal 150-450 [facility] Comment on above: Performed By: #### C BC #### [facility] [address] [place] [address] Dr. Cecille Bradley RBC 4.77 106/ul Normal 4.70-6.10 [facility] Comment on above: Performed By: #### C BC #### [facility] [address] [place] [address] Dr. Cecille Bradley WBC 8.3 103/ul Normal 4.0-11.0 [facility] Comment on above: Performed By: #### C BC #### [facility] [address] [place] [address] Dr. Cecille Bradley PROF 14(COMP METB)on 023 Albumin [Mass/Vol] 2.8 g/dL Critically low 3.4-5.0 [facility] Comment on above: Performed By: #### C MP #### [facility] [address] [place] [address] Dr. Cecille Bradley Albumin/Globulin [Mass ratio] 0.8 {ratio} Normal [facility] Comment on above: Performed By: #### C MP #### [facility] [address] [place] [address] Dr. Cecille Bradley ALP [Catalytic activity/Vol] 61 U/L Normal 46-116 [facility] Comment on above: Performed By: #### C MP #### [facility] [address] [address] [address] Cecille Bradley ALT [Catalytic activity/Vol] 68 U/L Critically high 16-63 [facility] Comment on above: Performed By: #### C MP #### [facility] [address] [place] [address] Dr. Cecille Bradley Anion gap [Moles/Vol] 10.0 mmol/L Normal [facility] Comment on above: Performed By: #### C MP #### [facility] [address] [place] [address] Dr. Cecille Bradley AST [Catalytic activity/Vol] 29 U/L Normal 15-37 [facility] Comment on above: Performed By: #### C MP #### [facility] [address] [place] [address] Dr. Cecille Bradley Bilirubin [Mass/Vol] 1.3 mg/dL Critically high 0.2-1.0 [facility] Comment on above: Performed By: #### C MP #### [facility] [address] [place] [address] Dr. Cecille Bradley Calcium [Mass/Vol] 8.9 mg/dL Normal 8.5-10.1 [facility] Comment on above: Performed By: #### C MP #### [facility] [address] [place] [address] Dr. Cecille Bradley Chloride [Moles/Vol] 103 mmol/L Normal 98-107 [facility] Comment on above: Performed By: #### C MP #### [facility] [address] [place] [address] Dr. Cecille Bradley CO2 [Moles/Vol] 29.8 mmol/L Normal 21.0-32.0 [facility] Comment on above: Performed By: #### C MP #### [facility] [address] [address] [address] Cecille Bradley Creatinine [Mass/Vol] 0.58 mg/dL Critically low 0.70-1.30 [facility] Comment on above: Performed By: #### C MP #### [facility] [address] [address] [address] Cecille Bradley EGFR-AF MAURITIAN >60 Normal >=60 [facility] Comment on above: Performed By: #### C MP #### [facility] [address] [address] [address] Cecille Bradley EGFR-NON AF MAURITIAN >60 Normal >=60 [facility] Comment on above: Performed By: #### C MP #### [facility] [address] [place] [address] Dr. Cecille Bradley Globulin (S) [Mass/Vol] 3.3 g/dL Normal [facility] Comment on above: Performed By: #### C MP #### [facility] [address] [address] [address] Cecille Bradley Glucose [Mass/Vol] 95 mg/dL Normal 74-106 [facility] Comment on above: Performed By: #### C MP #### [facility] [address] [place] [address] Dr. Cecille Bradley Potassium [Moles/Vol] 3.8 mmol/L Normal 3.5-5.1 [facility] Comment on above: Performed By: #### C MP #### [facility] [address] [place] [address] Dr. Cecille Bradley Protein [Mass/Vol] 6.1 g/dL Critically low 6.4-8.2 [facility] Comment on above: Performed By: #### C MP #### [facility] [address] [place] [address] Dr. Cecille Bradley Sodium [Moles/Vol] 139 mmol/L Normal 136-145 [facility] Comment on above: Performed By: #### C MP #### [facility] [address] [place] [address] Dr. Cecille Bradley Urea nitrogen [Mass/Vol] 18.0 mg/dL Normal 7.0-18.0 [facility] Comment on above: Performed By: #### C MP #### [facility] [address] [place] [address] Dr. Cecille Bradley Urea nitrogen/Creatinine [Mass ratio] 31.0 mg/mg Normal [facility] Comment on above: Performed By: #### C MP #### [facility] [address] [place] [address] Dr. Cecille Bradley CBC AUTO DIFFon 12-20-2022 BASO # 0.0 103/ul Normal 0.0-0.1 [facility] Comment on above: Performed By: #### C BC #### [facility] [address] [place] [address] Dr. Cecille Bradley Basophils/100 WBC (Bld) 0.2 % Normal 0.2-2.0 [facility] Comment on above: Performed By: #### C BC #### [facility] [address] [place] [address] Dr. Cecille Bradley EO # 0.1 103/ul Normal 0.0-0.7 [facility] Comment on above: Performed By: #### C BC #### [facility] [address] [place] [address] Dr. Cecille Bradley Eosinophils/100 WBC (Bld) 1.2 % Normal 0.9-7.0 [facility] Comment on above: Performed By: #### C BC #### [facility] [address] [place] [address] Dr. Cecille Bradley Erythrocyte distribution width (RBC) [Ratio] 13.8 % Normal 11.0-15.0 [facility] Comment on above: Performed By: #### C BC #### [facility] [address] [place] [address] Dr. Cecille Bradley Hematocrit (Bld) [Volume fraction] 45.6 % Normal 42.0-54.0 [facility] Comment on above: Performed By: #### C BC #### [facility] [address] [address] [address] Cecille Bradley Hemoglobin (Bld) [Mass/Vol] 15.3 g/dL Normal 14.0-18.0 [facility] Comment on above: Performed By: #### C BC #### [facility] [address] [address] [address] Cecille Bradley IG # 0.04 10e3/ul Critically high 0.00-0.03 [facility] Comment on above: Performed By: #### C BC #### [facility] [address] [address] [address] Cecille Bradley IG % 0.4 % Normal 0.0-0.5 [facility] Comment on above: Performed By: #### C BC #### [facility] [address] [place] [address] Dr. Cecille Bradley LYMPH # 1.6 103/ul Normal 1.2-3.8 [facility] Comment on above: Performed By: #### C BC #### [facility] [address] [place] [address] Dr. Cecille Bradley Lymphocytes/100 WBC (Bld) 17.5 % Critically low 20.5-60.0 [facility] Comment on above: Performed By: #### C BC #### [facility] [address] [place] [address] Dr. Cecille Bradley MANUAL DIFF REQ NO Normal [facility] Comment on above: Performed By: #### C BC #### [facility] [address] [place] [address] Dr. Cecille Bradley MCH (RBC) [Entitic mass] 32.4 pg Normal 25.9-34.0 [facility] Comment on above: Performed By: #### C BC #### [facility] [address] [place] [address] Dr. Cecille Bradley MCHC (RBC) [Mass/Vol] 33.6 g/dL Normal 29.9-35.2 [facility] Comment on above: Performed By: #### C BC #### [facility] [address] [address] [address] Cecille Bradley MCV (RBC) [Entitic vol] 96.6 fL Critically high 80.0-94.0 [facility] Comment on above: Performed By: #### C BC #### [facility] [address] [place] [address] Dr. Cecille Bradley MONO # 0.8 103/ul Normal 0.3-0.8 [facility] Comment on above: Performed By: #### C BC #### [facility] [address] [place] [address] Dr. Cecille Bradley Monocytes/100 WBC (Bld) 9.3 % Normal 1.7-12.0 [facility] Comment on above: Performed By: #### C BC #### [facility] [address] [place] [address] Dr. Cecille Bradley NEUT # 6.4 103/ul Normal 1.4-6.5 [facility] Comment on above: Performed By: #### C BC #### [facility] [address] [place] [address] Dr. Cecille Bradley Neutrophils/100 WBC (Bld) 71.4 % Normal 43.0-75.0 [facility] Comment on above: Performed By: #### C BC #### [facility] [address] [place] [address] Dr. Cecille Bradley Platelet mean volume (Bld) [Entitic vol] 10.8 fL Normal 9.5-13.5 [facility] Comment on above: Performed By: #### C BC #### [facility] [address] [place] [address] Dr. Cecille Bradley PLT 181 103/ul Normal 150-450 [facility] Comment on above: Performed By: #### C BC #### [facility] [address] [place], [place] [id number] Dr. Cecille Bradley RBC 4.72 106/ul Normal 4.70-6.10 [facility] Comment on above: Performed By: #### C BC #### [facility] [address] [place] [address] Dr. Cecille Bradley WBC 9.0 103/ul Normal 4.0-11.0 [facility] Comment on above: Performed By: #### C BC #### [facility] [address] [place] [address] Dr. Cecille Bradley PROF 14(COMP METB)on 023 Albumin [Mass/Vol] 2.7 g/dL Critically low 3.4-5.0 [facility] Comment on above: Performed By: #### C BC #### [facility] [address] [place] [address] Dr. Cecille Bradley Albumin/Globulin [Mass ratio] 0.8 {ratio} Normal [facility] Comment on above: Performed By: #### C BC #### [facility] [address] [place] [address] Dr. Cecille Bradley ALP [Catalytic activity/Vol] 66 U/L Normal 46-116 [facility] Comment on above: Performed By: #### C BC #### [facility] [address] [place] [address] Dr. Cecille Bradley ALT [Catalytic activity/Vol] 46 U/L Normal 16-63 [facility] Comment on above: Performed By: #### C BC #### [facility] [address] [place] [address] Dr. Cecille Bradley Anion gap [Moles/Vol] 8.3 mmol/L Normal [facility] Comment on above: Performed By: #### C BC #### [facility] [address] [place] [address] Dr. Cecille Bradley AST [Catalytic activity/Vol] 27 U/L Normal 15-37 [facility] Comment on above: Performed By: #### C BC #### [facility] [address] [place], [place] [id number] Dr. Cecille Bradley Bilirubin [Mass/Vol] 1.2 mg/dL Critically high 0.2-1.0 [facility] Comment on above: Performed By: #### C BC #### [facility] [address] [place] [address] Dr. Cecille Bradley Calcium [Mass/Vol] 8.8 mg/dL Normal 8.5-10.1 [facility] Comment on above: Performed By: #### C BC #### [facility] [address] [place] [address] Dr. Cecille Bradley Chloride [Moles/Vol] 102 mmol/L Normal 98-107 [facility] Comment on above: Performed By: #### C BC #### [facility] [address] [place] [address] Dr. Cecille Bradley CO2 [Moles/Vol] 32.7 mmol/L Critically high 21.0-32.0 [facility] Comment on above: Performed By: #### C BC #### [facility] [address] [place] [address] Dr. Cecille Bradley Creatinine [Mass/Vol] 0.63 mg/dL Critically low 0.70-1.30 [facility] Comment on above: Performed By: #### C BC #### [facility] [address] [place] [address] Dr. Cecille Bradley EGFR-AF MAURITIAN >60 Normal >=60 [facility] Comment on above: Performed By: #### C BC #### [facility] [address] [place] [address] Dr. Cecille Bradley EGFR-NON AF MAURITIAN >60 Normal >=60 [facility] Comment on above: Performed By: #### C BC #### [facility] [address] [place] [address] Dr. Cecille Bradley Globulin (S) [Mass/Vol] 3.4 g/dL Normal [facility] Comment on above: Performed By: #### C BC #### [facility] [address] [place] [address] Dr. Cecille Bradley Glucose [Mass/Vol] 98 mg/dL Normal 74-106 [facility] Comment on above: Performed By: #### C BC #### [facility] [address] [place] [address] Dr. Cecille Bradley Potassium [Moles/Vol] 4.0 mmol/L Normal 3.5-5.1 [facility] Comment on above: Performed By: #### C BC #### [facility] [address] [place] [address] Dr. Cecille Bradley Protein [Mass/Vol] 6.1 g/dL Critically low 6.4-8.2 [facility] Comment on above: Performed By: #### C BC #### [facility] [address] [place] [address] Dr. Cecille Bradley Sodium [Moles/Vol] 139 mmol/L Normal 136-145 [facility] Comment on above: Performed By: #### C BC #### [facility] [address] [place] [address] Dr. Cecille Bradley Urea nitrogen [Mass/Vol] 19.0 mg/dL Critically high 7.0-18.0 [facility] Comment on above: Performed By: #### C BC #### [facility] [address] [place] [address] Dr. Cecille Bradley Urea nitrogen/Creatinine [Mass ratio] 30.2 mg/mg Normal [facility] Comment on above: Performed By: #### C BC #### [facility] [address] [place] [address] Dr. Cecille Bradley CBC AUTO DIFFon 12-19-2022 BASO # 0.0 103/ul Normal 0.0-0.1 [facility] Comment on above: Performed By: #### C BC #### [facility] [address] [place] [address] Dr. Cecille Bradley Basophils/100 WBC (Bld) 0.2 % Normal 0.2-2.0 [facility] Comment on above: Performed By: #### C BC #### [facility] [address] [place] [address] Dr. Cecille Bradley EO # 0.1 103/ul Normal 0.0-0.7 [facility] Comment on above: Performed By: #### C BC #### [facility] [address] [place] [address] Dr. Cecille Bradley Eosinophils/100 WBC (Bld) 1.1 % Normal 0.9-7.0 [facility] Comment on above: Performed By: #### C BC #### [facility] [address] [address] [address] Cecille Bradley Erythrocyte distribution width (RBC) [Ratio] 13.9 % Normal 11.0-15.0 [facility] Comment on above: Performed By: #### C BC #### [facility] [address] [place] [address] Dr. Cecille Bradley Hematocrit (Bld) [Volume fraction] 48.5 % Normal 42.0-54.0 [facility] Comment on above: Performed By: #### C BC #### [facility] [address] [place] [address] Dr. Cecille Bradley Hemoglobin (Bld) [Mass/Vol] 15.9 g/dL Normal 14.0-18.0 [facility] Comment on above: Performed By: #### C BC #### [facility] [address] [place] [address] Dr. Cecille Bradley IG # 0.06 10e3/ul Critically high 0.00-0.03 [facility] Comment on above: Performed By: #### C BC #### [facility] [address] [place] [address] Dr. Cecille Bradley IG % 0.6 % Critically high 0.0-0.[address] [facility] Comment on above: Performed By: #### C BC #### [facility] [address] [place] [address] Dr. Cecille Bradley LYMPH # 1.6 103/ul Normal 1.2-3.8 [facility] Comment on above: Performed By: #### C BC #### [facility] [address] [place] [address] Dr. Cecille Bradley Lymphocytes/100 WBC (Bld) 16.9 % Critically low 20.5-60.0 [facility] Comment on above: Performed By: #### C BC #### [facility] [address] [place] [address] Dr. Cecille Bradley MANUAL DIFF REQ NO Normal [facility] Comment on above: Performed By: #### C BC #### [facility] [address] [address] [address] Cecille Bradley MCH (RBC) [Entitic mass] 31.6 pg Normal 25.9-34.0 [facility] Comment on above: Performed By: #### C BC #### [facility] [address] [place] [address] Dr. Cecille Bradley MCHC (RBC) [Mass/Vol] 32.8 g/dL Normal 29.9-35.2 [facility] Comment on above: Performed By: #### C BC #### [facility] [address] [place] [address] Dr. Cecille Bradley MCV (RBC) [Entitic vol] 96.4 fL Critically high 80.0-94.0 [facility] Comment on above: Performed By: #### C BC #### [facility] [address] [place] [address] Dr. Cecille Bradley MONO # 0.9 103/ul Critically high 0.3-0.[address] [facility] Comment on above: Performed By: #### C BC #### [facility] [address] [place] [address] Dr. Cecille Bradley Monocytes/100 WBC (Bld) 9.5 % Normal 1.7-12.0 [facility] Comment on above: Performed By: #### C BC #### [facility] [address] [place] [address] Dr. Cecille Bradley NEUT # 7.0 103/ul Critically high 1.4-6.5 [facility] Comment on above: Performed By: #### C BC #### [facility] [address] [place] [address] Dr. Cecille Bradley Neutrophils/100 WBC (Bld) 71.7 % Normal 43.0-75.0 [facility] Comment on above: Performed By: #### C BC #### [facility] [address] [place] [address] Dr. Cecille Bradley Platelet mean volume (Bld) [Entitic vol] 10.6 fL Normal 9.5-13.5 [facility] Comment on above: Performed By: #### C BC #### [facility] [address] [place], [place] [address] Dr. Cecille Bradley PLT 197 103/ul Normal 150-450 [facility] Comment on above: Performed By: #### C BC #### [facility] [address] [place], [place] [address] Dr. Cecille Bradley RBC 5.03 106/ul Normal 4.70-6.10 [facility] Comment on above: Performed By: #### C BC #### [facility] [address] [place], [place] [address] Dr. Cecille Bradley WBC 9.7 103/ul Normal 4.0-11.0 [facility] Comment on above: Performed By: #### C BC #### [facility] [id number] Cecille Bradley CTA CHEST WO W CONon 13-2 023 CTA CHEST WO W CON CTA [...] by: CINDY RODRIGUEZ Date: 2022-12-19 03:21 Normal [facility] PROF 14(COMP METB)on 023 Albumin [Mass/Vol] 3.0 g/dL Critically low 3.4-5.0 [facility] Comment on above: Performed By: #### C BC #### [facility] [address] [place] [address] Dr. Cecille Bradley Albumin/Globulin [Mass ratio] 0.9 {ratio} Normal [facility] Comment on above: Performed By: #### C BC #### [facility] [address] [place] [address] Dr. Cecille Bradley ALP [Catalytic activity/Vol] 61 U/L Normal 46-116 [facility] Comment on above: Performed By: #### C BC #### [facility] [address] [address] [address] Cecille Bradley ALT [Catalytic activity/Vol] 38 U/L Normal 16-63 [facility] Comment on above: Performed By: #### C BC #### [facility] [address] [address] [address] Cecille Bradley Anion gap [Moles/Vol] 7.8 mmol/L Normal [facility] Comment on above: Performed By: #### C BC #### [facility] [address] [place] [address] Dr. Cecille Bradley AST [Catalytic activity/Vol] 21 U/L Normal 15-37 [facility] Comment on above: Performed By: #### C BC #### [facility] [address] [place] [address] Dr. Cecille Bradley Bilirubin [Mass/Vol] 1.4 mg/dL Critically high 0.2-1.0 [facility] Comment on above: Performed By: #### C BC #### [facility] [address] [place] [address] Dr. Cecille Bradley Calcium [Mass/Vol] 9.0 mg/dL Normal 8.5-10.1 [facility] Comment on above: Performed By: #### C BC #### [facility] [address] [place] [address] Dr. Cecille Bradley Chloride [Moles/Vol] 105 mmol/L Normal 98-107 [facility] Comment on above: Performed By: #### C BC #### [facility] [address] [place] [address] Dr. Cecille Bradley CO2 [Moles/Vol] 32.2 mmol/L Critically high 21.0-32.0 [facility] Comment on above: Performed By: #### C BC #### [facility] [address] [place] [address] Dr. Cecille Bradley Creatinine [Mass/Vol] 0.59 mg/dL Critically low 0.70-1.30 [facility] Comment on above: Performed By: #### C BC #### [facility] [address] [place] [address] Dr. Cecille Bradley EGFR-AF MAURITIAN >60 Normal >=60 [facility] Comment on above: Performed By: #### C BC #### [facility] [address] [place] [address] Dr. Cecille Bradley EGFR-NON AF MAURITIAN >60 Normal >=60 [facility] Comment on above: Performed By: #### C BC #### [facility] [address] [place] [address] Dr. Cecille Bradley Globulin (S) [Mass/Vol] 3.3 g/dL Normal [facility] Comment on above: Performed By: #### C BC #### [facility] [address] [place] [address] Dr. Cecille Bradley Glucose [Mass/Vol] 88 mg/dL Normal 74-106 [facility] Comment on above: Performed By: #### C BC #### [facility] [address] [place] [address] Dr. Cecille Bradley Potassium [Moles/Vol] 4.0 mmol/L Normal 3.5-5.1 [facility] Comment on above: Performed By: #### C BC #### [facility] [address] [place] [address] Dr. Cecille Bradley Protein [Mass/Vol] 6.3 g/dL Critically low 6.4-8.2 [facility] Comment on above: Performed By: #### C BC #### [facility] [address] [place] [address] Dr. Cecille Bradley Sodium [Moles/Vol] 141 mmol/L Normal 136-145 [facility] Comment on above: Performed By: #### C BC #### [facility] [address] [place] [address] Dr. Cecille Bradley Urea nitrogen [Mass/Vol] 17.0 mg/dL Normal 7.0-18.0 [facility] Comment on above: Performed By: #### C BC #### [facility] [address] [place] [address] Dr. Cecille Bradley Urea nitrogen/Creatinine [Mass ratio] 28.8 mg/mg Normal [facility] Comment on above: Performed By: #### C BC #### [facility] [address] [place] [address] Dr. Cecille Bradley CBC AUTO DIFFon 12-18-2022 BASO # 0.0 103/ul Normal 0.0-0.1 [facility] Comment on above: Performed By: #### C MP #### [facility] [address] [place] [address] Dr. Cecille Bradley Basophils/100 WBC (Bld) 0.3 % Normal 0.2-2.0 [facility] Comment on above: Performed By: #### C MP #### [facility] [address] [place] [address] Dr. Cecille Bradley EO # 0.1 103/ul Normal 0.0-0.7 [facility] Comment on above: Performed By: #### C MP #### [facility] [address] [place] [address] Dr. Cecille Bradley Eosinophils/100 WBC (Bld) 1.1 % Normal 0.9-7.0 [facility] Comment on above: Performed By: #### C MP #### [facility] [address] [address] [address] Cecille Bradley Erythrocyte distribution width (RBC) [Ratio] 14.0 % Normal 11.0-15.0 [facility] Comment on above: Performed By: #### C MP #### [facility] [address] [address] [address] Cecille Bradley Hematocrit (Bld) [Volume fraction] 46.1 % Normal 42.0-54.0 [facility] Comment on above: Performed By: #### C MP #### [facility] [address] [place] [address] Dr. Cecille Bradley Hemoglobin (Bld) [Mass/Vol] 15.2 g/dL Normal 14.0-18.0 [facility] Comment on above: Performed By: #### C MP #### [facility] [address] [place] [address] Dr. Cecille Bradley IG # 0.04 10e3/ul Critically high 0.00-0.03 [facility] Comment on above: Performed By: #### C MP #### [facility] [address] [address] [address] Cecille Bradley IG % 0.4 % Normal 0.0-0.5 [facility] Comment on above: Performed By: #### C MP #### [facility] [address] [place] [address] Dr. Cecille Bradley LYMPH # 1.5 103/ul Normal 1.2-3.8 [facility] Comment on above: Performed By: #### C MP #### [facility] [address] [place] [address] Dr. Cecille Bradely Lymphocytes/100 WBC (Bld) 16.5 % Critically low 20.5-60.0 [facility] Comment on above: Performed By: #### C MP #### [facility] [address] [place] [address] Dr. Cecille Bradley MANUAL DIFF REQ NO Normal [facility] Comment on above: Performed By: #### C MP #### [facility] [address] [address] [address] Cecille Bradley MCH (RBC) [Entitic mass] 32.1 pg Normal 25.9-34.0 [facility] Comment on above: Performed By: #### C MP #### [facility] [address] [place] [address] Dr. Cecille Bradley MCHC (RBC) [Mass/Vol] 33.0 g/dL Normal 29.9-35.2 [facility] Comment on above: Performed By: #### C MP #### [facility] [address] [place] [address] Dr. Cecilel Bradley MCV (RBC) [Entitic vol] 97.5 fL Critically high 80.0-94.0 [facility] Comment on above: Performed By: #### C MP #### [facility] [address] [place] [address] Dr. Cecille Bradley MONO # 0.8 103/ul Normal 0.3-0.8 [facility] Comment on above: Performed By: #### C MP #### [facility] [address] [place] [address] Dr. Cecille Bradley Monocytes/100 WBC (Bld) 8.9 % Normal 1.7-12.0 [facility] Comment on above: Performed By: #### C MP #### [facility] [address] [place] [address] Dr. Cecille Bradley NEUT # 6.7 103/ul Critically high 1.4-6.5 [facility] Comment on above: Performed By: #### C MP #### [facility] [address] [place] [address] Dr. Cecille Bradley Neutrophils/100 WBC (Bld) 72.8 % Normal 43.0-75.0 [facility] Comment on above: Performed By: #### C MP #### [facility] [address] [place] [address] Dr. Cecille Bradley Platelet mean volume (Bld) [Entitic vol] 10.6 fL Normal 9.5-13.5 [facility] Comment on above: Performed By: #### C MP #### [facility] [address] [place] [address] Dr. Cecille Bradley PLT 169 103/ul Normal 150-450 [facility] Comment on above: Performed By: #### C MP #### [facility] [address] [place] [address] Dr. Cecille Bradley RBC 4.73 106/ul Normal 4.70-6.10 [facility] Comment on above: Performed By: #### C MP #### [facility] [address] [place] [address] Dr. Cecille Bradley WBC 9.2 103/ul Normal 4.0-11.0 [facility] Comment on above: Performed By: #### C MP #### [facility] [address] [place] [address] Dr. Cecille Bradley PROF 14(COMP METB)on 023 Albumin [Mass/Vol] 2.7 g/dL Critically low 3.4-5.0 [facility] Comment on above: Performed By: #### C BC #### [facility] [address] [place] [address] Dr. Cecille Bradley Albumin/Globulin [Mass ratio] 0.9 {ratio} Normal [facility] Comment on above: Performed By: #### C BC #### [facility] [address] [place] [address] Dr. Cecille Bradley ALP [Catalytic activity/Vol] 57 U/L Normal 46-116 [facility] Comment on above: Performed By: #### C BC #### [facility] [address] [place] [address] Dr. Cecille Bradley ALT [Catalytic activity/Vol] 35 U/L Normal 16-63 [facility] Comment on above: Performed By: #### C BC #### [facility] [address] [place] [address] Dr. Cecille Bradley Anion gap [Moles/Vol] 10.5 mmol/L Normal [facility] Comment on above: Performed By: #### C BC #### [facility] [address] [place] [address] Dr. Cecille Bradley AST [Catalytic activity/Vol] 21 U/L Normal 15-37 [facility] Comment on above: Performed By: #### C BC #### [facility] [address] [place] [address] Dr. Cecille Bradley Bilirubin [Mass/Vol] 1.5 mg/dL Critically high 0.2-1.0 [facility] Comment on above: Performed By: #### C BC #### [facility] [address] [address] [address] Cecille Bradley Calcium [Mass/Vol] 8.8 mg/dL Normal 8.5-10.1 [facility] Comment on above: Performed By: #### C BC #### [facility] [address] [place] [address] Dr. Cecille Bradley Chloride [Moles/Vol] 105 mmol/L Normal 98-107 [facility] Comment on above: Performed By: #### C BC #### [facility] [address] [place] [address] Dr. Cecille Bradley CO2 [Moles/Vol] 30.4 mmol/L Normal 21.0-32.0 [facility] Comment on above: Performed By: #### C BC #### [facility] [address] [place] [address] Dr. Cecille Bradley Creatinine [Mass/Vol] 0.61 mg/dL Critically low 0.70-1.30 [facility] Comment on above: Performed By: #### C BC #### [facility] [address] [place] [address] Dr. Cecille Bradley EGFR-AF MAURITIAN >60 Normal >=60 [facility] Comment on above: Performed By: #### C BC #### [facility] [address] [place] [address] Dr. Cecille Bradley EGFR-NON AF MAURITIAN >60 Normal >=60 [facility] Comment on above: Performed By: #### C BC #### [facility] [address] [place] [address] Dr. Cecille Bradley Globulin (S) [Mass/Vol] 3.1 g/dL Normal [facility] Comment on above: Performed By: #### C BC #### [facility] [address] [address] [address] Cecille Bradley Glucose [Mass/Vol] 92 mg/dL Normal 74-106 [facility] Comment on above: Performed By: #### C BC #### [facility] [address] [address] [address] Cecille Bradley Potassium [Moles/Vol] 3.9 mmol/L Normal 3.5-5.1 [facility] Comment on above: Performed By: #### C BC #### [facility] [address] [address] [address] Cecille Bradley Protein [Mass/Vol] 5.8 g/dL Critically low 6.4-8.2 [facility] Comment on above: Performed By: #### C BC #### [facility] [address] [address] [address] Cecille Bradley Sodium [Moles/Vol] 142 mmol/L Normal 136-145 [facility] Comment on above: Performed By: #### C BC #### [facility] [address] [address] [address] Cecille Bradley Urea nitrogen [Mass/Vol] 19.0 mg/dL Critically high 7.0-18.0 [facility] Comment on above: Performed By: #### C BC #### [facility] [address] [address] [address] Cecille Bradley Urea nitrogen/Creatinine [Mass ratio] 31.1 mg/mg Normal [facility] Comment on above: Performed By: #### C BC #### [facility] [address] [address] [address] Cecille Bradley BNPon 12-17-2022 Natriuretic peptide B (Bld) [Mass/Vol] 640.0 pg/mL Normal <=900.0 [facility] Comment on above: Performed By: #### C BC #### [facility] [address] [address] [address] Cecille Bradley CBC AUTO DIFFon 12-17-2022 BASO # 0.0 103/ul Normal 0.0-0.1 [facility] Comment on above: Performed By: #### C BC #### [facility] [address] [place] [address] Dr. Cecille Bradley Basophils/100 WBC (Bld) 0.2 % Normal 0.2-2.0 [facility] Comment on above: Performed By: #### C BC #### [facility] [address] [place] [address] Dr. Cecille Bradley EO # 0.2 103/ul Normal 0.0-0.7 [facility] Comment on above: Performed By: #### C BC #### [facility] [address] [place] [address] Dr. Cecille Bradley Eosinophils/100 WBC (Bld) 1.8 % Normal 0.9-7.0 [facility] Comment on above: Performed By: #### C BC #### [facility] [address] [place] [address] Dr. Cecille Bradley Erythrocyte distribution width (RBC) [Ratio] 14.1 % Normal 11.0-15.0 [facility] Comment on above: Performed By: #### C BC #### [facility] [address] [place] [address] Dr. Cecille Bradley Hematocrit (Bld) [Volume fraction] 48.8 % Normal 42.0-54.0 [facility] Comment on above: Performed By: #### C BC #### [facility] [address] [place] [address] Dr. Cecille Bradley Hemoglobin (Bld) [Mass/Vol] 16.0 g/dL Normal 14.0-18.0 [facility] Comment on above: Performed By: #### C BC #### [facility] [address] [place] [address] Dr. Cecille Bradley IG # 0.05 10e3/ul Critically high 0.00-0.03 [facility] Comment on above: Performed By: #### C BC #### [facility] [address] [place] [address] Dr. Cecille Bradley IG % 0.6 % Critically high 0.0-0.[address] [facility] Comment on above: Performed By: #### C BC #### [facility] [address] [place] [address] Dr. Cecille Bradley LYMPH # 1.3 103/ul Normal 1.2-3.8 [facility] Comment on above: Performed By: #### C BC #### [facility] [address] [place] [address] Dr. Cecille Bradley Lymphocytes/100 WBC (Bld) 16.0 % Critically low 20.5-60.0 [facility] Comment on above: Performed By: #### C BC #### [facility] [address] [place] [address] Dr. Cecille Bradley MANUAL DIFF REQ NO Normal [facility] Comment on above: Performed By: #### C BC #### [facility] [address] [place] [address] Dr. Cecille Bradley MCH (RBC) [Entitic mass] 31.9 pg Normal 25.9-34.0 [facility] Comment on above: Performed By: #### C BC #### [facility] [address] [place] [address] Dr. Cecille Bradley MCHC (RBC) [Mass/Vol] 32.8 g/dL Normal 29.9-35.2 [facility] Comment on above: Performed By: #### C BC #### [facility] [address] [place] [address] Dr. Cecille Bradley MCV (RBC) [Entitic vol] 97.2 fL Critically high 80.0-94.0 [facility] Comment on above: Performed By: #### C BC #### [facility] [address] [place] [address] Dr. Cecille Bradley MONO # 0.8 103/ul Normal 0.3-0.8 [facility] Comment on above: Performed By: #### C BC #### [facility] [address] [place] [address] Dr. Cecille Bradley Monocytes/100 WBC (Bld) 9.4 % Normal 1.7-12.0 [facility] Comment on above: Performed By: #### C BC #### [facility] [address] [place] [address] Dr. Cecille Bradley NEUT # 6.0 103/ul Normal 1.4-6.5 [facility] Comment on above: Performed By: #### C BC #### [facility] [address] [place] [address] Dr. Cecille Bradley Neutrophils/100 WBC (Bld) 72.0 % Normal 43.0-75.0 [facility] Comment on above: Performed By: #### C BC #### [facility] [address] [place] [address] Dr. Cecille Bradley Platelet mean volume (Bld) [Entitic vol] 10.5 fL Normal 9.5-13.5 [facility] Comment on above: Performed By: #### C BC #### [facility] [address] [place] [address] Dr. Cecille Bradley PLT 170 103/ul Normal 150-450 [facility] Comment on above: Performed By: #### C BC #### [facility] [address] [place] [address] Dr. Cecille Bradley RBC 5.02 106/ul Normal 4.70-6.10 [facility] Comment on above: Performed By: #### C BC #### [facility] [address] [place] [address] Dr. Cecille Bradley WBC 8.3 103/ul Normal 4.0-11.0 [facility] Comment on above: Performed By: #### C BC #### [facility] [address] [place] [address] Dr. Cecille Bradley CULTURE SPUTUMon 12-17-2022 CULTURE SPUTUM Isolate 1 Shirley albicans Light growth of Normal [facility] Comment on above: Performed By: #### C BC #### [facility] [address] [place] [address] Dr. Cecille Bradley [facility]07 SARS-CoV-2 (COVID-19) RNA YUDELKA+probe Ql (Unsp spec) Not detected Normal NOT DETECTED [facility] Comment on above: Result Comment: When [...] for this test is supported by the Battery Repairer of Health and Human Service's declaration that [...] used). Performed By: #### C MP #### [facility] [address] [place] [address] Dr. Cecille Bradley D-DIMERon 12-17-2022 D-DIMER 0.27 mg/L FEU Normal <=0.59 [facility] Comment on above: Performed By: #### C BC #### [facility] [address] [place] [address] Dr. Cecille Bradley D-DIMER COMMENTS SEE BELOW Normal [facility] Comment on above: Result Comment: Incr eases [...] hospitalization. Performed By: #### C BC #### [facility] [address] [place] [address] Dr. Cecille Bradley DIGOXINon 12-17-2022 DIG 0.4 ng/mL Critically low 0.9-2.0 [facility] Comment on above: Performed By: #### C VDTBH #### [facility] [address] [place] [address] Dr. Cecille Bradley GLYCOHEMOGLOBIN A1Con 2022 ADA RECOMMENDATION SEE BELOW Normal [facility] Comment on above: Result Comment: ADA RECOMMENDED LIMIT 4.0 - 6.0 ADA THERAPEUTIC TARGET < 7.0 ACTION SUGGESTED > 7.0 Performed By: #### A 1C #### [facility] [address] [address] [address] Cecille Bradley Glucose [Mass/Vol] 114 mg/dL Normal [facility] Comment on above: Performed By: #### A 1C #### [facility] [address] [place] [address] Dr. Cecille Bradley HbA1c (Bld) [Mass fraction] 5.6 % Normal 4.5-6.2 [facility] Comment on above: Performed By: #### A 1C #### [facility] [address] [place] [address] Dr. Cecille Bradley MAGNESIUMon 12-17-2022 Magnesium [Mass/Vol] 2.2 mg/dL Normal 1.8-2.4 [facility] Comment on above: Performed By: #### C BC #### [facility] [address] [place] [address] Dr. Cecille Bradley PROF 14(COMP METB)on 023 Albumin [Mass/Vol] 2.8 g/dL Critically low 3.4-5.0 [facility] Comment on above: Performed By: #### C BC #### [facility] [address] [place] [address] Dr. Cecille Bradley Albumin/Globulin [Mass ratio] 0.9 {ratio} Normal [facility] Comment on above: Performed By: #### C BC #### [facility] [address] [place] [address] Dr. Cecille Bradley ALP [Catalytic activity/Vol] 60 U/L Normal 46-116 [facility] Comment on above: Performed By: #### C BC #### [facility] [address] [place], [place] [id number] Dr. Cecille Bradley ALT [Catalytic activity/Vol] 34 U/L Normal 16-63 [facility] Comment on above: Performed By: #### C BC #### [facility] [address] [place] [address] Dr. Cecille Bradley Anion gap [Moles/Vol] 11.5 mmol/L Normal [facility] Comment on above: Performed By: #### C BC #### [facility] [address] [address] [address] Cecille Bradley AST [Catalytic activity/Vol] 18 U/L Normal 15-37 [facility] Comment on above: Performed By: #### C BC #### [facility] [address] [place] [address] Dr. Cecille Bradley Bilirubin [Mass/Vol] 1.9 mg/dL Critically high 0.2-1.0 [facility] Comment on above: Performed By: #### C BC #### [facility] [address] [place] [address] Dr. Cecille Bradley Calcium [Mass/Vol] 8.6 mg/dL Normal 8.5-10.1 [facility] Comment on above: Performed By: #### C BC #### [facility] [address] [place] [address] Dr. Cecille Bradley Chloride [Moles/Vol] 104 mmol/L Normal 98-107 [facility] Comment on above: Performed By: #### C BC #### [facility] [address] [place] [address] Dr. Cecille Bradley CO2 [Moles/Vol] 31.5 mmol/L Normal 21.0-32.0 [facility] Comment on above: Performed By: #### C BC #### [facility] [address] [place] [address] Dr. Cecille Bradley Creatinine [Mass/Vol] 0.61 mg/dL Critically low 0.70-1.30 [facility] Comment on above: Performed By: #### C BC #### [facility] [address] [place] [address] Dr. Cecille Bradley EGFR-AF MAURITIAN >60 Normal >=60 [facility] Comment on above: Performed By: #### C BC #### [facility] [address] [address] [address] Cecille Bradley EGFR-NON AF MAURITIAN >60 Normal >=60 [facility] Comment on above: Performed By: #### C BC #### [facility] [address] [address] [address] Cecille Bradley Globulin (S) [Mass/Vol] 3.2 g/dL Normal [facility] Comment on above: Performed By: #### C BC #### [facility] [address] [address] [address] Cecille Bradley Glucose [Mass/Vol] 85 mg/dL Normal 74-106 [facility] Comment on above: Performed By: #### C BC #### [facility] [address] [address] [address] Cecille Bradley Potassium [Moles/Vol] 4.0 mmol/L Normal 3.5-5.1 [facility] Comment on above: Performed By: #### C BC #### [facility] [address] [address] [address] Cecille Bradley Protein [Mass/Vol] 6.0 g/dL Critically low 6.4-8.2 [facility] Comment on above: Performed By: #### C BC #### [facility] [address] [address] [address] Cecille Bradley Sodium [Moles/Vol] 143 mmol/L Normal 136-145 [facility] Comment on above: Performed By: #### C BC #### [facility] [address] [address] [address] Cecille Bradley Urea nitrogen [Mass/Vol] 17.0 mg/dL Normal 7.0-18.0 [facility] Comment on above: Performed By: #### C BC #### [facility] [address] [address] [address] Cecille Bradley Urea nitrogen/Creatinine [Mass ratio] 27.9 mg/mg Normal [facility] Comment on above: Performed By: #### C BC #### [facility] [address] [place] [address] Dr. Cecille Bradley TSHon 12-17-2022 TSH 0.734 uIU/mL Normal 0.358-3.740 [facility] Comment on above: Performed By: #### C BC #### [facility] [address] [place] [address] Dr. Cecille Bradley CBC AUTO DIFFon 12-16-2022 BASO # 0.0 103/ul Normal 0.0-0.1 [facility] Comment on above: Performed By: #### C BC #### [facility] [address] [place] [address] Dr. Cecille Bradley Basophils/100 WBC (Bld) 0.2 % Normal 0.2-2.0 [facility] Comment on above: Performed By: #### C BC #### [facility] [address] [place] [address] Dr. Cecille Bradley EO # 0.2 103/ul Normal 0.0-0.7 [facility] Comment on above: Performed By: #### C BC #### [facility] [address] [place] [address] Dr. Cecille Bradley Eosinophils/100 WBC (Bld) 1.0 % Normal 0.9-7.0 [facility] Comment on above: Performed By: #### C BC #### [facility] [address] [place] [address] Dr. Cecille Bradley Erythrocyte distribution width (RBC) [Ratio] 14.2 % Normal 11.0-15.0 [facility] Comment on above: Performed By: #### C BC #### [facility] [address] [place] [address] Dr. Cecille Bradley Hematocrit (Bld) [Volume fraction] 52.2 % Normal 42.0-54.0 [facility] Comment on above: Performed By: #### C BC #### [facility] [address] [place] [address] Dr. Cecille Bradley Hemoglobin (Bld) [Mass/Vol] 16.8 g/dL Normal 14.0-18.0 [facility] Comment on above: Performed By: #### C BC #### [facility] [address] [place] [address] Dr. Cecille Bradley IG # 0.07 10e3/ul Critically high 0.00-0.03 [facility] Comment on above: Performed By: #### C BC #### [facility] [address] [place] [address] Dr. Cecille Bradley IG % 0.5 % Normal 0.0-0.5 [facility] Comment on above: Performed By: #### C BC #### [facility] [address] [place] [address] Dr. Cecille Bradley LYMPH # 1.3 103/ul Normal 1.2-3.8 [facility] Comment on above: Performed By: #### C BC #### [facility] [address] [place] [address] Dr. Cecille Bradley Lymphocytes/100 WBC (Bld) 8.5 % Critically low 20.5-60.0 [facility] Comment on above: Performed By: #### C BC #### [facility] [address] [place] [address] Dr. Cecille Bradley MANUAL DIFF REQ NO Normal [facility] Comment on above: Performed By: #### C BC #### [facility] [address] [place] [address] Dr. Cecille Bradley MCH (RBC) [Entitic mass] 31.0 pg Normal 25.9-34.0 [facility] Comment on above: Performed By: #### C BC #### [facility] [address] [place] [address] Dr. Cecille Bradley MCHC (RBC) [Mass/Vol] 32.2 g/dL Normal 29.9-35.2 [facility] Comment on above: Performed By: #### C BC #### [facility] [address] [place] [address] Dr. Cecille Bradley MCV (RBC) [Entitic vol] 96.3 fL Critically high 80.0-94.0 [facility] Comment on above: Performed By: #### C BC #### [facility] [address] [address] [address] Cecille Bradley MONO # 1.4 103/ul Critically high 0.3-0.8 [facility] Comment on above: Performed By: #### C BC #### [facility] [address] [address] [address] Cecille Bradley Monocytes/100 WBC (Bld) 9.0 % Normal 1.7-12.0 [facility] Comment on above: Performed By: #### C BC #### [facility] [address] [address] [address] Cecille Bradley NEUT # 12.4 103/ul Critically high 1.4-6.5 [facility] Comment on above: Performed By: #### C BC #### [facility] [address] [place] [address] Dr. Cecille Bradley Neutrophils/100 WBC (Bld) 80.8 % Critically high 43.0-75.0 [facility] Comment on above: Performed By: #### C BC #### [facility] [address] [address] [address] Cecille Bradley Platelet mean volume (Bld) [Entitic vol] 10.2 fL Normal 9.5-13.5 [facility] Comment on above: Performed By: #### C BC #### [facility] [address] [address] [address] Cecille Bradley PLT 218 103/ul Normal 150-450 [facility] Comment on above: Performed By: #### C BC #### [facility] [address] [address] [address] Cecille Bradley RBC 5.42 106/ul Normal 4.70-6.10 [facility] Comment on above: Performed By: #### C BC #### [facility] [address] [address] [address] Cecille Bradley WBC 15.3 103/ul Critically high 4.0-11.0 [facility] Comment on above: Performed By: #### C BC #### [facility] [address] [place] [address] Dr. Cecille Bradley MAGNESIUMon 12-16-2022 Magnesium [Mass/Vol] 2.1 mg/dL Normal 1.8-2.4 [facility] Comment on above: Performed By: #### C BC #### [facility] [address] [place] [address] Dr. Cecille Bradley PROF 14(COMP METB)on 023 Albumin [Mass/Vol] 3.2 g/dL Critically low 3.4-5.0 Th [facility] Comment on above: Performed By: #### C BC #### [facility] [address] [place] [address] Dr. Cecille Bradley Albumin/Globulin [Mass ratio] 0.9 {ratio} Normal [facility] Comment on above: Performed By: #### C BC #### [facility] [address] [place] [address] Dr. Cecille Bradley ALP [Catalytic activity/Vol] 71 U/L Normal 46-116 [facility] Comment on above: Performed By: #### C BC #### [facility] [address] [place] [address] Dr. Cecille Bradley ALT [Catalytic activity/Vol] 40 U/L Normal 16-63 [facility] Comment on above: Performed By: #### C BC #### [facility] [address] [place] [address] Dr. Cecille Bradley Anion gap [Moles/Vol] 10.4 mmol/L Normal [facility] Comment on above: Performed By: #### C BC #### [facility] [address] [place] [address] Dr. Cecille Bradley AST [Catalytic activity/Vol] 25 U/L Normal 15-37 [facility] Comment on above: Performed By: #### C BC #### [facility] [address] [place] [address] Dr. Cecille Bradley Bilirubin [Mass/Vol] 1.9 mg/dL Critically high 0.2-1.0 [facility] Comment on above: Performed By: #### C BC #### [facility] [address] [address] [address] Cecille Bradley Calcium [Mass/Vol] 8.9 mg/dL Normal 8.5-10.1 [facility] Comment on above: Performed By: #### C BC #### [facility] [address] [address] [address] Cecille Bradley Chloride [Moles/Vol] 101 mmol/L Normal 98-107 [facility] Comment on above: Performed By: #### C BC #### [facility] [address] [address] [address] Cecille Bradley CO2 [Moles/Vol] 30.6 mmol/L Normal 21.0-32.0 [facility] Comment on above: Performed By: #### C BC #### [facility] [address] [place] [address] Dr. Cecille Bradley Creatinine [Mass/Vol] 0.63 mg/dL Critically low 0.70-1.30 [facility] Comment on above: Performed By: #### C BC #### [facility] [address] [place] [address] Dr. Cecille Bradley EGFR-AF MAURITIAN >60 Normal >=60 [facility] Comment on above: Performed By: #### C BC #### [facility] [address] [place] [address] Dr. Cecille Bradley EGFR-NON AF MAURITIAN >60 Normal >=60 [facility] Comment on above: Performed By: #### C BC #### [facility] [address] [place] [address] Dr. Cecille Bradley Globulin (S) [Mass/Vol] 3.4 g/dL Normal [facility] Comment on above: Performed By: #### C BC #### [facility] [address] [place] [address] Dr. Cecille Bradley Glucose [Mass/Vol] 99 mg/dL Normal 74-106 [facility] Comment on above: Performed By: #### C BC #### [facility] [address] [place] [address] Dr. Cecille Bradley Potassium [Moles/Vol] 4.0 mmol/L Normal 3.5-5.1 [facility] Comment on above: Performed By: #### C BC #### [facility] [address] [address] [address] Cecille Bradley Protein [Mass/Vol] 6.6 g/dL Normal 6.4-8.2 [facility] Comment on above: Performed By: #### C BC #### [facility] [address] [address] [address] Cecille Bradley Sodium [Moles/Vol] 138 mmol/L Normal 136-145 [facility] Comment on above: Performed By: #### C BC #### [facility] [address] [address] [address] Cecille Bradley Urea nitrogen [Mass/Vol] 18.0 mg/dL Normal 7.0-18.0 [facility] Comment on above: Performed By: #### C BC #### [facility] [address] [address] [address] Cecille Bradley Urea nitrogen/Creatinine [Mass ratio] 28.6 mg/mg Normal [facility] Comment on above: Performed By: #### C BC #### [facility] [address] [id number] Cecille Bradley XR CHEST 1 Von [...] KANDI LUU Date: 2022-12-16 12:59 Normal [facility] CBC AUTO DIFFon 12-15-2022 BASO # 0.0 103/ul Normal 0.0-0.1 [facility] Comment on above: Performed By: #### C BC #### [facility] [address] [address] [address] Cecille Bradley Basophils/100 WBC (Bld) 0.2 % Normal 0.2-2.0 [facility] Comment on above: Performed By: #### C BC #### [facility] [address] [address] [address] Cecille Bradley EO # 0.1 103/ul Normal 0.0-0.7 [facility] Comment on above: Performed By: #### C BC #### [facility] [address] [place] [address] Dr. Cecille Bradley Eosinophils/100 WBC (Bld) 1.4 % Normal 0.9-7.0 [facility] Comment on above: Performed By: #### C BC #### [facility] [address] [place] [address] Dr. Cecille Bradley Erythrocyte distribution width (RBC) [Ratio] 14.2 % Normal 11.0-15.0 [facility] Comment on above: Performed By: #### C BC #### [facility] [address] [place] [address] Dr. Cecille Bradley Hematocrit (Bld) [Volume fraction] 50.4 % Normal 42.0-54.0 [facility] Comment on above: Performed By: #### C BC #### [facility] [address] [place] [address] Dr. Cecille Bradley Hemoglobin (Bld) [Mass/Vol] 16.6 g/dL Normal 14.0-18.0 [facility] Comment on above: Performed By: #### C BC #### [facility] [address] [place] [address] Dr. Cecille Bradley IG # 0.04 10e3/ul Critically high 0.00-0.03 [facility] Comment on above: Performed By: #### C BC #### [facility] [address] [place] [address] Dr. Cecille Bradley IG % 0.5 % Normal 0.0-0.5 [facility] Comment on above: Performed By: #### C BC #### [facility] [address] [place] [address] Dr. Cecille Bradley LYMPH # 1.1 103/ul Critically low 1.2-3.8 [facility] Comment on above: Performed By: #### C BC #### [facility] [address] [place] [address] Dr. Cecille Bradley Lymphocytes/100 WBC (Bld) 13.5 % Critically low 20.5-60.0 [facility] Comment on above: Performed By: #### C BC #### [facility] [address] [place] [address] Dr. Cecille Bradley MANUAL DIFF REQ NO Normal [facility] Comment on above: Performed By: #### C BC #### [facility] [address] [place] [address] Dr. Cecille Bradley MCH (RBC) [Entitic mass] 31.9 pg Normal 25.9-34.0 [facility] Comment on above: Performed By: #### C BC #### [facility] [address] [place] [address] Dr. Cceille Bradley MCHC (RBC) [Mass/Vol] 32.9 g/dL Normal 29.9-35.2 [facility] Comment on above: Performed By: #### C BC #### [facility] [address] [place] [address] Dr. Cecille Bradley MCV (RBC) [Entitic vol] 96.7 fL Critically high 80.0-94.0 [facility] Comment on above: Performed By: #### C BC #### [facility] [address] [place] [address] Dr. Cecille Bradley MONO # 0.7 103/ul Normal 0.3-0.8 [facility] Comment on above: Performed By: #### C BC #### [facility] [address] [place] [address] Dr. Cecille Bradley Monocytes/100 WBC (Bld) 8.7 % Normal 1.7-12.0 [facility] Comment on above: Performed By: #### C BC #### [facility] [address] [place] [address] Dr. Cecille Bradley NEUT # 6.2 103/ul Normal 1.4-6.5 [facility] Comment on above: Performed By: #### C BC #### [facility] [address] [place] [address] Dr. Cecille Bradley Neutrophils/100 WBC (Bld) 75.7 % Critically high 43.0-75.0 [facility] Comment on above: Performed By: #### C BC #### [facility] [address] [place] [address] Dr. Cecille Bradley Platelet mean volume (Bld) [Entitic vol] 10.4 fL Normal 9.5-13.5 [facility] Comment on above: Performed By: #### C BC #### [facility] [address] [place] [address] Dr. Cecille Bradley PLT 187 103/ul Normal 150-450 [facility] Comment on above: Performed By: #### C BC #### [facility] [address] [place] [address] Dr. Cecille Bradley RBC 5.21 106/ul Normal 4.70-6.10 [facility] Comment on above: Performed By: #### C BC #### [facility] [address] [place] [address] Dr. Cecille Bradley WBC 8.1 103/ul Normal 4.0-11.0 [facility] Comment on above: Performed By: #### C BC #### [facility] [address] [place] [address] Dr. Cecille Bradley MAGNESIUMon 12-15-2022 Magnesium [Mass/Vol] 2.2 mg/dL Normal 1.8-2.4 [facility] Comment on above: Performed By: #### C MP #### [facility] [address] [place] [address] Dr. Cecille Bradley PROF 14(COMP METB)on 023 Albumin [Mass/Vol] 2.9 g/dL Critically low 3.4-5.0 Th [facility] Comment on above: Performed By: #### C MP #### [facility] [address] [place] [address] Dr. Cecille Bradley Albumin/Globulin [Mass ratio] 0.9 {ratio} Normal [facility] Comment on above: Performed By: #### C MP #### [facility] [address] [place] [address] Dr. Cecille Bradley ALP [Catalytic activity/Vol] 68 U/L Normal 46-116 [facility] Comment on above: Performed By: #### C MP #### [facility] [address] [place] [address] Dr. Cecille Bradley ALT [Catalytic activity/Vol] 35 U/L Normal 16-63 [facility] Comment on above: Performed By: #### C MP #### [facility] [address] [place] [address] Dr. Cecille Bradley Anion gap [Moles/Vol] 9.1 mmol/L Normal [facility] Comment on above: Performed By: #### C MP #### [facility] [address] [place] [address] Dr. Cecille Bradley AST [Catalytic activity/Vol] 26 U/L Normal 15-37 [facility] Comment on above: Performed By: #### C MP #### [facility] [address] [place] [address] Dr. Cecille Bradley Bilirubin [Mass/Vol] 1.7 mg/dL Critically high 0.2-1.0 [facility] Comment on above: Performed By: #### C MP #### [facility] [address] [place] [address] Dr. Cecille Bradley Calcium [Mass/Vol] 8.7 mg/dL Normal 8.5-10.1 [facility] Comment on above: Performed By: #### C MP #### [facility] [address] [place] [address] Dr. Cecille Bradley Chloride [Moles/Vol] 103 mmol/L Normal 98-107 [facility] Comment on above: Performed By: #### C MP #### [facility] [address] [address] [address] Cecille Bradley CO2 [Moles/Vol] 30.0 mmol/L Normal 21.0-32.0 [facility] Comment on above: Performed By: #### C MP #### [facility] [address] [address] [address] Cecille Bradley Creatinine [Mass/Vol] 0.61 mg/dL Critically low 0.70-1.30 [facility] Comment on above: Performed By: #### C MP #### [facility] [address] [place] [address] Dr. Cecille Bradley EGFR-AF MAURITIAN >60 Normal >=60 [facility] Comment on above: Performed By: #### C MP #### [facility] [address] [place] [address] Dr. Cecille Bradley EGFR-NON AF MAURITIAN >60 Normal >=60 [facility] Comment on above: Performed By: #### C MP #### [facility] [address] [address] [address] Cecille Bradley Globulin (S) [Mass/Vol] 3.2 g/dL Normal [facility] Comment on above: Performed By: #### C MP #### [facility] [address] [place] [address] Dr. Cecille Bradley Glucose [Mass/Vol] 94 mg/dL Normal 74-106 [facility] Comment on above: Performed By: #### C MP #### [facility] [address] [address] [address] Cecille Bradley Potassium [Moles/Vol] 4.1 mmol/L Normal 3.5-5.1 [facility] Comment on above: Performed By: #### C MP #### [facility] [address] [address] [address] Cecille Bradley Protein [Mass/Vol] 6.1 g/dL Critically low 6.4-8.2 [facility] Comment on above: Performed By: #### C MP #### [facility] [address] [place] [address] Dr. Cecille Bradley Sodium [Moles/Vol] 138 mmol/L Normal 136-145 [facility] Comment on above: Performed By: #### C MP #### [facility] [address] [place] [address] Dr. Cecille Bradley Urea nitrogen [Mass/Vol] 18.0 mg/dL Normal 7.0-18.0 [facility] Comment on above: Performed By: #### C MP #### [facility] [address] [place] [address] Dr. Cecille Bradley Urea nitrogen/Creatinine [Mass ratio] 29.5 mg/mg Normal [facility] Comment on above: Performed By: #### C MP #### [facility] [address] [place] [address] Dr. Cecille Bradley CBC AUTO DIFFon 12-14-2022 BASO # 0.0 103/ul Normal 0.0-0.1 [facility] Comment on above: Performed By: #### C BC #### [facility] [address] [place] [address] Dr. Cecille Bradley Basophils/100 WBC (Bld) 0.1 % Critically low 0.2-2.0 [facility] Comment on above: Performed By: #### C BC #### [facility] [address] [place] [address] Dr. Cecille Bradley EO # 0.1 103/ul Normal 0.0-0.7 [facility] Comment on above: Performed By: #### C BC #### [facility] [address] [place] [address] Dr. Cecille Bradley Eosinophils/100 WBC (Bld) 0.9 % Normal 0.9-7.0 [facility] Comment on above: Performed By: #### C BC #### [facility] [address] [place] [address] Dr. Cecille Bradley Erythrocyte distribution width (RBC) [Ratio] 14.3 % Normal 11.0-15.0 [facility] Comment on above: Performed By: #### C BC #### [facility] [address] [place] [address] Dr. Cecille Bradley Hematocrit (Bld) [Volume fraction] 52.6 % Normal 42.0-54.0 [facility] Comment on above: Performed By: #### C BC #### [facility] [address] [place] [address] Dr. Cecille Bradley Hemoglobin (Bld) [Mass/Vol] 16.8 g/dL Normal 14.0-18.0 [facility] Comment on above: Performed By: #### C BC #### [facility] [address] [place] [address] Dr. Cecille Bradley IG # 0.04 10e3/ul Critically high 0.00-0.03 [facility] Comment on above: Performed By: #### C BC #### [facility] [address] [place] [address] Dr. Cecille Bradley IG % 0.5 % Normal 0.0-0.5 [facility] Comment on above: Performed By: #### C BC #### [facility] [address] [place] [address] Dr. Cecille Bradley LYMPH # 1.1 103/ul Critically low 1.2-3.8 [facility] Comment on above: Performed By: #### C BC #### [facility] [address] [place] [address] Dr. Cecille Bradley Lymphocytes/100 WBC (Bld) 13.8 % Critically low 20.5-60.0 [facility] Comment on above: Performed By: #### C BC #### [facility] [address] [place] [address] Dr. Cecille Bradley MANUAL DIFF REQ NO Normal [facility] Comment on above: Performed By: #### C BC #### [facility] [address] [place] [address] Dr. Cecille Bradley MCH (RBC) [Entitic mass] 31.9 pg Normal 25.9-34.0 [facility] Comment on above: Performed By: #### C BC #### [facility] [address] [address] [address] Cecille Bradley MCHC (RBC) [Mass/Vol] 31.9 g/dL Normal 29.9-35.2 [facility] Comment on above: Performed By: #### C BC #### [facility] [address] [address] [address] Cecille Bradley MCV (RBC) [Entitic vol] 100.0 fL Critically high 80.0-94.0 [facility] Comment on above: Performed By: #### C BC #### [facility] [address] [address] [address] Cecille Bradley MONO # 0.7 103/ul Normal 0.3-0.8 [facility] Comment on above: Performed By: #### C BC #### [facility] [address] [place] [address] Dr. Cecille Bradley Monocytes/100 WBC (Bld) 8.5 % Normal 1.7-12.0 [facility] Comment on above: Performed By: #### C BC #### [facility] [address] [place] [address] Dr. Cecille Bradley NEUT # 5.9 103/ul Normal 1.4-6.5 [facility] Comment on above: Performed By: #### C BC #### [facility] [address] [place] [address] Dr. Cecille Bradley Neutrophils/100 WBC (Bld) 76.2 % Critically high 43.0-75.0 [facility] Comment on above: Performed By: #### C BC #### [facility] [address] [place] [address] Dr. Cecille Bradley Platelet mean volume (Bld) [Entitic vol] 10.3 fL Normal 9.5-13.5 [facility] Comment on above: Performed By: #### C BC #### [facility] [address] [place] [address] Dr. Cecille Bradley PLT 174 103/ul Normal 150-450 [facility] Comment on above: Performed By: #### C BC #### [facility] [address] [place] [address] Dr. Cecille Bradley RBC 5.26 106/ul Normal 4.70-6.10 [facility] Comment on above: Performed By: #### C BC #### [facility] [address] [place] [address] Dr. Cecille Bradley WBC 7.7 103/ul Normal 4.0-11.0 [facility] Comment on above: Performed By: #### C BC #### [facility] [address] [place] [address] Dr. Cecille Bradley MAGNESIUMon 12-14-2022 Magnesium [Mass/Vol] 2.4 mg/dL Normal 1.8-2.4 [facility] Comment on above: Performed By: #### C BC #### [facility] [address] [place] [address] Dr. Cecille Bradley PROF 14(COMP METB)on 023 Albumin [Mass/Vol] 2.9 g/dL Critically low 3.4-5.0 [facility] Comment on above: Performed By: #### C BC #### [facility] [address] [place] [address] Dr. Cecille Bradley Albumin/Globulin [Mass ratio] 0.9 {ratio} Normal [facility] Comment on above: Performed By: #### C BC #### [facility] [address] [place] [address] Dr. Cecille Bradley ALP [Catalytic activity/Vol] 71 U/L Normal 46-116 [facility] Comment on above: Performed By: #### C BC #### [facility] [address] [place] [address] Dr. Cecille Bradley ALT [Catalytic activity/Vol] 32 U/L Normal 16-63 [facility] Comment on above: Performed By: #### C BC #### [facility] [address] [place] [address] Dr. Cecille Bradley Anion gap [Moles/Vol] 9.0 mmol/L Normal [facility] Comment on above: Performed By: #### C BC #### [facility] [address] [address] [address] Cecille Bradley AST [Catalytic activity/Vol] 22 U/L Normal 15-37 [facility] Comment on above: Performed By: #### C BC #### [facility] [address] [place] [address] Dr. Cecille Bradley Bilirubin [Mass/Vol] 1.9 mg/dL Critically high 0.2-1.0 [facility] Comment on above: Performed By: #### C BC #### [facility] [address] [place] [address] Dr. Cecille Bradley Calcium [Mass/Vol] 8.7 mg/dL Normal 8.5-10.1 [facility] Comment on above: Performed By: #### C BC #### [facility] [address] [place] [address] Dr. Cecille Bradley Chloride [Moles/Vol] 101 mmol/L Normal 98-107 [facility] Comment on above: Performed By: #### C BC #### [facility] [address] [place] [address] Dr. Cecille Bradley CO2 [Moles/Vol] 30.9 mmol/L Normal 21.0-32.0 [facility] Comment on above: Performed By: #### C BC #### [facility] [address] [place] [address] Dr. Cecille Bradley Creatinine [Mass/Vol] 0.56 mg/dL Critically low 0.70-1.30 [facility] Comment on above: Performed By: #### C BC #### [facility] [address] [place] [address] Dr. Cecille Bradley EGFR-AF MAURITIAN >60 Normal >=60 [facility] Comment on above: Performed By: #### C BC #### [facility] [address] [place] [address] Dr. Cecille Bradley EGFR-NON AF MAURITIAN >60 Normal >=60 [facility] Comment on above: Performed By: #### C BC #### [facility] [address] [place] [address] Dr. Cecille Bradley Globulin (S) [Mass/Vol] 3.3 g/dL Normal [facility] Comment on above: Performed By: #### C BC #### [facility] [address] [address] [address] Cecille Bradley Glucose [Mass/Vol] 93 mg/dL Normal 74-106 [facility] Comment on above: Performed By: #### C BC #### [facility] [address] [address] [address] Cecille Bradley Potassium [Moles/Vol] 3.9 mmol/L Normal 3.5-5.1 [facility] Comment on above: Performed By: #### C BC #### [facility] [address] [place] [address] Dr. Cecille Bradley Protein [Mass/Vol] 6.2 g/dL Critically low 6.4-8.2 [facility] Comment on above: Performed By: #### C BC #### [facility] [address] [place] [address] Dr. Cecille Bradley Sodium [Moles/Vol] 137 mmol/L Normal 136-145 [facility] Comment on above: Performed By: #### C BC #### [facility] [address] [place] [address] Dr. Cecille Bradley Urea nitrogen [Mass/Vol] 18.0 mg/dL Normal 7.0-18.0 [facility] Comment on above: Performed By: #### C BC #### [facility] [address] [place] [address] Dr. Cecille Bradley Urea nitrogen/Creatinine [Mass ratio] 32.1 mg/mg Normal [facility] Comment on above: Performed By: #### C BC #### [facility] [address] [place] [address] Dr. Cecille Bradley CBC AUTO DIFFon 12-13-2022 BASO # 0.0 103/ul Normal 0.0-0.1 [facility] Comment on above: Performed By: #### C BC #### [facility] [address] [place] [address] Dr. Cecille Braldey Basophils/100 WBC (Bld) 0.1 % Critically low 0.2-2.0 [facility] Comment on above: Performed By: #### C BC #### [facility] [address] [place] [address] Dr. Cecille Bradley EO # 0.0 103/ul Normal 0.0-0.7 [facility] Comment on above: Performed By: #### C BC #### [facility] [address] [place] [address] Dr. Cecille Bradley Eosinophils/100 WBC (Bld) 0.2 % Critically low 0.9-7.0 [facility] Comment on above: Performed By: #### C BC #### [facility] [address] [place] [address] Dr. Cecille Bradley Erythrocyte distribution width (RBC) [Ratio] 14.4 % Normal 11.0-15.0 [facility] Comment on above: Performed By: #### C BC #### [facility] [address] [place] [address] Dr. Cecille Bradley Hematocrit (Bld) [Volume fraction] 50.2 % Normal 42.0-54.0 [facility] Comment on above: Performed By: #### C BC #### [facility] [address] [place] [address] Dr. Cecille Bradley Hemoglobin (Bld) [Mass/Vol] 15.7 g/dL Normal 14.0-18.0 [facility] Comment on above: Performed By: #### C BC #### [facility] [address] [place] [address] Dr. Cecille Bradley IG # 0.01 10e3/ul Normal 0.00-0.03 [facility] Comment on above: Performed By: #### C BC #### [facility] [address] [place] [address] Dr. Cecille Bradley IG % 0.1 % Normal 0.0-0.5 [facility] Comment on above: Performed By: #### C BC #### [facility] [address] [place] [address] Dr. Cecille Bradley LYMPH # 1.1 103/ul Critically low 1.2-3.8 [facility] Comment on above: Performed By: #### C BC #### [facility] [address] [place] [address] Dr. Cecille Bradley Lymphocytes/100 WBC (Bld) 13.1 % Critically low 20.5-60.0 [facility] Comment on above: Performed By: #### C BC #### [facility] [address] [place] [address] Dr. Cecille Bradley MANUAL DIFF REQ NO Normal [facility] Comment on above: Performed By: #### C BC #### [facility] [address] [place] [address] Dr. Cecille Bradley MCH (RBC) [Entitic mass] 31.7 pg Normal 25.9-34.0 [facility] Comment on above: Performed By: #### C BC #### [facility] [address] [place] [address] Dr. Cecille Bradley MCHC (RBC) [Mass/Vol] 31.3 g/dL Normal 29.9-35.2 [facility] Comment on above: Performed By: #### C BC #### [facility] [address] [place] [address] Dr. Cecille Bradley MCV (RBC) [Entitic vol] 101.4 fL Critically high 80.0-94.0 [facility] Comment on above: Performed By: #### C BC #### [facility] [address] [place] [address] Dr. Cecille Bradley MONO # 0.7 103/ul Normal 0.3-0.8 [facility] Comment on above: Performed By: #### C BC #### [facility] [address] [place] [address] Dr. Cecille Bradley Monocytes/100 WBC (Bld) 8.5 % Normal 1.7-12.0 [facility] Comment on above: Performed By: #### C BC #### [facility] [address] [place] [address] Dr. Cecille Bradley NEUT # 6.3 103/ul Normal 1.4-6.5 [facility] Comment on above: Performed By: #### C BC #### [facility] [address] [place] [address] Dr. Cecille Bradley Neutrophils/100 WBC (Bld) 78.0 % Critically high 43.0-75.0 [facility] Comment on above: Performed By: #### C BC #### [facility] [address] [place] [address] Dr. Cecille Bradley Platelet mean volume (Bld) [Entitic vol] 10.5 fL Normal 9.5-13.5 [facility] Comment on above: Performed By: #### C BC #### [facility] [address] [place] [address] Dr. Cecille Bradley PLT 178 103/ul Normal 150-450 [facility] Comment on above: Performed By: #### C BC #### [facility] [address] [place] [address] Dr. Cecille Bradley RBC 4.95 106/ul Normal 4.70-6.10 [facility] Comment on above: Performed By: #### C BC #### [facility] [address] [place] [address] Dr. Cecille Bradley WBC 8.1 103/ul Normal 4.0-11.0 [facility] Comment on above: Performed By: #### C BC #### [facility] [address] [place] [address] Dr. Cecille Bradley CULTURE SPUTUMon 12-13-2022 CULTURE SPUTUM Culture Observations : NORMAL RESPIRATORY BARBARA. Normal [facility] Comment on above: Performed By: #### S PUTCX #### [facility] [address] [place] [address] Dr. Cecille Bradley MAGNESIUMon 12-13-2022 Magnesium [Mass/Vol] 2.2 mg/dL Normal 1.8-2.4 [facility] Comment on above: Performed By: #### C BC #### [facility] [address] [place] [address] Dr. Cecille Bradley PROF 14(COMP METB)on 023 Albumin [Mass/Vol] 2.9 g/dL Critically low 3.4-5.0 [facility] Comment on above: Performed By: #### C BC #### [facility] [address] [place] [address] Dr. Cecille Bradley Albumin/Globulin [Mass ratio] 0.9 {ratio} Normal [facility] Comment on above: Performed By: #### C BC #### [facility] [address] [place] [address] Dr. Cecille Bradley ALP [Catalytic activity/Vol] 70 U/L Normal 46-116 [facility] Comment on above: Performed By: #### C BC #### [facility] [address] [place] [address] Dr. Cecille Bradley ALT [Catalytic activity/Vol] 31 U/L Normal 16-63 [facility] Comment on above: Performed By: #### C BC #### [facility] [address] [place] [address] Dr. Cecille Bradley Anion gap [Moles/Vol] 8.2 mmol/L Normal [facility] Comment on above: Performed By: #### C BC #### [facility] [address] [place] [address] Dr. Cecille Bradley AST [Catalytic activity/Vol] 20 U/L Normal 15-37 [facility] Comment on above: Performed By: #### C BC #### [facility] [address] [place] [address] Dr. Cecille Bradley Bilirubin [Mass/Vol] 2.0 mg/dL Critically high 0.2-1.0 [facility] Comment on above: Performed By: #### C BC #### [facility] [address] [place] [address] Dr. Cecille Bradley Calcium [Mass/Vol] 8.6 mg/dL Normal 8.5-10.1 [facility] Comment on above: Performed By: #### C BC #### [facility] [address] [place] [address] Dr. Cecille Bradley Chloride [Moles/Vol] 100 mmol/L Normal 98-107 [facility] Comment on above: Performed By: #### C BC #### [facility] [address] [address] [address] Cecille Bradley CO2 [Moles/Vol] 33.2 mmol/L Critically high 21.0-32.0 [facility] Comment on above: Performed By: #### C BC #### [facility] [address] [place] [address] Dr. Cecille Bradley Creatinine [Mass/Vol] 0.60 mg/dL Critically low 0.70-1.30 [facility] Comment on above: Performed By: #### C BC #### [facility] [address] [place] [address] Dr. Cecille Bradley EGFR-AF MAURITIAN >60 Normal >=60 [facility] Comment on above: Performed By: #### C BC #### [facility] [address] [place] [address] Dr. Cecille Bradley EGFR-NON AF MAURITIAN >60 Normal >=60 [facility] Comment on above: Performed By: #### C BC #### [facility] [address] [place] [address] Dr. Cecille Bradley Globulin (S) [Mass/Vol] 3.3 g/dL Normal [facility] Comment on above: Performed By: #### C BC #### [facility] [address] [place] [address] Dr. Cecille Bradley Glucose [Mass/Vol] 91 mg/dL Normal 74-106 [facility] Comment on above: Performed By: #### C BC #### [facility] [address] [place] [address] Dr. Cecille Bradley Potassium [Moles/Vol] 3.4 mmol/L Critically low 3.5-5.1 [facility] Comment on above: Performed By: #### C BC #### [facility] [address] [place] [address] Dr. Cecille Bradley Protein [Mass/Vol] 6.2 g/dL Critically low 6.4-8.2 [facility] Comment on above: Performed By: #### C BC #### [facility] [address] [place] [address] Dr. Cecille Bradley Sodium [Moles/Vol] 138 mmol/L Normal 136-145 [facility] Comment on above: Performed By: #### C BC #### [facility] [address] [address] [address] Cecille Bradley Urea nitrogen [Mass/Vol] 16.0 mg/dL Normal 7.0-18.0 [facility] Comment on above: Performed By: #### C BC #### [facility] [address] [address] [address] Cecille Bradley Urea nitrogen/Creatinine [Mass ratio] 26.7 mg/mg Normal [facility] Comment on above: Performed By: #### C BC #### [facility] [address] [place] [address] Dr. Cecille Bradley SPUTUM GRAM STAINon 12-13-19 COMMENTS [facility] Comment on above: Performed By: #### L ACT #### [facility] [address] [place] [address] Dr. Cecille Bradley DIPHTHEROIDS [facility] Comment on above: Performed By: #### L ACT #### [facility] [address] [place] [address] Dr. Cecille Bradley EPITHELIALS <25 Normal [facility] Comment on above: Performed By: #### L ACT #### [facility] [address] [place] [address] Dr. Cecille Bradley FUNGAL ELEMENTS Normal [facility] Comment on above: Performed By: #### L ACT #### [facility] [address] [place] [address] Dr. Cecille Bradley GRAM NEG BACILLI Normal [facility] Comment on above: Performed By: #### L ACT #### [facility] [address] [place] [address] Dr. Cecille JHA NEG DIPPLOCOCCI Normal [facility] Comment on above: Performed By: #### L ACT #### [facility] [address] [place] [address] [address] Cecille Bradley GRAM POS BACILLI Normal [facility] Comment on above: Performed By: #### L ACT #### [facility] [address] [place] [address] Dr. Cecille Bradley GRAM POSITIVE COCCI FEW Normal [facility] Comment on above: Performed By: #### L ACT #### [facility] [address] [place] [address] Dr. Cecille Bradley WBC (Bld) [#/Vol] 10*3/uL Normal [facility] Comment on above: Performed By: #### L ACT #### [facility] [address] [place] [address] Dr. Cecille Bradley CBC AUTO DIFFon 12-12-2022 BASO # 0.0 103/ul Normal 0.0-0.1 [facility] Comment on above: Performed By: #### C MP #### [facility] [address] [place] [address] Dr. Cecille Bradley Basophils/100 WBC (Bld) 0.1 % Critically low 0.2-2.0 [facility] Comment on above: Performed By: #### C MP #### [facility] [address] [place] [address] Dr. Cecille Bradley EO # 0.0 103/ul Normal 0.0-0.7 [facility] Comment on above: Performed By: #### C MP #### [facility] [address] [place] [address] Dr. Cecille Bradley Eosinophils/100 WBC (Bld) 0.1 % Critically low 0.9-7.0 [facility] Comment on above: Performed By: #### C MP #### [facility] [address] [place] [address] Dr. Cecille Bradley Erythrocyte distribution width (RBC) [Ratio] 14.8 % Normal 11.0-15.0 [facility] Comment on above: Performed By: #### C MP #### [facility] [address] [place] [address] Dr. Cecille Bradley Hematocrit (Bld) [Volume fraction] 50.9 % Normal 42.0-54.0 [facility] Comment on above: Performed By: #### C MP #### [facility] [address] [place] [address] [address] Cecille Bradley Hemoglobin (Bld) [Mass/Vol] 16.0 g/dL Normal 14.0-18.0 [facility] Comment on above: Performed By: #### C MP #### [facility] [address] [place] [address] [address] Cecille Bradley IG # 0.04 10e3/ul Critically high 0.00-0.03 [facility] Comment on above: Performed By: #### C MP #### [facility] [address] [place] [address] [address] Cecille Bradley IG % 0.3 % Normal 0.0-0.5 [facility] Comment on above: Performed By: #### C MP #### [facility] [address] [place] [address] Dr. Cecille Bradley LYMPH # 1.1 103/ul Critically low 1.2-3.8 [facility] Comment on above: Performed By: #### C MP #### [facility] [address] [place] [address] Dr. Cecille Bradley Lymphocytes/100 WBC (Bld) 8.6 % Critically low 20.5-60.0 [facility] Comment on above: Performed By: #### C MP #### [facility] [address] [place] [address] Dr. Cecille Bradley MANUAL DIFF REQ NO Normal [facility] Comment on above: Performed By: #### C MP #### [facility] [address] [place] [address] [address] Cecille Bradley MCH (RBC) [Entitic mass] 32.2 pg Normal 25.9-34.0 [facility] Comment on above: Performed By: #### C MP #### [facility] [address] [place] [address] [address] Cecille Bradley MCHC (RBC) [Mass/Vol] 31.4 g/dL Normal 29.9-35.2 [facility] Comment on above: Performed By: #### C MP #### [facility] [address] [place] [address] [address] Cecille Bradley MCV (RBC) [Entitic vol] 102.4 fL Critically high 80.0-94.0 [facility] Comment on above: Performed By: #### C MP #### [facility] [address] [place] [address] [address] Cecille Bradley MONO # 0.9 103/ul Critically high 0.3-0.8 [facility] Comment on above: Performed By: #### C MP #### [facility] [address] [place] [address] [address] Cecille Bradley Monocytes/100 WBC (Bld) 7.2 % Normal 1.7-12.0 [facility] Comment on above: Performed By: #### C MP #### [facility] [address] [place] [address] Dr. Cecille Bradley NEUT # 10.2 103/ul Critically high 1.4-6.5 [facility] Comment on above: Performed By: #### C MP #### [facility] [address] [place] [address] Dr. Cecille Bradley Neutrophils/100 WBC (Bld) 83.7 % Critically high 43.0-75.0 [facility] Comment on above: Performed By: #### C MP #### [facility] [address] [place] [address] Dr. Cecille Bradley Platelet mean volume (Bld) [Entitic vol] 10.4 fL Normal 9.5-13.5 [facility] Comment on above: Performed By: #### C MP #### [facility] [address] [place] [address] Dr. Cecille Bradley PLT 185 103/ul Normal 150-450 [facility] Comment on above: Performed By: #### C MP #### [facility] [address] [place] [address] [address] Cecille Bradlye RBC 4.97 106/ul Normal 4.70-6.10 [facility] Comment on above: Performed By: #### C MP #### [facility] [address] [place] [address] Dr. Cecille Bradley WBC 12.1 103/ul Critically high 4.0-11.0 [facility] Comment on above: Performed By: #### C MP #### [facility] [address] [place] [address] Dr. Cecille Bradley MAGNESIUMon 12-12-2022 Magnesium [Mass/Vol] 2.1 mg/dL Normal 1.8-2.4 [facility] Comment on above: Performed By: #### C BC #### [facility] [address] [place] [address] Dr. Cecille Bradley PROF 14(COMP METB)on 023 Albumin [Mass/Vol] 3.1 g/dL Critically low 3.4-5.0 [facility] Comment on above: Performed By: #### C BC #### [facility] [address] [place] [address] Dr. Cecille Bradley Albumin/Globulin [Mass ratio] 0.9 {ratio} Normal [facility] Comment on above: Performed By: #### C BC #### [facility] [address] [place] [address] Dr. Cecille Bradley ALP [Catalytic activity/Vol] 78 U/L Normal 46-116 [facility] Comment on above: Performed By: #### C BC #### [facility] [address] [place] [address] Dr. Cecille Bradley ALT [Catalytic activity/Vol] 34 U/L Normal 16-63 [facility] Comment on above: Performed By: #### C BC #### [facility] [address] [place] [address] Dr. Cecille Bradley Anion gap [Moles/Vol] 9.8 mmol/L Normal [facility] Comment on above: Performed By: #### C BC #### [facility] [address] [place] [address] Dr. Cecille Bradley AST [Catalytic activity/Vol] 26 U/L Normal 15-37 [facility] Comment on above: Performed By: #### C BC #### [facility] [address] [place] [address] Dr. Cecille Bradley Bilirubin [Mass/Vol] 1.3 mg/dL Critically high 0.2-1.0 [facility] Comment on above: Performed By: #### C BC #### [facility] [address] [place] [address] [address] Cecille Braldey Calcium [Mass/Vol] 8.7 mg/dL Normal 8.5-10.1 [facility] Comment on above: Performed By: #### C BC #### [facility] [address] [place] [address] [address] Cecille Bradley Chloride [Moles/Vol] 102 mmol/L Normal 98-107 [facility] Comment on above: Performed By: #### C BC #### [facility] [address] [place] [address] Dr. Cecille Bradley CO2 [Moles/Vol] 32.0 mmol/L Normal 21.0-32.0 [facility] Comment on above: Performed By: #### C BC #### [facility] [address] [place] [address] [address] Cecille Bradley Creatinine [Mass/Vol] 0.61 mg/dL Critically low 0.70-1.30 [facility] Comment on above: Performed By: #### C BC #### [facility] [address] [place] [address] Dr. Cecille Bradley EGFR-AF MAURITIAN >60 Normal >=60 [facility] Comment on above: Performed By: #### C BC #### [facility] [address] [place] [address] Dr. Cecille Bradley EGFR-NON AF MAURITIAN >60 Normal >=60 [facility] Comment on above: Performed By: #### C BC #### [facility] [address] [place] [address] [address] Cecille Bradley Globulin (S) [Mass/Vol] 3.4 g/dL Normal [facility] Comment on above: Performed By: #### C BC #### [facility] [address] [place] [address] Dr. Cecille Bradley Glucose [Mass/Vol] 103 mg/dL Normal 74-106 [facility] Comment on above: Performed By: #### C BC #### [facility] [address] [place] [address] [address] Cecille Bradley Potassium [Moles/Vol] 3.8 mmol/L Normal 3.5-5.1 [facility] Comment on above: Performed By: #### C BC #### [facility] [address] [place] [address] [address] Cecille Bradley Protein [Mass/Vol] 6.5 g/dL Normal 6.4-8.2 [facility] Comment on above: Performed By: #### C BC #### [facility] [address] [place] [address] [address] Cecille Bradley Sodium [Moles/Vol] 140 mmol/L Normal 136-145 [facility] Comment on above: Performed By: #### C BC #### [facility] [address] [place] [address] [address] Cecille Bradley Urea nitrogen [Mass/Vol] 11.0 mg/dL Normal 7.0-18.0 [facility] Comment on above: Performed By: #### C BC #### [facility] [address] [place] [address] [address] Cecille Bradley Urea nitrogen/Creatinine [Mass ratio] 18.0 mg/mg Normal [facility] Comment on above: Performed By: #### C BC #### [facility] [address] [place] [address] [address] Cecille Bradley CBC AUTO DIFFon 12-11-2022 BASO # 0.0 103/ul Normal 0.0-0.1 [facility] Comment on above: Performed By: #### C BC #### [facility] [address] [place] [address] [address] Cecille Bradley Basophils/100 WBC (Bld) 0.1 % Critically low 0.2-2.0 [facility] Comment on above: Performed By: #### C BC #### [facility] [address] [place] [address] [address] Cecille Bradley EO # 0.0 103/ul Normal 0.0-0.7 [facility] Comment on above: Performed By: #### C BC #### [facility] [address] [place] [address] Dr. Cecille Bradley Eosinophils/100 WBC (Bld) 0.0 % Critically low 0.9-7.0 [facility] Comment on above: Performed By: #### C BC #### [facility] [address] [place] [address] Dr. Cecille Bradley Erythrocyte distribution width (RBC) [Ratio] 14.9 % Normal 11.0-15.0 [facility] Comment on above: Performed By: #### C BC #### [facility] [address] [place] [address] Dr. Cecille Bradley Hematocrit (Bld) [Volume fraction] 48.8 % Normal 42.0-54.0 [facility] Comment on above: Performed By: #### C BC #### [facility] [address] [place] [address] Dr. Cecille Bradley Hemoglobin (Bld) [Mass/Vol] 15.2 g/dL Normal 14.0-18.0 [facility] Comment on above: Performed By: #### C BC #### [facility] [address] [place] [address] Dr. Cecille Bradley IG # 0.03 10e3/ul Normal 0.00-0.03 [facility] Comment on above: Performed By: #### C BC #### [facility] [address] [place] [address] Dr. Cecille Bradley IG % 0.4 % Normal 0.0-0.5 [facility] Comment on above: Performed By: #### C BC #### [facility] [address] [place] [address] Dr. Cecille Bradley LYMPH # 0.6 103/ul Critically low 1.2-3.8 [facility] Comment on above: Performed By: #### C BC #### [facility] [address] [place] [address] Dr. Cecille Bradley Lymphocytes/100 WBC (Bld) 7.1 % Critically low 20.5-60.0 [facility] Comment on above: Performed By: #### C BC #### [facility] [address] [place] [address] Dr. Cecille Bradley MANUAL DIFF REQ NO Normal [facility] Comment on above: Performed By: #### C BC #### [facility] [address] [place] [address] Dr. Cecille Bradley MCH (RBC) [Entitic mass] 32.1 pg Normal 25.9-34.0 [facility] Comment on above: Performed By: #### C BC #### [facility] [address] [place] [address] Dr. Cecille Bradley MCHC (RBC) [Mass/Vol] 31.1 g/dL Normal 29.9-35.2 [facility] Comment on above: Performed By: #### C BC #### [facility] [address] [place] [address] Dr. Cecille Bradley MCV (RBC) [Entitic vol] 103.2 fL Critically high 80.0-94.0 [facility] Comment on above: Performed By: #### C BC #### [facility] [address] [place] [address] Dr. Cecille Bradley MONO # 0.7 103/ul Normal 0.3-0.8 [facility] Comment on above: Performed By: #### C BC #### [facility] [address] [place] [address] Dr. Cecille Bradley Monocytes/100 WBC (Bld) 8.2 % Normal 1.7-12.0 [facility] Comment on above: Performed By: #### C BC #### [facility] [address] [place] [address] Dr. Cecille Bradley NEUT # 7.0 103/ul Critically high 1.4-6.5 [facility] Comment on above: Performed By: #### C BC #### [facility] [address] [place] [address] Dr. Cecille Bradley Neutrophils/100 WBC (Bld) 84.2 % Critically high 43.0-75.0 [facility] Comment on above: Performed By: #### C BC #### [facility] [address] [place] [address] [address] Cecille Bradley Platelet mean volume (Bld) [Entitic vol] 10.1 fL Normal 9.5-13.5 [facility] Comment on above: Performed By: #### C BC #### [facility] [address] [place] [address] [address] Cecille Bradley PLT 164 103/ul Normal 150-450 [facility] Comment on above: Performed By: #### C BC #### [facility] [address] [place] [address] [address] Cecille Bradley RBC 4.73 106/ul Normal 4.70-6.10 [facility] Comment on above: Performed By: #### C BC #### [facility] [address] [place] [address] Dr. Cecille Bradley WBC 8.3 103/ul Normal 4.0-11.0 [facility] Comment on above: Performed By: #### C BC #### [facility] [address] [place] [address] HEAD WO CONon [...] by: KARLOS STORY Date: 2022-12-11 12:32 Normal [facility] MAGNESIUMon 12-11-2022 Magnesium [Mass/Vol] 2.2 mg/dL Normal 1.8-2.4 [facility] Comment on above: Performed By: #### C BC #### [facility] [address] [place] [address] [address] Cecille Bradley PROF 14(COMP METB)on 023 Albumin [Mass/Vol] 3.0 g/dL Critically low 3.4-5.0 [facility] Comment on above: Performed By: #### C BC #### [facility] [address] [place] [address] [address] Cecille Bradley Albumin/Globulin [Mass ratio] 0.8 {ratio} Normal [facility] Comment on above: Performed By: #### C BC #### [facility] [address] [place] [address] Dr. Cecille Bradley ALP [Catalytic activity/Vol] 74 U/L Normal 46-116 [facility] Comment on above: Performed By: #### C BC #### [facility] [address] [place] [address] Dr. Cecille Bradley ALT [Catalytic activity/Vol] 33 U/L Normal 16-63 [facility] Comment on above: Performed By: #### C BC #### [facility] [address] [place] [address] Dr. Cecille Bradley Anion gap [Moles/Vol] 9.4 mmol/L Normal [facility] Comment on above: Performed By: #### C BC #### [facility] [address] [place] [address] Dr. Cecille Bradley AST [Catalytic activity/Vol] 24 U/L Normal 15-37 [facility] Comment on above: Performed By: #### C BC #### [facility] [address] [place] [address] Dr. Cecille Bradley Bilirubin [Mass/Vol] 0.8 mg/dL Normal 0.2-1.0 [facility] Comment on above: Performed By: #### C BC #### [facility] [address] [place] [address] [address] Cecille Bradley Calcium [Mass/Vol] 8.5 mg/dL Normal 8.5-10.1 [facility] Comment on above: Performed By: #### C BC #### [facility] [address] [place] [address] [address] Cecille Bradley Chloride [Moles/Vol] 103 mmol/L Normal 98-107 [facility] Comment on above: Performed By: #### C BC #### [facility] [address] [place] [address] Dr. Cecille Bradley CO2 [Moles/Vol] 30.9 mmol/L Normal 21.0-32.0 [facility] Comment on above: Performed By: #### C BC #### [facility] [address] [place] [address] Dr. Cecille Bradley Creatinine [Mass/Vol] 0.66 mg/dL Critically low 0.70-1.30 [facility] Comment on above: Performed By: #### C BC #### [facility] [address] [place] [address] Dr. Cecille Bradley EGFR-AF MAURITIAN >60 Normal >=60 [facility] Comment on above: Performed By: #### C BC #### [facility] [address] [place] [address] Dr. Cecille Bradley EGFR-NON AF MAURITIAN >60 Normal >=60 [facility] Comment on above: Performed By: #### C BC #### [facility] [address] [place] [address] Dr. Cecille Bradley Globulin (S) [Mass/Vol] 3.8 g/dL Normal [facility] Comment on above: Performed By: #### C BC #### [facility] [address] [place] [address] Dr. Cecille Bradley Glucose [Mass/Vol] 150 mg/dL Critically high 74-106 [facility] Comment on above: Performed By: #### C BC #### [facility] [address] [place] [address] Dr. Cecille Bradley Potassium [Moles/Vol] 4.3 mmol/L Normal 3.5-5.1 [facility] Comment on above: Performed By: #### C BC #### [facility] [address] [place] [address] [address] Cecille Bradley Protein [Mass/Vol] 6.8 g/dL Normal 6.4-8.2 [facility] Comment on above: Performed By: #### C BC #### [facility] [address] [place] [address] [address] Cecille Bradley Sodium [Moles/Vol] 139 mmol/L Normal 136-145 [facility] Comment on above: Performed By: #### C BC #### [facility] [address] [place] [address] [address] Cecille Bradley Urea nitrogen [Mass/Vol] 16.0 mg/dL Normal 7.0-18.0 [facility] Comment on above: Performed By: #### C BC #### [facility] [address] [place] [address] [address] Cecille Bradley Urea nitrogen/Creatinine [Mass ratio] 24.2 mg/mg Normal [facility] Comment on above: Performed By: #### C BC #### [facility] [address] [id number] Cecille Bradley XR CHEST 1 Von [...] by: KARLOS STORY Date: 2022-12-11 10:05 Normal [facility] BLOOD GASES BTYon 12-10-2022 02 MODE BIPAP Normal [facility] Comment on above: Performed By: #### C BC #### [facility] [address] [place] [address] [address] Cecille Bradley ALLENS TEST Positive Normal [facility] Comment on above: Performed By: #### C BC #### [facility] [address] [place] [address] Dr. Cecille Bradley Base excess Calc (Bld) [Moles/Vol] 1.6 mmol/L Normal -2.0-2.0 [facility] Comment on above: Performed By: #### C BC #### [facility] [address] [place] [address] [address] Cecille Bradley BIPAP PRESSURE 18/8 Normal [facility] Comment on above: Performed By: #### C BC #### [facility] [address] [place] [address] Dr. Cecille Bradley CPAP [facility] Comment on above: Performed By: #### C BC #### [facility] [address] [place] [address] Dr. Cecille Bradley FIO2 70.00 % Normal [facility] Comment on above: Performed By: #### C BC #### [facility] [address] [place] [address] [address] Cecille Bradley HCO3 (Bld) [Moles/Vol] 28.2 mmol/L Critically high 22.0-26.0 [facility] Comment on above: Performed By: #### C BC #### [facility] [address] [place] [address] Dr. Cecille Bradley LPM [facility] Comment on above: Performed By: #### C BC #### [facility] [address] [place] [address] [address] Cecille Bradley MINUTE VOLUME Normal [facility] Comment on above: Performed By: #### C BC #### [facility] [address] [place] [address] Dr. Cecille Bradley Oxygen (Bld) [Partial pressure] 60.7 mm[Hg] Critically low 80.0-100.0 [facility] Comment on above: Performed By: #### C BC #### [facility] [address] [place] [address] [address] Cecille Bradley Oxygen saturation in Blood 88.9 % Critically low 95.0-100.0 [facility] Comment on above: Performed By: #### C BC #### [facility] [address] [place] [address] [address] Cecille Bradley PCO2 59.0 mmHg Critically high 35.0-45.[address] [facility] Comment on above: Performed By: #### C BC #### [facility] [address] [place] [address] [address] Cecille Bradley PEEP [facility] Comment on above: Performed By: #### C BC #### [facility] [address] [place] [address] Dr. Cecille Bradley pH (Bld) 7.288 [pH] Critically low 7.350-7.[address] [facility] Comment on above: Performed By: #### C BC #### [facility] [address] [place] [address] Dr. Cecille Bradley [facility] Comment on above: Performed By: #### C BC #### [facility] [address] [place] [address] [address] Cecille Bradley PS [facility] Comment on above: Performed By: #### C BC #### [facility] [address] [place] [address] Dr. Cecille Bradley PUNCTURE SITE RB [facility] Comment on above: Performed By: #### C BC #### [facility] [address] [place] [address] Dr. Cecille Bradley RATE [facility] Comment on above: Performed By: #### C BC #### [facility] [address] [place] [address] Dr. Cecille Bradley VENT MODE [facility] Comment on above: Performed By: #### C BC #### [facility] [address] [place] [address] Dr. Cecille Bradley [facility] Comment on above: Performed By: #### C BC #### [facility] [address] [address] [address] Cecille Bradley 02 MODE NON REBREATHER MASK [facility] Comment on above: Performed By: #### C MP #### [facility] [address] [address] [address] Cecille Bradley ALLENS TEST Positive [facility] Comment on above: Performed By: #### C MP #### [facility] [address] [address] [address] Cecille Bradley Base excess Calc (Bld) [Moles/Vol] -1.1000 mmol/L Normal -2.0-2.0 [facility] Comment on above: Performed By: #### C MP #### [facility] [address] [address] [address] Cecille Bradley BIPAP PRESSURE [facility] Comment on above: Performed By: #### C MP #### [facility] [address] [address] [address] Cecille Bradley CPAP [facility] Comment on above: Performed By: #### C MP #### [facility] [address] [address] [address] Cecille Bradley FIO2 [facility] Comment on above: Performed By: #### C MP #### [facility] [address] [address] [address] Cecille Bradley HCO3 (Bld) [Moles/Vol] 27.5 mmol/L Critically high 22.0-26.0 [facility] Comment on above: Performed By: #### C MP #### [facility] [address] [address] [address] Cecille Bradley LPM 15 [facility] Comment on above: Performed By: #### C MP #### [facility] [address] [address] [address] Cecille Bradley MINUTE VOLUME Normal [facility] Comment on above: Performed By: #### C MP #### [facility] [address] [address] [address] Cecille Bradley Oxygen (Bld) [Partial pressure] 56.4 mm[Hg] Critically low 80.0-100.0 [facility] Comment on above: Performed By: #### C MP #### [facility] [address] [place] [address] Dr. Cecille Bradley Oxygen saturation in Blood 80.1 % Critically low 95.0-100.0 [facility] Comment on above: Performed By: #### C MP #### [facility] [address] [place] [address] Dr. Cecille Bradley PCO2 75.9 mmHg Critically high 35.0-45.[address] [facility] Comment on above: Performed By: #### C MP #### [facility] [address] [place] [address] Dr. Cecille Bradley [facility] Comment on above: Performed By: #### C MP #### [facility] [address] [place] [address] Dr. Cecille Bradley pH (Bld) 7.167 [pH] Critically low 7.350-7.[address] [facility] Comment on above: Performed By: #### C MP #### [facility] [address] [place] [address] Dr. Cecille Bradley [facility] Comment on above: Performed By: #### C MP #### [facility] [address] [place] [address] Dr. Cecille Bradley PS [facility] Comment on above: Performed By: #### C MP #### [facility] [address] [place] [address] Dr. Cecille Bradley PUNCTURE SITE RB [facility] Comment on above: Performed By: #### C MP #### [facility] [address] [place] [address] Dr. Cecille Bradley RATE [facility] Comment on above: Performed By: #### C MP #### [facility] [address] [place] [address] Dr. Cecille Bradley VENT MODE [facility] Comment on above: Performed By: #### C MP #### [facility] [address] [place] [address] Dr. Cecille Bradley [place] Normal [facility] Comment on above: Performed By: #### C MP #### [facility] [address] [place] [address] Dr. Cecille Bradley BNPon 12-10-2022 Natriuretic peptide B (Bld) [Mass/Vol] 573.0 pg/mL Normal <=900.0 [facility] Comment on above: Performed By: #### C VDTBH #### [facility] [address] [place] [address] Dr. Cecille Bradley CBC AUTO DIFFon 12-10-2022 BASO # 0.1 103/ul Normal 0.0-0.1 [facility] Comment on above: Performed By: #### C BC #### [facility] [address] [place] [address] Dr. Cecille Bradley Basophils/100 WBC (Bld) 0.5 % Normal 0.2-2.0 [facility] Comment on above: Performed By: #### C BC #### [facility] [address] [place] [address] Dr. Cecille Bradley EO # 0.1 103/ul Normal 0.0-0.7 [facility] Comment on above: Performed By: #### C BC #### [facility] [address] [place] [address] Dr. Cecille Bradley Eosinophils/100 WBC (Bld) 0.8 % Critically low 0.9-7.0 [facility] Comment on above: Performed By: #### C BC #### [facility] [address] [place] [address] Dr. Cecille Bradley Erythrocyte distribution width (RBC) [Ratio] 15.0 % Normal 11.0-15.0 [facility] Comment on above: Performed By: #### C BC #### [facility] [address] [place] [address] Dr. Cecille Braldey Hematocrit (Bld) [Volume fraction] 59.1 % Critically high 42.0-54.0 [facility] Comment on above: Performed By: #### C BC #### [facility] [address] [address] [address] Cecille Bradley Hemoglobin (Bld) [Mass/Vol] 18.0 g/dL Normal 14.0-18.0 [facility] Comment on above: Performed By: #### C BC #### [facility] [address] [address] [address] Cecille Bradley IG # 0.04 10e3/ul Critically high 0.00-0.03 [facility] Comment on above: Performed By: #### C BC #### [facility] [address] [place] [address] Dr. Cecille Bradley IG % 0.4 % Normal 0.0-0.5 [facility] Comment on above: Performed By: #### C BC #### [facility] [address] [place] [address] Dr. Cecille Bradley LYMPH # 2.3 103/ul Normal 1.2-3.8 [facility] Comment on above: Performed By: #### C BC #### [facility] [address] [place] [address] Dr. Cecille Bradley Lymphocytes/100 WBC (Bld) 21.4 % Normal 20.5-60.0 [facility] Comment on above: Performed By: #### C BC #### [facility] [address] [place] [address] Dr. Cecille Bradley MANUAL DIFF REQ NO Normal [facility] Comment on above: Performed By: #### C BC #### [facility] [address] [place] [address] Dr. Cecille Bradley MCH (RBC) [Entitic mass] 32.0 pg Normal 25.9-34.0 [facility] Comment on above: Performed By: #### C BC #### [facility] [address] [place] [address] Dr. Cecille Bradley MCHC (RBC) [Mass/Vol] 30.5 g/dL Normal 29.9-35.2 [facility] Comment on above: Performed By: #### C BC #### [facility] [address] [address] [address] Cecille Bradley MCV (RBC) [Entitic vol] 105.2 fL Critically high 80.0-94.0 [facility] Comment on above: Performed By: #### C BC #### [facility] [address] [address] [address] Cecille Bradley MONO # 1.0 103/ul Critically high 0.3-0.[address] [facility] Comment on above: Performed By: #### C BC #### [facility] [address] [address] [address] Cecille Bradley Monocytes/100 WBC (Bld) 8.9 % Normal 1.7-12.0 [facility] Comment on above: Performed By: #### C BC #### [facility] [address] [place] [address] Dr. Cecille Bradley NEUT # 7.3 103/ul Critically high 1.4-6.[address] [facility] Comment on above: Performed By: #### C BC #### [facility] [address] [place] [address] Dr. Cecille Bradley Neutrophils/100 WBC (Bld) 68.0 % Normal 43.0-75.0 [facility] Comment on above: Performed By: #### C BC #### [facility] [address] [address] [address] Cecille Bradley Platelet mean volume (Bld) [Entitic vol] 10.9 fL Normal 9.5-13.5 [facility] Comment on above: Performed By: #### C BC #### [facility] [address] [address] [address] Cecille Bradley PLT 207 103/ul Normal 150-450 [facility] Comment on above: Performed By: #### C BC #### [facility] [address] [address] [address] Cecille Bradley RBC 5.62 106/ul Normal 4.70-6.10 [facility] Comment on above: Performed By: #### C BC #### [facility] [address] [place] [address] Dr. Cecille Bradley WBC 10.7 103/ul Normal 4.0-11.0 [facility] Comment on above: Performed By: #### C BC #### [facility] [address] [place] [address] Dr. Cecille Bradley CULTURE BLOODon 12-10-2022 Microscopic examination of blood, culture Culture Observations: NO GROWTH AT 5 DAYS. Normal [facility] Comment on above: Performed By: #### B LDCX2 #### [facility] [address] [place] [address] Dr. Cecille Bradley Microscopic examination of blood, culture Culture Observations: NO GROWTH AT 5 DAYS. Normal [facility] Comment on above: Performed By: #### B LDCX1 #### [facility] [address] [place] [address] Dr. Cecille Bradley Covid-19 PCR (CVDTB)on SARS-CoV-2 (COVID-19) RNA YUDELKA+probe Ql (Unsp spec) Detected Abnormal NOT DETECTED [facility] Comment on above: Result Comment: This test is not yet approved or cleared by the [place] FDA. When there are no FDA-approved or cleared tests available, and other criteria are met, FDA can make tests available under an emergency access mechanism called an Emergency Use Authorization (EUA). The EUA for this test is supported by the [place] of Health and Human Service's declaration that [...] used). Performed By: #### C VDTBH #### [facility] [address] [place] [address] Dr. Cecille Bradley LACTATE/LACTIC ACIDon 2022 Lactate [Moles/Vol] 0.8 mmol/L Normal 0.4-1.9 [facility] Comment on above: Performed By: #### C MP #### [facility] [address] [address] [address] Cecille Bradley Lactate [Moles/Vol] 3.5 mmol/L Critically high 0.4-1.9 [facility] Comment on above: Performed By: #### L ACT #### [facility] [address] [place] [address] Dr. Cecille Bradley PROF 14(COMP METB)on 023 Albumin [Mass/Vol] 4.4 g/dL Normal 3.4-5.0 [facility] Comment on above: Performed By: #### C VDTBH #### [facility] [address] [place] [address] Dr. Cecille Bradley Albumin/Globulin [Mass ratio] 1.0 {ratio} Normal [facility] Comment on above: Performed By: #### C VDTBH #### [facility] [address] [place] [address] Dr. Cecille Bradley ALP [Catalytic activity/Vol] 119 U/L Critically high 46-116 [facility] Comment on above: Performed By: #### C VDTBH #### [facility] [address] [place] [address] Dr. Cecille Bradley ALT [Catalytic activity/Vol] 50 U/L Normal 16-63 [facility] Comment on above: Performed By: #### C VDTBH #### [facility] [address] [address] [address] Cecille Bradley Anion gap [Moles/Vol] 13.9 mmol/L Normal [facility] Comment on above: Performed By: #### C VDTBH #### [facility] [address] [place] [address] Dr. Cecille Bradley AST [Catalytic activity/Vol] 40 U/L Critically high 15-37 [facility] Comment on above: Performed By: #### C VDTBH #### [facility] [address] [place] [address] Dr. Cecille Bradley Bilirubin [Mass/Vol] 1.0 mg/dL Normal 0.2-1.0 [facility] Comment on above: Performed By: #### C VDTBH #### [facility] [address] [address] [address] Cecille Bradley Calcium [Mass/Vol] 9.1 mg/dL Normal 8.5-10.1 [facility] Comment on above: Performed By: #### C VDTBH #### [facility] [address] [address] [address] Cecille Bradley Chloride [Moles/Vol] 99 mmol/L Normal 98-107 [facility] Comment on above: Performed By: #### C VDTBH #### [facility] [address] [address] [address] Cecille Bradley CO2 [Moles/Vol] 28.2 mmol/L Normal 21.0-32.0 [facility] Comment on above: Performed By: #### C VDTBH #### [facility] [address] [place] [address] Dr. Cecille Bradley Creatinine [Mass/Vol] 1.00 mg/dL Normal 0.70-1.30 [facility] Comment on above: Performed By: #### C VDTBH #### [facility] [address] [place] [address] Dr. Cecille Bradley EGFR-AF MAURITIAN >60 Normal >=60 [facility] Comment on above: Performed By: #### C VDTBH #### [facility] [address] [place] [address] Dr. Cecille Bradley EGFR-NON AF MAURITIAN >60 Normal >=60 [facility] Comment on above: Performed By: #### C VDTBH #### [facility] [address] [place] [address] Dr. Cecille Bradley Globulin (S) [Mass/Vol] 4.4 g/dL Normal [facility] Comment on above: Performed By: #### C VDTBH #### [facility] [address] [address] [address] Cecille Bradley Glucose [Mass/Vol] 160 mg/dL Critically high 74-106 [facility] Comment on above: Performed By: #### C VDTBH #### [facility] [address] [address] [address] Cecille Bradley Potassium [Moles/Vol] 4.1 mmol/L Normal 3.5-5.1 [facility] Comment on above: Performed By: #### C VDTBH #### [facility] [address] [address] [address] Cecille Bradley Protein [Mass/Vol] 8.8 g/dL Critically high 6.4-8.2 [facility] Comment on above: Performed By: #### C VDTBH #### [facility] [address] [address] [address] Cecille Bradley Sodium [Moles/Vol] 137 mmol/L Normal 136-145 [facility] Comment on above: Performed By: #### C VDTBH #### [facility] [address] [place] [address] Dr. Cecille Bradley Urea nitrogen [Mass/Vol] 18.0 mg/dL Normal 7.0-18.0 [facility] Comment on above: Performed By: #### C VDTBH #### [facility] [address] [place] [address] Dr. Cecille Bradley Urea nitrogen/Creatinine [Mass ratio] 18.0 mg/mg Normal [facility] Comment on above: Performed By: #### C VDTBH #### [facility] [address] [place] [address] Dr. Cecille Bradley TROPONIN, HIGH SENSITIVITYon 12-10-2022 HSTROP 10.4 pg/mL Normal 4.0-76.1 [facility] Comment on above: Result Comment: CUT- OFF POINTS HAVE BEEN ESTABLISHED BASED ON THE FOURTH UNIVERSAL DEFINITIONS OF MYOCARDIAL INFARCTION. THE UPPER REFERENCE LIMIT (URL) OF TROPONIN, DEFINED THE 99TH PERCENTILE OF cTnI DISTRIBUTION IN A REFERENCE POPULATION, HAS BEEN CONFIRMED THE DECISION THRESHOLD FOR DE DIAGNOSIS. Performed By: #### C VDTBH #### [facility] [address] [place] [address] Dr. Cecille Bradley XR CHEST 1 Von [...] may be seen. Electronically authenticated by: KASHIF JOCEJENN Date: 2022-12-09 22:55 Normal [facility] NM STRESS/REST MULTIon 07-25 NM STRESS/REST MULTI Patient: CARLOS CHEEK Exam Date: 07/25/2022 : 1970 Gender:M [facility] : [facility] Admission #: [id number] Family : Order #: [id number] CLICK HERE TO VIEW EXAM RADIOLOGY REPORT [...] LOCATION: Basal inferolateral. Basal anterolateral. Mid-inferior. Mid-inferolateral. [place]. SIZE: Large (5 or more segments). SEVERITY: [...] Crane MD on 07/26/2022 at 14:58 Normal [facility] ECHOCARDIO M/2D COMPLETEon 0 07-07-2022 ECHOCARDIO M/2D COMPLETE Patient: CARLOS CHEEK Exam Date: 07/07/2022 : 1970 Gender:M [facility]ing : [facility] Admission #: [id number] Family : Order #: [id number] CLICK HERE TO VIEW EXAM ECHOCARDIOGRAM REPORT [...] López M.D. on 07/07/2022 at 21:20 Normal [facility] ERYTHROPOIETIN (EPO)on 02-19 Erythropoietin 23.8 mIU/mL Critically high 2.6-18.5 [facility] Comment on above: Result Comment: [employer] DxI 800 Immunoassay System . Values obtained with different assay methods or kits cannot be used interchangeably. Results cannot be interpreted as absolute evidence of the presence or absence of malignant disease. Performed By: #### C MP #### [facility] [address] [address] [address] Cecille Bradley ERYTHROPOIETIN (EPO)on 02-15 Erythropoietin QNSTST Normal [facility] Comment on above: Result Comment: Test not performed. Insufficient specimen to perform or complete analysis. [employer] DxI 800 Immunoassay System . Values obtained with different assay methods or kits cannot be used interchangeably. Results cannot be interpreted as absolute evidence of the presence or absence of malignant disease. contacted Lokesh at your facility on 02-15-2022 Performed By: #### [facility] #### [facility] [address] [address] [address] Cecille Bradley BNPon 02-07-2022 Natriuretic peptide B (Bld) [Mass/Vol] 64.0 pg/mL Normal <=900.0 [facility] Comment on above: Performed By: #### C BC #### [facility] [address] [address] [address] Cecille Bradley XR CHEST 2 Von [...] by: DEANN CRANE Date: 2022-02-07 16:07 Normal [facility] BASIC METABOLIC PANELon Calcium [Mass/Vol] 9.6 mg/dL Normal 8.6-10.3 [facility] Comment on above: Performed By: #### 0 0071 #### [facility] [address] [place] [address], [place] Chloride [Moles/Vol] 105 mmol/L Normal 98-107 [facility] Comment on above: Performed By: #### 0 0071 #### [facility] [address] [place] [address], [place] CO2 [Moles/Vol] 26 mmol/L Normal 21-31 [facility] Comment on above: Performed By: #### 0 0071 #### [facility] [address] [place] [address], [place] Creatinine [Mass/Vol] 0.55 mg/dL Low 0.70-1.30 [facility] Comment on above: Performed By: #### 0 0071 #### [facility] [address] [place] [address], [place] GFR/1.73 sq M.predicted among blacks MDRD (S/P/Bld) [Vol rate/Area] mL/min/{1.73_m2} Normal >60 [facility] Comment on above: Performed By: #### 0 [id number] #### [facility] [address] [place] [address], [place] GFR/1.73 sq M.predicted among non-blacks MDRD (S/P/Bld) [Vol rate/Area] mL/min/{1.73_m2} Normal >60 [facility] Comment on above: Performed By: #### 0 [id number] #### [facility] [address] [place] [address], [facility] Glucose [Mass/Vol] 105 mg/dL High 70-100 [facility] Comment on above: Performed By: #### 0 [id number] #### [facility] [address] [place] [address], [facility] Potassium [Moles/Vol] 4.2 mmol/L Normal 3.5-5.1 [facility] Comment on above: Performed By: #### 0 [id number] #### [facility] [address] [place] [address], [facility] Sodium [Moles/Vol] 137 mmol/L Normal 136-145 [facility] Comment on above: Performed By: #### 0 0071 #### [facility] [address] [place] [address], [facility] Urea nitrogen [Mass/Vol] 19 mg/dL Normal 7-25 [facility] Comment on above: Performed By: #### 0 0071 #### [facility] [address] [facility] [place] [address], [facility] Cardiovascular Lab Reporton 05-14-2021 Cardiovascular Lab Report [facility] Patient Name: Carlos Cheek [facility] MR #: [id number] Physician: hKoa Monet Department of Tobin López Medicine Service Date: 05/14/2021 Division of Birthdate: 1970 Cardiology Room #: CC Adult Cardiovascular Services [facility] [address] [place], [place] [address] Cardiovascular Laboratory Report INDICATION: The patient is [...] signed informed consent. He was brought to laborer high density press in a fasting state. The right groin [...] the access was serially dilated and a 6-Latvian x 11 cm sheath was placed. Access was also obtained using same technique in the right common femoral vein under ultrasound guidance and a 6-Latvian x 11 cm sheath was placed. A 6-Latvian Zarate catheter was used for right catheterization with measurement of pressures and calculation of cardiac output using the estimated Timoteo method. Zarate catheter was removed. Bilateral selective coronary angiography was then performed using 6-Latvian JL4 and JR4 diagnostic catheters. The 6-Latvian JR4 diagnostic catheter was used to selectively engage the saphenous venous graft to the OM and PDA and the radial graft to the ramus. Angiography was performed. A 6-Latvian TIFFANY catheter was used to selectively engage [...] 1. Given that the appearance of the soboba angiography is similar to prior angiography 2 years ago and the only new finding is the o (more content not included)... Normal [facility] Vital Signs Date Time Vital Sign Value Performing Clinician Facility 11-29-2023 10:30-0500 Body height 137.16 cm [facility] Other 11-29-2023 10:30-0500 Body mass index (BMI) [Ratio] 74.3 kg/m2 [facility] Other 11-29-2023 10:30-0500 Body weight 139.8 kg [facility] Other [facility] Other 11-29-2023 10:30-0500 Diastolic blood pressure 55 mm[Hg] Sivakumar Ball Other [facility] Other 11-29-2023 10:30-0500 Respiratory rate 20 /min Sivakumar Ball Other [facility] Other 11-29-2023 10:30-0500 SaO2% (BldA) [Mass fraction] Sivakumar Ball Other [facility] Other 11-29-2023 10:30-0500 Systolic blood pressure 90 mm[Hg] Sivakumar Ball Other [facility] Other 10-17-2023 15:00-0500 Body height 137.16 cm Sivakumar Ball Other [facility] Other 10-17-2023 15:00-0500 Body mass index (BMI) [Ratio] 73.53 kg/m2 [facility] Other [facility] Other 10-17-2023 15:00-0500 Body weight 138.35 kg Sivakumar Ball Other [facility] Other 10-17-2023 15:00-0500 Diastolic blood pressure 72 mm[Hg] Sivakumar Ball Other [facility] Other 10-17-2023 15:00-0500 Respiratory rate 20 /min Sivakumar Ball Other [facility] Other 10-17-2023 15:00-0500 SaO2% (BldA) [Mass fraction] Sivakumar Ball Other [facility] Other 10-17-2023 15:00-0500 Systolic blood pressure 118 mm[Hg] Sivakumar Ball Other [facility] Other 09-26-2023 08:30-0500 Body height 137.16 cm Karen Jacobban Other [facility] Other 09-26-2023 08:30-0500 Body mass index (BMI) [Ratio] 73.53 kg/m2 Karen Jacobban Other [facility] Other 09-26-2023 08:30-0500 Body temperature 97.6 [degF] Karen Jacobban Other [facility] Other 09-26-2023 08:30-0500 Body weight 138.35 kg Karen Jacobban Other [facility] Other 09-26-2023 08:30-0500 Diastolic blood pressure 54 mm[Hg] Karen Chaban Other [facility] Other 09-26-2023 08:30-0500 Respiratory rate 20 /min Karen Giles Other [facility] Other 09-26-2023 08:30-0500 SaO2% (BldA) [Mass fraction] Karen Jacobban Other [facility] Other 09-26-2023 08:30-0500 Systolic blood pressure 106 mm[Hg] Karen Chaban Other [facility] Other 07-12-2023 14:45-0400 Body height 137.16 cm Sivakumar Ball Other [facility] Other 07-12-2023 14:45-0400 Body mass index (BMI) [Ratio] 72.76 kg/m2 Sivakumar Ball Other [facility] Other 07-12-2023 14:45-0400 Body weight 136.9 kg Sivakumar Ball Other [facility] Other 07-12-2023 14:45-0400 Diastolic blood pressure 72 mm[Hg] Sivakumar Ball Other [facility] Other 07-12-2023 14:45-0400 Respiratory rate 20 /min Sivakumar Ball Other [facility] Other 07-12-2023 14:45-0400 SaO2% (BldA) [Mass fraction] 86 % Sivakumar Ball Other [facility] Other 07-12-2023 14:45-0400 Systolic blood pressure 122 mm[Hg] Sivakumar Ball Other [facility] Other 06-20-2023 08:45-0400 Body height 137.16 cm Karen Jacoblucian Other [facility] Other 06-20-2023 08:45-0400 Body mass index (BMI) [Ratio] 72.76 kg/m2 Karen Jacoblucian Other [facility] Other 06-20-2023 08:45-0400 Body temperature 97 [degF] Keshawnpio Nidialucian Other [facility] Other 06-20-2023 08:45-0400 Body weight 136.9 kg Karen Jacoblucian Other [facility] Other 06-20-2023 08:45-0400 Diastolic blood pressure 62 mm[Hg] Keshawnpio Giles Other [facility] Other 06-20-2023 08:45-0400 Respiratory rate 20 /min Karen Giles Other [facility] Other 06-20-2023 08:45-0400 SaO2% (BldA) [Mass fraction] Karen Giles Other [facility] Other 06-20-2023 08:45-0400 Systolic blood pressure 126 mm[Hg] Karen Giles Other [facility] Other 04-27-2023 10:30-0400 Body height 137.16 cm Sivakumar Ball Other [facility] Other 04-27-2023 10:30-0400 Body mass index (BMI) [Ratio] 72.47 kg/m2 Sivakumar Ball Other [facility] Other 04-27-2023 10:30-0400 Body weight 136.35 kg Sivakumar Ball Other [facility] Other 04-27-2023 10:30-0400 Diastolic blood pressure 58 mm[Hg] Sivakumar Ball Other [facility] Other 04-27-2023 10:30-0400 Respiratory rate 20 /min Sivakumar Ball Other [facility] Other 04-27-2023 10:30-0400 SaO2% (BldA) [Mass fraction] 85 % Sivakumar Ball Other [facility] Other 04-27-2023 10:30-0400 Systolic blood pressure 96 mm[Hg] Sivakumar Ball Other [facility] Other 01-23-2023 11:15-0400 Body height 137.16 cm Sivakumar Ball Other [facility] Other 01-23-2023 11:15-0400 Body mass index (BMI) [Ratio] 72.13 kg/m2 Sivakumar Ball Other [facility] Other 01-23-2023 11:15-0400 Body weight 135.72 kg Sivakumar Ball Other [facility] Other 01-23-2023 11:15-0400 Diastolic blood pressure 84 mm[Hg] Sivakumar Ball Other [facility] Other 01-23-2023 11:15-0400 Respiratory rate 20 /min Sivakumar Ball Other [facility] Other 01-23-2023 11:15-0400 SaO2% (BldA) [Mass fraction] 88 % Sivakumar Ball Other [facility] Other 01-23-2023 11:15-0400 Systolic blood pressure 124 mm[Hg] Sivakumar Ball Other [facility] Other 12-26-2022 15:00-0500 Body height 137.16 cm Sivakumar Ball Other [facility] Other 12-26-2022 15:00-0500 Body mass index (BMI) [Ratio] 69.53 kg/m2 Sivakumar Ball Other [facility] Other 12-26-2022 15:00-0500 Body weight 130.82 kg Sivakumar Ball Other [facility] Other 12-26-2022 15:00-0500 Diastolic blood pressure 78 mm[Hg] Sivakumar Ball Other [facility] Other 12-26-2022 15:00-0500 Respiratory rate 20 /min Sivakumar Ball Other [facility] Other 12-26-2022 15:00-0500 SaO2% (BldA) [Mass fraction] 90 % Sivakumar Patel Other [facility] Other 12-26-2022 15:00-0500 Systolic blood pressure 122 mm[Hg] Sivakumar Patel Other [facility] Other Encounters Encounter Date Encounter Type Care Provider Facility Start: 12-08-2023 End: 12-08-2023 ambulatory Sivakumar Patel Other [facility] Other Start: 12-08-2023 Telephone encounter Sivakumar Patel [facility] Start: 11-29-2023 End: 11-29-2023 ambulatory Sivakumar Patel Other [facility] Other Start: 11-29-2023 Encounter for genera l adult medical examination without abnormal findings Sivakumar Patel [facility] Start: 11-29-2023 Periodic preventive med est patient 40-64yrs Sivakumar Patel [facility] Start: 11-02-2023 End: 11-02-2023 ambulatory Sivakumar Patel Other [facility] Other Start: 11-02-2023 Telephone encounter Sivakumar Patel [facility] Start: 10-17-2023 End: 10-17-2023 ambulatory Sivakumar Patel Other [facility] Other Start: 10-17-2023 Office outpatient vi sit 15 minutes Sivakumar Ball [facility] Start: 10-06-2023 End: 10-06-2023 ambulatory [facility] Start: 10-05-2023 End: 10-05-2023 ambulatory Sivakumar Patel Other [facility] Other Start: 10-05-2023 Telephone encounter Sivakumar Patel [facility] Start: 09-26-2023 End: 09-26-2023 ambulatory Karen Giles Other [facility] Other Start: 09-26-2023 Office outpatient vi sit 25 minutes Karen Giles [facility] Start: 09-06-2023 End: 09-06-2023 ambulatory Sivakumar Patel Other [facility] Other Start: 09-06-2023 Telephone encounter Sivakumar Ball [facility] Start: 08-22-2023 End: 08-22-2023 ambulatory Sivakumar Ball Other [facility] Other Start: 08-22-2023 Office outpatient vi sit 15 minutes Sivakumar Ball [facility] Start: 08-16-2023 End: 08-16-2023 ambulatory Sivakumar Ball Other [facility] Other Start: 08-16-2023 Office outpatient vi sit 15 minutes Sivakumar Ball [facility] Start: 08-07-2023 End: 08-07-2023 ambulatory Sivakumar Jorge Other [facility] Other Start: 08-07-2023 Telephone encounter Sivakumar Ball [facility] Start: 07-20-2023 End: 07-20-2023 ambulatory Sivakumar Patel Other [facility] Other Start: 07-20-2023 Telephone encounter Sivakumar Ball [facility] Start: 07-12-2023 End: 07-12-2023 ambulatory Sivakumar Ball Other [facility] Other Start: 07-12-2023 Office outpatient vi sit 15 minutes Sivakumar Ball [facility] Start: 07-12-2023 Telephone encounter Sivakumar Ball [facility] Start: 07-06-2023 End: 07-06-2023 ambulatory Sivakumar Ball Other [facility] Other Start: 07-06-2023 Telephone encounter Sivakumar Ball [facility] Start: 07-04-2023 End: 07-04-2023 ambulatory Sivakumar Patel Other [facility] Other Start: 07-04-2023 Telephone encounter Sivakumar Patel [facility] Start: 06-21-2023 End: 06-21-2023 ambulatory Kamal Chaban Other [facility] Other Start: 06-21-2023 Telephone encounter Kamal Chaban [facility] Start: 06-20-2023 End: 06-20-2023 ambulatory Kamal Chaban Other [facility] Other Start: 06-20-2023 Office outpatient ne w 45 minutes Kamal Chaban [facility] Start: 06-01-2023 End: 06-01-2023 ambulatory Sivakumar Patel Other [facility] Other Start: 06-01-2023 Telephone encounter Sivakumar Patel [facility] Start: 05-22-2023 End: 05-22-2023 ambulatory Sivakumar Patel Other [facility] Other Start: 05-22-2023 Telephone encounter Sivakumar Patel [facility] Start: 05-05-2023 End: 05-05-2023 ambulatory Sivakumar Patel Other [facility] Other Start: 05-05-2023 Telephone encounter Sivakumar Patel [facility] Start: 05-03-2023 End: 05-03-2023 ambulatory [facility] Start: 04-27-2023 End: 04-27-2023 ambulatory Sivakumar Patel Other [facility] Other Start: 04-27-2023 Office outpatient vi sit 25 minutes Sivakumar Patel [facility] Start: 04-05-2023 End: 04-05-2023 ambulatory Sivakuamr Patel Other [facility] Other Start: 04-05-2023 Telephone encounter Sivakumar Ball [facility] Start: 03-07-2023 End: 03-07-2023 ambulatory Sivakumar Ball Other [facility] Other Start: 03-07-2023 Telephone encounter Sivakumar Ball [facility] Start: 03-01-2023 End: 03-01-2023 ambulatory Sivakumar Ball Facility:[facility] Start: 03-01-2023 End: 03-01-2023 ambulatory DO Sivakumar Ball Work Phone: [facility] Work Phone: Start: 03-01-2023 End: 03-01-2023 Patient encounter procedure DO Sivakumar Ball Work Phone: [facility] Work Phone: Start: 02-17-2023 End: 02-17-2023 ambulatory Sivakumar Ball Other [facility] Other Start: 02-17-2023 Telephone encounter Sivakumar Ball [facility] Start: 02-16-2023 End: 02-16-2023 ambulatory Sivakumar Ball Other [facility] Other Start: 02-16-2023 Telephone encounter Sivakumar Ball [facility] Start: 02-06-2023 End: 02-06-2023 ambulatory Sivakumar Ball Other [facility] Other Start: 02-06-2023 Telephone encounter Sivakumar Ball [facility] Start: 01-23-2023 End: 01-23-2023 ambulatory Sivakumar Ball Other [facility] Other Start: 01-23-2023 Office outpatient vi sit 25 minutes Sivakumar Ball [facility] Start: 01-11-2023 End: 01-11-2023 ambulatory Sivakumar Ball Other [facility] Other Start: 01-11-2023 Office outpatient vi sit 15 minutes Sivakumar Patel [facility] Start: 01-05-2023 End: 01-05-2023 ambulatory Sivakumar Patel Other [facility] Other Start: 01-05-2023 Telephone encounter Sivakumar Patel [facility] Start: 12-26-2022 End: 12-26-2022 ambulatory Sivakumar Patel Other [facility] Other Start: 12-26-2022 Office outpatient vi sit 25 minutes Sivakumar Patel [facility] Start: 12-21-2022 End: 12-21-[address] SIVAKUMAR PATEL [facility] [employer] Other Start: 12-21-2022 Telephone encounter Sivakumar Patel [facility] Start: 12-12-[address] SIVAKUMAR PATEL [facility] ty:[facility] Start: 12-10-2022 End: 12-21-2022 Evaluation and management of inpatient DR FAIZA DELEON . Facility:[facility] Start: 12-07-2022 End: 12-07-2022 ambulatory Imad Asaad Other [facility] Other Start: 12-07-2022 Telephone encounter Imad Asaad [facility] Start: 11-08-2022 End: 11-08-2022 ambulatory Sivakumar Patel Other [facility] Other Start: 11-08-2022 Telephone encounter Sivakumar Patel [facility] Start: 07-26-2022 ambulatory LILIAM FELIPE Facility :[facility] Start: 07-25-2022 End: 07-26-[address] DEANN CRANE Facility:[facility] Start: 07-07-2022 End: 07-08-2022 ambulatory LILIAM FELIPE Facility:[facility] Start: 02-16-2022 End: 02-17-[address] SIVAKUMAR PATEL Facility:[facility] Start: 02-07-2022 End: 02-08-[address] SIVAKUMAR PATEL Facility:[facility] Start: 02-04-2022 End: 02-05-[address] SIVAKUMAR PATEL Facility: Start: 11-24-2021 Adult health examination Sivakumar Patel Other [facility] Other Start: 07-26-2021 End: 07-26-2021 Pre-procedure evaluation check Sivakumar Patel Other [facility] Other Start: 05-14-2021 End: 05-15-2021 ambulatory SIVAKUMAR PATEL Facility:[facility] Procedures Date Procedure Procedure Detail [...] Immunization Date Immunization Notes Care Provider Fa [facility] 09-26-2022 influenza virus vaccine, split virus (incl. purified surface antigen) Sivakumar Patel Other [facility] Other 09-26-2022 Prevnar 20 Sivakumar Patel Other [facility] Other 07-26-2021 influenza virus vaccine, split virus (incl. purified surface antigen) Sivakumar Patel Other [facility] Other 02-23-2021 COVID-19 Vaccine Pfi zer - Documentation Purposes Only Sivakumar Patel Other [facility] Other 02-02-2021 COVID-19 Vaccine Pfi zer - Documentation Purposes Only Sivakumar Jorge Other [facility] Other 07-23-2020 influenza virus vaccine, split virus (incl. purified surface antigen) Sivakumar Patel Other [facility] Other 06-19-2018 diphtheria, tetanus toxoids and acellular pertussis vaccine, unspecified formulation Sivakumar Ball Other [facility] Other 05-11-2015 ALLERGY Injection (1 inj)-pt brought own med Sivakumar Ball Other [facility] Other 04-26-2015 ALLERGY Injection (1 inj)-pt brought own med Sivakumar Ball Other [facility] Other 04-10-2015 ALLERGY Injection (1 inj)-pt brought own med Sivakumar Ball Other [facility] Other 03-26-2015 ALLERGY Injection (1 inj)-pt brought own med Sivakumar Ball Other [facility] Other 03-03-2015 ALLERGY Injection (1 inj)-pt brought own med Sivakumar Ball Other [facility] Other 02-12-2015 ALLERGY Injection (1 inj)-pt brought own med Sivakumar Ball Other [facility] Other 01-28-2015 ALLERGY Injection (1 inj)-pt brought own med Sivakumar Ball Other [facility] Other 01-15-2015 ALLERGY Injection (1 inj)-pt brought own med Sivakumar Ball Other [facility] Other 12-30-2014 ALLERGY Injection (1 inj)-pt brought own med Sivakumar Ball Other [facility] Other 12-10-2014 ALLERGY Injection (1 inj)-pt brought own med Sivakumar Ball Other [facility] Other 11-25-2014 ALLERGY Injection (1 inj)-pt brought own med Sivakumar Ball Other [facility] Other 11-13-2014 ALLERGY Injection (1 inj)-pt brought own med Sivakumar Ball Other [facility] Other 11-03-2014 ALLERGY Injection (1 inj)-pt brought own med Sivakumar Ball Other [facility] Other 10-17-2014 ALLERGY Injection (1 inj)-pt brought own med Sivakumar Ball Other [facility] Other 10-07-2014 ALLERGY Injection (1 inj)-pt brought own med Sivakumar Ball Other [facility] Other 08-29-2014 ALLERGY Injection (1 inj)-pt brought own med Sivakumar Ball Other [facility] Other 08-20-2014 ALLERGY Injection (1 inj)-pt brought own med Sivakumar Ball Other [facility] Other 08-06-2014 ALLERGY Injection (1 inj)-pt brought own med Sivakumar Ball Other [facility] Other 07-24-2014 ALLERGY Injection (1 inj)-pt brought own med Sivakumar Ball Other [facility] Other 07-11-2014 ALLERGY Injection (1 inj)-pt brought own med Sivakumar Ball Other [facility] Other 06-25-2014 ALLERGY Injection (1 inj)-pt brought own med Sivakumar Ball Other [facility] Other 06-11-2014 ALLERGY Injection (1 inj)-pt brought own med Sivakumar Ball Other [facility] Other 05-29-2014 ALLERGY Injection (1 inj)-pt brought own med Sivakumar Ball Other [facility] Other 05-14-2014 ALLERGY Injection (1 inj)-pt brought own med Sivakumar Ball Other [facility] Other 04-30-2014 ALLERGY Injection (1 inj)-pt brought own med Sivakumar Ball Other [facility] Other 04-16-2014 ALLERGY Injection (1 inj)-pt brought own med Sivakumar Ball Other [facility] Other 04-04-2014 ALLERGY Injection (1 inj)-pt brought own med Sivakumar Ball Other [facility] Other 03-20-2014 ALLERGY Injection (1 inj)-pt brought own med Sivakumar Ball Other [facility] Other 03-07-2014 ALLERGY Injection (1 inj)-pt brought own med Sivakumar Ball Other [facility] Other 02-24-2014 ALLERGY Injection (1 inj)-pt brought own med Sivakumar Ball Other [facility] Other 02-05-2014 ALLERGY Injection (1 inj)-pt brought own med Sivakumar Ball Other [facility] Other 01-24-2014 ALLERGY Injection (1 inj)-pt brought own med Sivakumar Ball Other [facility] Other 01-10-2014 ALLERGY Injection (1 inj)-pt brought own med Sivakumar Ball Other [facility] Other 12-12-2013 ALLERGY Injection (1 inj)-pt brought own med Sivakumar Ball Other [facility] Other 11-28-2013 ALLERGY Injection (1 inj)-pt brought own med Sivakumar Ball Other [facility] Other 11-14-2013 ALLERGY Injection (1 inj)-pt brought own med Sivakumar Ball Other [facility] Other 11-01-2013 ALLERGY Injection (1 inj)-pt brought own med Sivakumar Ball Other [facility] Other 10-16-2013 ALLERGY Injection (1 inj)-pt brought own med Sivakumar Ball Other [facility] Other 10-02-2013 ALLERGY Injection (1 inj)-pt brought own med Sivakumar Ball Other [facility] Other 2013 ALLERGY Injection (1 inj)-pt brought own med Sivakumar Ball Other [facility] Other 09-04-2013 ALLERGY Injection (1 inj)-pt brought own med Sivakumar Ball Other [facility] Other 08-20-2013 ALLERGY Injection (1 inj)-pt brought own med Sivakumar Ball Other [facility] Other 08-08-2013 ALLERGY Injection (1 inj)-pt brought own med Sivakumar Ball Other [facility] Other 07-24-2013 ALLERGY Injection (1 inj)-pt brought own med Sivakumar Ball Other [facility] Other 07-18-2013 ALLERGY Injection (1 inj)-pt brought own med Sivakumar Ball Other [facility] Other 04-03-2013 ALLERGY Injection (1 inj)-pt brought own med Sivakumar Ball Other [facility] Other 03-20-2013 ALLERGY Injection (1 inj)-pt brought own med Sivakumar Ball Other [facility] Other 03-06-2013 ALLERGY Injection (1 inj)-pt brought own med Sivakumar Ball Other [facility] Other 02-20-2013 ALLERGY Injection (1 inj)-pt brought own med Sivakumar Ball Other [facility] Other 02-06-2013 ALLERGY Injection (1 inj)-pt brought own med Sivakumar Ball Other [facility] Other 01-24-2013 ALLERGY Injection (1 inj)-pt brought own med Sivakumar Ball Other [facility] Other 01-10-2013 ALLERGY Injection (1 inj)-pt brought own med Sivakumar Ball Other [facility] Other 12-27-2012 ALLERGY Injection (1 inj)-pt brought own med Sivakumar Ball Other [facility] Other 12-14-2012 ALLERGY Injection (1 inj)-pt brought own med Sivakumar Ball Other [facility] Other 11-30-2012 ALLERGY Injection (2 or more)-pt brought own med Sivakumar Ball Other [facility] Other 11-16-2012 ALLERGY Injection (1 inj)-pt brought own med Sivakumar Ball Other [facility] Other 11-02-2012 ALLERGY Injection (1 inj)-pt brought own med Sivakumar Ball Other [facility] Other 10-18-2012 ALLERGY Injection (1 inj)-pt brought own med Sivakumar Ball Other [facility] Other 10-03-2012 ALLERGY Injection (1 inj)-pt brought own med Sivakumar Ball Other [facility] Other 09-20-2012 ALLERGY Injection (1 inj)-pt brought own med Sivakumar Ball Other [facility] Other 09-06-2012 ALLERGY Injection (1 inj)-pt brought own med Sivakumar Ball Other [facility] Other 08-23-2012 ALLERGY Injection (1 inj)-pt brought own med Sivakumar Ball Other [facility] Other 08-09-2012 ALLERGY Injection (1 inj)-pt brought own med Sivakumar Ball Other [facility] Other 07-25-2012 ALLERGY Injection (1 inj)-pt brought own med Sivakumar Ball Other [facility] Other 07-12-2012 ALLERGY Injection (1 inj)-pt brought own med Sivakumar Ball Other [facility] Other 06-28-2012 ALLERGY Injection (1 inj)-pt brought own med Sivakumar Ball Other [facility] Other 06-14-2012 ALLERGY Injection (1 inj)-pt brought own med Sivakumar Ball Other [facility] Other 05-31-2012 ALLERGY Injection (1 inj)-pt brought own med Sivakumar Ball Other [facility] Other 05-17-2012 ALLERGY Injection (1 inj)-pt brought own med Sivakumar Ball Other [facility] Other pneumococcal Conjuga te, unspecified formulation; 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: [Need for prophylactic vaccination against Streptococcus pneumoniae (pneumococcus)] Sivakumar Ball Other [facility] Other Payers Date Payer Category Payer Unknown [id number] 1970 Unknown [id number] 2.16.8 [id number] 1970 Unknown [id number] 2.16.84 [id number] 1971 Unknown [id number] 2.16.84 [id number] 1971 Unknown [id number] 2.16.84 [id number] 1971 Unknown [id number] 2.16.84 [id number] 1971 Unknown [id number] 2.16.84 [id number] 1971 Unknown [id number] 2.16.84 [id number] 1971 Unknown [id number] 2.16.84 [id number] 1971 Unknown [id number] 2.16.84 [id number] 1971 Unknown [id number] 2.16.84 [id number] 1958 [facility] [id number] 1958 Self-pay Unknown [id number] 2.16.8 [id number] Social History Date Type Detail Facility Unknown if ever smoked [facility] Other Sex Assigned At Sex Assigned At Bir th [facility] Other Start: 1970 Sex Assigned At Male F [facility] Clinical Notes 07-25-2022 to 12-08-2023 Note Date & Type Note Facility 12-08-2023 Evaluation note Encounter Date Diagnosis Assessment Notes Dec, Hypercholesterolemia (ICD-10 - E78.00) [facility] Other 01-24-2024 Evaluation note* Encounter Date Diagnosis Assessment Notes Treatment Notes Treatment Clinical Notes Nov, Ischemic cardiomyopathy (ICD-10 - I25.5) [...] are maintaining regular scheduled appts with their wharf operator. No bleeding complications Nov, Chronic restrictive lung [...] dysphagia.He denies abdominal pain, melena or hematochezia [facility] Other 12-28-2023 Evaluation note* Encounter Date Diagnosis Assessment Notes Treatment Notes Treatment Clinical Notes Oct, Lumbar spondylosis (ICD-10 - M47.816) [facility] Other 12-12-2023 Evaluation note* Encounter Date Diagnosis [...] bled. COntinue oxygen continuously. Avoid strenuous activity [facility] Other 12-01-2023 [facility] Consult Note Reason [...] PFT done he had recent admission at [facility] for COVID-pneumonia is now doing well [...] DOAC and Amiodarone. He was seen by ICICLE MACHINE OPERATOR in the past and c/o worsening JUNIOR [...] exam. Stress test performed on 07/25/2022 at [facility] showed areas of suspected reversible ischemia [...] 1. Given that the appearance of the soboba angiography is similar to prior angiography 2 [...] Take by mouth. fluticason (more content not included)...[facility] 10-06-2023 NotePatient here for 6 mo [...] light-headedness. 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) [facility] Other 11-01-2023 Evaluation note* Encounter Date Diagnosis Assessment Notes Treatment Notes Treatment Clinical Notes 01 Nov, 2023 Lumbar spondylosis (ICD-10 - M47.816) [facility] Other 10-17-2023 Evaluation note* Encounter Date Diagnosis [...] oxygen supplementation to maintain sats > 90% [facility] Other 10-11-2023 Evaluation note* Encounter Date Diagnosis [...] to use continuous oxygen at 2L/min Rest [facility] Other 10-02-2023 Evaluation note* Encounter Date Diagnosis Assessment Notes Treatment Notes Treatment Clinical Notes Aug, Lumbar spondylosis (ICD-10 - M47.816) [facility] Other 09-14-2023 Evaluation note* Encounter Date Diagnosis Assessment Notes Treatment Notes Treatment Clinical Notes Jul, Chronic venous insufficiency (ICD-10 - I87.2) [facility] Other 09-06-2023 Evaluation note* Encounter Date Diagnosis [...] evidence of bleeding problems Continue for now [facility] Other 08-29-2023 Evaluation note* Encounter Date Diagnosis Assessment Notes Treatment Notes Treatment Clinical Notes Jun, Lumbar spondylosis (ICD-10 - M47.816) [facility] Other 08-15-2023 Evaluation note* Encounter Date Diagnosis Assessment Notes Treatment Notes Treatment Clinical Notes Jun, Mild persistent asthma without complication (ICD-10 - J45.30) Samples please Jun, Chronic respiratory failure with hypoxia (ICD-10 - J96.11) Arrange for portable concentrator Jun, Severe obstructive sleep apnea (ICD-10 - G47.33) Jun, Morbid obesity (ICD-10 - E66.01) Jun, Restrictive lung disease (ICD-10 - J98.4) [facility] Other 07-27-2023 Evaluation note* Encounter Date Diagnosis Assessment Notes Treatment Notes Treatment Clinical Notes May, Lumbar spondylosis (ICD-10 - M47.816) [facility] Other 07-17-2023 Evaluation note* Encounter Date Diagnosis Assessment Notes Treatment Notes Treatment Clinical Notes May, Chronic venous insufficiency (ICD-10 - I87.2) [facility] Other 06-30-2023 Evaluation note* Encounter Date Diagnosis Assessment Notes Treatment Notes Treatment Clinical Notes Apr, Lumbar spondylosis (ICD-10 - M47.816) [facility] [employer] Other 06-28-2023 [facility] Cardiology Consult Note Reason for Consultation: Afib, 6-month follow-up HPI: patient for 6-month follow-up regarding his A-fib continues to take amiodarone and is tolerating well patient has not felt any palpitations or symptoms of A-fib denies chest pain, shortness of breath, lightheadedness, dizziness, fatigue per pulse check sinus rhythm he had recent PFT done he had recent admission at [facility] for COVID-pneumonia is now doing well [...] DOAC and Amiodarone. He was seen by ICICLE MACHINE OPERATOR in the past and c/o worsening JUNIOR [...] exam. Stress test performed on 07/25/2022 at [facility] showed areas of suspected reversible ischemia [...] 1. Given that the appearance of the soboba angiography is similar to prior angiography 2 [...] TAKE 1 TABLET (more content not included)... [facility]06-28-2023 NoteReview of Systems Cardiovascular: Positive for leg swelling. Respiratory: Positive for shortness of breath. All other systems reviewed and are negative.[facility] 04-27-2023 Evaluation note* Encounter Date Diagnosis [...] are maintaining regular scheduled appts with their wharf operator. Apr, Morbid (severe) obesity with alveolar hypoventilation [...] safely use Tylenol as needed. Weight loss [facility] Other 05-31-2023 Evaluation note* Encounter Date Diagnosis Assessment Notes Treatment Notes Treatment Clinical Notes March, Lumbar spondylosis (ICD-10 - M47.816) [facility] Other 05-02-2023 Evaluation note* Encounter Date Diagnosis Assessment Notes Treatment Notes Treatment Clinical Notes March, Lumbar spondylosis (ICD-10 - M47.816) [facility] Other 04-14-2023 Evaluation note* Encounter Date Diagnosis Assessment Notes Treatment Notes Treatment Clinical Notes Feb, Shortness of breath (ICD-10 - R06.02) Feb, Morbid (severe) obesity with alveolar hypoventilation (ICD-10 - E66.2) [facility] Other 04-03-2023 Evaluation note* Encounter Date Diagnosis Assessment Notes Treatment Notes Treatment Clinical Notes Feb, Lumbar spondylosis (ICD-10 - M47.816) [facility] Other 03-20-2023 Evaluation note* Encounter Date Diagnosis [...] use, the patient reduces the risk for DE, CVA, HTN, cardiac dysrhythmias and sudden cardiac [...] are maintaining regular scheduled appts with their wharf operator. Jan, Chronic venous insufficiency (ICD-10 - I87.2) Avoid salt and elevate lower extremities, support stockings, inspect legs and feet daily for blisters and ulcerations. Jan, Primary osteoarthritis of knees, bilateral (ICD-10 - M17.0) [facility] Other 03-08-2023 Evaluation note* Encounter Date Diagnosis [...] - R09.02) Continue use of supplemental oxygen [facility] Other 03-02-2023 Evaluation note* Encounter Date Diagnosis Assessment Notes Treatment Notes Treatment Clinical Notes Jan, Lumbar spondylosis (ICD-10 - M47.816) [facility] Other 02-20-2023 Evaluation note* Encounter Date Diagnosis Assessment Notes Treatment Notes Treatment Clinical Notes Dec, COVID-19 (ICD-10 - U07.1) Healthy diet, protein supplements, push fluids and rest. Increase activity as tolerated. Dec, Pneumonia due to Coronavirus disease 2019 (ICD-10 - J12.82) Complete antibiotics and steroids [...] are maintaining regular scheduled appts with their wharf operator. Dec, Obstructive sleep apnea (ICD-10 - G47.33) This patient is aware of the benefits associated with NORBERT: With continued use, the patient reduces the risk for DE, CVA, HTN, cardiac dysrhythmias and sudden cardiac [...] Restrictive lung disease (ICD-10 - J98.4) Dec, intermediate current use of anticoagulant therapy (ICD-10 - Z79.01) No bleeding complications [facility] Other 02-01-2023 Evaluation note* Encounter Date Diagnosis Assessment Notes Treatment Notes Treatment Clinical Notes Dec, Lumbar spondylosis (ICD-10 - M47.816) [facility] Other 09-19-2022 NoteCARDIAC STRESS TEST Requesting Physician: [...] interpreted and reported in a separate dictation.[facility] noteNo InformationNopro[facility] Other Evaluation noteNo assessment information available [facility] Work Phone: History general Narrative [...] Surgical History fracture repair pelvis Surgical History LHC PCI/STENT SVG-OM 10/2018 Surgical History RIGHT/LEFT HEART CARD CATH 05/07 021 Surgical History RIGHT TOTAL KNEE ARTHROPLASTY 0 12/2019 Surgical History LEFT BRANDY CABG 04/2013 Surgical History COLONOSCOPY Surgical History MYRINGOTOMY LEFT TM 07/2017 Hospitalization History see above [facility] Other Reason for referral (narrative)* Reason 02/23/23 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, Referral for pulmonary hypertension Referral for hypoxemia Diagnosis 1 Hypoxemia (R09.02) Referral Organization [facility] [employer] Referring Provider First Name Sivakumar Referring Provider Last Name Jorge Referring Provider Specialty Internal Me dicine Referred Organization [facility] Pulmonary Dise ase Referred Provider Karen Giles Referred Address [address],[facility] [address],[place], [place],[address] Referred Provider Specialty Pulmonary Di seases Referral Priority Routine Referral Appointment Date 2023-02-23 General Notes Millie Hunter 01:03:36 PM >received today, sent P2P Clinical Notes Please see CT Chest, PFT Test, Echo, NM Stress Test, and Cardiac Stress Test Reports In Chart. [facility] Other Reason for referral (narrative)* Reason Referral for screeni ng colonoscopy Diagnosis 1 Screening for colon cancer (Z12.11) Referral Organization [facility] [employer] Referring Provider First Name Sivakumar Referring Provider Last Name Jorge Referring Provider Specialty Internal Me dicine Referred Organization [facility] Referred Address [address] [place],[address] Referred Provider Specialty Gastroentero logy Referral Priority Routine General Notes He is due for a scre ening colonoscopy, his last colonoscopy was in 2013. He denies change in appetite, weight or bowel habits. He denies heartburn or dysphagia. He denies abdominal pain, melena or hematochezia [facility] Other Summary Purpose Family History No Family [...] section and content) DATE CREATED AUTHOR 05/18/2021 [facility] DATE CREATED AUTHOR AUTHOR'S ORGANIZ ATION 01/18/2023 [facility] DATE CREATED AUTHOR AUTHOR'S ORGANIZ ATION 03/10/2023 [facility] DATE CREATED AUTHOR AUTHOR'S ORGANIZ ATION 10/26/2023 [facility] REASON FOR VISIT (unrecogniz ed section and content) Medication RefillMAIL PPWpre scription refillAntibiotic?No InformationTBH FOLLOW UPprescription refillprescription refillSinuses/ Sick [phone] REFERRAL NOTEDISABILITY DISCUSSIONprescription refillrefillPFT testmed refillrefill3 month Follow upRefillrefillrefillRef by Dr. Patel for RLD secondary to obesity , pulmonary hypertension , hypoxemiaPulmonary Office NotesrefillRefillcoughMedication QuestionChest XrayRefillCongestion, Cough-Testing for [phone] coughing, finished antibiotic- [phone] mo f/u Asthma, Chronic Resp Failure w Hypoxia, Sleep Apnea, RLDrefillPaperwork for WorkrefillwellnessLab results Care Teams (unrecognized sec tion and content) Team Status: Active Member Role Status Dates Sivakumar Paetl DO Primary Care Provider Active Team Status: Inactive Member Role Status Marisol Patel DO Primary Care Provider, Attending Pr ovider Active [...] BE BASED ON THE PRIMARY CLINICAL RECORDS. [employer] provides no warranty or guarantee of the accuracy or completeness of information in this document.
[2023-12-26 13:00] LABS: Thyroid Stimulating Hormone 0.843 uIU/mL (0.358-3.740)
== END 2023-12-26 11:52 | disposition home or self-care (01) ==
LOC: LAB 11:52
PROVIDERS: PCP Internal Medicine; Visit Provider Internal Medicine Cardiovascular Disease
DX: E03.4 Atrophy of thyroid (acquired) (principal)
CPT/HCPCS: 36415; 84439; 84443

== ENCOUNTER 2024-03-11 13:06 | Outpatient (OUT) | payer BC, SELFPAY ==
[2024-03-11 13:23] LABS: Hemoglobin 18.2 g/dL (14.0-18.0)
[2024-03-11] MEDS: ALBUTEROL SULFATE 2.5 MG/3 ML VIAL NEB IH (14:05)
--- NOTE | 2024-03-11 14:05 | RT_ITS ---
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 Findings were considered accurate and reproducible. Both pre- and post-bronchodilator values utilized for spirometry. Spirometry (based on pre-bronchodilator values): -FEV1/FVC: Normal @ 92% -FEV1: Severely reduced @ 44% -FVC: Very severely reduced @ 38% -There is no significant bronchodilator response. Lung volumes by plethysmography (based on pre-bronchodilator values): -RV: Increased @ 124% -TLC: Low normal @ 80% Diffusion capacity: -DLCO: Normal @ 99% when corrected for Hb 18.2g/dL Flow-volume loop: -Very severe restriction Comparison with prior PFT 06/03/2021: -No significant change in spirometry or DLCO. -TLC improved from 80% Impressions: -Very severe restriction on spirometry with normal TLC and DLCO - this is consistent with an obesity pattern (stated BMI 69.9). When compared with prior PFT, there is slight improvement in TLC, but patient's BMI was unchanged from BMI 69.9. Hb is mildly elevated suggesting possible polycythemia. Clinical correlation required. Electronically Signed On 03-12-2024 6:59:34 EDT by Ronnell Hernández
== END 2024-03-11 13:07 | disposition home or self-care (01) ==
LOC: CARD 13:07
PROVIDERS: PCP Internal Medicine; Visit Provider Internal Medicine Cardiovascular Disease
DX: Z79.899 Other long term (current) drug therapy (principal)
CPT/HCPCS: 36415; 85018; 94060; 94726; 94729

== ENCOUNTER 2025-02-27 10:14 | Outpatient (OUT) | payer BC, SELFPAY ==
[2025-02-27 12:07] LABS: Free T4 3.21 ng/dL (0.76-1.46)
[2025-02-27 12:15] LABS: Bilirubin Direct 0.2 mg/dL (0.0-0.2); Free T3 4.54 pg/mL (2.18-3.98)
== END 2025-02-27 10:15 | disposition home or self-care (01) ==
LOC: LAB 10:16
PROVIDERS: PCP Internal Medicine; Visit Provider Internal Medicine Cardiovascular Disease
DX: Z79.899 Other long term (current) drug therapy (principal)
CPT/HCPCS: 36415; 82248; 84439; 84481

== ENCOUNTER 2025-02-27 10:20 | Outpatient (OUT) | payer BC, SELFPAY ==
[2025-02-27 10:49] LABS: Hematocrit 52.4 % (42.0-54.0); Mean Corpuscular HGB Conc 32.4 g/dL (29.9-35.2); Mean Corpuscular Hemoglobin 32.4 pg (25.9-34.0); Mean Platelet Volume 10.1 fL (9.5-13.5); Platelet Count 196 10^3/uL (150-450); Red Blood Count 5.24 10^6/uL (4.70-6.10); Red Cell Distribution Width 14.7 % (11.0-15.0); White Blood Count 8.2 10^3/uL (4.0-11.0)
--- NOTE | 2025-02-27 10:49 | XR_ITS ---
The [address] [address] Patient Name: CARLOS MOSELEY MRN: [id number] date: 1970 Sex: M Assigned Patient Location: LAB Current Patient Location: LAB Accession/Order Number: [id number] Exam Date: 02/27/2025 13:50 Report Date: 02/27/2025 13:51 At the request of: GREGOR DAVID DO Procedure: XR chest 2V Chest 2 views CLINICAL HISTORY: Hypoxia, Restrictive Lung Disease, Ischemic Cardiomyopathy COMPARISON: Chest 07/19/2023 FINDINGS: Sternotomy wires are noted. Cardiomegaly with vascular congestion/interstitial changes is unchanged. No new consolidation pneumothorax pleural effusion or free air. XR/XR chest 2V IMPRESSION: CARDIOMEGALY WITH VASCULAR CONGESTION/INTERSTITIAL CHANGES GROSSLY SIMILAR TO THE PRIOR STUDY. NO NEW CONSOLIDATION TO SUGGEST PNEUMONIA. Impression dictated by: Wyatt Serna Jr., DJovitaOJovita02/27/2025 1:51 PM Dictation Location: [facility] Electronically authenticated by: [id number] Y Date: 02/27/2025 13:51
[2025-02-27 11:19] LABS: Lymphocytes Absolute Manual 0.16 10^3/uL (1.20-3.80); Monocytes Absolute Manual 0.32 10^3/uL (0.30-0.80)
[2025-02-27 12:04] LABS: Alanine Aminotransferase 38 U/L (16-63); Albumin Level 3.4 g/dL (3.4-5.0); Alkaline Phosphatase 87 U/L (46-116); Anion Gap 11.7; Aspartate Amino Transferase 19 U/L (15-37); BUN Creatinine Ratio 30.9; Bilirubin Total 1.2 mg/dL (0.2-1.0); Calcium 9.2 mg/dL (8.5-10.1); Carbon Dioxide 30.1 mmol/L (21.0-32.0); Chloride 104 mmol/L (98-107); Estimated GFR (African America >60 (>=60 mL/min/1.73m^2); Estimated GFR (Non-African Ame >60 (>=60 mL/min/1.73m^2); Globulin 3.4 g/dL; Glucose 114 mg/dL (74-106); Potassium 3.8 mmol/L (3.5-5.1); Sodium 142 mmol/L (136-145); Total Protein 6.8 g/dL (6.4-8.2)
[2025-02-27 12:12] LABS: Thyroid Stimulating Hormone <0.007 uIU/mL (0.358-3.740)
[2025-02-27 12:13] LABS: Prostate Specific Antigen Scrn 0.34 ng/mL (<=4.00)
[2025-02-27 12:16] LABS: Chol HDL Ratio 2.7; Cholesterol 155 mg/dL (<=200); HDL Cholesterol 57 mg/dL (40-60); LDL Cholesterol Calculated 87.8 mg/dL; Triglycerides 51 mg/dL (<=150); VLDL CHOLESTEROL 10.2 mg/dL
== END 2025-02-27 10:21 | disposition home or self-care (01) ==
LOC: LAB 10:23
PROVIDERS: PCP Internal Medicine; Visit Provider Internal Medicine
DX: Z00.00 Encounter for general adult medical examination without abnormal findings (principal); Z79.899 Other long term (current) drug therapy; R09.02 Hypoxemia; J98.4 Other disorders of lung; E66.9 Obesity, unspecified; I48.0 Paroxysmal atrial fibrillation; I10 Essential (primary) hypertension; Z12.5 Encounter for screening for malignant neoplasm of prostate
CPT/HCPCS: 36415; 71046; 80053; 80061; 82248; 83880; 84439; 84443; 84481; 85007; 85027; G0103

== ENCOUNTER 2025-03-24 13:27 | Emergency (ER) | payer BC, SELFPAY ==
[2025-03-24] VITALS (51 sets, daily range): BP systolic 117–140; BP diastolic 61–68; PULSE 62–88; RESP 20; TEMP 36.7; O2SAT 52–97; BMI 72.3
--- NOTE | 2025-03-24 13:32 | XR_ITS ---
The [place] [id number] Patient Name: CARLOS MOSELEY MRN: [id number] date: 1970 Sex: M Assigned Patient Location: ED.MAIN Current Patient Location: ED.MAIN Accession/Order Number: [id number] Exam Date: 03/24/2025 15:08 Report Date: 03/24/2025 15:10 At the request of: EZEKIEL MALHOTRA MD Procedure: XR chest 1V PORTABLE AP ERECT CHEST 1436 hours CLINICAL HISTORY: Shortness of breath COMPARISON: 02/27/2025 Evaluation is limited by body habitus and technique. Median sternotomy wires are present. Cardiomegaly is again noted. Vascular congestion is still suspected. Pleural effusion is not excluded without a lateral view, particularly on the left. No obvious pneumothorax is seen. The bony structures are osteopenic. XR/XR chest 1V IMPRESSION: LIMITED STUDY. CARDIOMEGALY WITH POSSIBLE FAILURE. CORRELATION IS RECOMMENDED. Impression dictated by: Sugey Barker M.D. 03/24/2025 3:10 PM Dictation Location: [place] [address] Electronically authenticated by: [id number] Y Date: 03/24/2025 15:10
--- NOTE | 2025-03-24 13:32 | ECG_ITS ---
The [facility] Test Date: 2025-03-24 Pat Name: CARLOS MOSELEY Department: Room: - Gender: Male Straw Baler: : 1970 Requested By: [id number] Order Number: [id number] Reading MD: TAI GUZMAN M.D. Measurements Intervals [place] Rate: 70 P: 54 DE: 202 QRS: 104 QRSD: 90 T: 55 QT: 410 QTc: 431 Interpretive Statements 1100 Sinus rhythm 7100 Abnormal right axis deviation 8102 Low QRS voltage in chest leads Abnormal ECG Compared to ECG 12/09/2022 21:55:22 Low QRS voltage now present ST (T wave) deviation no longer present Electronically Signed On 03-24-2025 17:53:15 EDT by TAI GUZMAN M.D.
--- NOTE | 2025-03-24 14:02 | ED.SOB1 ---
HPI - SOB/Dyspnea General Chief Complaint: Shortness of Breath/Dyspnea Stated Complaint: SWOLLEN LEGS SOB SENT BY PCP Time Seen by Provider: 03/24/25 13:30 Source: patient Mode of arrival: Wheelchair Limitations: physical limitation History of Present Illness HPI Narrative: The patient is a 54-year-old male with history of morbid obesity with a BMI of 72.3, is coming to us with a history of cardiomyopathy as well as restrictive lung airway disease and oxygen dependent at 2 L, for the last 2 to 3 days he has been increasing his oxygen to 3 L all the time, he is also complaining of a cough productive of brownish sputum. The patient denies any nausea or vomiting he apparently presented to us after he was evaluated by his primary care doctor and he was found to be hypoxic at 70% at room air Patient also has been having increasing in the leg edema and his utility bill complaints investigator increased his Lasix recently to double the dose although the patient mentioned that he still have bilateral leg edema and he feels that his abdomen distended to due to fluid overload Related Data Home Medications ?Medication ?Instructions ?Recorded ?Confirmed albuterol sulfate 90 mcg/actuation 2 puff inhalation Q6H PRN 03/24/25 03/24/25 aerosol inhaler shortness of breath or wheezing amiodarone 200 mg tablet 200 mg PO .QD 03/24/25 03/24/25 amlodipine 10 mg tablet 10 mg PO QAM 03/24/25 03/24/25 atorvastatin 80 mg tablet 80 mg PO QPM 03/24/25 03/24/25 baclofen 10 mg tablet 10 mg PO Q8H muscle spasm 03/24/25 03/24/25 budesonide-formoterol HFA 80 2 puff inhalation Q12H 03/24/25 03/24/25 mcg-4.5 mcg/actuation aerosol inhaler furosemide 40 mg tablet 80 mg PO BID 03/24/25 03/24/25 ipratropium 0.5 mg-albuterol 3 mg 3 ml inhalation BID PRN shortness 03/24/25 03/24/25 (2.5 mg base)/3 mL nebulization of breath or wheezing soln isosorbide mononitrate 60 mg 60 mg PO QAM 03/24/25 03/24/25 tablet,extended release 24 hr lisinopril 20 mg tablet 20 mg PO BID 03/24/25 03/24/25 metoprolol tartrate 50 mg tablet 50 mg PO BIDWM 03/24/25 03/24/25 potassium chloride 10 mEq 10 meq PO QAM 03/24/25 03/24/25 tablet,extended release rivaroxaban 20 mg tablet (Xarelto) 20 mg PO .EM 03/24/25 03/24/25 Allergies Allergy/AdvReac Type Severity Reaction Status Date / Time sulfamethoxazole (From Allergy Unknown Anaphylaxis Verified 03/24/25 13:41 Bactrim) trimethoprim (From Bactrim) Allergy Unknown Anaphylaxis Verified 03/24/25 13:41 Review of Systems ROS Status of ROS 10 or more systems reviewed and unremarkable except as noted in history and below PFSH PFSH Social History Little interest or pleasure in doing things: not at all Feeling down, depressed, or hopeless: not at all Exam Narrative Exam Narrative: Nurses notes and vital signs reviewed and patient is not hypoxic. General: Patient is in distress speaking in one-word sentences Skin: Warm, dry, no pallor noted. No rash. Head: Normocephalic, atraumatic. Neck: Supple, non-tender. Eye: Pupils are equal, round and EOMI. No scleral icterus. Ears, Nose, Mouth, and Throat: TM are clear, no nasal mucosal hypertrophy. Oral mucosa is moist, no posterior oropharynx erythema, uvula is mid-line Cardiovascular: Regular Rate and Rhythm without murmur, gallop or rub. Respiratory: The patient have a distant breathing sounds bilaterally due to body habitus no wheezing or crackles heard in the bases mostly on the left side Back: No midline thoracic or lumbar vertebral tenderness. No CVA tenderness Musculoskeletal: normal ROM, no calf or popliteal tenderness, the patient have a bilateral leg edema and 1+ at least GI: Abdomen is distended partially due to obesity but also possible fluid overload Neurological: A&O x4. No cranial nerve dysfunction observed. . Constitutional Vital Signs, click to edit/add: Last Vital Signs Temp 98.1 F 03/24/25 13:31 Pulse 64 03/24/25 14:05 Resp 28 H 03/24/25 13:31 BP 140/68 03/24/25 15:43 Pulse Ox 93 L 03/24/25 14:05 O2 Flow Rate 5 03/24/25 13:39 FiO2 60 03/24/25 14:05 Course Vital Signs Vital signs: Vital Signs Temperature 98.1 F 03/24/25 13:31 Pulse Rate 74 03/24/25 13:31 Respiratory Rate 28 H 03/24/25 13:31 Blood Pressure 117/61 03/24/25 13:31 Temperature 98.1 F 03/24/25 13:31 Pulse Rate 64 03/24/25 14:05 Respiratory Rate 28 H 03/24/25 13:31 Blood Pressure 140/68 03/24/25 15:43 Pulse Oximetry 93 L 03/24/25 14:05 Oxygen Delivery Flow Rate 5 03/24/25 13:39 Fraction of Inspired Oxygen 60 03/24/25 14:05 MDM - SOB/Dyspnea MDM Narrative Medical decision making narrative: The patient presented to us with no obvious distress he was speaking in one-word sentences upon arrival his pulse ox was 63% in room air he was on 5 L nasal cannula reaching 81% maximum Patient was placed on his BiPAP machine of 16/8 right away his pulse ox is 93% with that and he is able to speak better although he still short of breath The patient have a history of cardiomyopathy and restrictive lung disease he is already dependent on 2 L nasal cannula and there is increase in his oxygen requirement that is obvious on arrival The patient EKG in the ER showing sinus rhythm with a heart rate of [address] elevation or depression Patient also have CBC and chemistry showing no acute kidney injury in the CBC shows no leukocytosis The patient chest x-ray shows possible congestion and acute congestive heart failure with the significant enlarged heart The patient case was discussed with the utility bill complaints investigator Dr. Banerjee and for now 80 mg of Lasix that he was provided with they will be monitoring to see the effect of it while the patient on BiPAP The patient will be transferred to [facility] to MICU bed Patient case was discussed with team and the pulmonary critical care fellow The patient right now stable awaiting to be transferred Patient troponin is negative and his BNP is not elevated but that mostly secondary to his elevated BMI The patient also had his Lasix initially increased to 80 mg p.o. twice daily as outpatient and it was not helping with his symptoms and he was not urinating enough according to the patient Lab Data Labs: Lab Results 03/24/25 03/24/25 03/24/25 Range/Units 13:50 14:06 14:20 WBC 7.2 (4.0-11.0) 10^3/uL RBC 5.07 (4.70-6.10) 10^6/uL Hgb 16.7 (14.0-18.0) g/dL Hct 49.7 (42.0-54.0) % MCV 98.0 H (80.0-94.0) fL MCH 32.9 (25.9-34.0) pg MCHC 33.6 (29.9-35.2) g/dL RDW 15.9 H (11.0-15.0) % Plt Count 187 (150-450) 10^3/uL MPV 10.4 (9.5-13.5) fL Neut % (Auto) 71.5 (43.0-75.0) % Lymph % (Auto) 13.1 L (20.5-60.0) % Atkinson % (Auto) 11.9 (1.7-12.0) % Eos % (Auto) 2.1 (0.9-7.0) % Baso % (Auto) 0.4 (0.2-2.0) % Neut # (Auto) 5.2 (1.4-6.5) 10^3/uL Lymph # (Auto) 1.0 L (1.2-3.8) 10^3/uL Atkinson # (Auto) 0.9 H (0.3-0.8) 10^3/uL Eos # (Auto) 0.2 (0.0-0.7) 10^3/uL Baso # (Auto) 0.0 (0.0-0.1) 10^3/uL Abs Immat Gran (auto) 0.07 H (0.00-0.03) 10^3/uL Imm/Tot Granulo (auto) 1.0 H (0.0-0.5) % PT (9.0-11.6) sec INR Puncture Site Rr ABG pH 7.353 (7.350-7.450) ABG pCO2 54.6 H* (35.0-45.0) mmHg ABG pO2 83.7 (80.0-100.0) mmHg ABG HCO3 30.4 H (22.0-26.0) mmol/L ABG O2 Saturation 96.3 % ABG Base Excess 4.8 H (-2.0-2.0) mmol/L Ciro Test Positive (POSITIVE) FiO2 60 % BiPAP 16/8 Sodium (136-145) mmol/L Potassium (3.5-5.1) mmol/L Chloride (98-107) mmol/L Carbon Dioxide (21.0-32.0) mmol/L Anion Gap BUN (7.0-18.0) mg/dL Creatinine (0.70-1.30) mg/dL Est GFR ( Amer) (>=60 mL/min/1.73m^2) Est GFR (Non-Af Amer) (>=60 mL/min/1.73m^2) BUN/Creatinine Ratio Glucose (74-106) mg/dL Calcium (8.5-10.1) mg/dL Magnesium (1.8-2.4) mg/dL Total Bilirubin (0.2-1.0) mg/dL AST (15-37) U/L ALT (16-63) U/L Alkaline Phosphatase (46-116) U/L Troponin I High Sens (4.0-76.1) pg/mL NT-Pro-B Natriuret Pep 258.0 (<=900.0) pg/mL Total Protein (6.4-8.2) g/dL Albumin (3.4-5.0) g/dL Globulin g/dL Albumin/Globulin Ratio 05/19/25 Range/Units 14:28 WBC (4.0-11.0) 10^3/uL RBC (4.70-6.10) 10^6/uL Hgb (14.0-18.0) g/dL Hct (42.0-54.0) % MCV (80.0-94.0) fL MCH (25.9-34.0) pg MCHC (29.9-35.2) g/dL RDW (11.0-15.0) % Plt Count (150-450) 10^3/uL MPV (9.5-13.5) fL Neut % (Auto) (43.0-75.0) % Lymph % (Auto) (20.5-60.0) % Atkinson % (Auto) (1.7-12.0) % Eos % (Auto) (0.9-7.0) % Baso % (Auto) (0.2-2.0) % Neut # (Auto) (1.4-6.5) 10^3/uL Lymph # (Auto) (1.2-3.8) 10^3/uL Atkinson # (Auto) (0.3-0.8) 10^3/uL Eos # (Auto) (0.0-0.7) 10^3/uL Baso # (Auto) (0.0-0.1) 10^3/uL Abs Immat Gran (auto) (0.00-0.03) 10^3/uL Imm/Tot Granulo (auto) (0.0-0.5) % PT 13.9 H (9.0-11.6) sec INR 1.35 Puncture Site ABG pH (7.350-7.450) ABG pCO2 (35.0-45.0) mmHg ABG pO2 (80.0-100.0) mmHg ABG HCO3 (22.0-26.0) mmol/L ABG O2 Saturation % ABG Base Excess (-2.0-2.0) mmol/L Ciro Test (POSITIVE) FiO2 % BiPAP Sodium 138 (136-145) mmol/L Potassium 4.0 (3.5-5.1) mmol/L Chloride 102 (98-107) mmol/L Carbon Dioxide 28.4 (21.0-32.0) mmol/L Anion Gap 11.6 BUN 18.0 (7.0-18.0) mg/dL Creatinine 0.88 (0.70-1.30) mg/dL Est GFR ( Amer) >60 (>=60 mL/min/1.73m^2) Est GFR (Non-Af Amer) >60 (>=60 mL/min/1.73m^2) BUN/Creatinine Ratio 20.5 Glucose 108 H (74-106) mg/dL Calcium 9.4 (8.5-10.1) mg/dL Magnesium 2.0 (1.8-2.4) mg/dL Total Bilirubin 1.5 H (0.2-1.0) mg/dL AST 23 (15-37) U/L ALT 31 (16-63) U/L Alkaline Phosphatase 101 (46-116) U/L Troponin I High Sens 16.2 (4.0-76.1) pg/mL NT-Pro-B Natriuret Pep (<=900.0) pg/mL Total Protein 7.1 (6.4-8.2) g/dL Albumin 3.3 L (3.4-5.0) g/dL Globulin 3.8 g/dL Albumin/Globulin Ratio 0.9 Discharge Plan Discharge Chief Complaint: Shortness of Breath/Dyspnea Clinical Impression: Congestive cardiomyopathy, Congestive heart failure, Respiratory failure, Fluid overload Patient Disposition: [facility] Time of Disposition Decision: 17:02
[2025-03-24] MEDS: METHYLPREDNISOLONE SOD SUCC PF 125 MG/2 ML VIAL IVP (14:11)
[2025-03-24 14:33] LABS: Allen Test POSITIVE (POSITIVE); BIPAP Pressure 16/8; Base Excess ABG 4.8 mmol/L (-2.0-2.0); Fractionated Inspired Oxygen 60 %; HCO3 ABG 30.4 mmol/L (22.0-26.0); O2 Mode BIPAP; Oxygen Saturation ABG 96.3 %; PO2 ABG 83.7 mmHg (80.0-100.0); pH ABG 7.353 (7.350-7.450)
[2025-03-24 14:34] LABS: Puncture Site RR
[2025-03-24 14:34] LABS: Basophils Percent Auto 0.4 % (0.2-2.0); Eosinophils Absolute Auto 0.2 10^3/uL (0.0-0.7); Eosinophils Percent Auto 2.1 % (0.9-7.0); Hematocrit 49.7 % (42.0-54.0); Hemoglobin 16.7 g/dL (14.0-18.0); Immature Granulocytes Abs Auto 0.07 10^3/uL (0.00-0.03); Lymphocytes Percent Auto 13.1 % (20.5-60.0); Mean Corpuscular HGB Conc 33.6 g/dL (29.9-35.2); Mean Corpuscular Hemoglobin 32.9 pg (25.9-34.0); Mean Platelet Volume 10.4 fL (9.5-13.5); Monocytes Absolute Auto 0.9 10^3/uL (0.3-0.8); Monocytes Percent Auto 11.9 % (1.7-12.0); Neutrophils Absolute Auto 5.2 10^3/uL (1.4-6.5); Neutrophils Percent Auto 71.5 % (43.0-75.0); Platelet Count 187 10^3/uL (150-450); Red Blood Count 5.07 10^6/uL (4.70-6.10); Red Cell Distribution Width 15.9 % (11.0-15.0); White Blood Count 7.2 10^3/uL (4.0-11.0)
[2025-03-24 14:35] LABS: ABG PCO2 54.6 mmHg (35.0-45.0)
[2025-03-24 14:52] LABS: Alanine Aminotransferase 31 U/L (16-63); Albumin Globulin Ratio 0.9; Albumin Level 3.3 g/dL (3.4-5.0); Alkaline Phosphatase 101 U/L (46-116); Anion Gap 11.6; Aspartate Amino Transferase 23 U/L (15-37); BUN Creatinine Ratio 20.5; Bilirubin Total 1.5 mg/dL (0.2-1.0); Calcium 9.4 mg/dL (8.5-10.1); Carbon Dioxide 28.4 mmol/L (21.0-32.0); Chloride 102 mmol/L (98-107); Estimated GFR (African America >60 (>=60 mL/min/1.73m^2); Estimated GFR (Non-African Ame >60 (>=60 mL/min/1.73m^2); Globulin 3.8 g/dL; Glucose 108 mg/dL (74-106); Sodium 138 mmol/L (136-145); Total Protein 7.1 g/dL (6.4-8.2); Troponin I High Sensitivity 16.2 pg/mL (4.0-76.1)
[2025-03-24 14:53] LABS: INR 1.35; Prothrombin Time 13.9 sec (9.0-11.6)
[2025-03-24] MEDS: FUROSEMIDE 40 MG/4 ML VIAL 80 MG IV (15:43)
--- NOTE | 2025-03-24 18:21 | PC.NURSE ---
Report called to Kristie at [facility]
== END 2025-03-24 20:51 | disposition short-term general hospital (02) ==
PROVIDERS: Emergency Provider Emergency Medicine; PCP Internal Medicine
DX: I50.9 Heart failure, unspecified (principal); J96.90 Respiratory failure, unspecified, unspecified whether with hypoxia or hypercapnia; E66.01 Morbid (severe) obesity due to excess calories; Z68.45 Body mass index [BMI] 70 or greater, adult; I42.9 Cardiomyopathy, unspecified; J98.4 Other disorders of lung; Z99.81 Dependence on supplemental oxygen; R60.0 Localized edema; Z79.899 Other long term (current) drug therapy; E87.70 Fluid overload, unspecified
CPT/HCPCS: 36415; 36600; 71045; 80053; 82805; 83735; 83880; 84484; 85025; 85610; 93005; 94660; 96374; 96375; 99285; J1938; J2919

== ENCOUNTER 2025-05-28 16:34 | Outpatient (OUT) | payer BC, SELFPAY ==
--- OUTSIDE RECORDS SUMMARY | 2025-05-19 10:00 | XMS_ITS | Encounter Summary ---
Author Organization [facility] Address [address] [place] [address] Care Team Providers Care Bailer Operators Supervisor Name Role Phone Sivakumar Patel DO Primary Care Provider [phone] Reason for Visit * Reason Comments Thyroid Problem Follow-up Encounter Details Date Type Department Care Team (Latest Contact Info) Description 05/19/2025 10:00 AM EDT Office Visit [facility] [address] [place] [id number] Chucho Oreilly MD [address] [place] [address] Subclinical hyperthyroidism (Primary Dx); Paroxysmal atrial fibrillation (HCC); Achondroplasia (HHS-HCC); Thyroid nodule Social History Tobacco Use Types Packs/Day Years Used Date Smoking Tobacco: Former Cigarettes Sex and Gender Information Value Date Recorded Sex Assigned at Male 04/28/2025 10:25 PM EDT Legal Sex Male 7:10 PM EDT Gender Identity Male 04/28/2025 10:25 PM EDT Sexual Orientation Straight 04/28/2025 10 :25 PM EDT documented as of this encounter Last Filed Vital Signs Vital Sign Reading Time Taken Comments Blood Pressure - - Pulse 84 05/19/2025 10:09 AM EDT Temperature - - Respiratory Rate 18 05/19/2025 10:09 AM EDT Oxygen Saturation 94% 05/19/2025 10:09 AM EDT Inhaled Oxygen Concentration - - Weight 125 kg (275 lb) 05/19/2025 10:09 AM EDT Height 137.2 cm (4' 6 ) 05/19/2025 10:09 AM EDT Body Mass Index 66.31 05/19/2025 10:09 AM EDT documented in this encounter Progress Notes * Chucho Oreilly MD - 05/19/2025 10:00 AM EDT Zenon Cheek is a 54 y.o. male No ref. provider found presents with chief complaint of Thyroid Problem and Follow-up HPI: IM : 05/2025 Follow-up visit 05/19/2025 TSH 0.07, free T4 2.5 ( 0.8-1.8), free T3 3.7, all thyroid antibodies negative, ultrasound shows right lobe 5.5 x 1.9 x 2.2 cm, left lobe 4.5 x 2.1 x 1.8 cm, there is 8 mm solid hypoechoic nodules in right lobe, he finished course of prednisone 20 mg once a day History of Present Illness The patient is a 54-year-old male who presents as a new patient referred by Sivakumar Ware for hyperthyroidism, with TSH suppressed in February. He was in the hospital for atrial fibrillation. He was on amiodarone for couple years off December/2024 and he is not on any beta blockers or calcium channel blockers, but he is on Tikosyn and he is on Eliquis for his A-fib. Clinically he is euthyroid. SUBJECTIVE: MEDICATIONS: Current Outpatient Medications Medication Instructions albuterol HFA 90 mcg/act inhaler 2 puffs, Every 6 hours PRN amLODIPine (NORVASC) 10 mg, Every morning atorvastatin (Lipitor) 80 MG tablet 1 tablet, Daily b complex vitamins capsule 1 capsule, Daily RT baclofen (Lioresal) 10 MG tablet 3 times daily budesonide-formoterol (Symbicort) 80-4.5 MCG/ACT inhaler 2 puffs, 2 times daily Cetirizine HCl 10 MG capsule 1 capsule, Daily dofetilide (TIKOSYN) 250 mcg, Daily ezetimibe (Zetia) 10 MG tablet 1 tablet, Daily fluticasone (Flonase) 50 MCG/ACT nasal spray 1 spray, Daily PRN furosemide (LASIX) 80 mg, Nightly glucosamine-chondroitin 500-400 MG tablet 1 tablet, 3 times daily isosorbide mononitrate ER (IMDUR) 60 mg, Every morning lisinopril 20 MG tablet 1 tablet, 2 times daily magnesium oxide (MAG-OX) 400 mg, Daily metoprolol tartrate (Lopressor) 50 MG tablet 1 tablet, 2 times daily potassium chloride CR (Klor-Con M10) 10 MEQ ER tablet 10 mEq, Daily Rivaroxaban (XARELTO PO) Take by mouth sildenafil (REVATIO) 20 mg, 3 times daily ALLERGIES: Allergies Allergen Reactions Sulfa Antibiotics Anaphylaxis and Hives Past Medical History: Diagnosis Date Acute on chronic respiratory failure with hypoxemia (HCC) and RLD Adverse effect of other antidysrhythmic drugs, initial encounter ASHD (arteriosclerotic heart disease) Chronic HFrEF (heart failure with reduced ejection fraction) ([facility]) Chronic venous insufficiency CVI (common variable immunodeficiency) ([facility]) History of fracture of pelvis History of tobacco abuse HLD (hyperlipidemia) HTN (hypertension) Hypercholesterolemia Hypoxia Ischemic cardiomyopathy Lumbar spondylosis Mild mitral regurgitation Morbid obesity with BMI of 70 and over, adult ([facility]) Opiate analgesic use agreement exists NORBERT (obstructive sleep apnea) Other thyrotoxicosis without thyrotoxic crisis or storm Paroxysmal atrial fibrillation (HCC) Paroxysmal atrial fibrillation ([facility]) 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, bilateral Primary osteoarthritis of left hip Past Surgical History: Procedure Laterality Date COLONOSCOPY 03/2024 also 08/2014 - repeat every 3 years CORONARY ARTERY BYPASS GRAFT CT ANGIOGRAM HEART CORONARY 03/25/2025 CT ANGIOGRAM TAVR 03/25/2025 ECHOCARDIOGRAM 11/2023 LVEF near normal, Right ventricular appears to be mild dilated with preserved systolic function, mild mitral regurgitation HEART CATH Bilateral TOTAL HIP ARTHROPLASTY TOTAL KNEE ARTHROPLASTY Right REVIEW OF SYMPTOMS: 14 POINT OF SYSTEM REVIEWED AND NEGATIVE OBJECTIVE: Visit Vitals Pulse 84 Resp 18 Ht 4' 6 Wt 275 lb SpO2 94% BMI 66.31 kg/m?? Smoking Status Former BSA 2.18 m?? Physical Exam Constitutional: Appearance: Normal appearance. He is normal weight. HENT: Head: Normocephalic and atraumatic. Right Ear: External ear normal. Nose: Nose normal. Mouth/Throat: Pharynx: Oropharynx is clear. Eyes: Extraocular Movements: Extraocular movements intact. Pupils: Pupils are equal, round, and reactive to light. Cardiovascular: Rate and Rhythm: Normal rate and regular rhythm. Pulmonary: Effort: Pulmonary effort is normal. Abdominal: General: Abdomen is flat. Palpations: Abdomen is soft. Skin: General: Skin is warm. Neurological: General: No focal deficit present. Mental Status: He is alert. Psychiatric: Mood and Affect: Mood normal. Behavior: Behavior normal. Had short stature achondroplasia ASSESSMENT AND PLAN: Assessment/Plan Diagnoses and all orders for this visit: Subclinical hyperthyroidism - methIMAzole (Tapazole) 10 MG tablet; Take 1 tablet (10 mg) by mouth Daily - T3, free; Future - T4, free; Future - TSH; Future - Hepatic function panel; Future Paroxysmal atrial fibrillation (HCC) Achondroplasia (HHS-HCC) Thyroid nodule 8 Mm solid hypoechoic nodule, no need for biopsy, we will repeat ultrasound in 1 year. Assessment & Plan Most likely his hyperthyroidism due to thyroiditis since thyroid antibodies negative, we will starthim on methimazole 10 mg once a day we will check lab before next visit in 2 months and adjust, offNorvasc and metoprolol Follow-up 2 months documented in this encounter Plan of Treatment Upcoming Encounters Date Type Department Care Team (Late st Contact Info) Description 07/22/2025 10:20 AM EDT Office Visit [facility] [address] [place] [address] Chucho Oreilly MD [address] [place] [address] Scheduled Orders Name Type Priority Associated Diagnoses Orde r Schedule T3, free Lab Routine Subclinical hyperthyroidism Expected: 05/19/2025 (Approximate), Expires: 05/19/2026 T4, free Lab Routine Subclinical hyperthyroidism Expected: 05/19/2025 (Approximate), Expires: 05/19/2026 TSH Lab Routine Subclinical hyperthyroidism Expected: 05/19/2025 (Approximate), Expires: 05/19/2026 Hepatic function panel Lab Routine Subclinical hyperthyroidism Expected: 05/19/2025 (Approximate), Expires: 05/19/2026 documented as of this encounter Visit Diagnoses Diagnosis Subclinical hyperthyroidism- Primary Thyrotoxicosis without mention of goiter or other cause, without mention of thyrotoxic crisis or storm Paroxysmal atrial fibrillation (HCC) Atrial fibrillation Achondroplasia (HHS-HCC) Chondrodystrophy Thyroid nodule Nontoxic uninodular goiter documented in this encounter Care Teams Bailer Operators Supervisor Relationship Specialty Start Date End Date Sivakumar Patel DO [address] [place] [address] PCP - General Internal Medicine 03/17/25 documented as of this encounter
--- OUTSIDE RECORDS SUMMARY | 2025-05-27 09:30 | XMS_ITS | Encounter Summary ---
Author Organization [facility] Address [address] [place] [address] Care Team Providers Care Judicial Assistant Name Role Phone Sivakumar David DO Primary Care Provider Encounter Details Date Type Department Care Team (Late st Contact Info) Description 05/27/2025 9:30 AM EDT Office Visit [facility] at [facility] [address] [place] [address] Arnel Banerjee MD [address] [place] [phone] Chronic respiratory failure with hypoxia (CMS/HCC) (Primary Dx) Social History Tobacco Use Types Packs/Day Years Used Date Smoking Tobacco: Former Cigarettes Smokeless Tobacco: Never Alcohol Use Standard Drinks/Week Comments Not Currently 0 (1 standard drink = 0.6 oz pur e alcohol) [facility] Utilities Answer Date Recorded In the past 12 months has [facility] [employer], gas, oil, or water [employer] threatened to shut off services in your home? No 03/25/2025 Humiliation, Afraid, Rape, and Kick questionnair e Answer Date Recorded Within the last year, have y ou been afraid of your partner or ex-partner? No 03/25/2025 Emotionally Abused Not on file 03/25/2025 Physically Abused Not on file 03/25/2025 Sexually Abused Not on file 03/25/2025 Overall Financial Resource Strain (CARDIA) Answe r Date Recorded How hard is it for you to pa y for the very basics like food, housing, medical care, and heating? Not hard at all 03/25/2025 Transportation Answer Date Recorded In the past 12 months, has l ack of transportation kept you from medical appointments or from getting medications? No 03/25/2025 Lack of Transportation (Non-Medical) Not on file 03/25/2025 Housing Stability Vital Sign Answer Ibrahima e Recorded In the last 12 months, was t here a time when you were not able to pay the mortgage or rent on time? No 03/25/2025 Number of Times Moved in the Last Year Not on fi le 03/25/2025 At any time in the past 12 m [facility], were you homeless or living in a fdc (including now)? No 03/25/2025 Hunger Vital Sign Answer Date Recorded Within the past 12 months, y ou worried that your food would run out before you got the money to buy more. Never true 03/25/20 Ran Out of Food in the Last Year Not on file 03/25/2025 Sex and Gender Information Value Date Recorded Sex Assigned at Male 03/26/2025 4:38 PM EDT Legal Sex Male 9:52 PM EDT Gender Identity Male 03/26/2025 4:38 PM EDT Sexual Orientation Heterosexual or Straight 03/07 4:38 PM EDT documented as of this encounter Last Filed Vital Signs Vital Sign Reading Time Taken Comments Blood Pressure 97/61 05/27/2025 9:30 AM EDT Pulse 64 05/27/2025 9:30 AM EDT Temperature - - Respiratory Rate - - Oxygen Saturation 92% 05/27/2025 9:30 AM EDT Inhaled Oxygen Concentration - - Weight 122 kg (270 lb) 05/27/2025 9:30 AM EDT Height 137.2 cm (4' 6 ) 05/27/2025 9:30 AM EDT Body Mass Index 65.1 05/27/2025 9:30 AM EDT documented in this encounter Progress Notes * Arnel Banerjee MD - 05/27/2025 9:30 AM EDT Images from the original note were not included. [facility] Consult Note Reason for Consultation: Afib/ ADHF f/u 05/27/25 Since the last time I had seen the patient he had been admitted to [facility] with acute respiratory failure and required hospitalization in the ICU for his heart failure treatment. He was placed on ventilator and subsequently on noninvasive positive pressure treatment. His weight had significantly reduced from 306 to 261 pounds and had followed up with Stephie Flores on April 17, 2025. Following this he was again admitted to [facility] on 05/24/2025 and medication adjustment was made. Details of this is not clear . As per the current note he is on Tikosyn 250 mcg twice daily along with Xarelto 20 mg. He is also on Aldactone 12.5 mg daily, lisinopril 5 mg daily, Bumex 2 mg daily. Since that time he has been discharged from [facility] which is more related to his dizziness, he hasreduced the lisinopril from 10 mg to 5 mg. He also states that his weight 2 months ago he went [id number] 265 pounds at home. He is able to lay down flat and sleep. 09/17/24 Patient here for 6 mo follow up PAF, CAD, and diastolic dysfunction. Doing very well. Denies chest pain, palpitations, lightheadedness/syncope, and bleeding on Xarelto. 03/26/24 Patient here for 3 mo follow up PAF. He had PFT's 2 weeks ago. Denies chest pain, palpitations, lightheadedness/syncope, and bleeding on Xarelto. his PFT shows some restrictive pattern likely from severe obesity but this diffusion component is normal. His oxygenation saturation was 88% on room air and with 2 L of oxygen. He was up to 92%. he usuallysees his electromedical equipment repairer at [facility]. 12/26/23 Patient here for 2 mo follow up PAF, CAD, and diastolic dysfunction. Had echo last month and routine labs a few weeks ago which was poor study due to lack of contrast. States his LE edema is no more than usual for him. SOB was improving for awhile, but now he's fighting a chest cold and congestion . He had a recent lasb which revaled normal creat. Hb 17 and LDL 102. He was on Lipitor 80 and Zetia 10mg was added by Dr David. Pt has not started Zetia yet. His last PFT 02/2023 and none since then. ECHO 11/15/23: poor visualizaton 10/06/23 Here for 6 month follow up Had PFT 02/2023, concerns for DLCO reduction. continues to be on amiodarone daily 04/2023 HPI: patient for 6-month follow-up regarding his A-fib continues to take amiodarone and is tolerating well patient has not felt any palpitations or symptoms of A-fib denies chest pain, shortness of breath, lightheadedness, dizziness, fatigue per pulse check sinus rhythm he had recent PFT done he had recent admission at [facility] for COVID-pneumonia is now doing well with no concern does not appear he was in A-fib while 09/20/22 p HPI: Carlos Moseley is a 54 y.o. year old with past medical history of dwarfism (undefined), NORBERT on CPAP, CAD status post CABG, hypertension, diastolic dysfunction, pulmonary hypertension and sleepapnea has been Dx with Afib and placed on DOAC and Amiodarone. He was seen by MEMBER CERTIFICATION MANAGER in the past and c/o worsening JUNIOR along with palpitations/fluttering for this past week. He notes that he has been in a.fib before after his bypass surgery along with another time. He was on Xarelto in the past but notcurrently. He has LE edema which is chronic, unchanged from his normal. He denies CP, orthopnea and uses CPAP every night. dizziness/LH, syncope. He is in SR today by exam. Stress test performed on 07/25/2022 at [facility] showed areas of suspected reversible ischemia [...] 1. 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 Imdur 60 mg daily will be added. In addition, his L asix will be increased from 40 mg daily to 60 mg daily. 2. BMP in 2 weeks. 3. Follow up in Cardiology Clinic. 4. Consider referral to Pulmonary due to his desaturation and the possibility of a pulmonary etiology contributing to his shortness of breath. PMH: Past Medical History: Diagnosis Date Abnormal ECG Arrhythmia Atrial fibrillation (CMS/HCC) Coronary artery disease Hyperlipidemia Hypertension PSH: Past Surgical History: Procedure Laterality Date CARDIAC CATHETERIZATION CORONARY ARTERY BYPASS GRAFT CORONARY STENT PLACEMENT SH: Social Drivers of Health Tobacco Use: Medium Risk (05/27/2025) Patient History Smoking Tobacco Use: Former Smokeless Tobacco Use: Never Passive Exposure: Not on file Alcohol Use: Not on file Financial Resource Strain: Low Risk (03/25/2025) Overall Financial Resource Strain (CARDIA) Difficulty of Paying Living Expenses: Not hard at all Food Insecurity: No Food Insecurity (03/25/2025) Hunger Vital Sign Worried About Running Out of Food in the Last Year: Never true Ran Out of Food in the Last Year: Not on file Transportation Needs: No Transportation Needs (03/25/2025) Transportation Lack of Transportation (Medical): No Lack of Transportation (Non-Medical): Not on file Physical Activity: Not on file Stress: Not on file Social Connections: Not on file Intimate Partner Violence: Unknown (03/25/2025) Humiliation, Afraid, Rape, and Kick questionnaire Fear of Current or Ex-Partner: No Emotionally Abused: Not on file Physically Abused: Not on file Sexually Abused: Not on file Depression: Not on file Housing Stability: Low Risk (03/25/2025) Housing Stability Vital Sign Unable to Pay for Housing in the Last Year: No Number of Times Moved in the Last Year: Not on file Homeless in the Last Year: No Utilities: Not At Risk (03/25/2025) [facility] Utilities Threatened with loss of utilities: No Health Literacy: Not on file Meds: Current Outpatient Medications on File Prior to Visit Medication Sig Dispense Refill atorvastatin (Lipitor) 80 mg tablet Take 80 mg by mouth in the evening. baclofen (Lioresal) 10 mg tablet Take 1 tablet (10 mg) by mouth three times daily for 254 doses. 90tablet 2 budesonide-formoteroL (Symbicort) 80-4.5 mcg/actuation inhaler Inhale 2 puffs in the morning and atbedtime. Rinse mouth with water after use to reduce aftertaste and incidence of candidiasis. Do notswallow. bumetanide (Bumex) 2 mg tablet Take 1 tablet (2 mg) by mouth in the morning. 30 tablet 1 cetirizine 10 mg capsule Take 1 capsule by mouth in the morning. dofetilide (Tikosyn) 250 mcg capsule Take 1 capsule (250 mcg) by mouth every 12 (twelve) hours. 60 capsule 0 ezetimibe (Zetia) 10 mg tablet 10 mg 1 (one) time each day. fluticasone (Flonase) 50 mcg/actuation nasal spray Administer 1 spray into affected nostril(s) if needed each day. gabapentin (Neurontin) 100 mg capsule Take 1 capsule (100 mg) by mouth every 8 (eight) hours for 261 doses. 90 capsule 2 lisinopril 10 mg tablet Take 1 tablet (10 mg) by mouth in the morning for 92 doses. (Patient takingdifferently: Take 5 mg by mouth in the morning.) 30 tablet 3 magnesium oxide (Mag-Ox) 400 mg (241.3 mg magnesium) tablet Take 1 tablet (400 mg) by mouth in the morning for 86 doses. 30 tablet 2 methIMAzole (Tapazole) 10 mg tablet Take 10 mg by mouth three times daily. oxyCODONE-acetaminophen (Percocet) 5-325 mg tablet Take 1 tablet by mouth every 4 (four) hours if needed. potassium chloride CR (Klor-Con) 10 mEq ER tablet Take 10 mEq by mouth in the morning. sildenafil (Revatio) 20 mg tablet Take 1 tablet (20 mg) by mouth every 8 (eight) hours for 276 doses. 90 tablet 3 spironolactone (Aldactone) 25 mg tablet Take 0.5 tablets (12.5 mg) by mouth in the morning for 91 doses. 15 tablet 3 Xarelto 20 mg tablet Take 20 mg by mouth in the morning. albuterol 90 mcg/actuation inhaler albuterol sulfate HFA 90 mcg/actuation aerosol inhaler (Patient not taking: Reported on 05/27/2025) ipratropium-albuteroL (Duo-Neb) 0.5-2.5 mg/3 mL nebulizer solution INHALE 3 ML BY MOUTH TWICE DAILYAND EVERY 6 HOURS NEEDED FOR COUGH OR SHORT OF BREATH (Patient not taking: Reported on 05/27/2025) No current facility-administered medications on file prior to visit. ROS: Review of Systems Cardiovascular: Positive for dyspnea on exertion. Respiratory: Positive for cough. Musculoskeletal: Positive for muscle weakness. All other systems reviewed and are negative. Physical Exam: Constitutional General Appearance: well-nourished, Dwarfism noted Level of Distress: comfortable Psychiatric Mental Status: alert, normal affect Orientation: oriented to time, place, and person Insight: good judgement Eyes Lids and Conjunctivae: non-injected, no xanthelasma ENMT Ears: no lesions on external ear Nose: no lesions on external nose Oropharynx: no cyanosis, no pallor Neck Neck: supple, trachea midline Carotid Arteries: bilateral normal upstroke, no bruits Jugular Veins: normal jugular venous pressure Thyroid: not enlarged Lungs Respiratory Effort: unlabored Chest Exam: normal curvature, no thoracic deformity Auscultation: clear, no wheezing, no rales, no rhonchi Cardiovascular Rate And Rhythm: regular Heart Sounds: normal S1, normal s2, no gallop Systolic Murmur: not heard Diastolic Murmur: not heard Extremities: no cyanosis, no edema, no peripheral signs of emboli Peripheral Pulses Radial Pulse: normal Abdomen Inspection and Palpation: soft, non distended, no bruit, non tender Musculoskeletal Inspection: no joint swelling Neurologic Gait: with cane Skin Inspection and Palpation: warm and dry Nails: no clubbing Labs: @LABRESULTS@ EKG: Encounter Date: 03/24/25 ECG 12 lead Result Value Ventricular Rate 72 Atrial Rate 72 CO Interval 164 QRS DURATION 90 QT Interval 452 QTC CALCULATION(BAZETT) 494 P Munster 70 R-Munster 88 T Wave [place] 132 Impression Normal sinus rhythm Possible Left atrial enlargement Nonspecific ST and T wave abnormality Prolonged QT Abnormal ECG When compared with ECG of 11-APR-2025 23:44, Nonspecific T wave abnormality has replaced inverted T waves in Inferior lead Nonspecific T wave abnormality, improved in Lateral QT has lengthened Confirmed by Khoa López ([id number]) on 04/12/2025 11:47:46 AM Echo: Complete Echo (TTE) w/wo Imaging Agent, Strain, 3D, Bubble Study Result Date: 03/25/2025 1 1 [facility] Heart Station [address] [place] [address] [phone] (fax) Echocardiogram-[facility] Name: CARLOS MOSELEY Study Date: 03/25/2025 12:39 PM B/P: 127 mmHg/64 mmHg HR: 73 bpm Date of : 1970 Location: [facility] Height: 54 in. Age: 54 year(s) Patient Room: 3237 Weight: 289 lb. Gender: Male Patient Status: InPt BSA: 2.02 m2 Indication: CAD, S/P CABG, Hypertension, pulm HTN, sleep apnea, Atrial Fibrillation, Dyspnea on exertion Apical images are off-axis Examination: Echocardiogram (Complete), Lumason Contrast Image Quality: Poor sound transmission due to body habitus Patient Consent: Procedure explained to patient Exam Details Contrast: I.V. dose of Lumason Conclusions Left Ventricle: The left ventricle is normal size. Global left ventricular systolic function is difficult to assess due to rhythm but appears reduced. EF range is estimated at 45 % -50 %. Left ventricular wall thickness is normal.The septum is abnormal, consistent with RV volume and/or pressure overload. Unable to assess diastolic dysfunction. Right Ventricle: The right ventricle appears enlarged. Right ventricular systolic function appears reduced. Doppler studies suggest severely elevated right sided pressures. Left Atrium: The left atrium is moderately enlarged. Tricuspid Valve: Moderate to severe tricuspid regurgitation. Pericardium: There is a minimal posterior pericardial effusion. Overall Conclusions: Due to suboptimal imaging Lumason contrast was administered for opacification and better delineation of endocardial borders. Measurements Left Ventricle Label Value Normal Value LVOTd 1.9 cm (19cm - 21cm) LVOT VTI 16.6 cm (18cm - 22cm) LVOT PGmax 3 mmHg LVDd, 2D 5.1 cm (4.2cm - 5.9cm) LVDs, 2D 3.99 cm (2.1cm -4cm) IVSd, 2D 0.98 cm (0.6cm - 1.1cm) LVPWd, 2D 1.06 cm (0.6cm - 1cm) LV Mass, 2D ASE 193.08 g LV Mass Index, 2D ASE 95.6 g/m?? (50g/m?? - 102.4g/m??) RWT, MM 0.42 (0 - 0.42) LVSVI, 2D 26.7 ml/m2 LVOT PGmean 1 mmHg LVSV_LVOT 47 ml Left Atrium Label Value Normal Value LADs, 2D 4 cm (3cm - 4cm) Aortic Valve Label Value Normal Value AV DVI 0.5 AV VTI 31.1 cm Mitral Valve Label Value Normal Value MV E Vmax 0.86 m/s MV A Vmax 0.61 m/s MV E/A 1.41 MV E/E' lateral 7.7 MV E' lateral 0.11 m/s Tricuspid Valve Label Value Normal Value RA Pressure 8 mmHg RVSP 68 mmHg Aorta Label Value Normal Value AoRoot, 2D 2.6 cm (1.4cm - 3.8cm) Great Vessels Label Value Normal Value IVC 2.8 cm (1.2cm - 2.3cm) Valvula r Assessment LVOT 0.7 - 1.1 m/sec Aortic Valve 1.0 - 1.7 m/sec Mitral Valve 0.6 - 1.3 m/sec Tricuspid Valve 0.3 - 0.7 m/sec Pulmonic Valve 0.6 - 0.9 m/sec Regurgitation No trivMil Mod-Sev Trivial Stenosis No No No No Max Velocity 0.85 m/sec 1.71 m/s 0.86 m/sec Max Gradient 12.00 mmHg Mean Gradient 7.00 mmHg Valve Area 1.4 cm?? Findings Left Ventricle: The left ventricle is normal size. Global left ventricular systolic function is difficult to assess due to rhythm but appears reduced. EF range is estimated at 45 % -50 %. Left ventricular wall thickness is normal. The septum is abnormal, consistent with RV volume and/or pressure overload. Unable to assess diastolic dysfunction. Right Ventricle: Right ventricle is poorly visualized. The right ventricle appears enlarged. Right ventricular systolic function appears reduced. Doppler studies suggest severely elevated right sided pressures. Left Atrium: The left atrium is moderately enlarged. Right Atrium: The right atrium appears enlarged. Mitral Valve: Mitral valve appears normal. Trvial to mild mitral regurgitation. No mitral valve stenosis. Aortic Valve: Aortic valve appears normal. No aortic valve regurgitation. No aortic valve stenosis. The aortic valve is probably trileaflet. Tricuspid Valve: Tricuspid valve is poorly visualized.Moderate to severe tricuspid regurgitation. No tricuspid valve stenosis. Pulmonic Valve: Pulmonary valve appears normal. Trivial pulmonary regurgitation. No pulmonic valve stenosis. Aorta: The aorticroot exhibits normal size. Great Vessels: IVC: The IVC is dilated. Respiratory inspiration less than 50%. Pericardium: There is a minimal posterior pericardial effusion. Procedure Staff Reading Group: [facility] Referring Physician: SIVAKUMAR DAVID Test Technician: CHRIS Loomis Ordering Physician: JEN LIRIANO 03/25/2025 Stress test: Coronary angiogram: 03/26/2025 FINAL IMPRESSIONS: Severely elevated right-sided heart pressures and pulmonary completely wedge pressure consistent with biventricular congestive heart failure Significantly elevated transpulmonary gradient along with elevated wedge consistent with combined pre and postcapillary pulmonary hypertension Normal cardiac output/cardiac index Moderate to severe systemic hypertension RECOMMENDATIONS: Aggressive cardiovascular risk factor modification Given elevated pulmonary capillary wedge pressure, intensify IV diuresis, monitor strict inputs andoutputs and daily weights Continue optimal medical therapy for coronary artery disease including aspirin and high intensity statin therapy, a beta-jorge and a RAAS inhibitor Guideline directed medical therapy for heart failure with midrange ejection fraction should includea beta-jorge, a RAAS inhibitor/ARNI, an SGLT2 inhibitor and spironolactone if feasible Treat noncardiac comorbidities as clinically appropriate Further recommendations deferred to the inpatient services FINDINGS: Hemodynamics: RA34 RV 75/20, 34 PA 75/35 [54] PCWP 33 TPG 21 AO 158/83 [111] Cardiac output /cardiac index 7.57/3.75 AO sat /PA sat 92%/76% Diagnostic Imaging: No images are attached to the encounter. Assessment and Plan: -Acute decompensated heart failure: Multifactorial cause with underlying pulmonary hypertension as well as HFpEF. He had a prolonged hospitalization and was discharged and is currently taking Bumex 2mg daily. His weight is up to 70 pounds today which seems to be slightly higher than the last time it was noted at discharge which was 260 pounds. Given his lightheadedness I have asked him to split his Bumex to 1 mg in the morning and 1 mg at night and that he is already since he is already reduced his lisinopril to 5 mg to observe how he feels. If he is more dizzy and tired then we can stop that and observe. - paroxysmal A. Fib: CHADVASC at least 2 for hypertension and CAD. Now in SR with the help of Tikosyn - Dwarfism - CAD s/p CABG 2013: stable, no anginal symptoms - HTN - NORBERT -pulm HTN Arnel Banerjee MD Cardiac Electrophysiology [facility] documented in this encounter Plan of Treatment Upcoming Encounters Date Type Department Care Team (Late st Contact Info) Description 08/14/2025 10:00 AM EDT Office Visit [facility] at [facility] [address] [place] [address] Rosa Flores, ADULT CARE MANAGER [address] [place] [address] documented as of this encounter Visit Diagnoses Diagnosis Chronic respiratory failure with hypoxia (CMS/HCC)- Primary documented in this encounter Care Teams Judicial Assistant Relationship Specialty Start Date End Date Sivakumar David DO [address] [place] [address] PCP - General 09/18/22 documented as of this encounter
--- OUTSIDE RECORDS SUMMARY | 2025-05-28 16:37 | XMS_ITS | Encounter Summary ---
Author Organization [facility] Address [address] [place] [address] Care Team Providers Care Casting Repairer Name Role Phone Sivakumar Patel DO Primary Care Provider [phone] Encounter Details Date Type Department Care Team (Late Contact Info) Description 05/19/2025 Bamboo flowsheet [facility] [address] [place] [phone] Chucho Oreilly MD [address] [place] [address] Social History Tobacco Use Types Packs/Day Years Used Date Smoking Tobacco: Former Cigarettes Sex and Gender Information Value Date Recorded Sex Assigned at Male 04/28/2025 10:25 PM EDT Legal Sex Male 7:10 PM EDT Gender Identity Male 04/28/2025 10:25 PM EDT Sexual Orientation Straight 04/28/2025 10 :25 PM EDT documented as of this encounter Plan of Treatment Upcoming Encounters Date Type Department Care Team (Late Contact Info) Description 07/22/2025 10:20 AM EDT Office Visit [facility] [address] [place] [phone] Chucho Oreilly MD [address] [place] [address] documented as of this encounter Visit Diagnoses Not on filedocumented in this encounter Care Teams Casting Repairer Relationship Specialty Start Date End Date Sivakumar Patel DO [address] [place] [address] PCP - General Internal Medicine 03/17/25 documented as of this encounter
--- OUTSIDE RECORDS SUMMARY | 2025-05-28 16:38 | XMS_ITS | Encounter Summary ---
Author Organization [facility] Address [address] [place] [address] Care Team Providers Care Biodiesel Processing Technician Name Role Phone Sivakumar Patel DO Primary Care Provider [phone] Reason for Visit * Reason Comments Med Refill Encounter Details Date Type Department Care Team (Late st Contact Info) Description 02/28/2023 Refill [facility] [address] [place] [phone] Khoa López MD [address] [facility] [address] [facility] [place] [phone] Chest pain, unspecified Social History Tobacco Use Types Packs/Day Years Used Date Smoking Tobacco: Former Cigarettes Smokeless Tobacco: Never Alcohol Use Standard Drinks/Week Comments Not Currently 0 (1 standard drink = 0.6 oz pur e alcohol) occasional Sex and Gender Information Value Date Recorded Sex Assigned at Male 03/26/2025 4:38 PM EDT Legal Sex Male 9:52 PM EDT Gender Identity Male 03/26/2025 4:38 PM EDT Sexual Orientation Heterosexual or Straight 03/07 4:38 PM EDT documented as of this encounter Plan of Treatment Upcoming Encounters Date Type Department Care Team (Late st Contact Info) Description 08/14/2025 10:00 AM EDT Office Visit [facility] at [facility] [address] [place] [address] Rosa Flores, YENI [address] [facility] [place] [phone] documented as of this encounter Visit Diagnoses Diagnosis Chest pain, unspecified documented in this encounter Additional Health Concerns Infection Onset Date Last Indicated Resolved Time COVID-19 Rule-Out Comment:negative 03/25/2025 03/25/2025 03/26/2025 8:15 AM E DT documented as of this encounter Care Teams Biodiesel Processing Technician Relationship Specialty Start Date End Date Sivakumar Patel DO [address] [place] [phone] PCP - General 09/18/22 documented as of this encounter
--- OUTSIDE RECORDS SUMMARY | 2025-05-28 16:38 | XMS_ITS | Clinical Summary ---
Author Organization [facility] Address [address] [place], [place] [id number] Care Team Providers Care Facilities Director Name Role Phone Unavailable Primary Care Provider Unavailabl e Allergies No known active allergies Medications oxycodone-acetam inophen 5-325 mg ORAL Tab 1-2 Tab ORAL EVERY 4 HOURS NEEDED 60 0 09/07/2007 Active docusate sodium 100 mg ORAL Cap 1 Cap ORAL 2 TIMES DAILY 60 0 09/07/2007 Active hydrocodone bit/acetaminophe n(VICODIN ES 7.5 MG-750 MG TAB)Indications: Follow-up examination, following unspecified surgery Take one(1) tablet every six(6) hours as needed for pain. 60 0 10/05/2007 Active Active Problems Problem Noted Date Diagnosed Date Traumatic arthropathy, other specified sites Social History Tobacco Use Types Packs/Day Years Used Date Smoking Tobacco: Never Assessed Sex and Gender Information Value Date Recorded Sex Assigned at Not on file Legal Sex Male 8:09 AM EST Gender Identity Not on file Sexual Orientation Not on file Last Filed Vital Signs Vital Sign Reading Time Taken Comments Blood Pressure 131/79 09/08/2007 8:00 AM EDT Pulse 82 09/08/2007 8:00 AM EDT Temperature 36.8 C (98.2 F) 09/08/2007 8:00 AM EDT Respiratory Rate 20 09/08/2007 8:00 AM EDT Oxygen Saturation 93% 09/08/2007 8:00 AM EDT Inhaled Oxygen Concentration - - Weight 101.6 kg (224 lb) 08/10/2007 9:22 AM EDT Height 137.2 cm (4' 6 ) 08/10/2007 9:22 AM EDT Body Mass Index 54.01 08/10/2007 9:22 AM EDT Plan of Treatment Health Maintenance Due Date Last Done Comments Anxiety Screening 1989 Depression Screening 1989 HIV Screening 1989 Hepatitis C Screening 1989 DTaP,Tdap,Td Vaccine (1 - Tdap) 1990 Hepatitis B Vaccine (1 of 3 - 19+ 3-dose series) [address] Colonography 2016 Cologuard (FIT-DNA) 2016 Colonoscopy 2016 Colorectal Cancer Screening 2016 Diabetes Screening 2016 09/04/2007, 08/10/2007 Fecal Occult Blood 2016 Sigmoidoscopy 2016 Pneumococcal Vaccine: 50+ (1 of 1 - PCV) 2021 Shingrix Vaccine (1 of 2) 2021 Covid-19 Vaccine (1 - 2023-25 season) 2024 Influenza Vaccine (#1) 2025 Procedures Procedure Name Priority Date/Time Associated Diagnosis Comments BASIC METABOLIC PANEL STAT 09/04/2007 9:25 PM EDT from Last 3 Months or Most Recently Relevant to Health Maintenance Results * (ABNORMAL) BASIC METABOLIC PNL (09/04/2007 9:25 PM EDT) Glucose 115(H) 65 - 100 mg/dL [facility] BUN 11 10 - 25 mg/dL [facility] Creatinine 0.6(L) 0.7 - 1.4 mg/dL [facility] Sodium 137 135 - 146 mmol/L [facility] Potassium 4.0 3.5 - 5.0 mmol/L [facility] Chloride 106 98 - 110 mmol/L [facility] CO2 27 23 - 32 mmol/L [facility] Anion Gap 4 0 - 15 mmol/L [facility] Calcium 7.3(L) 8.5 - 10.5 mg/dL [facility] Blood specimen (specimen) BLOOD SPECIMEN / Unknown 09/04/2007 9:25 PM EDT us Glynn Saleh MD LABORATORY Final Result [facility] [address] [place] [address] from Last 3 Months or Most Recently Relevant to Health Maintenance Insurance BLUE CARD PPO OOS
--- OUTSIDE RECORDS SUMMARY | 2025-05-28 16:38 | XMS_ITS | Encounter Summary ---
Author Organization [facility] Address [address] [place] [address] Care Team Providers Care Auditor/Quality Name Role Phone Sivakumar Patel DO Primary Care Provider [phone] Reason for Visit * Reason Onset Date Comments Med Refill 08/08/2024 Encounter Details Date Type Department Care Team (Late st Contact Info) Description 08/08/2024 Refill [facility] at [facility] [address] [place] [address] Honey Wheeler MA Paroxysmal atrial fibrillation (CMS/HCC); PAF (paroxysmal atrial fibrillation) (CMS/HCC) Social History Tobacco Use Types Packs/Day Years Used Date Smoking Tobacco: Former Cigarettes Smokeless Tobacco: Never Alcohol Use Standard Drinks/Week Comments Not Currently 0 (1 standard drink = 0.6 oz pur e alcohol) occasional [place] Safety & Environment Answer Date Rec orded Fear of Current or Ex-Partner Not on file Emotionally Abused Not on file 12/28/2023 Physically Abused Not on file 12/28/2023 Sexually Abused Not on file 12/28/2023 Physically or Sexually Abused Not on file Sex and Gender Information Value Date Recorded Sex Assigned at Male 03/26/2025 4:38 PM EDT Legal Sex Male 9:52 PM EDT Gender Identity Male 03/26/2025 4:38 PM EDT Sexual Orientation Heterosexual or Straight 03/07 4:38 PM EDT documented as of this encounter Plan of Treatment Upcoming Encounters Date Type Department Care Team (Late st Contact Info) Description 08/14/2025 10:00 AM EDT Office Visit [facility] [address] [place] [address] Rosa Flores, TIER LIFT OPERATOR [address] [place] [address] documented as of this encounter Visit Diagnoses Diagnosis Paroxysmal atrial fibrillation (CMS/HCC) Atrial fibrillation PAF (paroxysmal atrial fibrillation) (CMS/HCC) Atrial fibrillation documented in this encounter Additional Health Concerns Infection Onset Date Last Indicated Resolved Time COVID-19 Rule-Out Comment:negative 03/25/2025 03/25/2025 03/26/2025 8:15 AM E DT documented as of this encounter Care Teams Auditor/Quality Relationship Specialty Start Date End Date Sivakumar Patel DO [address] [facility] [place] [address] [place] [phone] PCP - General 09/18/22 documented as of this encounter
--- OUTSIDE RECORDS SUMMARY | 2025-05-28 16:38 | XMS_ITS | Encounter Summary ---
Author Organization [facility] Address [address] [place] [address] Care Team Providers Care House Admin Name Role Phone Sivakumar Patel DO Primary Care Provider [phone] Reason for Visit * Reason Comments Med Refill Encounter Details Date Type Department Care Team (Late st Contact Info) Description 01/26/2023 Refill [facility] [address] [place] [address] Khoa López MD [address] [facility] [address] [facility] [place] [address] Localized edema Social History Tobacco Use Types Packs/Day Years [...] Description 08/14/2025 10:00 AM EDT Office Visit [facility] [address] [place] [address] Rosa Flores CNP [address] [place] [phone] documented as of this encounter Visit Diagnoses Diagnosis Localized edema Edema documented in this encounter Additional Health Concerns Infection Onset Date Last Indicated Resolved Time COVID-19 Rule-Out Comment:negative 03/25/2025 03/25/2025 03/26/2025 8:15 AM E DT documented as of this encounter Care Teams House Admin Relationship Specialty Start Date End Date Sivakumar Patel DO [address] [place] [phone] PCP - General 09/18/22 documented as of this encounter
--- OUTSIDE RECORDS SUMMARY | 2025-05-28 16:38 | XMS_ITS | Clinical Summary ---
Author Organization [facility] Address [address] [place] [address] Care Team Providers Care Room Service Food Server Name Role Phone Sivakumar Patel DO Primary Care Provider [phone] Allergies Active Allergy Reactions Criticality Noted Date Comments Sulfamethoxazole-Trimethoprim Anaphylaxis High 03/25 Sulfa (Sulfonamide Antibiotics) Anaphylaxis,Other High 10/24/2014 Medications atorvastatin (Lipitor) 80 mg tablet Take 80 mg by mouth in the evening. 2 Active Xarelto 20 mg tablet Take 20 mg by mouth in the morning. 2 Active potassium chloride CR (Klor-Con) 10 mEq ER tablet Take 10 mEq by mouth in the morning. 2 Active albuterol 90 mcg/actuation inhaler albuterol sulfate HFA 90 mcg/actuation aerosol inhaler Active fluticasone (Flonase) 50 mcg/actuation nasal spray Administer 1 spray into affected nostril(s) if needed each day. Active ipratropium-alb uteroL (Duo-Neb) 0.5-2.5 mg/3 mL nebulizer solution INHALE 3 ML BY MOUTH TWICE DAILY AND EVERY 6 HOURS NEEDED FOR COUGH OR SHORT OF BREATH 3 Active budesonide-form oteroL (Symbicort) 80-4.5 mcg/actuation inhaler Inhale 2 puffs in the morning and at bedtime. Rinse mouth with water after use to reduce aftertaste and incidence of candidiasis. Do not swallow. Active ezetimibe (Zetia) 10 mg tablet 10 mg 1 (one) time each day. 4 Active baclofen (Lioresal) 10 mg tabletIndicatio ns:Acute diastolic heart failure (CMS/HCC) Take 1 tablet (10 mg) by mouth three times daily for 254 doses. 90 tablet 2 5 07/02/20 25 Active lisinopril 10 mg tabletIndicatio ns:Acute diastolic heart failure (CMS/HCC) Take 1 tablet (10 mg) by mouth in the morning for 92 doses. 30 tablet 3 5 07/09/20 25 Active Additional Information Patient taking differently: 5 mgoral Daily, Reported on 05/27/2025 gabapentin (Neurontin) 100 mg capsuleIndicati ons:Acute diastolic heart failure (CMS/HCC) Take 1 capsule (100 mg) by mouth every 8 (eight) hours for 261 doses. 90 capsule 2 5 07/04/20 25 Active magnesium oxide (Mag-Ox) 400 mg (241.3 mg magnesium) tabletIndicatio ns:Acute diastolic heart failure (CMS/HCC) Take 1 tablet (400 mg) by mouth in the morning for 86 doses. 30 tablet 2 5 07/04/20 25 Active sildenafil (Revatio) 20 mg tabletIndicatio ns:Acute diastolic heart failure (CMS/HCC) Take 1 tablet (20 mg) by mouth every 8 (eight) hours for 276 doses. 90 tablet 3 5 07/09/20 25 Active spironolactone (Aldactone) 25 mg tabletIndicatio ns:Acute diastolic heart failure (CMS/HCC) Take 0.5 tablets (12.5 mg) by mouth in the morning for 91 doses. 15 tablet 3 5 07/09/20 25 Active dofetilide (Tikosyn) 250 mcg capsuleIndicati ons:Severe obstructive sleep apnea Take 1 capsule (250 mcg) by mouth every 12 (twelve) hours. 60 capsule 5 Active bumetanide (Bumex) 2 mg tabletIndicatio ns:Acute diastolic heart failure (CMS/HCC) Take 1 tablet (2 mg) by mouth in the morning. 30 tablet 1 5 Active oxyCODONE-aceta minophen (Percocet) 5-325 mg tablet Take 1 tablet by mouth every 4 (four) hours if needed. 5 Active methIMAzole (Tapazole) 10 mg tablet Take 10 mg by mouth three times daily. Active cetirizine 10 mg capsule Take 1 capsule by mouth in the morning. Active melatonin 3 mg tabletIndicatio ns:Acute diastolic heart failure (CMS/HCC) Take 2 tablets (6 mg) by mouth if needed at bedtime for sleep. 5 05/08/20 25 Active Problems Problem Noted Date Diagnosed Date Paroxysmal A-fib 04/05/2025 Assessment & Plan (04/11/2025 4:45 PM EDT): Patient currently on sotalol 40 twice a day, dose adjusted due to bradycardia Heparin was held due to concern for hemoptysis Might consider DOACs on discharge Started on Tikosyn and dose adjusted due to prolonged QTc of 520 ms Assessment & Plan (04/10/2025 12:18 PM EDT): Patient currently on sotalol 40 twice a day, dose adjusted due to bradycardia Heparin was held due to concern for hemoptysis Might consider DOACs on discharge Started on Tikosyn and dose will adjust due to prolonged QTc Assessment & Plan (04/09/2025 1:28 PM EDT): Patient currently on sotalol 40 twice a day, dose adjusted due to bradycardia Heparin was held due to concern for hemoptysis Might consider DOACs on discharge Started on Tikosyn and needs to be monitored for 5 doses before discharge Assessment & Plan (04/08/2025 1:20 PM EDT): Patient currently on sotalol 40 twice a day, dose adjusted due to bradycardia Heparin was held due to concern for hemoptysis Might consider DOACs on discharge Started on Tikosyn and needs to be monitored for 5 doses before discharge Assessment & Plan (04/07/2025 12:09 PM EDT): Patient currently on sotalol 40 twice a day, dose adjusted due to bradycardia Heparin was held due to concern for hemoptysis Might consider DOACs on discharge likely discharge I was on the floor at 7:00 rounding Assessment & Plan (04/06/2025 11:15 AM EDT): Patient currently on sotalol 40 twice a day, dose adjusted due to bradycardia Heparin was held due to concern for hemoptysis Might consider DOACs on discharge likely discharge I was on the floor at 7:00 rounding Assessment & Plan (04/05/2025 9:29 AM EDT): Patient currently on sotalol 40 twice a day, dose adjusted due to bradycardia Heparin was held due to concern for hemoptysis Might consider DOACs on discharge likely discharge I was on the floor at 7:00 rounding Severe obstructive sleep apnea 04/05/2025 Assessment & Plan (04/11/2025 4:45 PM EDT): Continue BiPAP daily and as needed Assessment & Plan (04/10/2025 12:18 PM EDT): Continue BiPAP daily and as needed Assessment & Plan (04/09/2025 1:28 PM EDT): Continue BiPAP daily and as needed Assessment & Plan (04/08/2025 1:20 PM EDT): Continue BiPAP daily and as needed Assessment & Plan (04/07/2025 12:09 PM EDT): Continue BiPAP daily and as needed Assessment & Plan (04/06/2025 11:15 AM EDT): Continue BiPAP daily and as needed Assessment & Plan (04/05/2025 9:29 AM EDT): Continue BiPAP daily and as needed Coronary artery disease 04/05/2025 Assessment & Plan (04/11/2025 4:45 PM EDT): s/p CABG x 4 (2012). Cardiac catheterization in May 2024 demonstrated only 1/4 grafts patent (AVILA-LAD patent, occluded radial-OM1, SVG-OM2 and SVG-PDA). Continue Lipitor, patient currently not on any aspirin due to concern for hemoptysis Assessment & Plan (04/10/2025 12:18 PM EDT): s/p CABG x 4 (2013). Cardiac catheterization in May 2024 demonstrated only 1/4 grafts patent (AVILA-LAD patent, occluded radial-OM1, SVG-OM2 and SVG-PDA). Continue Lipitor, patient currently not on any aspirin due to concern for hemoptysis Assessment & Plan (04/09/2025 1:28 PM EDT): s/p CABG x 4 (2013). Cardiac catheterization in May 2024 demonstrated only 1/4 grafts patent (AVILA-LAD patent, occluded radial-OM1, SVG-OM2 and SVG-PDA). Continue Lipitor, patient currently not on any aspirin due to concern for hemoptysis Assessment & Plan (04/08/2025 1:20 PM EDT): s/p CABG x 4 (2013). Cardiac catheterization in May 2024 demonstrated only 1/4 grafts patent (AVILA-LAD patent, occluded radial-OM1, SVG-OM2 and SVG-PDA). Continue Lipitor, patient currently not on any aspirin due to concern for hemoptysis Assessment & Plan (04/07/2025 12:09 PM EDT): s/p CABG x 4 (2013). Cardiac catheterization in May 2024 demonstrated only 1/4 grafts patent (AVILA-LAD patent, occluded radial-OM1, SVG-OM2 and SVG-PDA). Continue Lipitor, patient currently not on any aspirin due to concern for hemoptysis Assessment & Plan (04/06/2025 11:15 AM EDT): s/p CABG x 4 (2013). Cardiac catheterization in May 2024 demonstrated only 1/4 grafts patent (AVILA-LAD patent, occluded radial-OM1, SVG-OM2 and SVG-PDA). Continue Lipitor, patient currently not on any aspirin due to concern for hemoptysis Assessment & Plan (04/05/2025 9:29 AM EDT): s/p CABG x 4 (2012). Cardiac catheterization in May 2024 demonstrated only 1/4 grafts patent (AVILA-LAD patent, occluded radial-OM1, SVG-OM2 and SVG-PDA). Continue Lipitor, patient currently not on any aspirin due to concern for hemoptysis Acute hypoxic respiratory failure 03/24/2025 Assessment & Plan (04/11/2025 4:45 PM EDT): [place] to be combination of CHF, restrictive lung disease, and pulmonary hypertension Patient currently alternating between BiPAP and high flow nasal cannula Solu-Medrol switched to taper prednisone and continue Revatio Patient finished 5 days of Zosyn and 2 days of Rocephin Continue Dulera inhaler Assessment & Plan (04/10/2025 12:18 PM EDT): [place] to be combination of CHF, restrictive lung disease, and pulmonary hypertension Patient currently alternating between BiPAP and high flow nasal cannula Continue Solu-Medrol 40 daily and sildenafil. Solu-Medrol today Patient finished 5 days of Zosyn and 2 days of Rocephin Continue Dulera inhaler Assessment & Plan (04/09/2025 1:28 PM EDT): [place] to be combination of CHF, restrictive lung disease, and pulmonary hypertension Patient currently alternating between BiPAP and high flow nasal cannula Continue Solu-Medrol 40 daily and sildenafil. Solu-Medrol today Patient finished 5 days of Zosyn and 2 days of Rocephin Continue Dulera inhaler Assessment & Plan (04/08/2025 1:20 PM EDT): [place] to be combination of CHF, restrictive lung disease, and pulmonary hypertension Patient currently alternating between BiPAP and high flow nasal cannula Continue Solu-Medrol 40 daily and sildenafil Patient finished 5 days of Zosyn and 2 days of Rocephin Continue Dulera inhaler Assessment & Plan (04/07/2025 12:09 PM EDT): [place] to be combination of CHF, restrictive lung disease, and pulmonary hypertension Patient currently alternating between BiPAP and high flow nasal cannula Continue Solu-Medrol 40 daily and sildenafil Patient finished 5 days of Zosyn and 2 days of Rocephin Continue Dulera inhaler Assessment & Plan (04/06/2025 11:15 AM EDT): [place] to be combination of CHF, restrictive lung disease, acute toxicity and pulmonary hypertension Patient currently alternating between BiPAP and high flow Continue Solu-Medrol 40 daily and sildenafil Patient finished 5 days of Zosyn and 2 more days of Rocephin Continue Dulera inhaler Assessment & Plan (04/05/2025 9:29 AM EDT): [place] to be combination of CHF, restrictive lung disease, acute toxicity and pulmonary hypertension Patient currently alternating between BiPAP and high flow Continue Solu-Medrol 40 daily and sildenafil Patient finished 5 days of Zosyn and 2 more days of Rocephin Continue Dulera inhaler Assessment & Plan (03/31/2025 8:17 AM EDT): Relevant Hx: Course: Daily Update: Today's Plan: No associated orders from this encounter found during lookback period of 72 hours. Acute diastolic heart failure 03/24/2025 Assessment & Plan (04/11/2025 4:45 PM EDT): Patient has acute on chronic heart failure with reduced EF 45-50%, NYHA class III Status post Bumex infusion 0.5 mg/ hour, switch to 2 milligram Bumex daily (was on 2 mg IV twice daily). Strict intake and output monitoring Daily weights Lisinopril and Aldactone resumed Assessment & Plan (04/10/2025 12:18 PM EDT): Patient has acute on chronic heart failure with reduced EF 45-50%, NYHA class III Status post Bumex infusion 0.5 mg/ hour, switch to 2 milligram Bumex daily (was on 2 mg IV twice daily). Strict intake and output monitoring Daily weights Lisinopril and Aldactone resumed Assessment & Plan (04/09/2025 1:28 PM EDT): Patient has acute on chronic heart failure with reduced EF 45-50%, NYHA class III Status post Bumex infusion 0.5 mg/ hour, switch to 2 milligram Bumex daily (was on 2 mg IV twice daily). Strict intake and output monitoring Daily weights Lisinopril and Aldactone resumed Assessment & Plan (04/08/2025 1:20 PM EDT): Patient has acute on chronic heart failure with reduced EF 45-50%, NYHA class III Status post Bumex infusion 0.5 mg/ hour, switch to 2 milligram Bumex daily (was on 2 mg IV twice daily). Strict intake and output monitoring Daily weights Lisinopril on hold due to hyperkalemia, Aldactone resumed Assessment & Plan (04/07/2025 12:10 PM EDT): Patient has acute on chronic heart failure with reduced EF 45-50%, NYHA class III Status post Bumex infusion 0.5 mg/ hour, switch to 2 milligram Bumex daily (was on 2 mg IV twice daily). Strict intake and output monitoring Daily weights Lisinopril on hold due to hyperkalemia, Aldactone resumed Assessment & Plan (04/06/2025 11:15 AM EDT): Patient has acute on chronic heart failure with reduced EF 45-50%, NYHA class III Status post Bumex infusion 0.5 mg/ hour, switch to 2 mg IV Bumex twice daily Strict intake and output monitoring Daily weights Lisinopril and Aldactone on hold due to hyperkalemia Assessment & Plan (04/05/2025 9:29 AM EDT): Patient has acute on chronic heart failure with reduced EF 45-50%, NYHA class III Status post Bumex infusion 0.5 mg/ hour, switch to 2 mg IV Bumex twice daily Strict intake and output monitoring Daily weights Lisinopril and Aldactone on hold due to hyperkalemia Assessment & Plan (03/31/2025 8:17 AM EDT): Relevant Hx: Course: Daily Update: Today's Plan: No associated orders from this encounter found during lookback period of 72 hours. Acute bronchitis due to other specified organism s 03/26/2024 Anticoagulated 03/26/2024 Chronic HFrEF (heart failure with reduced ejection fraction) 03/26/2024 Chronic obstructive pulmonar y disease with (acute) exacerbation 03/26/2024 Chronic respiratory failure with hypoxia 024 Chronic venous insufficiency 03/26/2024 Hyperlipidemia type II 03/26/2024 Hypokalemia 03/26/2024 Ischemic cardiomyopathy 03/26/2024 Low back pain with radiation 03/26/2024 Lumbar spondylosis 03/26/2024 Mild persistent asthma with acute exacerbation 0 03/26/2024 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a 03/26/2024 Primary osteoarthritis of knees, bilateral 03/26 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 03/26/2024 Restrictive lung disease 03/26/2024 Ventricular premature beats 09/20/2022 Total knee replacement status, right 01/09/2020 Morbid obesity with body mass index of 70 and ov er in adult 11/14/2019 Unilateral primary osteoarthritis, right knee Atrial fibrillation 04/10/2014 Bronchitis 07/30/2013 Pneumonia 07/30/2013 Coronary arteriosclerosis in [place] artery 05/08 Hyperlipidemia 05/06/2013 Constitutional short stature 05/03/2013 Hip pain 04/19/2013 Arteriosclerosis of arterial coronary artery byp ass graft 04/19/2013 Preinfarction syndrome 04/19/2013 Obstructive sleep apnea syndrome 04/04/2013 Dyspnea 04/02/2013 Essential hypertension 04/02/2013 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 arthropathy, other specified sites Encounters Date Type Department Care Team Description 05/27/2025 9:30 AM EDT Office Visit [facility] [place] [address] [place] [id number] Arnel Banerjee MD Chronic respiratory failure with hypoxia (CMS/HCC) (Primary Dx) 05/07/2025 Orders Only [facility] [address] [place] [address] Natalia Bassett MA Chronic obstructive pulmonary disease with (acute) exacerbation (CMS/HCC) (Primary Dx); Restrictive lung disease; Pulmonary hyperinflation; Pulmonary hypertension (CMS/HCC) 04/17/2025 2:00 PM EDT Office Visit [facility] [address] [place] [address] Rosa Flores CNP Chronic respiratory failure with hypoxia (CMS/HCC) (Primary Dx); PAF (paroxysmal atrial fibrillation) (CMS/HCC); Chronic heart failure with mildly reduced ejection fraction (HFmrEF, 41-49%) (CMS/HCC); Thyrotoxicosis without thyroid storm, unspecified thyrotoxicosis type; Coronary arteriosclerosis in [place] artery; Hx of CABG; Pulmonary hypertension (CMS/HCC) 04/14/2025 Orders Only [facility] Heart [facility] Vascular Lab [address] [place] [id number] Radha Garza RN Acute diastolic heart failure (CMS/HCC) (Primary Dx) 04/14/2025 Orders Only [facility] Heart [facility] Heart Station [address] [place] [address] Ashley Reeves PA-C Acute diastolic heart failure (CMS/HCC) 04/14/[address] [facility] Lab [address] [place] [address] Radha Garza, LYDIA HF post discharge call. 03/27/2025 11:59 PM EDT An[address]hesia Event [facility] [address] [place] [address] Fernando Perez MD 03/27/[address] [facility] [address] [place] [address] Mehreen Sims MD 03/26/2025 3:00 PM EDT - 03/26/2025 4:00 PM EDT Surgery [facility] Vascular Lab [address] [place] [address] Macario Crowder MD Right heart cath [27110 (CPT )] 03/25/2025 Travel 03/24/2025 10:51 PM EDT - 04/12/2025 3:30 PM EDT Hospital Encounter [facility] [address] [place] [address] Fiona Zamarripa MD Noori, Zaid, MD Assaly, Ragheb, MD Saad, Hani, MD Acute hypoxic respiratory failure (CMS/HCC) (Primary Dx); Acute diastolic heart failure (CMS/HCC); Coronary arteriosclerosis in [place] artery; Lumbar spondylosis; Total knee replacement status, right; Hip pain, unspecified laterality; Severe obstructive sleep apnea Discharge Disposition: Home or Self Care () 03/08/2025 Refill [facility] [address] [place] [address] Khoa López MD Chest pain, unspecified 03/05/2025 10:00 AM EDT Office Visit [place] [address] [place] [address] Donell Whitehead CNP Thyrotoxicosis without thyroid storm, unspecified thyrotoxicosis type (Primary Dx); Acute heart failure with preserved ejection fraction (CMS/HCC); Bilateral lower extremity edema; Coronary arteriosclerosis in [place] artery; Arteriosclerosis of arterial coronary artery bypass graft; Paroxysmal atrial fibrillation (CMS/HCC); On amiodarone therapy; jail current use of amiodarone; Essential hypertension; Mixed hyperlipidemia 02/28/[address] [facility] [address] [place] [address] Chanel Uriarte MA from Last 3 Months Immunizations Immunization Administration Dates Next Due Influenza, injectable, MDCK, preservative free, quadrivalent 09/26/2022,07/26/2021 Influenza, injectable, MDCK, quadrivalent 2018 Pneumococcal Conjugate PCV 20 09/26/2022 Unspecified Sars-Cov-2 Vaccination 02/23/2021, Family History Medical History Relation Name Comments Coronary artery disease Maternal Grandfather Relation Name Status Comments Father Alive Maternal Grandfather Mother Alive Social History Tobacco Use Types Packs/Day Years Used Date Smoking Tobacco: Former Cigarettes Smokeless Tobacco: Never Tobacco Cessation:Counseling Given: Not Answered Alcohol Use Standard Drinks/Week Comments Not Currently 0 (1 standard drink = 0.6 oz pur e alcohol) [facility] Utilities Answer Date Recorded In the past 12 months has th e [employer], gas, oil, or water [employer] threatened to shut off services in your [...] any time in the past 12 [facility], were you homeless or living in a [facility] (including now)? No 03/25/2025 Hunger Vital Sign [...] Heterosexual or Straight 03/07 4:38 PM EDT Last Filed Vital Signs Vital Sign Reading Time Taken Comments Blood Pressure 97/61 05/27/2025 9:30 AM EDT Pulse 64 05/27/2025 9:30 AM EDT Temperature 36.4 C (97.5 F) 04/11/2025 7:55 PM EDT Respiratory Rate 18 04/12/2025 11:37 AM EDT Oxygen Saturation 92% 05/27/2025 9:30 AM EDT Inhaled Oxygen Concentration - - Weight 122 kg (270 lb) 05/27/2025 9:30 AM EDT Height 137.2 cm (4' 6 ) 05/27/2025 9:30 AM EDT Body Mass Index 65.1 05/27/2025 9:30 AM EDT Plan of Treatment Upcoming Encounters Date Type Department Care Team (Late st Contact Info) Description 08/14/2025 10:00 AM EDT Office Visit [facility] [address] [place] [address] Rosa Flores, [employer] [address] [place] [address] Health Maintenance Due Date Last Done Comments CT Colonography 1971 Colonoscopy 1971 Colorectal Cancer Screening 1971 FIT-DNA 1971 FIT 1971 FOBT 1971 Sigmoidoscopy 1971 Depression Screening 1983 Hepatitis B Vaccines (1 of 3 - 19+ 3-dose series) 1990 Adult Tetanus 1993 Zoster Vaccines (1 of 2) 2021 COVID-19 Vaccine ( season) 2024 02/23/2021, 02/23/2021, 02/02/2021, Additional history exists Influenza Vaccine (#1) 2025 2, 07/26/2021, 08/21/2019, Additional history exists Pneumococcal Vaccine: Pediatrics (0 to 5 Years) and At-Risk Patients (6 to 64 Years) Completed 09/26/2022 HIB Vaccines Aged Out No longer eligi ble based on patient's age to complete this topic HPV Vaccines Aged Out No longer eligi ble based on patient's age to complete this topic IPV Vaccines Aged Out No longer eligi ble based on patient's age to complete this topic Meningococcal B Vaccine Aged Out No l onger eligible based on patient's age to complete this topic Meningococcal Vaccine Aged Out No sánchez moo eligible based on patient's age to complete this topic Rotavirus Vaccines Aged Out No longer eligible based on patient's age to complete this topic Procedures Procedure Name Priority Date/Time Associated Diagnosis Comments ECG 12 LEAD UNIT PERFORMED Routine 04/17/2025 2:40 PM EDT PAF (paroxysmal atrial fibrillation) ([facility]) ECG 12-LEAD Routine 04/12/2025 11:43 AM EDT ECG 12-LEAD Routine 04/12/2025 4:28 AM EDT CBC Pending Discharge 04/12/2025 3:44 AM EDT BASIC METABOLIC PANEL Pending Discharge 04/12/2025 3:44 AM EDT ECG 12-LEAD Routine 04/11/2025 1:24 PM EDT RESPIRATORY ASSESS AND TREAT PROTOCOL Routine 04/11/2025 8:00 AM EDT MAGNESIUM Pending Discharge 04/11/2025 4:10 AM EDT CBC Pending Discharge 04/11/2025 4:10 AM EDT BASIC METABOLIC PANEL Pending Discharge 04/11/2025 4:10 AM EDT ECG 12-LEAD Routine 04/11/2025 12:02 AM EDT ECG 12-LEAD STAT 04/10/2025 12:01 PM EDT RESPIRATORY ASSESS AND TREAT PROTOCOL Routine 04/10/2025 8:00 AM EDT MAGNESIUM Pending Discharge 04/10/2025 5:27 AM EDT CBC Pending Discharge 04/10/2025 5:27 AM EDT BASIC METABOLIC PANEL Pending Discharge 04/10/2025 5:27 AM EDT ECG 12-LEAD Routine 04/09/2025 12:06 PM EDT ECG 12-LEAD Routine 04/09/2025 10:54 AM EDT RESPIRATORY ASSESS AND TREAT PROTOCOL Routine 04/09/2025 8:00 AM EDT MAGNESIUM Pending Discharge 04/09/2025 4:23 AM EDT CBC Pending Discharge 04/09/2025 4:23 AM EDT BASIC METABOLIC PANEL Pending Discharge 04/09/2025 4:23 AM EDT ECG 12-LEAD Routine 04/09/2025 1:47 AM EDT ECG 12-LEAD Routine 04/08/2025 2:11 PM EDT RESPIRATORY ASSESS AND TREAT PROTOCOL Routine 04/08/2025 9:54 AM EDT RESPIRATORY ASSESS AND TREAT PROTOCOL Routine 04/08/2025 9:54 AM EDT RESPIRATORY ASSESS AND TREAT PROTOCOL Routine 04/08/2025 8:00 AM EDT MAGNESIUM Add-On 04/08/2025 7:17 AM EDT ELECTROLYTE PANEL Timed 04/08/2025 7:1 7 AM EDT CBC Routine 04/08/2025 4:06 AM EDT BASIC METABOLIC PANEL Routine 04/08/2025 4:06 AM EDT ELECTROLYTE PANEL Timed 04/07/2025 8:4 2 PM EDT ECG 12-LEAD Routine 04/07/2025 10:10 AM EDT RESPIRATORY ASSESS AND TREAT PROTOCOL Routine 04/07/2025 8:00 AM EDT RESPIRATORY ASSESS AND TREAT PROTOCOL Routine 04/07/2025 8:00 AM EDT ELECTROLYTE PANEL Timed 04/07/2025 7: 14 AM EDT CBC Routine 04/07/2025 4:12 AM EDT BASIC METABOLIC PANEL Routine 04/07/2025 4:12 AM EDT ELECTROLYTE PANEL Timed 04/06/2025 8:1 4 PM EDT XR CHEST 1 VIEW Routine 04/06/2025 2:09 PM EDT RESPIRATORY ASSESS AND TREAT PROTOCOL Routine 04/06/2025 8:00 AM EDT RESPIRATORY ASSESS AND TREAT PROTOCOL Routine 04/06/2025 8:00 AM EDT ELECTROLYTE PANEL Timed 04/06/2025 7:4 2 AM EDT CBC Routine 04/06/2025 3:32 AM EDT BASIC METABOLIC PANEL Routine 04/06/2025 3:32 AM EDT ELECTROLYTE PANEL Timed 04/05/2025 8:1 4 PM EDT ELECTROLYTE PANEL Timed 04/05/2025 9:0 0 AM EDT LAVENDER TOP Routine 04/05/2025 8:57 AM EDT EXTRA TUBES Routine 04/05/2025 8:57 AM EDT RESPIRATORY ASSESS AND TREAT PROTOCOL Routine 04/05/2025 8:00 AM EDT RESPIRATORY ASSESS AND TREAT PROTOCOL Routine 04/05/2025 8:00 AM EDT APTT Routine 04/05/2025 3:34 AM EDT CBC Routine 04/05/2025 3:34 AM EDT BASIC METABOLIC PANEL Routine 04/05/2025 3:34 AM EDT ELECTROLYTE PANEL Timed 04/04/2025 8:1 7 PM EDT PNEUMOCYSTIS SMEAR BY DFA Pending Discharge 04/04/2025 5:55 PM EDT RESPIRATORY ASSESS AND TREAT PROTOCOL Routine 04/04/2025 8:00 AM EDT RESPIRATORY ASSESS AND TREAT PROTOCOL Routine 04/04/2025 8:00 AM EDT ELECTROLYTE PANEL Timed 04/04/2025 7:3 5 AM EDT LAVENDER TOP Routine 04/04/2025 7:00 AM EDT EXTRA TUBES Routine 04/04/2025 7:00 AM EDT PHOSPHORUS Routine 04/04/2025 3:49 AM EDT MAGNESIUM Routine 04/04/2025 3:49 AM EDT APTT Routine 04/04/2025 3:49 AM EDT CBC Routine 04/04/2025 3:49 AM EDT BASIC METABOLIC PANEL Routine 04/04/2025 3:49 AM EDT ELECTROLYTE PANEL Timed 04/03/2025 6:1 1 PM EDT POTASSIUM Routine 04/03/2025 6:11 PM EDT RESPIRATORY ASSESS AND TREAT PROTOCOL Routine 04/03/2025 8:00 AM EDT RESPIRATORY ASSESS AND TREAT PROTOCOL Routine 04/03/2025 8:00 AM EDT LAVENDER TOP Routine 04/03/2025 7:25 AM EDT EXTRA TUBES Routine 04/03/2025 7:25 AM EDT APTT Routine 04/03/2025 7:25 AM EDT ELECTROLYTE PANEL Timed 04/03/2025 7:2 5 AM EDT PHOSPHORUS Add-On 04/03/2025 3:51 AM EDT MAGNESIUM Add-On 04/03/2025 3:51 AM EDT CBC Routine 04/03/2025 3:51 AM EDT BASIC METABOLIC PANEL Routine 04/03/2025 3:51 AM EDT ELECTROLYTE PANEL Timed 04/02/2025 7:4 5 PM EDT APTT Pending Discharge 04/02/2025 12:12 PM EDT MAGNESIUM Pending Discharge 04/02/2025 8:18 AM EDT ELECTROLYTE PANEL Pending Discharge 04/02/2025 8:18 AM EDT RESPIRATORY ASSESS AND TREAT PROTOCOL Routine 04/02/2025 8:00 AM EDT RESPIRATORY ASSESS AND TREAT PROTOCOL Routine 04/02/2025 8:00 AM EDT APTT Add-On 04/02/2025 3:28 AM EDT VANCOMYCIN, RANDOM Pending Discharge 04/02/2025 3:28 AM EDT ANTI-FACTOR XA Pending Discharge 04/02/2025 3:28 AM EDT CBC Pending Discharge 04/02/2025 3:28 AM EDT BASIC METABOLIC PANEL Pending Discharge 04/02/2025 3:28 AM EDT XR CHEST 1 VIEW Routine 04/01/2025 7:48 PM EDT MAGNESIUM Pending Discharge 04/01/2025 7:30 PM EDT ELECTROLYTE PANEL Pending Discharge 04/01/2025 7:30 PM EDT B-TYPE NATRIURETIC PEPTIDE Pending Discharge 04/01/2025 7:30 PM EDT ECG 12-LEAD Routine 04/01/2025 3:48 PM EDT MRSA/MSSA DNA NASAL Pending Discharge 04/01/2025 2:16 PM EDT ECG 12-LEAD Routine 04/01/2025 10:13 AM EDT MAGNESIUM Pending Discharge 04/01/2025 8:05 AM EDT ELECTROLYTE PANEL Pending Discharge 04/01/2025 8:05 AM EDT RESPIRATORY ASSESS AND TREAT PROTOCOL Routine 04/01/2025 8:00 AM EDT RESPIRATORY ASSESS AND TREAT PROTOCOL Routine 04/01/2025 8:00 AM EDT ANTI-FACTOR XA Pending Discharge 04/01/2025 4:30 AM EDT VANCOMYCIN, RANDOM Pending Discharge 04/01/2025 4:30 AM EDT CBC Pending Discharge 04/01/2025 4:30 AM EDT BASIC METABOLIC PANEL Pending Discharge 04/01/2025 4:30 AM EDT MAGNESIUM Pending Discharge 03/31/2025 7:04 PM EDT ELECTROLYTE PANEL Pending Discharge 03/31/2025 7:04 PM EDT RESPIRATORY ASSESS AND TREAT PROTOCOL Routine 03/31/2025 8:00 AM EDT RESPIRATORY ASSESS AND TREAT PROTOCOL Routine 03/31/2025 8:00 AM EDT MAGNESIUM Pending Discharge 03/31/2025 7:48 AM EDT ELECTROLYTE PANEL Pending Discharge 03/31/2025 7:48 AM EDT ECG 12-LEAD Routine 03/31/2025 5:13 AM EDT CBC Pending Discharge 03/31/2025 3:52 AM EDT BASIC METABOLIC PANEL Pending Discharge 03/31/2025 3:52 AM EDT APTT Pending Discharge 03/31/2025 3:52 AM EDT MAGNESIUM Routine 03/30/2025 7:12 PM EDT ELECTROLYTE PANEL Timed 03/30/2025 7:[address] CHEST WO IV CONTRAST Routine 03/30/2025 1:35 PM EDT ECG 12-LEAD Routine 03/30/2025 12:25 PM EDT RESPIRATORY ASSESS AND TREAT PROTOCOL Routine 03/30/2025 8:00 AM EDT RESPIRATORY ASSESS AND TREAT PROTOCOL Routine 03/30/2025 8:00 AM EDT RENAL FUNCTION PANEL Add-On 03/30/2025 5:52 AM EDT MAGNESIUM Add-On 03/30/2025 5:52 AM EDT LAVENDER TOP Routine 03/30/2025 5:52 AM EDT EXTRA TUBES Routine 03/30/2025 5:52 AM EDT ELECTROLYTE PANEL Timed 03/30/2025 5:5 2 AM EDT APTT Routine 03/30/2025 5:52 AM EDT ECG 12-LEAD Routine 03/30/2025 2:15 AM EDT ELECTROLYTE PANEL Timed 03/29/2025 8:3 2 PM EDT ECG 12-LEAD Routine 03/29/2025 12:03 PM EDT XR CHEST 1 VIEW Routine 03/29/2025 12:01 PM EDT RESPIRATORY ASSESS AND TREAT PROTOCOL Routine 03/29/2025 8:00 AM EDT RESPIRATORY ASSESS AND TREAT PROTOCOL Routine 03/29/2025 8:00 AM EDT APTT Routine 03/29/2025 3:36 AM EDT CBC Routine 03/29/2025 3:36 AM EDT PHOSPHORUS Routine 03/29/2025 3:36 AM EDT MAGNESIUM Routine 03/29/2025 3:36 AM EDT BASIC METABOLIC PANEL Routine 03/29/2025 3:36 AM EDT ECG 12-LEAD Routine 03/29/2025 2:09 AM EDT MAGNESIUM Timed 03/28/2025 11:40 PM EDT ELECTROLYTE PANEL Timed 03/28/2025 11: 40 PM EDT MAGNESIUM Timed 03/28/2025 3:21 PM EDT ELECTROLYTE PANEL Timed 03/28/2025 3:2 1 PM EDT ECG 12-LEAD Routine 03/28/2025 2:46 PM EDT LAVENDER TOP Routine 03/28/2025 8:16 AM EDT EXTRA TUBES Routine 03/28/2025 8:16 AM EDT BASIC METABOLIC PANEL STAT 03/28/2025 8:16 AM EDT RESPIRATORY ASSESS AND TREAT PROTOCOL Routine 03/28/2025 8:00 AM EDT RESPIRATORY ASSESS AND TREAT PROTOCOL Routine 03/28/2025 8:00 AM EDT RESPIRATORY ASSESS AND TREAT PROTOCOL Routine 03/28/2025 8:00 AM EDT APTT Routine 03/28/2025 5:59 AM EDT MAGNESIUM Timed 03/28/2025 5:59 AM EDT ELECTROLYTE PANEL Timed 03/28/2025 5:5 9 AM EDT CBC Routine 03/28/2025 5:59 AM EDT PHOSPHORUS Routine 03/28/2025 5:59 AM EDT BASIC METABOLIC PANEL Routine 03/28/2025 5:59 AM EDT MAGNESIUM Timed 03/27/2025 11:37 PM EDT ELECTROLYTE PANEL Timed 03/27/2025 11: 37 PM EDT MAGNESIUM Timed 03/27/2025 3:54 PM EDT ELECTROLYTE PANEL Timed 03/27/2025 3:5 4 PM EDT MAGNESIUM Timed 03/27/2025 1:25 PM EDT ELECTROLYTE PANEL Timed 03/27/2025 1:2 5 PM EDT RESPIRATORY ASSESS AND TREAT PROTOCOL Routine 03/27/2025 8:00 AM EDT RESPIRATORY ASSESS AND TREAT PROTOCOL Routine 03/27/2025 8:00 AM EDT RESPIRATORY ASSESS AND TREAT PROTOCOL Routine 03/27/2025 8:00 AM EDT APTT Routine 03/27/2025 4:19 AM EDT VENOUS BLOOD GAS WITH IONIZED CALCIUM Routine 03/27/2025 4:19 AM EDT CBC Routine 03/27/2025 4:19 AM EDT PHOSPHORUS Routine 03/27/2025 4:19 AM EDT MAGNESIUM Routine 03/27/2025 4:19 AM EDT BASIC METABOLIC PANEL Routine 03/27/2025 4:19 AM EDT RIGHT HEART CATH Routine 03/26/2025 3:54 PM EDT Acute diastolic heart failure (CMS/HCC) POCT HBO2% Routine 03/26/2025 3:53 PM EDT RESPIRATORY ASSESS AND TREAT PROTOCOL Routine 03/26/2025 8:00 AM EDT RESPIRATORY ASSESS AND TREAT PROTOCOL Routine 03/26/2025 8:00 AM EDT RESPIRATORY ASSESS AND TREAT PROTOCOL Routine 03/26/2025 8:00 AM EDT RESPIRATORY ASSESS AND TREAT PROTOCOL Routine 03/26/2025 8:00 AM EDT LAVENDER TOP Routine 03/26/2025 7:30 AM EDT LIGHT GREEN TOP Routine 03/26/2025 7:30 AM EDT EXTRA TUBES Routine 03/26/2025 7:30 AM EDT APTT Routine 03/26/2025 7:19 AM EDT CBC Routine 03/26/2025 3:58 AM EDT PHOSPHORUS Routine 03/26/2025 3:58 AM EDT MAGNESIUM Routine 03/26/2025 3:58 AM EDT BASIC METABOLIC PANEL Routine 03/26/2025 3:58 AM EDT APTT Routine 03/26/2025 1:41 AM EDT RESPIRATORY ASSESS AND TREAT PROTOCOL Routine 03/25/2025 8:01 PM EDT INHIBITOR SCREEN, PTT Routine 03/25/2025 6:18 PM EDT RESPIRATORY VIRUS PCR PANEL Routine 03/25/2025 4:23 PM EDT HIGH SENSITIVITY TROPONIN I Add-On 03/25/2025 3:48 PM EDT APTT Timed 03/25/2025 3:48 PM EDT CTA CHEST W IV CONTRAST Routine 03/25/2025 2:29 PM EDT COMPLETE ECHO (TTE) W/ IMAGING AGENT Routine 03/25/2025 1:17 PM EDT ARTERIAL BLOOD GAS WITH IONIZED CALCIUM Timed 03/25/2025 12:22 PM EDT RAPID INFLUENZA A/B PCR Routine 03/25/2025 11:35 AM EDT SPUTUM CULTURE Routine 03/25/2025 11:35 AM EDT SARS-COV-2 PCR Routine 03/25/2025 11:35 AM EDT APTT STAT 03/25/2025 10:42 AM EDT LAVENDER TOP Routine 03/25/2025 10:30 AM EDT LIGHT GREEN TOP Routine 03/25/2025 10:30 AM EDT EXTRA TUBES Routine 03/25/2025 10:30 AM EDT RESPIRATORY ASSESS AND TREAT PROTOCOL Routine 03/25/2025 10:04 AM EDT RESPIRATORY ASSESS AND TREAT PROTOCOL Routine 03/25/2025 10:04 AM EDT ECG 12-LEAD Routine 03/25/2025 8:58 AM EDT RESPIRATORY ASSESS AND TREAT PROTOCOL Routine 03/25/2025 8:00 AM EDT RESPIRATORY ASSESS AND TREAT PROTOCOL Routine 03/25/2025 8:00 AM EDT XR CHEST 1 VIEW Routine 03/25/2025 7:16 AM EDT RESPIRATORY ASSESS AND TREAT PROTOCOL Routine 03/25/2025 3:53 AM EDT HIGH SENSITIVITY TROPONIN I STAT Add-on 03/25/2025 12:25 AM EDT B-TYPE NATRIURETIC PEPTIDE Routine 03/25/2025 12:25 AM EDT CBC WITH AUTO DIFFERENTIAL Routine 03/25/2025 12:25 AM EDT PHOSPHORUS Routine 03/25/2025 12:25 AM EDT MAGNESIUM Routine 03/25/2025 12:25 AM EDT PROTIME-INR Routine 03/25/2025 12:25 AM EDT COMPREHENSIVE METABOLIC PANEL Routine 03/25/2025 12:25 AM EDT CBC AND DIFFERENTIAL Routine 03/25/2025 12:25 AM EDT ARTERIAL BLOOD GAS WITH IONIZED CALCIUM Timed 03/24/2025 11:05 PM EDT RESPIRATORY ASSESS AND TREAT PROTOCOL Routine 03/24/2025 11:01 PM EDT CBC Routine 03/24/2025 5:21 PM EDT COMPREHENSIVE METABOLIC PANEL Routine 03/24/2025 5:21 PM EDT MAGNESIUM Routine 03/24/2025 5:21 PM EDT HIGH SENSITIVITY TROPONIN I Routine 03/24/2025 5:21 PM EDT B-TYPE NATRIURETIC PEPTIDE Routine 03/24/2025 5:21 PM EDT XR CHEST 2 VIEWS Routine 03/24/2025 5:20 PM EDT ECG 12-LEAD Routine 03/24/2025 5:19 PM EDT from Last 3 Months Results * ECG 12 lead unit performed (04/17/2025 2:40 PM EDT) us Rosa Morenofred JAIME ECG ORDERABLES Final Result * ECG 12 lead (04/12/2025 11:43 AM EDT) Only the most recent of20 resultswithin the time period is included. Ventricular Rate 72 BPM GE MUSE Atrial Rate 72 BPM GE MUSE RI Interval 164 ms GE MUSE QRS DURATION 90 ms GE MUSE QT Interval 452 ms GE MUSE QTC CALCULATION(BAZE TT) 494 ms GE MUSE P Odd 70 degrees GE MUSE R-Odd 88 degrees GE MUSE T Wave Odd 132 degrees GE MUSE 04/12/2025 11:1 9 AM EDT 04/12/2025 11:47 AM EDT Impressions GE MUSE - 04/12/2025 11:47 AM EDT Normal sinus rhythm Possible Left atrial enlargement Nonspecific ST and T wave abnormality Prolonged QT Abnormal ECG When compared with ECG of 11-APR-2025 23:44, Nonspecific T wave abnormality has replaced inverted T waves in Inferior lead Nonspecific T wave abnormality, improved in Lateral QT has lengthened Confirmed by Khoa López ([id number]) on 04/12/2025 11:47:46 AM Narrative Procedure Note Khoa López MD - 04/12/2025 IMPRESSION: Normal sinus rhythm Possible Left atrial enlargement Nonspecific ST and T wave abnormality Prolonged QT Abnormal ECG When compared with ECG of 11-APR-2025 23:44, Nonspecific T wave abnormality has replaced inverted T waves in Inferior lead Nonspecific T wave abnormality, improved in Lateral QT has lengthened Confirmed by Khoa López ([id number]) on 04/12/2025 11:47:46 AM Claire Dubon MD ECG ORDERABLES Final Result GE MUSE * (ABNORMAL) CBC (04/12/2025 3:44 AM EDT) Only the most recent of18 resultswithin the time period is included. Auto WBC 10.63(H) 4.00 - 10.60 10*3/uL 04/12/2025 4:38 AM EDT [facility] ([facility]) RBC 5.16 4.20 - 5.70 10*6/uL 04/12/2025 4:38 AM EDT [facility] ([facility]) Hemoglobin 16.4 13.0 - 17.0 g/dL 04/12/2025 4:38 AM EDT [facility] ([facility]) Hematocrit 48.0 39.0 - 50.0 % 04/12/2025 4:38 AM EDT [facility] ([facility]) MCV 93.0 82.0 - 98.0 fL 04/12/2025 4:38 AM EDT [facility] ([facility]) MCH 31.8 27.0 - 33.0 pg 04/12/2025 4:38 AM EDT [facility] ([facility]) MCHC 34.2 32.0 - 35.0 g/dL 04/12/2025 4:38 AM EDT [facility] ([facility]) RDW 13.3 11.5 - 15.0 % 04/12/2025 4:38 AM EDT [facility] ([facility]) Platelets 172 150 - 400 10*3/uL 04/12/2025 4:38 AM EDT [facility] ([facility]) Blood Venous blood specimen / Unknown Venipuncture / Unknown 04/12/2025 3:44 AM EDT 04/12/2025 4:05 AM EDT us Oliverio Phipps MD LAB BLOOD ORDERABLES Final Resul t [facility] ([facility]) [address] [place] [address] * (ABNORMAL) Basic metabolic panel (04/12/2025 3:44 AM EDT) Only the most recent of18 resultswithin the time period is included. Sodium 131(L) 136 - 145 mmol/L 04/12/2025 4:29 AM EDT [facility] ([facility]) Potassium 4.1 3.5 - 5.1 mmol/L 04/12/2025 4:29 AM EDT [facility] ([facility]) Chloride 97(L) 98 - 107 mmol/L 04/12/2025 4:29 AM EDT [facility] ([facility]) CO2 29 21 - 31 mmol/L 04/12/2025 4:29 AM EDT [facility] ([facility]) BUN 21 7 - 25 mg/dL 04/12/2025 4:29 AM EDT [facility] ([facility]) Creatinine 0.53(L) 0.70 - 1.30 mg/dL 04/12/2025 4:29 AM EDT [facility] ([facility]) Glucose 95 70 - 100 mg/dL 04/12/2025 4:29 AM EDT [facility] ([facility]) Calcium 8.1(L) 8.6 - 10.3 mg/dL 04/12/2025 4:29 AM EDT [facility] ([facility]) Anion Gap 9 7 - 20 mmol/L 04/12/2025 4:29 AM EDT [facility] ([facility]) eGFR 119.8 >60.0 mL/min/1. 73m*2 04/12/2025 4:29 AM EDT [facility] ([facility]) Comment:The [facility] s estimated glomerular filtration rate (eGFR) will no longer include consideration of race in its calculation. The [employer] s eGFR Task Force developed new recommendations for the estimation of the glomerular filtration rate in the [place] They recommend immediate implementation of the new equation refit without the race variable in all laboratories because the calculation does not include race. In addition to not including race in the calculation and reporting, it included diversity in its development, and has acceptable performance characteristics and potential consequences that do not disproportionately affect any one group of individuals. BUN/Creatinine Ratio 39.6 05/2025 4:29 AM EDT [facility] ([facility]) Blood Venous blood specimen / Unknown Venipuncture / Unknown 04/12/2025 3:44 AM EDT 04/12/2025 4:05 AM EDT us Fiona Zamarripa MD LAB BLOOD ORDERABLES Final Res ult [facility] ([facility]) [address] [place] [address] * Magnesium (04/11/2025 4:10 AM EDT) Only the most recent of24 resultswithin the time period is included. Magnesium 2.2 1.9 - 2.7 mg/dL 04/11/2025 4:49 AM EDT [facility] ([facility]) Blood Venous blood specimen / Unknown Venipuncture / Unknown 04/11/2025 4:10 AM EDT 04/11/2025 4:24 AM EDT us Donell Whitehead CNP LAB BLOOD ORDERABLES Final Resul t Performing Organization Address City/[facility]/ZIP Co de Phone Number [facility]) [address] [place] [address] * (ABNORMAL) Electrolyte panel (04/08/2025 7:17 AM EDT) Only the most recent of26 resultswithin the time period is included. Sodium 135(L) 136 - 145 mmol/L 04/08/2025 8:25 AM EDT [facility] ([facility]) Potassium 4.6 3.5 - 5.1 mmol/L 04/08/2025 8:25 AM EDT [facility] ([facility]) Chloride 100 98 - 107 mmol/L 04/08/2025 8:25 AM EDT [facility] ([facility]) CO2 30 21 - 31 mmol/L 04/08/2025 8:25 AM EDT [facility] ([facility]) Anion Gap 10 7 - 20 mmol/L 04/08/2025 8:25 AM EDT [facility] ([facility]) Blood Venous blood specimen / Unknown Venipuncture / Unknown 04/08/2025 7:17 AM EDT 04/08/2025 8:02 AM EDT us Reinaldo Pennington MD LAB BLOOD ORDERABLES Final Resu lt Performing Organization Address City/[facility]/ZIP Co de Phone Number [facility]) [address] [place] [address] * XR chest 1 view (04/06/2025 2:09 PM EDT) Only the most recent of4 resultswithin the time period is included. Anatomical Region Laterality Modality Chest Computed Radiogr aphy 04/06/2025 3:16 PM EDT Impressions 04/06/2025 3:18 PM EDT Decompensated congestive heart failure similar to prior study. No acute pathology or other interval change. Electronically signed: Pratik Song MD. Narrative 04/06/2025 3:18 PM EDT XR CHEST 1 VIEW 04/06/2025 1:45 PM CLINICAL INDICATIONS: Dyspnea. COMPARISON: 04/01/2025 FINDINGS: Single AP portable upright view of the chest Cardiac silhouette is moderately enlarged with bilateral hilar and basal congestion. Sternotomy wires and closure devices are seen similar to prior study. 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 Trach is in the midline. Procedure Note Pratik Song MD - 04/06/2025 XR CHEST 1 VIEW 04/06/2025 1:45 PM CLINICAL INDICATIONS: Dyspnea. COMPARISON: 04/01/2025 FINDINGS: Single AP portable upright view of the chest Cardiac silhouette is moderately enlarged with bilateral hilar and basal congestion. Sternotomy wires and closure devices are seen similar topworthingr study. 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 IMPRESSION: Decompensated congestive heart failure similar to prior study. No acute pathology or other interval change. Electronically signed: Pratik Song MD. Scot Oliva MD IMG XR PROCEDURES Final Result * Lavender Top (04/05/2025 8:57 AM EDT) Only the most recent of7 resultswithin the time period is included. Extra Tube Hold for add-ons. 04/05/2025 11:01 AM EDT [facility] ([facility]) Comment:Auto resulted. Blood Venous blood specimen / Unknown 04/05/2025 8:57 AM EDT 04/05/2025 9:07 AM EDT Claire Dubon MD LAB BLOOD ORDERABLES Final Resul t Performing Organization Address City/[facility]/ZIP Co de Phone Number [facility]) [address] [place] [phone] * APTT (04/05/2025 3:34 AM EDT) Only the most recent of14 resultswithin the time period is included. aPTT 26.9 25.0 - 35.0 Seconds 04/05/2025 4:26 AM EDT [facility] ([facility]) Comment:Clinical significanc e of the APTT is questionable in the presence of heparin. Blood Venous blood specimen / Unknown Venipuncture / Unknown 04/05/2025 3:34 AM EDT 04/05/2025 3:41 AM EDT Arsen Duque MD LAB BLOOD ORDERABLES Final Resu lt Performing Organization Address [facility] Co de Phone Number [facility]) [address] [place] [phone] * Pneumocystis smear by DFA (04/04/2025 5:55 PM EDT) [facility] Pneumocystis Smear, DFA Negative Negative 04/05/2025 1:57 PM EDT [facility]) Sputum Bronchial structure / Unknown Non-blood Collection / Unknown 04/04/2025 5:55 PM EDT 04/04/2025 6:02 PM EDT Arsen Duque MD LAB MICROBIOLOGY - GENERAL ORDE RABNGUYEN Final Result Performing Organization Address City/[facility]/ZIP Co de Phone Number [facility]) [address] [place] [phone] * Phosphorus (04/04/2025 3:49 AM EDT) Only the most recent of7 resultswithin the time period is included. Phosphorus 4.2 2.5 - 5.0 mg/dL 04/04/2025 4:34 AM EDT [facility] ([facility]) Blood Venous blood specimen / Unknown Arterial Line / Unknown 04/04/2025 3:49 AM EDT 04/04/2025 4:09 AM EDT us Oliverio Phipps MD LAB BLOOD ORDERABLES Final Resul t Performing Organization Address City/[facility]/ZIP Co de Phone Number [facility] ([facility]) [address] [place] [address] * Potassium (04/03/2025 6:11 PM EDT) Potassium 4.9 3.5 - 5.1 mmol/L 04/03/2025 6:37 PM EDT [facility] ([facility]) Blood Venous blood specimen / Unknown Arterial Line / Unknown 04/03/2025 6:11 PM EDT 04/03/2025 6:15 PM EDT us Oliverio Phipps MD LAB BLOOD ORDERABLES Final Resul t Performing Organization Address [facility] de Phone Number [facility] ([facility]) [address] [place] [phone] * (ABNORMAL) Anti-Xa (Heparin Level) (04/02/2025 3:28 AM EDT) Only the most recent of2 resultswithin the time period is included. Anti-Xa (Heparin) 0.78(H) 0.3 - 0.7 IU/mL 04/02/2025 4:08 AM EDT [facility] ([facility]) Comment:Rivaroxaban and Apix aban will interfere with the anti Xa assay used to monitor UFH and LMWH. Blood Venous blood specimen / Unknown Arterial Line / Unknown 04/02/2025 3:28 AM EDT 04/02/2025 3:36 AM EDT us Oliverio Phipps MD LAB BLOOD ORDERABLES Final Resul t [facility]) [address] [place] [address] * Vancomycin, random (04/02/2025 3:28 AM EDT) Only the most recent of2 resultswithin the time period is included. Vancomycin Rm 20.5 20.0 - 40.0 ug/mL 04/02/2025 4:07 AM EDT [facility]) Blood Venous blood specimen / Unknown Arterial Line / Unknown 04/02/2025 3:28 AM EDT 04/02/2025 3:40 AM EDT us Oliverio Phipps MD LAB BLOOD ORDERABLES Final Resul t [facility]) [address] [place] [address] * (ABNORMAL) B-type natriuretic peptide (04/01/2025 7:30 PM EDT) Only the most recent of3 resultswithin the time period is included. Pathologist [facility] BNP 127(H) 0 - 100 pg/mL 04/01/2025 8:23 PM EDT [facility]) Blood Venous blood specimen / Unknown Arterial Line / Unknown 04/01/2025 7:30 PM EDT 04/01/2025 7:55 PM EDT us Reinaldo Pennington MD LAB BLOOD ORDERABLES Final Resu lt [facility]) [address] [place] [address] * MRSA/MSSA DNA Nasal (04/01/2025 2:16 PM EDT) Pathologist [facility] MSSA DNA Negative Negative 04/02/2025 2:34 PM EDT [facility]) MRSA DNA Negative Negative 04/02/2025 2:34 PM EDT [facility]) Swab Nasal structure / Unknown Non-blood Collection / Unknown 04/01/2025 2:16 PM EDT 04/01/2025 2:40 PM EDT Narrative [facility] ([facility]) - 04/02/2025 2:34 PM EDT Testing methodology is an automated qualitative in vitro diagnostic test for the direct detection and differentiation of Staphylococcus aureus (SA) DNA and methicillin-resistant Staphylococcus aureus (MRSA) DNA from nasal swabs in patients at risk for nasal colonization. The test utilizes real-time polymerase chain reaction (PCR) for the amplification of MRSA/SA DNA and fluorogenic target-specific hybridization probes for the detection of the amplified DNA. A negative result does not preclude nasal colonization. us Oliverio Phipps MD LAB MICROBIOLOGY - GENERAL ORDER GARCIA Final Result [facility]) [address] [place] [address] * CT chest wo IV contrast (03/30/2025 1:35 PM EDT) Anatomical Region Laterality Modality Body, Chest Computed Tomogra phy 03/30/2025 2:18 PM EDT Impressions 03/30/2025 2:22 PM EDT * Nodular and groundglass infiltrates of the right upper lobe suggesting atypical infectious/inflammatory process or potentially aspiration. There has also been progressive confluent airspace disease developing dependently bilateral lower lobes and left upper lobe. Electronically signed: Oscar Sorto. Narrative 03/30/2025 2:[address] CHEST WO IV CONTRAST 03/30/2025 1:27 PM CLINICAL INDICATIONS:Shortness of breath. TECHNIQUE: Multidetector CT axial slices of the chest were obtained without IV contrast. Multiplanar reformats were performed and viewed on a separate workstation and reviewed to further define anatomy and possible pathology. All CT scans at this facility use dose modulation, iterative reconstruction, and/or weight based dosing when appropriate to reduce radiation dose to as low as reasonably achievable. COMPARISON: Chest CT 03/25/2025. FINDINGS: Compared to recent exam there is persistent and progressive bilateral pulmonary infiltrates. Multiple small nodules and groundglass infiltrates throughout the right upper lobe. More confluent airspace disease noted dependently bilateral lower lobes and left upper lobe. Progressed. No appreciable effusion. Bony structures are age compatible. Included portions of the upper abdomen show no indication of acute disease. Procedure Note Oscra Sorto MD - 03/30/2025 CT CHEST WO IV CONTRAST 03/30/2025 1:27 PM CLINICAL INDICATIONS:Shortness of breath. TECHNIQUE: Multidetector CT axial slices of the chest were obtainedwithout IV contrast. Multiplanar reformats were performed and viewed on a separate workstation and reviewed to further define anatomy and possiblepathology. All CT scans at this facility use dose modulation, iterativereconstruction, and/or weight based dosing when appropriate to reduce radiation dose to aslow as reasonably achievable. COMPARISON: Chest CT 03/25/2025. FINDINGS: Compared to recent exam there is persistent and progressive bilateralpulmonary infiltrates. Multiple small nodules and groundglass infiltrates throughout the rightupper lobe. More confluent airspace disease noted dependently bilateral lower lobesand left upper lobe. Progressed. No appreciable effusion. Bony structures are age compatible. Included portions of the upper abdomen show no indication of acutedisease. IMPRESSION: *Nodular and groundglass infiltrates of the right upper lobe suggesting atypical infectious/inflammatory process or potentially aspiration. Therehas also been progressive confluent airspace disease developing dependently bilateral lower lobes and left upper lobe. Electronically signed: Oscar Sorto. Fiona Zamarripa MD IMG CT PROCEDURES Final Result * (ABNORMAL) Renal function panel (03/30/2025 5:52 AM EDT) Albumin 3.5 3.5 - 5.7 g/dL 03/30/2025 8:07 AM EDT [facility] ([facility]) Calcium 9.0 8.6 - 10.3 mg/dL 03/30/2025 8:07 AM EDT [facility] ([facility]) Phosphorus 3.4 2.5 - 5.0 mg/dL 03/30/2025 8:07 AM EDT [facility] ([facility]) BUN 21 7 - 25 mg/dL 03/30/2025 8:07 AM EDT [facility] ([facility]) Creatinine 0.76 0.70 - 1.30 mg/dL 03/30/2025 8:07 AM EDT [facility] ([facility]) Sodium 136 136 - 145 mmol/L 03/30/2025 8:07 AM T [facility] ([facility]) Potassium 3.9 3.5 - 5.1 mmol/L 03/30/2025 8:07 AM T [facility] ([facility]) Chloride 98 98 - 107 mmol/L 03/30/2025 8:07 AM T [facility] ([facility]) CO2 35(H) 21 - 31 mmol/L 03/30/2025 8:07 AM T [facility] ([facility]) Anion Gap 7 7 - 20 mmol/L 03/30/2025 8:07 AM T [facility] ([facility]) eGFR 107.5 >60.0 mL/min/1. 73m*2 03/30/2025 8:07 AM [facility] ([facility]) Comment:The [facility]'s estimated glomerular filtration rate (eGFR) will no longer include consideration of race in its calculation. The National Kid[employer] Foundation's eGFR Task Force developed new recommendations for the estimation of the glomerular filtration rate in the [place] They recommend immediate implementation of the new equation refit without the race variable in all laboratories because the calculation does not include race. In addition to not including race in the calculation and reporting, it included diversity in its development, and has acceptable performance characteristics and potential consequences that do not disproportionately affect any one group of individuals. Glucose 103(H) 70 - 100 mg/dL 03/30/2025 8:07 AM [facility] ([facility]) Corrected Calcium 9.4 mg/dL 025 8:07 AM [facility] ([facility]) Fasting? UNKNOWN 03/30/2025 8:07 AM [facility] ([facility]) BUN/Creatinine Ratio 27.6 03/07 8:07 AM [facility] ([facility]) Blood Venous blood specimen / Unknown Venipuncture / Unknown 03/30/2025 5:52 AM EDT 03/30/2025 5:57 AM EDT us Fioan Zamarripa MD LAB BLOOD ORDERABLES Final Res ult Performing Organization Address [facility] Co de Phone Number [facility] ([facility]) [address] [place] [address] * (ABNORMAL) Venous blood gas with ionized calcium (03/27/2025 4:19 AM EDT) pH, Francis 7.48(H) 7.31 - 7.41 03/27/2025 4:28 AM EDT [facility] RESPIRATORY THERAPY pCO2, Francis 50 40 - 50 mmHg 03/27/2025 4:28 AM EDT [facility] RESPIRATORY THERAPY pO2, Francis 113(H) 35 - 45 mmHg 03/27/2025 4:28 AM EDT [facility] RESPIRATORY THERAPY HCO3, Venous 37.2 mmol/L 03/27/2025 4:28 AM EDT [facility] RESPIRATORY THERAPY Calcium, Ion 0.99(L) 1.15 - 1.33 mmol/L 03/27/2025 4:28 AM EDT [facility] RESPIRATORY THERAPY O2 Sat, Francis 99.0(H) 65.0 - 75.0 % 03/27/2025 4:28 AM EDT [facility] RESPIRATORY THERAPY Base Excess, Francis 11.8 mmol/L 03/27/2025 4:28 AM EDT [facility] RESPIRATORY THERAPY Blood Venous blood specimen / Unknown Arterial Line / Unknown 03/27/2025 4:19 AM EDT 03/27/2025 4:26 AM EDT Fiona Zamarripa MD LAB BLOOD ORDERABLES Final Res ult Performing Organization Address City/[facility]/ZIP Co de Phone Number [facility] RESPIRATORY THERAPY [address] [place] [address], [place] * RIGHT HEART CATH (03/26/2025 3:54 PM EDT) Anatomical Region Laterality Modality Other Narrative 03/26/2025 4:14 PM EDT Cardiovascular Laboratory Report FINAL IMPRESSIONS: Severely elevated right-sided heart pressures and pulmonary completely wedge pressure consistent with biventricular congestive heart failure Significantly elevated transpulmonary gradient along with elevated wedge consistent with combined pre and postcapillary pulmonary hypertension Normal cardiac output/cardiac index Moderate to severe systemic hypertension RECOMMENDATIONS: Aggressive cardiovascular risk factor modification Given elevated pulmonary capillary wedge pressure, intensify IV diuresis, monitor strict inputs and outputs and daily weights Continue optimal medical therapy for coronary artery disease including aspirin and high intensity statin therapy, a beta-jorge and a RAAS inhibitor Guideline directed medical therapy for heart failure with midrange ejection fraction should include a beta-jorge, a RAAS inhibitor/ARNI, an SGLT2 inhibitor and spironolactone if feasible Treat noncardiac comorbidities as clinically appropriate Further recommendations deferred to the inpatient services PROCEDURES: Ultrasound-guided access to the right internal jugular vein, right heart catheterization METHODS: After risks, benefits, and alternatives were explained, written informed consent was obtained. The patient was prepped and draped in usual sterile fashion over the right neck. Using 1% lidocaine solution, local infiltration anesthesia was achieved. Using a modified Seldinger technique, a micropuncture kit, and under ultrasound guidance, access to the right internal jugular vein was obtained. This was exchanged out for a 6 Tamazight 11 cm sheath. Right heart catheterization was performed using a Zarate catheter via the venous sheath. Pressures were measured in the right atrium, right ventricle, pulmonary artery, and pulmonary capillary wedge positions. Oxygen saturations were obtained and cardiac output/cardiac index was calculated using the modified Timoteo principle. The Zarate catheter was removed. After reviewing the hemodynamic data, it was elected to conclude the procedure. All catheters removed. The venous sheath was removed with application of manual pressure to achieve optimal hemostasis. Overall the patient tolerated the procedure well. There were no overt complications. He was to be transferred to the holding area in stable condition. FINDINGS: Hemodynamics: RA 34 RV 75/20, 34 PA 75/35 [54] PCWP 33 TPG 21 AO 158/83 [111] Cardiac output /cardiac index 7.57/3.75 AO sat /PA sat 92%/76% INDICATIONS: Decompensated heart failure with midrange ejection fraction Arnel Banerjee MD CV CARDIAC CATH PROCEDURES Final Result * (ABNORMAL) POC Hb02% (03/26/2025 3:53 PM EDT) IABBWX44% 76.3(A) 90 - 95 % QC Pass/Fail Passed QC LOT # [id number] QC Expiration Date 73,126 SAMPLESITE nl Blood Venous blood specimen / Unknown 03/26/2025 3:53 PM EDT Narrative Vishal Hagen MT - 03/27/2025 9:24 AM EDT [place] [id number] Fiona Zamarripa MD POINT OF CARE TEST ENTER/EDIT ORDERABLES Final Result * Light Green Top (03/26/2025 7:30 AM EDT) Only the most recent of2 resultswithin the time period is included. Pathologist [facility] Extra Tube Hold for add-ons. 03/26/2025 9:01 AM EDT [facility] ([facility]) Comment:Auto resulted. Blood Venous blood specimen / Unknown 03/26/2025 7:30 AM EDT 03/26/2025 7:42 AM EDT Fiona Zamarripa MD LAB BLOOD ORDERABLES Final Res ult [facility]) [address] [place], [place] [id number] * Inhibitor screen, PTT (03/25/2025 6:18 PM EDT) [facility] Inhibitor Screen PTT Consistent with circulating inhibitor. 03/28/2025 10:32 AM EDT [facility] ([facility]) Blood Venous blood specimen / Unknown Arterial Line / Unknown 03/25/2025 6:18 PM EDT 03/25/2025 6:35 PM EDT Fiona Zamarripa MD LAB BLOOD ORDERABLES Final Res ult [facility]) [address] [place] [address] * Respiratory virus PCR panel (03/25/2025 4:23 PM EDT) Adenovirus Not Detected Not Detected 03/25/2025 5:47 PM EDT [facility] ([facility]) Bordetella pertussis Not Detected Not Detected 03/25/2025 5:47 PM EDT [facility] ([facility]) Bordetella parapertussis Not Detected Not Detected 03/25/2025 5:47 PM EDT [facility] ([facility]) Chlamydia pneumoniae Not Detected Not Detected 03/25/2025 5:47 PM EDT [facility] ([facility]) Coronavirus 229E Not Detected Not Detected 03/25/2025 5:47 PM EDT [facility] ([facility]) Coronavirus HKU1 Not Detected Not Detected 03/25/2025 5:47 PM EDT [facility] ([facility]) Coronavirus NL63 Not Detected Not Detected 03/25/2025 5:47 PM EDT [facility] ([facility]) Coronavirus OC43 Not Detected Not Detected 03/25/2025 5:47 PM EDT [facility] ([facility]) Human Metapneumovirus Not Detected Not Detected 03/25/2025 5:47 PM EDT [facility] ([facility]) Human Rhinovirus + Enterovirus Not Detected Not Detected 03/25/2025 5:47 PM EDT [facility] ([facility]) Influenza A Not Detected Not Detected 03/25/2025 5:47 PM EDT [facility] ([facility]) Influenza B Not Detected Not Detected 03/25/2025 5:47 PM EDT [facility] ([facility]) Mycoplasma pneumoniae Not Detected Not Detected 03/25/2025 5:47 PM EDT [facility] ([facility]) Parainfluenza 1 Not Detected Not Detected 03/25/2025 5:47 PM EDT [facility] ([facility]) Parainfluenza 2 Not Detected Not Detected 03/25/2025 5:47 PM EDT [facility] ([facility]) Parainfluenza 3 Not Detected Not Detected 03/25/2025 5:47 PM EDT [facility] ([facility]) Parainfluenza 4 Not Detected Not Detected 03/25/2025 5:47 PM EDT [facility] ([facility]) Respiratory Syncytial Virus Not Detected Not Detected 03/25/2025 5:47 PM EDT [facility] ([facility]) SARS-CoV-2 Not Detected Not Detected 03/25/2025 5:47 PM EDT [facility] ([facility]) Swab Nasopharyngeal structure / Unknown Non-blood Collection / Unknown 03/25/2025 4:23 PM EDT 03/25/2025 4:28 PM EDT Narrative [facility] ([facility]) - 03/25/2025 5:47 PM EDT Testing methodology is a multiplexed nucleic acid test intended for the simultaneous qualitative detection and differentiation of nucleic acids from multiple viral and bacterial respiratory organisms in nasopharyngeal swabs (FUEL EFF[employer]IENT [employer] DES[employer]). Fiona Zamarripa MD LAB MICROBIOLOGY - GENERAL ORD ERABLES Final Result [facility]) [address] [place] [address] * High Sensitivity Troponin I (03/25/2025 3:48 PM EDT) Only the most recent of3 resultswithin the time period is included. High Sensitivity Troponin I 13 <20 ng/L 03/25/2025 4:50 PM EDT [facility] ([place]) Blood Venous blood specimen / Unknown Arterial Line / Unknown 03/25/2025 3:48 PM EDT 03/25/2025 4:19 PM EDT Arnel Banerjee MD LAB BLOOD ORDERABLES Final Resul t Performing Organization Address City/[facility]/ZIP Co de Phone Number [facility]) [address] [place] [id number] * CTA Chest W IV Contrast (03/25/2025 2:29 PM EDT) Anatomical Region Laterality Modality Body, Chest Computed Tomogra phy 03/25/2025 3:12 PM EDT Impressions 03/25/2025 3:15 PM EDT 1. No evidence for large central pulmonary thromboembolism. Evaluation of peripheral pulmonary arteries is limited by gross patient motion/respiratory artifact and body habitus. 2. Bibasilar consolidation and atelectasis. Additionally there are groundglass opacities in the upper lungs. Findings may reflect multifocal infection. Clinical correlation required. Electronically signed: Jackson Reyes. Narrative 03/25/2025 3:15 PM EDT CTA pulmonary angiogram Clinical history:Pulmonary embolism. Pneumonitis. Shortness of breath. Technique: Spiral multidetector CT pulmonary angiogram was performed after the intravenous administration of contrast material including 3-D reconstructions displayed on a PACS workstation and reviewed by the radiologist. Automated dose reduction techniques were utilized. All CT scans at this facility use dose modulation, iterative reconstruction, and/or weight based dosing when appropriate to reduce radiation dose to as low as reasonably achievable. Comparisons:None Findings:Evaluation of virtually all of the peripheral, subsegmental pulmonary artery branches is limited due to extensive gross patient motion/respiratory artifact and patient body habitus. The main pulmonary artery and the left and right pulmonary arteries appear free of filling defects to suggest acute pulmonary thromboembolism. No isolated right ventricular dilation. Nonenlarged lymph nodes are noted throughout the mediastinum and moustapha, likely reactive in etiology. Changes of coronary artery bypass graft and mild coronary artery calcifications are present. There is dependent atelectasis and consolidation with some groundglass opacities noted in the upper lungs bilaterally. No pleural effusion. No pneumothorax. Procedure Note Jackson Reyes MD - 03/25/2025 CTA pulmonary angiogram Clinical history:Pulmonary embolism. Pneumonitis. Shortness of breath. Technique: Spiral multidetector CT pulmonary angiogram was performed afterthe intravenous administration of contrast material including 3-Dreconstructions displayed on a PACS workstation and reviewed by the radiologist. Automateddose reduction techniques were utilized. All CT scans at this facility usedose modulation, iterative reconstruction, and/or weight based dosing when appropriate to reduce radiation dose to as low as reasonably achievable. Comparisons:None Findings:Evaluation of virtually all of the peripheral, subsegmentalpulmonary artery branches is limited due to extensive gross patientmotion/respiratory artifact and patient body habitus. The main pulmonary artery and the leftand right pulmonary arteries appear free of filling defects to suggest acute pulmonary thromboembolism. No isolated right ventricular dilation.Nonenlarged lymph nodes are noted throughout the mediastinum and moustapha, likely reactivein etiology. Changes of coronary artery bypass graft and mild coronaryartery calcifications are present. There is dependent atelectasis andconsolidation with some groundglass opacities noted in the upper lungs bilaterally. Nopleural effusion. No pneumothorax. IMPRESSION: 1. No evidence for large central pulmonary thromboembolism. Evaluationof peripheral pulmonary arteries is limited by gross patientmotion/respiratory artifact and body habitus. 2. Bibasilar consolidation and atelectasis. Additionally there aregroundglass opacities in the upper lungs. Findings may reflect multifocal infection. Clinical correlation required. Electronically signed: Jackson Reyes. Fiona Zamarripa MD IMG CT PROCEDURES Final Result * COMPLETE ECHO (TTE) W/ IMAGING AGENT (03/25/2025 1:17 PM EDT) Anatomical Region Laterality Modality Other 03/25/2025 12:3 9 PM EDT Narrative 03/25/2025 3:06 PM EDT 1 1 [facility] Heart Station [address] [place] [address] [phone] (fax) Echocardiogram-[facility] Name: CARLOS CHEEK Study Date: 03/25/2025 12:39 PM B/P: 127 mmHg/64 mmHg HR: 73 bpm Date of : 1970 Location: [facility] Height: 54 in. Age: 54 year(s) Patient [...] - 5.9cm) LVDs, 2D 3.99 cm (2.1cm - 4cm) IVSd, 2D 0.98 cm (0.6cm - 1.1cm) [...] Value IVC 2.8 cm (1.2cm - 2.3cm) Valvular Assessment LVOT 0.7 - 1.1 m/sec Aortic [...] trileaflet. Tricuspid Valve: Tricuspid valve is poorly visualized. Moderate to severe tricuspid regurgitation. No tricuspid valve stenosis. Pulmonic Valve: Pulmonary valve appears normal. Trivial pulmonary regurgitation. No pulmonic valve stenosis. Aorta: The aortic root exhibits normal size. Great Vessels: IVC: The IVC is dilated. Respiratory inspiration less than 50%. Pericardium: There is a minimal posterior pericardial effusion. Procedure Staff Reading Group: [facility] Referring Physician: SIVAKUMAR PATEL Title I Teacher: CHRIS Loomis Ordering Physician: FIONA LIRIANO Procedure Note Macario Crowder MD - 03/25/2025 1 1 [facility] Heart Station [address] [place] [address] [phone] (fax) Echocardiogram-[facility] Name: CARLOS CHEEK Study Date: 03/25/2025 12:39 PM B/P: 127 mmHg/64 mmHg HR: 73 bpm Date of : 1970 Location: [facility] Height: 54 in. Age: 54 year(s) Patient [...] - 5.9cm) LVDs, 2D 3.99 cm (2.1cm - 4cm) IVSd, 2D 0.98 cm (0.6cm - 1.1cm) [...] Value IVC 2.8 cm (1.2cm - 2.3cm) Valvular Assessment LVOT 0.7 - 1.1 m/sec Aortic [...] trileaflet. Tricuspid Valve: Tricuspid valve is poorly visualized. Moderate to severe tricuspid regurgitation. No tricuspid valve stenosis. Pulmonic Valve: Pulmonary valve appears normal. Trivial pulmonary regurgitation. No pulmonic valve stenosis. Aorta: The aortic root exhibits normal size. Great Vessels: IVC: The IVC is dilated. Respiratory inspiration less than 50%. Pericardium: There is a minimal posterior pericardial effusion. Procedure Staff Reading Group: [facility] Referring Physician: SIVAKUMAR PATEL Title I Teacher: CHRIS Loomis Ordering Physician: FIONA LIRIANO Fiona Zamarripa MD CV ECHO PROCEDURES Final Resul t * (ABNORMAL) Arterial blood gas with ionized calcium (03/25/2025 12:22 PM EDT) Only the most recent of2 resultswithin the time period is included. pH, Arterial 7.37 7.35 - 7.45 pH 03/25/2025 4:15 PM EDT [facility] RESPIRATORY THERAPY pCO2, Arterial 51(H) 35 - 48 mmHg 03/25/2025 4:15 PM EDT [facility] THER[facility] pO2, Arterial 70(L) 83 - 100 mmHg 03/25/2025 4:15 PM EDT [facility] RES[facility]IR[facility]ORY THERAPY HCO3, Arterial 29.5(H) 21.0 - 28.0 mEq/L 03/25/2025 4:15 PM EDT [facility] RES[facility]IR[facility]ORY THERAPY Calcium, Ion 1.26 1.15 - 1.33 mmol/L 03/25/2025 4:15 PM EDT [facility] RESPIRATORY THERAPY O2 Sat, Arterial 94.9 94.0 - 98.0 % 03/25/2025 4:15 PM EDT [facility] RESPIRATORY THERAPY Base Excess, Arterial 3.1(H) -2.0 - 3.0 mmol/L 03/25/2025 4:15 PM EDT [facility] RESPIRATORY THERAPY Source Of Oxygen SALTER 03/25/2025 4:15 PM EDT [facility] RESPIRATORY THERAPY LPM 13 03/25/2025 4:15 PM EDT [facility] Blood Arterial blood specimen / Unknown Arterial Puncture / Unknown 03/25/2025 12:22 PM EDT 03/25/2025 12:22 PM EDT us Fiona Zamarripa MD LAB BLOOD ORDERABLES Final Res ult [facility] RESPIRATORY THERAPY [address] [place] [address], * SARS-CoV-2 PCR (03/25/2025 11:35 AM EDT) SARS-CoV-2 PCR Negative Negative 03/25/2025 2:41 PM EDT [facility] ([facility]) Swab Nasal structure / Unknown Non-blood Collection / Unknown 03/25/2025 11:35 AM EDT 03/25/2025 2:21 PM EDT Narrative [facility] ([facility]) - 03/25/2025 2:41 PM EDT Testing methodology utilizes isothermal nucleic acid amplification technology for the differential and qualitative detection of SARS-CoV-2 viral nucleic acids. Fiona Zamarripa MD LAB MICROBIOLOGY - GENERAL ORD ERABLES Final Result Performing Organization Address [facility] Co de Phone Number [facility] ([facility]) [address] [place] [address] * Rapid influenza A/B PCR (03/25/2025 11:35 AM EDT) Rapid Influenza A PCR Negative Negative 03/25/2025 2:41 PM EDT [facility] ([facility]) Rapid Influenza B PCR Negative Negative 03/25/2025 2:41 PM EDT [facility] ([facility]) Swab Nasal structure / Unknown Non-blood Collection / Unknown 03/25/2025 11:35 AM EDT 03/25/2025 2:21 PM EDT Narrative [facility] ([facility]) - 03/25/2025 2:41 PM EDT Testing methodology utilizes isothermal nucleic acid amplification technology for the differential and qualitative detection of Influenza A and Influenza B viral nucleic acids. Fiona Zamarripa MD LAB MICROBIOLOGY - GENERAL ORD ERABLES Final Result Performing Organization Address [facility] Co de Phone Number [facility] ([facility]) [address] [place] [address] * Sputum culture (03/25/2025 11:35 AM EDT) Gram Stain Result <10 Squamous Epithelial Cells Per Low Power Field 03/27/2025 8:41 AM EDT [facility] ([facility]) Gram Stain Result <10 Polys Per Low Power Field 03/27/2025 8:41 AM EDT [facility] ([facility]) Gram Stain Result Rare Gram positive cocci in pairs 03/27/2025 8:41 AM EDT [facility] ([facility]) Gram Stain Result Rare Gram negative bacilli 03/27/2025 8:41 AM EDT [facility] ([facility]) Sputum (Sputum, Expectorated) 03/25/2025 11:35 AM EDT 03/25/2025 2:14 PM EDT Narrative [facility] ([facility]) - 03/27/2025 8:41 AM EDT Moderate Growth Colonies Consistent with Upper Respiratory Izzy Fiona Zamarripa MD LAB MICROBIOLOGY - GENERAL ORD ERABLES Final Result [facility] ([facility]) [address] [place] [address] * (ABNORMAL) CBC auto differential (03/25/2025 12:25 AM EDT) Auto WBC 4.66 4.00 - 10.60 10*3/uL 03/25/2025 1:16 AM EDT [facility] ([facility]) RBC 4.92 4.20 - 5.70 10*6/uL 03/25/2025 1:16 AM EDT [facility] ([facility]) Hemoglobin 16.0 13.0 - 17.0 g/dL 03/25/2025 1:16 AM EDT [facility] ([facility]) Hematocrit 47.9 39.0 - 50.0 % 03/25/2025 1:16 AM EDT [facility] ([facility]) MCV 97.4 82.0 - 98.0 fL 03/25/2025 1:16 AM EDT [facility] ([facility]) MCH 32.5 27.0 - 33.0 pg 03/25/2025 1:16 AM EDT [facility] ([facility]) MCHC 33.4 32.0 - 35.0 g/dL 03/25/2025 1:16 AM EDT [facility] ([facility]) RDW 15.4(H) 11.5 - 15.0 % 03/25/2025 1:16 AM EDT [facility] ([facility]) Neutrophils % 91.8(H) 40.0 - 72.0 % 03/25/2025 1:16 AM EDT [facility] ([facility]) Lymphocytes % 6.9(L) 20.0 - 45.0 % 03/25/2025 1:16 AM EDT [facility] ([facility]) Monocytes % 0.9(L) 5.0 - 12.0 % 03/25/2025 1:16 AM EDT [facility] ([facility]) Eosinophils % 0.0 0.0 - 6.0 % 03/25/2025 1:16 AM EDT [facility] ([facility]) Basophils % 0.0 0.0 - 1.0 % 03/25/2025 1:16 AM EDT [facility] ([facility]) Neutrophils Absolute 4.28 1.60 - 7.60 10*3/uL 03/25/2025 1:16 AM EDT [facility] ([facility]) Lymphocytes Absolute 0.32(L) 1.20 - 4.00 10*3/uL 03/25/2025 1:16 AM EDT [facility] ([facility]) Monocytes Absolute 0.04(L) 0.10 - 1.00 10*3/uL 03/25/2025 1:16 AM EDT [facility] ([facility]) Eosinophils Absolute 0.00 0.00 - 0.50 10*3/uL 03/25/2025 1:16 AM EDT [facility] ([facility]) Basophils Absolute 0.00 0.00 - 0.20 10*3/uL 03/25/2025 1:16 AM T [facility] ([facility]) Platelets 197 150 - 400 10*3/uL 03/25/2025 1:16 AM EDT [facility] ([facility]) nRBC % 0.0 0 % 03/25/2025 1:16 AM EDT [facility] ([facility]) Immature Granulocytes % 0.4 0.0 - 1.0 % 03/25/2025 1:16 AM T [facility] ([facility]) Immature Granulocytes Absolute 0.02 0.00 - 0.20 10*3/uL 03/25/2025 1:16 AM T [facility]) Blood Venous blood specimen / Unknown Arterial Line / Unknown 03/25/2025 12:25 AM EDT 03/25/2025 1:03 AM EDT Fiona Zamarripa MD LAB BLOOD ORDERABLES Final Res ult Performing Organization Address City/[facility]/ZIP Co de Phone Number [facility] ([place]) [address] [place] [address] * (ABNORMAL) Protime-INR (03/25/2025 12:25 AM EDT) Protime 20.9(H) 12.3 - 14.8 Seconds 03/25/2025 1:24 AM EDT [facility] ([facility]) INR 1.83(H) 0.90 - 1.10 03/25/2025 1:24 AM EDT [facility] ([facility]) Comment: [facility] RECOMMENDED INR FOR [facility] THERAPY CONDITION INR PROPHYLAXIS OF VENOUS THROMBOSIS 2-3 (HIGH-RISK SURGERY) TREATMENT OF VENOUS THROMBOSIS 2-3 TREATMENT OF PULMONARY EMBOLISM 2-3 PREVENTION OF SYSTEMIC EMBOLISM: 2-3 ACUTE MYOCARDIAL INFARCTION TISSUE HEART VALVES VALVULAR HEART DISEASE ATRIAL FIBRILLATION RECURRENT SYSTEMIC EMBOLISM MECHANICAL HEART VALVE 2.5-3.5 FROM: ORAL ANTICOAGULANTS. MECHANISM OF ACTION, CLINICAL EFFECTIVENESS, AND OPTIMAL THERAPEUTIC RANGE. CHEST 1995;108:231S-246S. Blood Venous blood specimen / Unknown Arterial Line / Unknown 03/25/2025 12:25 AM EDT 03/25/2025 12:53 AM EDT Fiona Zamarripa MD LAB BLOOD ORDERABLES Final Res ult Performing Organization Address City/[facility]/ZIP Co de Phone Number [facility] ([place]) [address] [place] [address] * (ABNORMAL) Comprehensive metabolic panel (03/25/2025 12:25 AM EDT) Only the most recent of2 resultswithin the time period is included. Sodium 136 136 - 145 mmol/L 03/25/2025 1:48 AM EDT [facility] ([facility]) Potassium 4.6 3.5 - 5.1 mmol/L 03/25/2025 1:48 AM EDT [facility] ([facility]) Chloride 101 98 - 107 mmol/L 03/25/2025 1:48 AM EDT [facility] ([facility]) CO2 27 21 - 31 mmol/L 03/25/2025 1:48 AM EDT [facility] ([facility]) Anion Gap 13 7 - 20 mmol/L 03/25/2025 1:48 AM EDT [facility] ([facility]) BUN 19 7 - 25 mg/dL 03/25/2025 1:48 AM EDT [facility] ([facility]) Creatinine 0.83 0.70 - 1.30 mg/dL 03/25/2025 1:48 AM EDT [facility] ([facility]) BUN/Creatinine Ratio 22.9 03/07 1:48 AM EDT [facility] ([facility]) Glucose 149(H) 70 - 100 mg/dL 03/25/2025 1:48 AM EDT [facility] ([facility]) Calcium 8.8 8.6 - 10.3 mg/dL 03/25/2025 1:48 AM EDT [facility] ([facility]) AST 18 13 - 39 U/L 03/25/2025 1:48 AM EDT [facility] ([facility]) ALT (SGPT) 19 7 - 52 U/L 03/25/2025 1:48 AM EDT [facility] ([facility]) Alkaline Phosphatase 83 34 - 104 U/L 03/25/2025 1:48 AM EDT [facility] ([facility]) Total Protein 6.6 6.0 - 8.3 g/dL 03/25/2025 1:48 AM EDT [facility] ([facility]) Albumin 3.9 3.5 - 5.7 g/dL 03/25/2025 1:48 AM EDT [facility] ([facility]) Total Bilirubin 0.9 0.3 - 1.0 mg/dL 03/25/2025 1:48 AM EDT [facility] ([facility]) eGFR 104.7 >60.0 mL/min/1. 73m*2 03/25/2025 1:48 AM EDT [facility] ([facility]) Comment:The [facility] s estimated glomerular filtration rate (eGFR) will no longer include consideration of race in its calculation. The [employer] s eGFR Task Force developed new recommendations for the estimation of the glomerular filtration rate in the [place] They recommend immediate implementation of the new equation refit without the race variable in all laboratories because the calculation does not include race. In addition to not including race in the calculation and reporting, it included diversity in its development, and has acceptable performance characteristics and potential consequences that do not disproportionately affect any one group of individuals. Blood Venous blood specimen / Unknown Arterial Line / Unknown 03/25/2025 12:25 AM EDT 03/25/2025 1:03 AM EDT Fiona Zamarripa MD LAB BLOOD ORDERABLES Final Res ult [facility] ([facility]) [address] [place] [address] * XR chest 2 views (03/24/2025 5:20 PM EDT) Anatomical Region Laterality Modality Chest Computed Radiogr aphy Historical Provider IMG XR PROCEDURES Final R esult from Last 3 Months Insurance [facility] Member Subscriber Plan / Payer (Ef fective 2021-Present) Name:Carlos Cheek Relation to Subscriber:Self Name:Carlos Cheek Payer ID:[id number] (NAIC) Type:Not on file Address: [facility] [id number] [place] [id number] Advance Directives * Full Code (Latest Code Status on File) Date Activated Date Inactivated Comments 03/24/2025 10:55 PM 04/12/2025 6:17 PM Care Teams Room Service 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
--- OUTSIDE RECORDS SUMMARY | 2025-05-28 16:38 | XMS_ITS | Clinical Summary ---
Author Organization [facility] Address [address] [place] [address] Care Team Providers Care Solution Coordinator Name Role Phone Sivakumar Patel Primary Care Provider [phone] Allergies Active Allergy Reactions Criticality Noted Date Comments Sulfa Antibiotics Anaphylaxis,Hives High 10/24/2014 Medications albuterol HFA 90 mcg/act inhaler Inhale 2 puffs every 6 (six) hours if needed Active atorvastatin (Lipitor) 80 MG tablet Take 1 tablet by mouth Daily Active budesonide-formoter ol (Symbicort) 80-4.5 MCG/ACT inhaler Inhale 2 puffs in the morning and 2 puffs in the evening. Active Cetirizine HCl 10 MG capsule Take 1 capsule by mouth Daily Active b complex vitamins capsule Take 1 capsule by mouth in the morning. Active fluticasone (Flonase) 50 MCG/ACT nasal spray Administer 1 spray into affected nostril(s) Daily as needed Active furosemide (Lasix) 40 MG tablet Take 80 mg by mouth at bedtime Active isosorbide mononitrate ER (Imdur) 60 MG 24 hr tablet Take 60 mg by mouth in the morning. 03/10/20 25 Active lisinopril 20 MG tablet Take 1 tablet by mouth in the morning and 1 tablet in the evening. Active ezetimibe (Zetia) 10 MG tablet Take 1 tablet by mouth Daily Active glucosamine-chondro itin 500-400 MG tablet Take 1 tablet by mouth in the morning and 1 tablet in the evening and 1 tablet before bedtime. Active Rivaroxaban (XARELTO PO) Take by mouth Act mark anthony magnesium oxide (Mag-Ox) 400 mg tablet 400 mg Daily Active dofetilide (Tikosyn) 250 MCG capsule Take 250 mcg by mouth Daily Active sildenafil (Revatio) 20 MG tablet Take 20 mg by mouth in the morning and 20 mg in the evening and 20 mg before bedtime. Active baclofen (Lioresal) 10 MG tablet Take by mouth in the morning and in the evening and before bedtime. Active potassium chloride CR (Klor-Con M10) 10 MEQ ER tablet Take 10 mEq by mouth Daily Do not crush or chew. Active methIMAzole (Tapazole) 10 MG tabletIndications:S ubclinical hyperthyroidism Take 1 tablet (10 mg) by mouth Daily 90 tablet 1 05/19/20 25 026 Active amLODIPine (Norvasc) 10 MG tablet Take 10 mg by mouth in the morning. 12/20/19 25 025 Discontinu ed(Therapy completed) metoprolol tartrate (Lopressor) 50 MG tablet Take 1 tablet by mouth in the morning and 1 tablet before bedtime. 08/18/20 24 025 Discontinu ed(Therapy completed) predniSONE (Deltasone) 20 MG tabletIndications:S ubclinical hyperthyroidism Take 1 tablet (20 mg) by mouth Daily for 14 days 14 tablet 04/29/20 25 025 Encounters Date Type Department Care Team Description 05/19/2025 10:00 AM EDT Office Visit [facility] [address] [place] [address] Chucho Oreilly MD Subclinical hyperthyroidism (Primary Dx); Paroxysmal atrial fibrillation (HCC); Achondroplasia (HHS-HCC); Thyroid nodule 05/19/2025 Bamboo flowsheet [facility] [address] [place] [address] Chucho Oreilly MD 05/13/2025 2:45 PM EDT Ancillary Procedure [facility] [address] [place] [address] Subclinical hyperthyroidism 05/13/2025 Travel 04/29/2025 9:50 AM EDT Office Visit [facility] [address] [place] [address] Chucho Oreilly MD Subclinical hyperthyroidism (Primary Dx); Paroxysmal atrial fibrillation (HCC); Achondroplasia (HHS-HCC) 04/29/2025 Bamboo flowsheet [facility] [address] [place] [address] Chucho Oreilly MD 03/03/2025 Abstract [facility] [address] [place] [address] Chucho Oreilly MD from Last 3 Months Immunizations Immunization Administration Dates Next Due Influenza, High Dose Seasonal, Preservative Free 08/21/2019 Influenza, injectable, MDCK, preservative free, quadrivalent 09/26/2022,07/26/2021 Influenza, injectable, MDCK, quadrivalent 2018 Influenza, injectable, quadrivalent, preservativ e free 08/19/2015 Pneumococcal Conjugate PCV 20 09/26/2022 Family History Medical History Relation Name Comments Hypertension Father Hypertension Mother Frye Syndrome Mother Colon cancer Other family history Relation Name Status Comments Father Mother Other family history Social History Tobacco Use Types Packs/Day Years Used Date Smoking Tobacco: Former Cigarettes Tobacco Cessation:Counseling Given: Not Answered Sex and Gender Information Value Date Recorded Sex Assigned at Male 04/28/2025 10:25 PM EDT Legal Sex Male 7:10 PM EDT Gender Identity Male 04/28/2025 10:25 PM EDT Sexual Orientation Straight 04/28/2025 10 :25 PM EDT Last Filed Vital Signs Vital Sign Reading Time Taken Comments Blood Pressure 120/70 02/24/2025 11:18 AM EDT Pulse 84 05/19/2025 10:09 AM EDT Temperature - - Respiratory Rate 18 05/19/2025 10:09 AM EDT Oxygen Saturation 94% 05/19/2025 10:09 AM EDT Inhaled Oxygen Concentration - - Weight 125 kg (275 lb) 05/19/2025 10:09 AM EDT Height 137.2 cm (4' 6 ) 05/19/2025 10:09 AM EDT Body Mass Index 66.31 05/19/2025 10:09 AM EDT Plan of Treatment Upcoming Encounters Date Type Department Care Team (Late st Contact Info) Description 07/22/2025 10:20 AM EDT Office Visit [facility] [address] [place] [address] Chucho Oreilly MD [address] [place] [address] Health Maintenance Due Date Last Done Comments CT Colonography 1971 Colonoscopy 1971 Colorectal Cancer Screening 1971 FIT-DNA 1971 FIT 1971 FOBT 1971 Sigmoidoscopy 1971 Influenza Vaccine (#1) 2025 2, 07/26/2021, 08/21/2019, Additional history exists Procedures Procedure Name Priority Date/Time Associated Diagnosis Comments TSH Routine 05/19/2025 9:44 AM EDT Subclinical hyperthyroidism T4, FREE Routine 05/19/2025 9:44 AM EDT Subclinical hyperthyroidism T3, FREE Routine 05/19/2025 9:44 AM EDT Subclinical hyperthyroidism THYROID PEROXIDASE ANTIBODIES Routine 05/19/2025 9:44 AM EDT Subclinical hyperthyroidism THYROTROPIN RECEPTOR ANTIBODY Routine 05/19/2025 9:44 AM EDT Subclinical hyperthyroidism THYROGLOBULIN ANTIBODIES Routine 05/19/2025 9:44 AM EDT Subclinical hyperthyroidism US THYROID Routine 05/13/2025 3:24 PM EDT Subclinical hyperthyroidism from Last 3 Months Results * Thyroid peroxidase antibody (05/19/2025 9:44 AM EDT) Blood Venous blood specimen / Unknown Chucho Oreilly MD LAB BLOOD ORDERABLES Final Re sult [facility] * Thyrotropin receptor antibody (05/19/2025 9:44 AM EDT) Blood Venous blood specimen / Unknown us Chucho Oreilly MD LAB BLOOD ORDERABLES Final Re sult Performing Organization Address [facility] de Phone Number [facility] * Thyroglobulin Antibody (05/19/2025 9:44 AM EDT) Blood Venous blood specimen / Unknown Chucho Oreilly MD LAB BLOOD ORDERABLES Final Re sult Performing Organization Address [facility] de Phone Number [facility] * T3, free (05/19/2025 9:44 AM EDT) Blood Venous blood specimen / Unknown Chucho Oreilly MD LAB BLOOD ORDERABLES Final Re sult Performing Organization Address [facility] de Phone Number [facility] * TSH (05/19/2025 9:44 AM EDT) Blood Venous blood specimen / Unknown Chucho Oreilly MD LAB BLOOD ORDERABLES Final Re sult Performing Organization Address [facility] de Phone Number [facility] * T4, free (05/19/2025 9:44 AM EDT) Blood Venous blood specimen / Unknown Chucho Oreilly MD LAB BLOOD ORDERABLES Final Re sult Performing Organization Address [facility] de Phone Number [facility] * US thyroid (05/13/2025 3:24 PM EDT) Anatomical Region Laterality Modality Head, Neck Ultrasound 05/14/2025 10:1 9 AM EDT Impressions 05/14/2025 10:21 AM EDT Heterogeneous thyroid. No nodules requiring follow-up. Please note that description of thyroid nodules in this report is based on the 2017 Thyroid Imaging, Reporting and Data System (TI- RADS) established by the [place] [employer] to help provide guidance regarding management of thyroid nodules based on their appearance. These are offered in an attempt to assist the referring physician in their decision process and help address the current over diagnosis of thyroid cancer. These guidelines are considered recommendations and guidance and do not represent rules or absolute standards of care ELECTRONICALLY SIGNED BY: Silverio Stone MD Narrative 05/14/2025 10:21 AM EDT EXAMINATION: THYROID ULTRASOUND HISTORY: Hyperthyroidism. TECHNIQUE: Sonography and Doppler imaging of the thyroid was performed. Images were obtained and stored in a permanent archive. COMPARISON: None. RESULT: RIGHT LOBE: 5.5 x 1.9 x 2.4 cm; heterogeneous echogenicity, expected vascular flow LEFT LOBE: 4.5 x 2.0 x 1.8 cm; heterogeneous echogenicity, expected vascular flow ISTHMUS: 0.5 cm Nodules: 0.8 cm solid hypoechoic TR 4 nodule mid thyroid, not requiring further follow-up per criteria due to small size. Lymph nodes: No enlarged cervical lymph nodes. Procedure Note Silverio Stone MD - 05/14/2025 EXAMINATION: THYROID ULTRASOUND HISTORY: Hyperthyroidism. TECHNIQUE: Sonography and Doppler imaging of the thyroid was performed.Images were obtained and stored in a permanent archive. COMPARISON: None. RESULT: RIGHT LOBE: 5.5 x 1.9 x 2.4 cm; heterogeneous echogenicity, expectedvascular flow LEFT LOBE: 4.5 x 2.0 x 1.8 cm; heterogeneous echogenicity, expectedvascular flow ISTHMUS: 0.5 cm Nodules: 0.8 cm solid hypoechoic TR 4 nodule mid thyroid, not requiringfurther follow-up per criteria due to small size. Lymph nodes: No enlarged cervical lymph nodes. IMPRESSION: Heterogeneous thyroid. No nodules requiring follow-up. Please note that description of thyroid nodules in this report is based onthe 2017 Thyroid Imaging, Reporting and Data System (TI- RADS) establishedby the [place] [employer] to help provide guidance regardingmanagement of thyroid nodules based on their appearance. These areoffered in an attempt to assist the referring physician in theirdecision process and help address the current over diagnosis of thyroidcancer. These guidelines are considered recommendations and guidance anddo not represent rules or absolute standards of care ELECTRONICALLY SIGNED BY: Silverio Stone MD us Chucho Oreilly MD IMG US PROCEDURES Final Resul t from Last 3 Months Insurance BCBS Care Teams Solution Coordinator Relationship Specialty Start Date End Date Sivakumar Patel DO [address] [facility] [place] [phone] PCP - General Internal Medicine 03/17/25
--- OUTSIDE RECORDS SUMMARY | 2025-05-28 16:38 | XMS_ITS | Encounter Summary ---
Author Organization [facility] Address [id number] [address] [place] [address] Care Team Providers Care Simonizer Name Role Phone Sivakumar Patel DO Primary Care Provider [phone] Reason for Visit * Reason Onset Date Comments Med Refill 12/27/2019 Encounter Details Date Type Department Care Team (Late st Contact Info) Description 12/25/2019 Refill [facility] [address] [facility] [place] [id number] Chuy Kelly MD [address] [place], [place] [id number] Primary osteoarthritis of right knee Social History Tobacco Use Types Packs/Day Years Used Date Smoking Tobacco: Former Cigarettes Q uit: 10/01/2007 Smokeless Tobacco: Never Comments:History 1 pk a day for about 5 years Alcohol Use Standard Drinks/Week Comments Not Currently 0 (1 standard drink = 0.6 oz pur e alcohol) Childcare Answer Date Recorded Childcare Unknown 04/15/2019 Employment Answer Date Recorded Employment Unknown 04/15/2019 Sex and Gender Information Value Date Recorded Sex Assigned at Not on file Legal Sex Male 12:34 PM EDT Gender Identity Not on file Sexual Orientation Not on file documented as of this encounter Plan of Treatment Not on file documented as of this encounter Goals Goal Patient Goal Type Associated Problems Recent Progress Patient-Stated? Author <enter goal here> General Yes Betty Bender RN Note: Evaluation of progress towards goal: To be discharged home documented as of this encounter Visit Diagnoses Diagnosis Primary osteoarthritis of right knee documented in this encounter Care Teams Simonizer Relationship Specialty Start Date End Date Sivakumar Patel DO [address] [place] [address] PCP - General Internal Medicine 10/01/19 documented as of this encounter
--- OUTSIDE RECORDS SUMMARY | 2025-05-28 16:38 | XMS_ITS | Clinical Summary ---
Author Organization [employer] Address [facility] [id number] [address] [place] [address] Care Team Providers Care Coating Supervisor Name Role Phone Sivakumar Patel Primary Care Provider [phone] Allergies Active Allergy Reactions Criticality Noted Date Comments Sulfa (Sulfonamide Antibiotics) Anaphylaxis High Medications atorvastatin (LIPITOR) 80 mg tablet once daily at bedtime. Active clopidogrel (PLAVIX) 75 mg tablet Take 75 mg by mouth daily. Instructed to stop 7 days prior to surgery per Dr Finley office Active aspirin 81 mg Take 162 mg by mouth daily. Instructed to continue per Dr Finley office Active amLODIPine (NORVASC) 5 mg tablet 10 mg before breakfast. Active albuterol (PROVENTIL HFA;VENTOLIN HFA) 90 mcg/actuation inhaler every 6 (six) hours as needed. Active cetirizine (ZyrTEC) 10 mg capsule Zyrtec 10 mg capsule Take by oral route. Active lisinopril (PRINIVIL,ZESTR IL) 20 mg tablet 20 mg 2 (two) times a day. Active metoprolol tartrate (LOPRESSOR) 100 mg tablet Take 100 mg by mouth 2 (two) times a day. Active tiZANidine (ZANAFLEX) 4 mg tablet 4 mg every 8 (eight) hours as needed. 9 Active ibuprofen (ADVIL,MOTRIN) 200 mg tablet Take 200 mg by mouth every 6 (six) hours as needed for pain. Active guaiFENesin (MUCINEX) 600 mg tablet extended release 12hr Take 1,200 mg by mouth every 12 (twelve) hours as needed. Active fluticasone propionate (FLONASE) 50 mcg/actuation nasal spray Administer 1 spray into each nostril as needed. Active b complex vitamins capsule Take 1 capsule by mouth daily. Active GLUCOSAMINE-CON DROITIN-VFCI438 ORAL Take by mouth daily. Active lactase (LACTAID ORAL) Take by mouth as needed. Active oxyCODONE-aceta minophen (PERCOCET) 5-325 mg per tablet TAKE UP TO 7 TABS DAILY ON DAYS 1 14, THEN UP TO 6 TABS DAILY ON DAYS 15 28. 0 Active methylPREDNISol one (MEDROL DOSEPACK) 4 mg tablet TAKE 6 TABLETS ON DAY 1 DIRECTED ON PACKAGE AND DECREASE BY 1 TAB EACH DAY FOR A TOTAL OF 6 DAYS 0 Active cyclobenzaprine (FLEXERIL) 10 mg tablet TAKE 1 TABLET BY MOUTH 3 TIMES A DAY FOR 7 DAYS 0 Active furosemide (LASIX) 20 mg tablet daily. Active XARELTO 20 mg tablet tablet Take 20 mg by mouth daily. 2 Active Active Problems Problem Noted Date Diagnosed Date Osteoarthritis of left ankle and foot 07/22/2022 Total knee replacement status, right 01/09/2020 Osteoarthritis of right knee 12/18/2019 Primary osteoarthritis of right knee 11/14/2019 Morbid obesity with body mass index of 70 and ov er in adult 11/14/2019 Atrial fibrillation 04/10/2014 Coronary arteriosclerosis in [place] artery 05/08 Hyperlipidemia 05/06/2013 Constitutional short stature 05/03/2013 Arteriosclerosis of arterial coronary artery byp ass graft 04/19/2013 Obstructive sleep apnea syndrome 04/04/2013 Essential hypertension 04/02/2013 Immunizations Immunization Administration Dates Next Due Influenza, Injectable, MDCK, Quadrivalent 2018 Family History Medical History Relation Name Comments Anesthesia problems Father states f ather wakes up during Heart disease Maternal Grandfather Anesthesia problems Mother n/v Cancer Paternal Grandfather Diabetes Paternal Grandfather Bleeding Disorder Neg Hx Clotting disorder Neg Hx Colon cancer Neg Hx Prostate cancer Neg Hx Stroke Neg Hx Relation Name Status Comments Father Alive Maternal Grandfather Maternal Grandmother Alive Mother Alive Paternal Grandfather Paternal Grandmother Alive Social History Tobacco Use Types Packs/Day Years Used Date Smoking Tobacco: Former Cigarettes Q uit: 10/01/2007 Smokeless Tobacco: Never Tobacco Cessation:Counseling Given: No Comments:History 1 pk a day for about 5 years Alcohol Use Standard Drinks/Week Comments Not Currently 0 (1 standard drink = 0.6 oz pur e alcohol) Childcare Answer Date Recorded Childcare Unknown 04/15/2019 Employment Answer Date Recorded Employment Unknown 04/15/2019 Purpose - Life Answer Date Recorded Purpose and direction in life Unknown Sex and Gender Information Value Date Recorded Sex Assigned at Not on file Legal Sex Male 12:34 PM EDT Gender Identity Not on file Sexual Orientation Not on file Last Filed Vital Signs Vital Sign Reading Time Taken Comments Blood Pressure 145/69 06/18/2020 8:54 AM EDT Pulse 49 06/18/2020 8:54 AM EDT Temperature 36.4 C (97.5 F) 03/19/2021 11:18 AM EDT Respiratory Rate 20 12/19/2019 12:00 PM EST Oxygen Saturation 89% 12/19/2019 12:00 PM EST Inhaled Oxygen Concentration - - Weight 135.2 kg (298 lb) 07/22/2022 11:34 AM EDT Height 137.2 cm (4' 6 ) 07/22/2022 11:34 AM EDT Body Mass Index 71.85 07/22/2022 11:34 AM EDT Plan of Treatment Health Maintenance Due Date Last Done Comments Depression Screening 1983 Tobacco Screening 1983 DTaP,Tdap and Td Vaccines (1 - Tdap) 1990 Zoster (Shingles) Vaccine (1 of 2) 2021 Adult BMI Screening 07/22/2023 07/22/2022 COVID-19 Vaccine ( season) 2024, 02/02/2021 Influenza Vaccine 07/07/2025 07/26/2021, 07/17/2019 Goals Goal Patient Goal Type Associated Problems Recent Progress Patient-Stated? Author <enter goal here> General Yes Betty Bender, LYDIA Note: Evaluation of progress towards goal: To be discharged home Medical Devices Implanted Type Area Collection Systems Modeler Device Identifier Shelf Expiration Date Model / Serial / Lot Cmnt Bn Bio 40gm Rpl [id number] - [id number] Implanted:Qty: 2 on 12/18/2019 by Chuy Kelly MD at [facility] Cement Right: Knee [employer] 10/05/2023 [id number] / / [id number] Xtn Stm 30mm 14mm Kn Tib - [id number] Implanted:Qty: 1 on 12/18/2019 by Chuy Kelly MD at [facility] Orthopedic Implant [employer] 12/06/2029 [id number] Cmpt Fem 1 Nikhil Kn Rt Crcte Rtn - [id number] Implanted:Qty: 1 on 12/18/2019 by Chuy Kelly MD at [facility] Orthopedic Implant [employer] 07/06/2027 [id number] / / [id number] Bsplt Tib 5d A Kn Rt Cmnt Stm - [id number] Implanted:Qty: 1 on 12/18/2019 by Chuy Kelly MD at [facility] Plate [employer] 10/05/2027 [id number] / / [id number] Scr Headframe 25mm 2.5mm - [id number] Implanted:Qty: 2 on 12/18/2019 by Chuy Kelly MD at [facility] Screw Right: Knee [employer] 08/05/2029 [id number] Vivacit-E Highly Crosslinked Polythylene Articular Surface/ Fixed Bearing Implanted:Qty: 1 on 12/18/2019 by Chuy Kelly MD at [facility] [employer] 10/05/2022 [id number] Insurance Advance Directives * Full Code (Latest Code Status on File) Date Activated Date Inactivated Comments 12/18/2019 12:43 PM 12/19/2019 7:25 PM Care Teams Coating Supervisor Relationship Specialty Start Date End Date Sivakumar Patel DO [address] [place] [address] PCP - General Internal Medicine 10/01/19
[2025-05-28 17:23] LABS: Anion Gap 17.1; Blood Urea Nitrogen 29.0 mg/dL (7.0-18.0); Calcium 9.4 mg/dL (8.5-10.1); Carbon Dioxide 23.3 mmol/L (21.0-32.0); Chloride 101 mmol/L (98-107); Estimated GFR (African America >60 (>=60 mL/min/1.73m^2); Estimated GFR (Non-African Ame 53 (>=60 mL/min/1.73m^2); Glucose 107 mg/dL (74-106); Potassium 4.4 mmol/L (3.5-5.1); Sodium 137 mmol/L (136-145)
== END 2025-05-28 16:35 | disposition home or self-care (01) ==
LOC: LAB 16:35
PROVIDERS: PCP Internal Medicine; Visit Provider Internal Medicine
DX: N17.9 Acute kidney failure, unspecified (principal); E87.5 Hyperkalemia
CPT/HCPCS: 36415; 80048

== ENCOUNTER 2025-06-30 11:31 | Outpatient (OUT) | payer BC, SELFPAY ==
--- OUTSIDE RECORDS SUMMARY | 2025-06-30 11:34 | XMS_ITS | Encounter Summary ---
Author Organization [facility] Address [address] [address] Care Team Providers Care Brass Chaser Name Role Phone Sivakumar Patel DO Primary Care Provider [phone] Reason for Visit * Reason Comments Med Refill Encounter Details Date Type Department Care Team (Late st Contact Info) Description 02/28/2023 Refill [facility] [address] [place] [phone] Khoa López MD [address] [facility] [address] [facility] [place] [phone] Chest pain, unspecified Social History Tobacco Use [...] Description 08/14/2025 10:00 AM EDT Office Visit [facility] [address] [place] [address] Rosa Flores, YENI [address] [facility] [place] [phone] documented as of this encounter Visit Diagnoses Diagnosis Chest pain, unspecified documented in this encounter Additional Health Concerns Infection Onset Date Last Indicated Resolved Time COVID-19 Rule-Out Comment:negative 03/25/2025 03/25/2025 03/26/2025 8:15 AM E DT documented as of this encounter Care Teams Brass Chaser Relationship Specialty Start Date End Date Sivakumar Patel DO [address] [place] [address] PCP - General 09/18/22 documented as of this encounter
--- OUTSIDE RECORDS SUMMARY | 2025-06-30 11:34 | XMS_ITS | Encounter Summary ---
Author Organization [facility] Address [address] [place] [address] Care Team Providers Care Social Welfare Administrator Name Role Phone Sivakumar Patel DO Primary Care Provider Reason for Visit * Reason Onset Date Comments Med Refill 08/08/2024 Encounter Details Date Type Department Care Team (Late st Contact Info) Description 08/08/2024 Refill [facility] [address] [place] [address] Honey Wheeler MA Paroxysmal atrial [...] Description 08/14/2025 10:00 AM EDT Office Visit [facility] at [facility] [address] [place] [address] Rosa Flores, LICENSED PRACTICAL VOCATIONAL NURSE [address] [place] [address] documented as of this encounter Visit Diagnoses Diagnosis Paroxysmal atrial fibrillation (CMS/HCC) Atrial fibrillation PAF (paroxysmal atrial fibrillation) (CMS/HCC) Atrial fibrillation documented in this encounter Additional Health Concerns Infection Onset Date Last Indicated Resolved Time COVID-19 Rule-Out Comment:negative 03/25/2025 03/25/2025 03/26/2025 8:15 AM E DT documented as of this encounter Care Teams Social Welfare Administrator Relationship Specialty Start Date End Date Sivakumar Patel DO [address] [facility] [place] [phone] PCP - General 09/18/22 documented as of this encounter
--- OUTSIDE RECORDS SUMMARY | 2025-06-30 11:34 | XMS_ITS | Encounter Summary ---
Author Organization [facility] Address [address] [place] [address] Care Team Providers Care Process Safety Specialist Name Role Phone Sivakumar Patel DO Primary Care Provider [phone] Reason for Visit * Reason Comments Med Refill Encounter Details Date Type Department Care Team (Late st Contact Info) Description 01/26/2023 Refill [facility] [address] [place] [address] Khoa López MD [address] [facility] [address] [place] [address] Localized edema Social History Tobacco [...] Description 08/14/2025 10:00 AM EDT Office Visit [facility] [address] [place] [address] Rosa Flores CNP [address] [place] [phone] documented as of this encounter Visit Diagnoses Diagnosis Localized edema Edema documented in this encounter Additional Health Concerns Infection Onset Date Last Indicated Resolved Time COVID-19 Rule-Out Comment:negative 03/25/2025 03/25/2025 03/26/2025 8:15 AM E DT documented as of this encounter Care Teams Process Safety Specialist Relationship Specialty Start Date End Date Sivakumar Patel DO [address] [place] [phone] PCP - General 09/18/22 documented as of this encounter
--- OUTSIDE RECORDS SUMMARY | 2025-06-30 11:34 | XMS_ITS | Encounter Summary ---
Author Organization [employer] Address [facility] [id number] [address] [place] [address] Care Team Providers Care Clinical Psychiatrist Name Role Phone Sivakumar Patel DO Primary Care Provider [phone] Reason for Visit * Reason Onset Date Comments Med Refill 12/27/2019 Encounter Details Date Type Department Care Team (Late st Contact Info) Description 12/25/2019 Refill [facility] [address] [facility] [address] [place] [phone] Chuy Kelly MD [address] [place], [place] [id number] Primary osteoarthritis of right knee Social History [...] knee documented in this encounter Care Teams Clinical Psychiatrist Relationship Specialty Start Date End Date Sivakumar Patel DO [address] [place] [address] PCP - General Internal Medicine 10/01/19 documented as of this encounter
--- OUTSIDE RECORDS SUMMARY | 2025-06-30 11:35 | XMS_ITS | Clinical Summary ---
Author Organization [facility] Address [address] [place] [address] Care Team Providers Care Chief Meteorologist Name Role Phone Sivakumar Patel DO Primary Care Provider [phone] Allergies Active Allergy Reactions Criticality Noted Date [...] affected nostril(s) if needed each day. Active ipratropium-albu teroL (Duo-Neb) 0.5-2.5 mg/3 mL nebulizer solution INHALE 3 ML BY MOUTH TWICE DAILY AND EVERY 6 HOURS NEEDED FOR COUGH OR SHORT OF BREATH 3 Active budesonide-formo teroL (Symbicort) 80-4.5 mcg/actuation inhaler Inhale 2 puffs in the morning and at bedtime. Rinse mouth with water after use to reduce aftertaste and incidence of candidiasis. Do not swallow. Active ezetimibe (Zetia) 10 mg tablet 10 mg 1 (one) time each day. 4 Active baclofen (Lioresal) 10 mg tabletIndication s:Acute diastolic heart failure (CMS/HCC) Take 1 tablet (10 mg) by mouth three times daily for 254 doses. 90 tablet 2 5 07/02/20 25 Active lisinopril 10 mg tabletIndication s:Acute diastolic heart failure (CMS/HCC) Take 1 tablet (10 mg) by mouth in the morning for 92 doses. 30 tablet 3 5 07/09/20 25 Active Additional Information Patient taking differently: 5 mgoral Daily, Reported on 05/27/2025 gabapentin (Neurontin) 100 mg capsuleIndicatio ns:Acute diastolic heart failure (CMS/HCC) Take 1 capsule (100 mg) by mouth every 8 (eight) hours for 261 doses. 90 capsule 2 5 07/04/20 25 Active magnesium oxide (Mag-Ox) 400 mg (241.3 mg magnesium) tabletIndication s:Acute diastolic heart failure (CMS/HCC) Take 1 tablet (400 mg) by mouth in the morning for 86 doses. 30 tablet 2 5 07/04/20 25 Active sildenafil (Revatio) 20 mg tabletIndication s:Acute diastolic heart failure (CMS/HCC) Take 1 tablet (20 mg) by mouth every 8 (eight) hours for 276 doses. 90 tablet 3 5 07/09/20 25 Active spironolactone (Aldactone) 25 mg tabletIndication s:Acute diastolic heart failure (CMS/HCC) Take 0.5 tablets (12.5 mg) by mouth in the morning for 91 doses. 15 tablet 3 5 07/09/20 25 Active dofetilide (Tikosyn) 250 mcg capsuleIndicatio ns:Severe obstructive sleep apnea Take 1 capsule (250 mcg) by mouth every 12 (twelve) hours. 60 capsule 5 Active bumetanide (Bumex) 2 mg tabletIndication s:Acute diastolic heart failure (CMS/HCC) Take 1 tablet (2 mg) by mouth in the morning. 30 tablet 1 5 Active oxyCODONE-acetam inophen (Percocet) 5-325 mg tablet Take 1 tablet by mouth every 4 (four) hours if needed. 06/26/202 5 Active methIMAzole (Tapazole) 10 mg tablet Take 10 mg by mouth three times daily. Active cetirizine 10 mg capsule Take 1 capsule by mouth in the morning. Active Active Problems Problem Noted Date Diagnosed [...] 9:29 AM EDT): s/p CABG x 4 (2013). Cardiac catheterization in May 2024 demonstrated only 1/4 grafts patent (AVILA-LAD patent, occluded radial-OM1, SVG-OM2 and SVG-PDA). Continue Lipitor, patient currently not on any aspirin due to concern for hemoptysis Acute hypoxic respiratory failure 03/24/2025 Assessment & Plan (04/11/2025 4:45 PM EDT): [place] to be combination of CHF, restrictive lung disease, and pulmonary hypertension Patient currently alternating between BiPAP and high flow nasal cannula Solu-Medrol switched to taper prednisone and continue Revatio Patient finished 5 days of Zosyn and 2 days of Rocephin Continue Dulera inhaler Assessment & Plan (04/10/2025 12:18 PM EDT): [place] to be combination of CHF, restrictive lung disease, and pulmonary hypertension Patient currently alternating between BiPAP and high flow nasal cannula Continue Solu-Medrol 40 daily and sildenafil. Solu-Medrol today Patient finished 5 days of Zosyn and 2 days of Rocephin Continue Dulera inhaler Assessment & Plan (04/09/2025 1:28 PM EDT): [place] to be combination of CHF, restrictive lung disease, and pulmonary hypertension Patient currently alternating between BiPAP and high flow nasal cannula Continue Solu-Medrol 40 daily and sildenafil. Solu-Medrol today Patient finished 5 days of Zosyn and 2 days of Rocephin Continue Dulera inhaler Assessment & Plan (04/08/2025 1:20 PM EDT): [place] to be combination of CHF, restrictive lung disease, and pulmonary hypertension Patient currently alternating between BiPAP and high flow nasal cannula Continue Solu-Medrol 40 daily and sildenafil Patient finished 5 days of Zosyn and 2 days of Rocephin Continue Dulera inhaler Assessment & Plan (04/07/2025 12:09 PM EDT): [place] to be combination of CHF, restrictive lung disease, and pulmonary hypertension Patient currently alternating between BiPAP and high flow nasal cannula Continue Solu-Medrol 40 daily and sildenafil Patient finished 5 days of Zosyn and 2 days of Rocephin Continue Dulera inhaler Assessment & Plan (04/06/2025 11:15 AM EDT): [place] to be combination of CHF, restrictive lung disease, acute toxicity and pulmonary hypertension Patient currently alternating between BiPAP and high flow Continue Solu-Medrol 40 daily and sildenafil Patient finished 5 days of Zosyn and 2 more days of Rocephin Continue Dulera inhaler Assessment & Plan (04/05/2025 9:29 AM EDT): [place] to be combination of CHF, restrictive lung [...] Bronchitis 07/30/2013 Pneumonia 07/30/2013 Coronary arteriosclerosis in big sandy artery 05/08 Hyperlipidemia 05/06/2013 Constitutional short stature 05/03/2013 Hip pain 04/19/2013 Arteriosclerosis of arterial coronary artery byp ass graft 04/19/2013 Preinfarction syndrome 04/19/2013 Obstructive sleep apnea syndrome 04/04/2013 Dyspnea 04/02/2013 Essential hypertension 04/02/2013 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 arthropathy, other specified sites Encounters Date Type Department Care Team Description 05/27/2025 9:30 AM EDT Office Visit [facility] [address] [place] [address] Arnel Banerjee MD Chronic respiratory failure with hypoxia (CMS/HCC) (Primary Dx) 05/07/2025 Orders Only [facility] [address] [place] [address] Natalia Bassett MA Chronic obstructive pulmonary disease with (acute) exacerbation (CMS/HCC) (Primary Dx); Restrictive lung disease; Pulmonary hyperinflation; Pulmonary hypertension (CMS/HCC) 04/17/2025 2:00 PM EDT Office Visit [facility] [address] [place] [address] Rosa Flores CNP Chronic respiratory failure with hypoxia (CMS/HCC) (Primary Dx); PAF (paroxysmal atrial fibrillation) (CMS/HCC); Chronic heart failure with mildly reduced ejection fraction (HFmrEF, 41-49%) (CMS/HCC); Thyrotoxicosis without thyroid storm, unspecified thyrotoxicosis type; Coronary arteriosclerosis in big sandy artery; Hx of CABG; Pulmonary hypertension (CMS/HCC) 04/14/2025 Orders Only [facility] [address] [place] [address] Radha Garza, product safety professional diastolic heart failure (CMS/HCC) (Primary Dx) 04/14/2025 Orders Only [facility] [address] [place] [address] Ashley Reeves PA-C Acute diastolic heart failure (CMS/HCC) 04/14/2025 Telephone [facility] [address] [place] [address] Radha Garza, LYDIA HF post discharge call. 03/27/2025 11:59 PM EDT Anesthesia Event [facility] [address] [place] [address] Fernando Perez MD 03/24/2025 10:51 PM EDT - 04/12/2025 3:30 PM EDT Hospital Encounter [facility] [address] [place] [address] Fiona Zamarripa MD Noori, Zaid, MD Assaly, Ragheb, MD Saad, Hani, MD Acute hypoxic respiratory failure (CMS/HCC) (Primary Dx); Acute diastolic heart failure (CMS/HCC); Coronary arteriosclerosis in big sandy artery; Lumbar spondylosis; Total knee replacement status, right; Hip pain, unspecified laterality; Severe obstructive sleep apnea Discharge Disposition: Home or Self Care (01) from Last 3 Months Immunizations Immunization Administration [...] drink = 0.6 oz pur e alcohol) [facility] Utilities Answer Date Recorded In the past 12 months has th e electric, gas, oil, or water company threatened to shut off services in your [...] any time in the past 12 m [facility], were you homeless or living in a intermediate (including now)? No 03/25/2025 Hunger Vital Sign Answer Date Recorded Within the past 12 months, y ou worried that your food would run out before you got the money to buy more. Never true 03/25/20 25 Ran Out of Food in the Last [...] Description 08/14/2025 10:00 AM EDT Office Visit [facility] [address] [place] [address] Rosa Flores, REGISTERED REPRESENTATIVE [address] [place] [address] Health Maintenance Due Date Last [...] 2:40 PM EDT PAF (paroxysmal atrial fibrillation) ([facility]) ECG 12-LEAD Routine 04/12/2025 11:43 AM EDT [...] 8:00 AM EDT ELECTROLYTE PANEL Timed 04/07/2025 7:1 4 AM EDT CBC Routine 04/07/2025 4:12 AM [...] ECG 12-LEAD Routine 03/30/2025 2:15 AM EDT from Last 3 Months Results * ECG 12 lead unit performed (04/17/2025 2:40 PM EDT) Rosa Flores [facility] ECG ORDERABLES Final Result * ECG 12 lead (04/12/2025 11:43 AM EDT) Only the most recent of15 resultswithin the time period is included. Ventricular Rate 72 BPM GE MUSE Atrial Rate 72 BPM GE MUSE AL Interval 164 ms GE MUSE QRS DURATION 90 ms GE MUSE QT Interval 452 ms GE MUSE QTC CALCULATION(BAZE TT) 494 ms GE MUSE P [place] 70 degrees GE MUSE R-[place] 88 degrees GE MUSE T Wave [place] 132 degrees GE MUSE 04/12/2025 11:1 9 [...] Khoa López (71) on 04/12/2025 11:47:46 AM us Claire Dubon MD ECG ORDERABLES Final Result GE MUSE * (ABNORMAL) CBC (04/12/2025 3:44 AM EDT) Only the most recent of13 resultswithin the time period is included. Auto WBC 10.63(H) 4.00 - 10.60 10*3/uL 04/12/2025 4:38 AM EDT [facility] ([facility]) RBC 5.16 4.20 - 5.70 10*6/uL 04/12/2025 4:38 AM EDT [facility] ([facility]) Hemoglobin 16.4 13.0 - 17.0 g/dL 04/12/2025 4:38 AM EDT [facility] ([facility]) Hematocrit 48.0 39.0 - 50.0 % 04/12/2025 4:38 AM EDT [facility] ([facility]) MCV 93.0 82.0 - 98.0 fL 04/12/2025 4:38 AM EDT [facility] ([facility]) MCH 31.8 27.0 - 33.0 pg 04/12/2025 4:38 AM EDT [facility] ([facility]) MCHC 34.2 32.0 - 35.0 g/dL 04/12/2025 4:38 AM EDT [facility] ([facility]) RDW 13.3 11.5 - 15.0 % 04/12/2025 4:38 AM EDT [facility] ([facility]) Platelets 172 150 - 400 10*3/uL 04/12/2025 4:38 AM EDT [facility] ([facility]) Blood Venous blood specimen / Unknown Venipuncture / Unknown 04/12/2025 3:44 AM EDT 04/12/2025 4:05 AM EDT us Oliverio Phipps MD LAB BLOOD ORDERABLES Final Resul t [facility] ([facility]) [address] [place] [address] * (ABNORMAL) Basic metabolic panel (04/12/2025 3:44 AM EDT) Only the most recent of13 resultswithin the time period is included. Sodium 131(L) 136 - 145 mmol/L 04/12/2025 4:29 AM T [facility] ([facility]) Potassium 4.1 3.5 - 5.1 mmol/L 04/12/2025 4:29 AM T [facility] ([facility]) Chloride 97(L) 98 - 107 mmol/L 04/12/2025 4:29 AM T [facility] ([facility]) CO2 29 21 - 31 mmol/L 04/12/2025 4:29 AM [facility] ([facility]) BUN 21 7 - 25 mg/dL 04/12/2025 4:29 AM [facility] ([facility]) Creatinine 0.53(L) 0.70 - 1.30 mg/dL 04/12/2025 4:29 AM [facility] ([facility]) Glucose 95 70 - 100 mg/dL 04/12/2025 4:29 AM [facility] ([facility]) Calcium 8.1(L) 8.6 - 10.3 mg/dL 04/12/2025 4:29 AM [facility] ([facility]) Anion Gap 9 7 - 20 mmol/L 04/12/2025 4:29 AM [facility] ([facility]) eGFR 119.8 >60.0 mL/min/1. 73m*2 04/12/2025 4:29 AM [facility] ([facility]) Comment:[facility] s estimated glomerular filtration rate (eGFR) [...] BUN/Creatinine Ratio 39.6 05/2025 4:29 AM EDT [facility] ([facility]) Blood Venous blood specimen / Unknown Venipuncture / Unknown 04/12/2025 3:44 AM EDT 04/12/2025 4:05 AM EDT Fiona Zamarripa MD LAB BLOOD ORDERABLES Final Res ult Performing Organization Address City/[facility]/ZIP Co de Phone Number [facility]) [address] [place] [address] * Magnesium (04/11/2025 4:10 AM EDT) Only the most recent of13 resultswithin the time period is included. Magnesium 2.2 1.9 - 2.7 mg/dL 04/11/2025 4:49 AM EDT [facility]) Blood Venous blood specimen / Unknown Venipuncture / Unknown 04/11/2025 4:10 AM EDT 04/11/2025 4:24 AM EDT us Donell Whitehead CNP LAB BLOOD ORDERABLES Final Resul t Performing Organization Address City/[facility] Co de Phone Number [facility]) [address] [place] [address] * (ABNORMAL) Electrolyte panel (04/08/2025 7:17 AM EDT) Only the most recent of19 resultswithin the time period is included. Sodium 135(L) 136 - 145 mmol/L 04/08/2025 8:25 AM EDT [facility] ([facility]) Potassium 4.6 3.5 - 5.1 mmol/L 04/08/2025 8:25 AM EDT [facility] ([facility]) Chloride 100 98 - 107 mmol/L 04/08/2025 8:25 AM EDT [facility] ([facility]) CO2 30 21 - 31 mmol/L 04/08/2025 8:25 AM EDT [facility] ([facility]) Anion Gap 10 7 - 20 mmol/L 04/08/2025 8:25 AM EDT [facility] ([facility]) Blood Venous blood specimen / Unknown Venipuncture / Unknown 04/08/2025 7:17 AM EDT 04/08/2025 8:02 AM EDT us Reinaldo Pennington MD LAB BLOOD ORDERABLES Final Resu lt [facility] ([facility]) [address] [place] [address] * XR chest 1 view (04/06/2025 2:09 PM EDT) Only the most recent of2 resultswithin the time period is included. Anatomical [...] wires and closure devices are seen similar toprior study. 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 IMPRESSION: Decompensated congestive heart failure similar to prior study. No acute pathology or other interval change. Electronically signed: Pratik Song MD. us Scot Oliva MD IMG XR PROCEDURES Final Result * Lavender Top (04/05/2025 8:57 AM EDT) Only the most recent of4 resultswithin the time period is included. Extra Tube Hold for add-ons. 04/05/2025 11:01 AM EDT [facility] ([facility]) Comment:Auto resulted. Blood Venous blood specimen / Unknown 04/05/2025 8:57 AM EDT 04/05/2025 9:07 AM EDT us Claire Dubon MD LAB BLOOD ORDERABLES Final Resul t Performing Organization Address [facility] Co de Phone Number [facility]) [address] [place] [address] [phone] * APTT (04/05/2025 3:34 AM EDT) Only the most recent of7 resultswithin the time period is included. [facility] aPTT 26.9 25.0 - 35.0 Seconds 04/05/2025 4:26 AM EDT [facility] ([facility]) Comment:Clinical significanc e of the APTT is questionable in the presence of heparin. Blood Venous blood specimen / Unknown Venipuncture / Unknown 04/05/2025 3:34 AM EDT 04/05/2025 3:41 AM EDT us Arsen Duque MD LAB BLOOD ORDERABLES Final Resu lt Performing Organization Address City/[facility]/ZIP Co de Phone Number [facility]) [address] [place] [address] [phone] * Pneumocystis smear by DFA (04/04/2025 5:55 PM EDT) Pathologist [facility] Pneumocystis Smear, DFA Negative Negative 04/05/2025 1:57 PM EDT [facility] ([facility]) Sputum Bronchial structure / Unknown Non-blood Collection / Unknown 04/04/2025 5:55 PM EDT 04/04/2025 6:02 PM EDT us Arsen Duque MD LAB MICROBIOLOGY - GENERAL ORDE CSAEY Final Result Performing Organization Address City/[facility]/ZIP Co de Phone Number [facility]) [address] [place] [phone] * Phosphorus (04/04/2025 3:49 AM EDT) Only the most recent of2 resultswithin the time period is included. Phosphorus 4.2 2.5 - 5.0 mg/dL 04/04/2025 4:34 AM EDT [facility] ([facility]) Blood Venous blood specimen / Unknown Arterial Line / Unknown 04/04/2025 3:49 AM EDT 04/04/2025 4:09 AM EDT us Oliverio Phipps MD LAB BLOOD ORDERABLES Final Resul t Performing Organization Address [facility] Co de Phone Number [facility]) [address] [place] [phone] * Potassium (04/03/2025 6:11 PM EDT) Potassium 4.9 3.5 - 5.1 mmol/L 04/03/2025 6:37 PM EDT [facility]) Blood Venous blood specimen / Unknown Arterial Line / Unknown 04/03/2025 6:11 PM EDT 04/03/2025 6:15 PM EDT us Oliverio Phipps MD LAB BLOOD ORDERABLES Final Resul t Performing Organization Address City/[facility]/ZIP Co de Phone Number [facility]) [address] [place] [address] [phone] * (ABNORMAL) Anti-Xa (Heparin Level) (04/02/2025 3:28 AM EDT) Only the most recent of2 resultswithin the time period is included. Anti-Xa (Heparin) 0.78(H) 0.3 - 0.7 IU/mL 04/02/2025 4:08 AM EDT [facility] ([facility]) Comment:Rivaroxaban and Apix aban will interfere with the anti Xa assay used to monitor UFH and LMWH. Blood Venous blood specimen / Unknown Arterial Line / Unknown 04/02/2025 3:28 AM EDT 04/02/2025 3:36 AM EDT us Oliverio Phipps MD LAB BLOOD ORDERABLES Final Resul t Performing Organization Address City/[facility] de Phone Number [facility]) [address] [place] [address] * Vancomycin, random (04/02/2025 3:28 AM EDT) Only the most recent of2 resultswithin the time period is included. Vancomycin Rm 20.5 20.0 - 40.0 ug/mL 04/02/2025 4:07 AM EDT [facility] ([facility]) Blood Venous blood specimen / Unknown Arterial Line / Unknown 04/02/2025 3:28 AM EDT 04/02/2025 3:40 AM EDT us Oliverio Phipps MD LAB BLOOD ORDERABLES Final Resul t Performing Organization Address [facility] de Phone Number [facility]) [address] [place] [address] * (ABNORMAL) B-type natriuretic peptide (04/01/2025 7:30 PM EDT) BNP 127(H) 0 - 100 pg/mL 04/01/2025 8:23 PM EDT [facility]) Blood Venous blood specimen / Unknown Arterial Line / Unknown 04/01/2025 7:30 PM EDT 04/01/2025 7:55 PM EDT us Reinaldo Pennington MD LAB BLOOD ORDERABLES Final Resu lt Performing Organization Address City/[facility]/ZIP Co de Phone Number [facility] ([facility]) [address] [place] [address] * MRSA/MSSA DNA Nasal (04/01/2025 2:16 PM EDT) MSSA DNA Negative Negative 04/02/2025 2:34 PM EDT [facility] ([facility]) MRSA DNA Negative Negative 04/02/2025 2:34 PM EDT [facility] ([facility]) Swab Nasal structure / Unknown Non-blood Collection / Unknown 04/01/2025 2:16 PM EDT 04/01/2025 2:40 PM EDT Narrative [facility] ([facility]) - 04/02/2025 2:34 PM EDT Testing methodology [...] MICROBIOLOGY - GENERAL ORDER GARCIA Final Result [facility] ([facility]) [address] [place] [address] * CT chest wo IV contrast (03/30/2025 [...] no indication of acute disease. Procedure Note Oscar Sorto MD - 03/30/2025 CT CHEST WO [...] Electronically signed: Oscar Sorto. Fiona Zamarripa MD [facility] CT PROCEDURES Final Result * (ABNORMAL) Renal function panel (03/30/2025 5:52 AM EDT) Albumin 3.5 3.5 - 5.7 g/dL 03/30/2025 8:07 AM [facility] ([facility]) Calcium 9.0 8.6 - 10.3 mg/dL 03/30/2025 8:07 AM [facility] ([facility]) Phosphorus 3.4 2.5 - 5.0 mg/dL 03/30/2025 8:07 AM [facility] ([facility]) BUN 21 7 - 25 mg/dL 03/30/2025 8:07 AM [facility] ([facility]) Creatinine 0.76 0.70 - 1.30 mg/dL 03/30/2025 8:07 AM [facility] ([facility]) Sodium 136 136 - 145 mmol/L 03/30/2025 8:07 AM [facility] ([facility]) Potassium 3.9 3.5 - 5.1 mmol/L 03/30/2025 8:07 AM [facility] ([facility]) Chloride 98 98 - 107 mmol/L 03/30/2025 8:07 AM [facility] ([facility]) CO2 35(H) 21 - 31 mmol/L 03/30/2025 8:07 AM [facility] ([facility]) Anion Gap 7 7 - 20 mmol/L 03/30/2025 8:07 AM [facility] ([facility]) eGFR 107.5 >60.0 mL/min/1. 73m*2 03/30/2025 8:07 AM [facility] ([facility]) Comment:[facility]'s estimated glomerular filtration rate (eGFR) will [...] - 100 mg/dL 03/30/2025 8:07 AM [facility] ([facility]) Corrected Calcium 9.4 mg/dL 025 8:07 AM [facility] ([facility]) Fasting? UNKNOWN 03/30/2025 8:07 AM EDT [facility] ([facility]) BUN/Creatinine Ratio 27.6 03/07 8:07 AM EDT [facility] ([facility]) Blood Venous blood specimen / Unknown Venipuncture / Unknown 03/30/2025 5:52 AM EDT 03/30/2025 5:57 AM EDT us Fiona Zamarripa MD LAB BLOOD ORDERABLES Final Res ult [facility] ([facility]) [address] [place] [address] from Last 3 Months Insurance [facility] Advance Directives * Full Code (Latest Code Status on File) Date Activated Date Inactivated Comments 03/24/2025 10:55 PM 04/12/2025 6:17 PM Care Teams Chief Meteorologist Relationship Specialty Start Date End Date Sivakumar Patel DO [address] [facility] [id number] PCP - General 09/18/22
--- OUTSIDE RECORDS SUMMARY | 2025-06-30 11:35 | XMS_ITS | Clinical Summary ---
Author Organization [employer] tem Address [facility] [id number] [address] [place] [address] Care Team Providers Care Rubber And Plastics Worker Name Role Phone Sivakumar Patel Primary Care Provider [phone] Allergies Active Allergy Reactions Criticality Noted Date [...] 1 capsule by mouth daily. Active GLUCOSAMINE-CON DROITIN-[id number] ORAL Take by mouth daily. Active lactase [...] 11/14/2019 Atrial fibrillation 04/10/2014 Coronary arteriosclerosis in [place] artery 05/08 Hyperlipidemia 05/06/2013 Constitutional short stature [...] discharged home Medical Devices Implanted Type Area Automobile Dealer Device Identifier Shelf Expiration Date Model / Serial / Lot Cmnt Bn Bio 40gm Rpl [id number] - [id number] Implanted:Qty: 2 on 12/18/2019 by Chuy Kelly MD at Cement Right: Knee [employer] 10/05/2023 [id number] / / [id number] Xtn Stm 30mm 14mm Kn Tib - [id number] Implanted:Qty: 1 on 12/18/2019 by Chuy Kelly MD at Orthopedic [employer]plant [employer] 12/06/2029 [id number] Cmpt Fem 1 Nikhil Kn Rt Crcte Rtn - [id number] Implanted:Qty: 1 on 12/18/2019 by Chuy Kelly MD at [employer]opedic [employer]plant [employer] 07/06/2027 [id number] / / [id number] Bsplt Tib 5d A Kn Rt Cmnt Stm - [id number] Implanted:Qty: 1 on 12/18/2019 by Chuy Kelly MD at Plate [employer] 10/05/2027 [id number] / / [id number] Scr Headframe 25mm 2.5mm - [id number] Implanted:Qty: 2 on 12/18/2019 by Chuy Kelly MD at Screw Right: Knee [employer] 08/05/2029 [id number] Vivacit-E Highly Crosslinked Polythylene Articular Surface/ Fixed Bearing Implanted:Qty: 1 on 12/18/2019 by Chuy Kelly MD at [employer] 10/05/2022 [id number] Insurance Advance Directives * Full Code (Latest Code Status on File) Date Activated Date Inactivated Comments 12/18/2019 12:43 PM 12/19/2019 7:25 PM Care Teams Rubber And Plastics Worker Relationship Specialty Start Date End Date Sivakumar Patel DO [address] [place] [address] PCP - General Internal Medicine 10/01/19
--- OUTSIDE RECORDS SUMMARY | 2025-06-30 11:35 | XMS_ITS | Clinical Summary ---
Author Organization [facility] Address [address] [place], [place] [id number] Care Team Providers Care Floor Installation Mechanic Name Role Phone Unavailable Primary Care Provider [...] 2021 Shingrix Vaccine (1 of 2) 2021 Influenza Vaccine (#1) 2025 Procedures Procedure Name Priority Date/Time Associated Diagnosis Comments BASIC METABOLIC PANEL STAT 09/04/2007 9:25 PM EDT from Last 3 Months or Most Recently Relevant to Health Maintenance Results * (ABNORMAL) BASIC METABOLIC PNL (09/04/2007 9:25 PM EDT) Glucose 115(H) 65 - 100 mg/dL [facility] BUN 11 10 - 25 mg/dL [facility] Creatinine 0.6(L) 0.7 - 1.4 mg/dL [facility] Sodium 137 135 - 146 mmol/L [facility] Potassium 4.0 3.5 - 5.0 mmol/L [facility] Chloride 106 98 - 110 mmol/L [facility] CO2 27 23 - 32 mmol/L [facility] Anion Gap 4 0 - 15 mmol/L [facility] Calcium 7.3(L) 8.5 - 10.5 mg/dL [facility] Blood specimen (specimen) BLOOD SPECIMEN / Unknown 09/04/2007 9:25 PM EDT us Glynn Saleh MD LABORATORY Final Result [facility] [address] [place] [address] from Last 3 Months or Most Recently Relevant to Health Maintenance Insurance BLUE CARD PPO OOS
[2025-06-30 12:10] LABS: Anion Gap 15.1; Blood Urea Nitrogen 33.0 mg/dL (7.0-18.0); Calcium 9.1 mg/dL (8.5-10.1); Carbon Dioxide 25.5 mmol/L (21.0-32.0); Chloride 103 mmol/L (98-107); Estimated GFR (African America >60 (>=60 mL/min/1.73m^2); Estimated GFR (Non-African Ame 54 (>=60 mL/min/1.73m^2); Glucose 113 mg/dL (74-106); Potassium 4.6 mmol/L (3.5-5.1); Sodium 139 mmol/L (136-145)
== END 2025-06-30 11:32 | disposition home or self-care (01) ==
LOC: LAB 11:32
PROVIDERS: PCP Internal Medicine; Visit Provider Internal Medicine
DX: E87.5 Hyperkalemia (principal); N18.9 Chronic kidney disease, unspecified
CPT/HCPCS: 36415; 80048